=== PATIENT | female | born 1965 | race African-American/Black ===

== ENCOUNTER → 2016-07-26 | Outpatient (CLI) | payer MEDICARE, OTHER ==
[~2016-07-26] MED LIST: AMLO5TAB2 PO; ASPI81CH CHEW; BIOM30MI; CARV12.52 PO; FLUT50SP EACH NARE; INSU1MIS15; LANCETS1 MI1; LANTUS2P SQ; METO10TA PO; OMEP20TA PO; VENTAER INH
[2016-07-26 08:41] LABS: HDL CHOLESTEROL 47.9 MG/DL (40.0-60.0)
== END ==
LOC: CLAB 07:57
PROVIDERS: ATTEND Family Medicine
DX: E11.65 Type 2 diabetes mellitus with hyperglycemia (principal)
CPT/HCPCS: 36415; 80061

== ENCOUNTER 2017-02-13 15:23 | Inpatient (IN) | payer MEDICARE, OTHER ==
[~2017-02-13] VITALS: Ht 162.6 cm; Wt 125.2 kg
[2017-02-13 15:25] VITALS: BP 224/102; PULSE 95; RESP 18; TEMP 98.4; O2SAT 98
[2017-02-13] MEDS ORDERED: methylPREDNISolone SOD SUCC 125 MG/2 ML VIAL IV PUSH ONE (16:00)
[2017-02-13] MEDS ORDERED: SODIUM CHLORIDE 0.9% FLUSH 10 ML FLUSH IVF PRN (16:00)
[2017-02-13] MEDS: RESP: ALBUTEROL 2.5 MG/IPRATROPIUM 0.5 MG NEB (SCH) INH ×2 (16:16→16:17)
[2017-02-13 16:36] LABS: AUTOMATED NEUTROPHIL # 5.6 TH/MM3 (1.8-7.7); BASOPHIL % 0.6 % (0.0-2.0); EOSINOPHIL # 0.3 TH/MM3 (0-0.4); EOSINOPHIL % 3.5 % (0.0-4.0); HEMATOCRIT 28.8 % (35.0-46.0); HEMO FLAGS DIFF FINAL; LYMPH % 12.6 % (9.0-44.0); MEAN CELL VOLUME 91.8 FL (80.0-100.0); MEAN CORPUSCULAR HEMOGLOBIN 29.4 PG (27.0-34.0); MONO % 8.9 % (0.0-8.0); NEUT % 74.4 % (16.0-70.0); PLATELET COUNT 318 TH/MM3 (150-450); RED BLOOD COUNT 3.13 MIL/MM3 (4.00-5.30); RED CELL DISTRIBUTION WIDTH 15.8 % (11.6-17.2); WHITE BLOOD COUNT 7.6 TH/MM3 (4.0-11.0)
[2017-02-13 16:49] LABS: APTT (PATIENT) 26.1 SEC (24.3-30.1); PROTHROMBIN TIME - PATIENT 10.5 SEC (9.8-11.6)
[2017-02-13 17:06] LABS: ALT (GPT) 14 U/L (10-53); ANION GAP 5 MEQ/L (5-15); AST (GOT) 11 U/L (15-37); BLOOD UREA NITROGEN 40 MG/DL (7-18); CHLORIDE 105 MEQ/L (98-107); GLOMERULAR FILTRATION RATE 10 ML/MIN (>89); POTASSIUM 5.2 MEQ/L (3.5-5.1); SODIUM (NA) 140 MEQ/L (136-145)
[2017-02-13 17:10] LABS: ALKALINE PHOSPHATASE 75 U/L (45-117); TOTAL BILIRUBIN ADULT 0.2 MG/DL (0.2-1.0)
[2017-02-13 17:20] VITALS: BP_SYST 100; BP_SYST 110; BP_DIAS 81; BP_DIAS 84; PULSE 71; PULSE 74; RESP 16; RESP 18; O2SAT 97; O2SAT 98; O2SAT 99
--- NOTE | 2017-02-13 17:29 | RADRPT ---
EXAM DATE/TIME: 02/13/2017 17:01 [facility] COMPARISON: CHEST SINGLE AP, February 12, 2016, 23:40. INDICATIONS : Chest pain. Shortness of breath with a cough. MEDICAL HISTORY : Hypertension. Diabetes. Asthma. SURGICAL HISTORY : None. ENCOUNTER: Initial ACUITY: 2 weeks PAIN SCORE: 2/10 LOCATION: Bilateral chest FINDINGS: A single portable frontal view the chest shows moderate cardiomegaly. No discrete infiltrate or effus ion. No pneumothorax. Bony structures are unremarkable. CONCLUSION: Moderate cardiomegaly. Clear lungs. Dale Fisher Jr., MD on February 13, 2017 at 17:21 Board Certified Radiologist. This report was verified electronically.
--- NOTE | 2017-02-13 17:30 | RADRPT ---
EXAM DATE/TIME: 02/13/2017 17:03 [facility] COMPARISON: No previous studies available for comparison. INDICATIONS : Possible foreign body. Patient states she has been having trouble swallowing. Cold symptoms for the p ast two weeks. MEDICAL HISTORY : Hypertension. Diabetes. Asthma. SURGICAL HISTORY : None. ENCOUNTER: Initial ACUITY: 2 weeks PAIN SCORE: 0/10 LOCATION: Bilateral neck. FINDINGS: Two view examination of the soft tissues of the neck demonstrates aryepiglottic fold thickening. The trachea is midline. No radiopaque foreign bodies are seen. Calcified plaque involving the carotid ar teries bilaterally. A degenerative cervical spine. CONCLUSION: 1. Aryepiglottic fold thickening suggesting edema. No radiopaque foreign body. Dale Fisher Jr., MD on February 13, 2017 at 17:27 Board Certified Radiologist. This report was verified electronically.
[2017-02-13] MEDS ORDERED: SODIUM CHLOR 0.9% 1000 ML INJ 1,000 ML IV SCH (18:45)
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
[2017-02-13] MEDS ORDERED: NALOXONE HCL 0.4 MG/ML AMP IV PRN (19:15)
[2017-02-13] MEDS ORDERED: SODIUM CHLORIDE 0.9% FLUSH 10 ML FLUSH IV FLUSH PRN (19:15)
[2017-02-13] MEDS ORDERED: RESP: ALBUTEROL 2.5 MG/IPRATROPIUM 0.5 MG NEB (PRN) NEB (19:30)
[2017-02-13 19:33] VITALS: BP 224/99; PULSE 86; RESP 20; O2SAT 96
[2017-02-13 20:02] VITALS: BP 223/101
[2017-02-13] MEDS: RESP: ALBUTEROL 2.5 MG/IPRATROPIUM 0.5 MG NEB (SCH) NEB (20:28)
[2017-02-13] MEDS: SODIUM CHLORIDE 0.9% FLUSH 10 ML FLUSH IV FLUSH SCH (20:45)
[2017-02-13] MEDS ORDERED: BENZONATATE 100 MG CAP PO PRN (22:15)
--- NOTE | 2017-02-13 22:18 | HHI.HP ---
HPI Service Family Medicine Primary Care Physician No Primary Care Physician Admission Diagnosis shortness of breath Diagnoses: International Travel<30 Days: No Contact w/Intl Traveler<30days: No Known Affected Area: No History of Present Illness Mrs. Menjivar is a 51 yo F with PMH of CAD (NSTEMI 2010; s/p stent placent), T2DM, CKD, anemia who presents for evaluation of shortness of breath. Patient reports that she has felt shortness of breath for approximately 1 week; patient states that she was eating chicken at that time when she felt her tooth break; patient collected part of her tooth in her hand at that time but is concerned she swallowed her tooth. No voice changes or drooling. No significant throat pain. Patient states that since that time she has had increased shortness of breath. Patient reports that she has also had coughing which has been dry; patient thinks that she has had a cold. Patient states that her cough has made her shortness of breath worse, and states that it generally does. Patient does not report associated chest pain with shortness of breath. Patient states that both of her legs have recently been swollen, but she attributes this to stopping a diuretic recently. Patient reports that she currently smokes cigarettes but that she is ceasing to do so. Patient does not report any changes in vision, headache, extremity numbness/tingling. Patient reports that her urination has been unchanged; patient states that she urinates approximately 10-15 minutes and that her urine volume has remained approximately the same. Patient states that her blood glucose levels have been well controlled at home, and that she recently has had fasting values ~90-130. Interval History: Patient reports that symptoms are much improved in response to interventions given in ED [presumably Solumedrol 125mg and Duonebs] Review of Systems Constitutional: DENIES: Fever, Chills Eyes: DENIES: Blurred vision, Eye pain Ears, nose, mouth, throat: DENIES: Throat pain, Running Nose Cardiovascular: DENIES: Chest pain, Dyspnea on Exertion Gastrointestinal: DENIES: Abdominal pain, Nausea Genitourinary: DENIES: Urgency, Dysuria Integumentary: DENIES: Abnormal pigmentation, Rash Hematologic/lymphatic: DENIES: Bruising, Lymphadenopathy Neurologic: DENIES: Abnormal gait, Headache Psychiatric: DENIES: Anxiety, Confusion Past Family Social History Past Medical History Per EMR DM Type II - difficult control CAD NSTEMI with preserved EF 09/2010 Chronic kidney disease HLD ; HTN Metrorrhaghia Anemia Allergic rhinitis Poor medical compliance secondary to multiple socioeconomic issues Past Surgical History Per EMR Cardiac catheterization with stent of RCA (2010) Cholecystectomy, open (1979) Reported Medications Reported Meds & Active Scripts Active Carvedilol 12.5 Mg Tab 12.5 Mg PO BID Insulin Syringe/U-100/31G X 10/18" 1 ml 1 Mis Mis 1 Ea .ROUTE DIRECTED Metoclopramide (Metoclopramide HCl) 10 Mg Tab 10 Mg PO TIDAC Take one tab 30 min before meals for 12 weeks Lantus Inj (Insulin Glargine) 1,000 Unit/10 Ml Vial 27 Units SQ HS Amlodipine (Amlodipine Besylate) 5 Mg Tab 5 Mg PO DAILY Omeprazole 20 Mg Tab 20 Mg PO DAILY Sharpsafety Sharps Contai (Parenteral Therapy Supplies) 1 Mis Mis 1 Ea .ROUTE DIRECTED Lancets 1 Mis Mis 1 Ea .ROUTE DIRECTED Aspirin 81 Mg Chew 81 Mg CHEW ONCE Reported Fluticasone Nasal Mcdonald 50 Mcg/Act Naspr 50 Mcg EACH NARE BID 50 mcg/spray Allergies: Coded Allergies: Sulfa (Sulfonamide Antibiotics) (Verified Allergy, Severe, 02/13/17) naproxen (Verified Allergy, Severe, throat closure , 02/13/17) sulfamethoxazole (Verified Allergy, Severe, 02/13/17) trimethoprim (Verified Allergy, Severe, 02/13/17) egg (Verified Allergy, Intermediate, 02/13/17) Hives morphine (Verified Allergy, Intermediate, Nausea/Vomiting, 02/13/17) penicillin G (Verified Allergy, Intermediate, SWELLING AND ITCHING, ) *MDRO Multi-Drug Resistant Organism (Verified Adverse Reaction, Unknown, ) MRSA PCR screen POSITIVE - 04/15/16 Family History DM, renal disease (sister) Mom: from HTN, brain tumor Dad: Never has seen him No one has been on dialysis that she knows of Social History Lives in [place] in apartment with daughter History of tobacco use - 1 ppd x 36 years Alcohol- Socially 1 adult daughter who is very involved in her life 1 sister with whom she is close Physical Exam Vital Signs Vital Signs Date Time Temp Pulse Resp B/P (MAP) Pulse Ox O2 Delivery O2 Flow Rate FiO2 02/13/17 20:02 223/101 (141) 02/13/17 19:33 86 20 224/99 (140) 96 Room Air 02/13/17 17:20 71 18 110/81 (91) 98 Nasal Cannula 2.00 02/13/17 17:20 74 18 110/84 (93) 99 Nasal Cannula 2.00 02/13/17 17:20 71 16 100/84 (89) 97 Nasal Cannula 2.00 02/13/17 17:20 97 Nasal Cannula 2.00 02/13/17 15:58 16 98 Room Air 02/13/17 15:25 98.4 95 18 224/102 (142) 98 Physical Exam GENERAL: Patient appears comfortable, in no acute distress. SKIN: Warm and dry, no rashes appreciated EYES: No scleral icterus, injection, or drainage. HENT: Head: Normocephalic. Mouth: No lesions appreciated. Pharynx: Posterior oropharynx difficult to visualize due to tongue size. NECK: No appreciated lymphadenopathy or thyromegaly. No obvious neck swelling CARDIOVASCULAR: Regular rate and rhythm without murmurs. Normal peripheral perfusion in lower extremities. RESPIRATORY: Normal respiratory rate.Breath sounds equal bilaterally; inspiratory sounds suggestive of upper congestion; no wheezing appreciated. GASTROINTESTINAL: Abdomen soft, nondistended, nontender. Bowel sounds normal. MUSCULOSKELETAL: Bilateral mild LE swelling; calves symmetrical NEURO/PSYCH: Awake, alert, and oriented. Cranial nerves grossly normal. Grossly normal motor and sensory function. Laboratory Laboratory Tests Test 02/13/17 16:15 White Blood Count 7.6 Red Blood Count 3.13 Hemoglobin 9.2 Hematocrit 28.8 Mean Corpuscular Volume 91.8 Mean Corpuscular Hemoglobin 29.4 Mean Corpuscular Hemoglobin Concent 32.0 Red Cell Distribution Width 15.8 Platelet Count 318 Mean Platelet Volume 8.7 Neutrophils (%) (Auto) 74.4 Lymphocytes (%) (Auto) 12.6 Monocytes (%) (Auto) 8.9 Eosinophils (%) (Auto) 3.5 Basophils (%) (Auto) 0.6 Neutrophils # (Auto) 5.6 Lymphocytes # (Auto) 1.0 Monocytes # (Auto) 0.7 Eosinophils # (Auto) 0.3 Basophils # (Auto) 0.0 CBC Comment DIFF FINAL Differential Comment Prothrombin Time 10.5 Prothromb Time International Ratio 1.0 Activated Partial Thromboplast Time 26.1 D-Dimer Quantitative (PE/DVT) 0.70 Blood Urea Nitrogen 40 Creatinine 5.50 Random Glucose 55 Total Protein 8.6 Albumin 3.5 Calcium Level 8.8 Alkaline Phosphatase 75 Aspartate Amino Transf (AST/SGOT) 11 Alanine Aminotransferase (ALT/SGPT) 14 Total Bilirubin 0.2 Sodium Level 140 Potassium Level 5.2 Chloride Level 105 Carbon Dioxide Level 30.0 Anion Gap 5 Estimat Glomerular Filtration Rate 10 Troponin I LESS THAN 0.02 B-Type Natriuretic Peptide 31 Result Diagram: 02/13/17 1615 02/13/17 1615 Imaging Last Impressions Chest X-Ray 02/13/17 1559 Signed Impressions: Service Date/Time: Monday, February 13, 2017 17:01 - CONCLUSION: Moderate cardiomegaly. Clear lungs. Dale Fisher Jr., MD Soft Tissue Neck X-Ray 02/13/17 0000 Signed Impressions: Service Date/Time: Monday, February 13, 2017 17:03 - CONCLUSION: 1. Aryepiglottic fold thickening suggesting edema. No radiopaque foreign body. Dale Fisher Jr., MD Neck Ultrasound 02/13/17 0000 Signed Impressions: Service Date/Time: Monday, February 13, 2017 22:48 - CONCLUSION: 1. No neck mass or fluid collection identified sonographically in the midline neck. Bubba Mccarty MD Lower Extremity Ultrasound 02/13/17 0000 Signed Impressions: Service Date/Time: Monday, February 13, 2017 22:53 - CONCLUSION: Normal examination. Bubba Mccarty MD Caprini VTE Risk Assessment Caprini VTE Risk Assessment: Mod/High Risk (score >= 2) Caprini Risk Assessment Model Point Value = 1 Point Value = 2 Point Value = 3 Point Value = 5 Age 41-60 Minor surgery BMI > 25 kg/m2 Swollen legs Varicose veins or History of unexplained or recurrent spontaneous Oral contraceptives or hormone replacement Sepsis (< 1 month) Serious lung disease, including pneumonia (< 1 month) Abnormal pulmonary function Acute myocardial infarction Congestive heart failure (< 1 month) History of inflammatory bowel disease Medical patient at bed rest Age 61-74 Arthroscopic surgery Major open surgery (> 45 min) Laparoscopic surgery (> 45 min) Malignancy Confined to bed (> 72 hours) Immobilizing plaster cast Central venous access Age >= 75 History of VTE Family history of VTE Factor V Leiden Prothrombin [id number] Lupus anticoagulant Anticardiolipin antibodies Elevated serum homocysteine Heparin-induced thrombocytopenia Other congenital or acquired thrombophilia Stroke (< 1 month) Elective arthroplasty Hip, pelvis, or leg fracture Acute spinal cord injury (< 1 month) Prophylaxis Regimen Total Risk Factor Score Risk Level Prophylaxis Regimen 0-1 Low Early ambulation 2 Moderate Order ONE of the following: *Sequential Compression Device (SCD) *Heparin 5000 units SQ BID 3-4 Higher Order ONE of the following medications: *Heparin 5000 units SQ TID *Enoxaparin/Lovenox 40 mg SQ daily (WT < 150 kg, CrCl > 30 mL/min) *Enoxaparin/Lovenox 30 mg SQ daily (WT < 150 kg, CrCl > 10-29 mL/min) *Enoxaparin/Lovenox 30 mg SQ BID (WT < 150 kg, CrCl > 30 mL/min) AND/OR *Sequential Compression Device (SCD) 5 or more Highest Order ONE of the following medications: *Heparin 5000 units SQ TID (Preferred with Epidurals) *Enoxaparin/Lovenox 40 mg SQ daily (WT < 150 kg, CrCl > 30 mL/min) *Enoxaparin/Lovenox 30 mg SQ daily (WT < 150 kg, CrCl > 10-29 mL/min) *Enoxaparin/Lovenox 30 mg SQ BID (WT < 150 kg, CrCl > 30 mL/min) AND *Sequential Compression Device (SCD) Assessment and Plan Assessment and Plan Mrs. Menjivar is a 51 yo F with PMH of CAD (NSTEMI 2010; s/p stent placent), T2DM, CKD, anemia who presents for evaluation of shortness of breath. Code Status Full code Problem List: (1) Shortness of breath ICD Codes: R06.02 - Shortness of breath Plan: Impression: Unclear etiology. 1 week history of SOB in association with concern for throat swelling/tooth stuck in neck. Concern for stridor CXR with Cardiomegaly but clear Neck XR with aryepiglottic fold thickening suggesting edema. No radiopaque foreign body -Will continue steroid therapy since improvement reported and XR with possible edema -S/P Solumedrol 125mg -Will give Solumedrol 50mg daily -Neck US ordered to further evaluate -Continue Duonebs as needed -Will continue to monitor O2 saturations -Will consider viral panel, addition of azithromycin, and epinephrine nebules after discussion with day team and re-evaluation (2) HTN (hypertension) ICD Codes: I10 - Essential (primary) hypertension Plan: Impression: Patient presented with hypertensive urgency; BP 224/102 without known end organ damage [assuming this did not worsen renal function]. Troponin wnl; EKG without change -We'll attempt gradually low blood pressure over several days -Hydralazine 10 mg when necessary every 6 hours for MIXER WHIPPED TOPPING 190/110 -Clonidine 0.2mg q 8hrs PRN for SBP >180 -Labetalol 10 mg every 6 hours for BP >170/100 -Continue patient's home carvedilol and amlodipine (3) CKD (chronic kidney disease), stage V ICD Codes: N18.5 - Chronic kidney disease, stage 5 Status: Acute Plan: Impression: PMH of CKD with baseline Cr of ~3.3; currently 5.5. Normal urination per patient -Will consult Nephrology for further evaluation -Will continue IVF at 150ml NS/hr in case of prerenal dysfunction -Will check PTH, Vit D level -Will start Vit D 2k Units daily -Urinalysis ordered -Will monitor BMP (4) D-dimer, elevated ICD Codes: R79.89 - Other specified abnormal findings of blood chemistry Plan: Impression: D-dimer obtained in ED on admission for dyspnea; 0.7 ( elevated). VQ scan ordered but could not be obtained due to staffing issue Wells DVT score of 0; Wells PE score of 0 -Since D dimer elevated and patient reports bilateral chronic leg swelling, will check LE US -LE US negative for DVT -Will not anticoagulate empirically since low suspicion for PE (5) CAD (coronary artery disease) ICD Codes: I25.10 - Atherosclerotic heart disease of [place] coronary artery without angina pectoris Status: Chronic Plan: Impression: PMH of CAD s/p stent placement. Patient last seen by Cardiology in 2016 per EMR -Continue medical management of CAD -Continue ASA 81mg -SIMI deferred for renal dysfunction -Continue Carvedilol 25mg daily -May need to clarify/restart Atorvastatin 40mg daily (was taking per Cardiology records) (6) Diabetes ICD Codes: E11.9 - Type 2 diabetes mellitus without complications Status: Chronic Plan: Impression: Patient reports long history of T2DM. Per EMR, patient takes Lantus 27 U HS for blood glucose control BMP on admission with random glucose of 55mg/dl -Will check accuchecks and provide low dose Novolog SS (7) Light cigarette smoker (1-9 cigarettes per day) ICD Codes: F17.210 - Light cigarette smoker (1-9 cigarettes per day) Status: Chronic Plan: Impression: Patient plans to cease smoking in near future -Will discuss further with patient and plan to assist prior to discharge (8) Anemia ICD Codes: D64.9 - Anemia Status: Chronic Plan: Impression: Hgb 9.2 on admission; patient with baseline Hgb of ~9. Suspect secondary to renal failure -Nephrology consulted -Defer to Nephrology regarding EPO administration -Will check ferritin and transferrin saturation (9) Hyperkalemia ICD Codes: E87.5 - Hyperkalemia Status: Acute Plan: Impression: K of 5.2 on admission in association with acute on chronic renal failure. -Will monitor telemetry -Will give Kayexalate 15gm -Will recheck BMP (10) DVT prophylaxis Status: Acute Plan: -Heparin 5K U q8hrs -Bilateral SCD's (11) Nutrition, metabolism, and development symptoms ICD Codes: R63.8 - Symptoms concerning nutrition, metabolism, and development Status: Acute Plan: Fluids: Will give NS at 150ml/hr until Nephrology evaluation Electrolytes: Cr 5.5; above baseline of ~3.3 K 5.2 on admission Nutrition: heart healthy diet Physician Certification 2 Midnight Certification Type: Admission for Inpatient Services Order for Inpatient Services The services are ordered in accordance with Medicare regulations or non- Medicare payer requirements, as applicable. In the case of services not specified as inpatient-only, they are appropriately provided as inpatient services in accordance with the 2-midnight benchmark. Estimated LOS (days): 2 days is the estimated time the patient will need to remain in the hospital, assuming treatment plan goals are met and no additional complications. Post-Hospital Plan: Home Cachorro Ayon MD, R3 Feb 13, 2017 22:18
[2017-02-13] MEDS ORDERED: LABETALOL HCL 100 MG/20 ML VIAL IV PRN (22:30)
[2017-02-13] MEDS ORDERED: SODIUM POLYSTYRENE SULFONATE SUSP 15 GM/60 ML CUP PO ONE (22:45)
[2017-02-13] MEDS: SODIUM CHLOR 0.9% 1000 ML INJ 1,000 ML IV SCH (22:58)
[2017-02-13 22:59] VITALS: BP 183/75; PULSE 87; RESP 16; O2SAT 99
[2017-02-13 23:00] VITALS: BP 211/88; PULSE 84; RESP 16; O2SAT 99
--- NOTE | 2017-02-13 23:34 | RADRPT ---
EXAM DATE/TIME: 02/13/2017 22:48 [facility] COMPARISON: No previous studies available for comparison. INDICATIONS : Neck edema. MEDICAL HISTORY : Hypertension. Hypercholesterolemia. Chronic obstructive pulmonary disease. Myocardial infarction. Co ronary artery disease. Arthritis. Diabetes. MRSA. SURGICAL HISTORY : Cholecystectomy. Cardiac catheterization. Coronary stent. ENCOUNTER: Initial ACUITY: 2 weeks PAIN SCORE: 3/10 LOCATION: Midline neck. AREA EVALUATED: Midline of neck. FINDINGS: MASSES: None. FLUID COLLECTIONS: None. OTHER: Negative. CONCLUSION: 1. No neck mass or fluid collection identified sonographically in the midline neck. Bubba Mccarty MD on February 13, 2017 at 23:31 Board Certified Radiologist. This report was verified electronically.
--- NOTE | 2017-02-13 23:43 | RADRPT ---
EXAM DATE/TIME: 02/13/2017 22:53 [facility] COMPARISON: No previous studies available for comparison. INDICATIONS : Shortness of breath. MEDICAL HISTORY : Hypercholesterolemia. Hypertension. Chronic obstructive pulmonary disease. Myocardial infarction. Co ronary artery disease. Asthma. Gallbladder disease. Arthritis. Diabetes. SURGICAL HISTORY : Cholecystectomy. Cardiac catheterization. Coronary stent. ENCOUNTER: Initial ACUITY: 1 day PAIN SCORE: 6/10 LOCATION: Bilateral legs. TECHNIQUE: Venous ultrasound of the left and right leg was performed from the inguinal ligament to the proximal calf. Real-time, color Doppler and spectral tracing, compression and augmentation techniques were us ed. FINDINGS: RIGHT LEG: There is normal compressibility of the deep venous system from the inguinal region to the proximal ca lf. No echogenic clot is seen in the lumen of the common femoral, femoral, popliteal, and posterior tibial veins. There is a normal response of the venous system to proximal and distal augmentation an d respiration. LEFT LEG: There is normal compressibility of the deep venous system from the inguinal region to the proximal ca lf. No echogenic clot is seen in the lumen of the common femoral, femoral, popliteal, and posterior tibial veins. There is a normal response of the venous system to proximal and distal augmentation an d respiration. CONCLUSION: Normal examination. Bubba Mccarty MD on February 13, 2017 at 23:41 Board Certified Radiologist. This report was verified electronically.
[2017-02-14] VITALS (9 sets, daily range): BP systolic 161–190; BP diastolic 69–98; PULSE 60–114; RESP 16–20; TEMP 98.1–98.8; O2SAT 90–99
[2017-02-14] MEDS: hydrALAZINE HCL 10 MG TAB PO PRN ×2 (00:24→05:51)
[2017-02-14] MEDS ORDERED: ASPIRIN 81 MG CHEW TAB CHEW SCH (01:30)
[2017-02-14] MEDS: cloNIDine HCL 0.2 MG TAB PO PRN ×2 (02:15→13:52)
[2017-02-14] MEDS: CARVEDILOL 12.5 MG TAB PO SCH ×3 (02:15→20:48)
[2017-02-14] MEDS: RESP: ALBUTEROL 2.5 MG/IPRATROPIUM 0.5 MG NEB (SCH) NEB ×3 (02:31→23:48)
[2017-02-14] MEDS ORDERED: DEXTROSE 50% IN WATER 50 ML VIAL(D50) IV PRN (04:00)
[2017-02-14] MEDS ORDERED: GLUCAGON 1 MG/ML VIAL OTHER PRN (04:00)
[2017-02-14] MEDS: SODIUM CHLOR 0.9% 1000 ML INJ 1,000 ML IV SCH (05:50)
[2017-02-14] MEDS: HEPARIN SODIUM - SQ 10,000 UNITS/ML VIAL SQ SCH ×3 (05:51→20:48)
[2017-02-14] MEDS: INSULIN ASPART SUPPLEMENTAL SCALE SQ SCH ×4 (05:56→20:51)
[2017-02-14] MEDS ORDERED: methylPREDNISolone SOD SUCC 125 MG/2 ML VIAL IM SCH (09:00)
[2017-02-14] MEDS ORDERED: amLODIPine BESYLATE 5 MG TAB PO SCH (09:00)
--- NOTE | 2017-02-14 10:11 | RADRPT ---
EXAM DATE/TIME: 02/14/2017 09:03 [facility] COMPARISON: No previous studies available for comparison. INDICATIONS : Short of breath for 1 week. DOSE: 8.6 mCi Tc99m MAA IV 1 mCi Tc99m DTPA aerosol MEDICAL HISTORY : Myocardial infarction. Diabetes mellitus type 2. Renal failure, chronic. SURGICAL HISTORY : Cholecystectomy. Coronary artery stent. ENCOUNTER: Initial ACUITY: 1 week PAIN SCALE: 4/10 LOCATION: Bilateral chest TECHNIQUE: Following five minutes of tidal breathing of DTPA aerosol, planar images of the lungs were performed in eight projections. The patient was then injected with MAA, and eight-view perfusion scan was perf ormed. FINDINGS: The ventilatory portion of the examination demonstrates some central clumping of tracer but is otherw ise unremarkable. The perfusion lung scan demonstrates a homogenous pattern of uptake in both lungs. No segmental or s ubsegmental defects are seen. CONCLUSION: 1. No perfusion defect identified. Examination is negative for PE. Kenneth Lugo MD on February 14, 2017 at 10:09 Board Certified Radiologist. This report was verified electronically.
[2017-02-14] MEDS: methylPREDNISolone SOD SUCC 125 MG/2 ML VIAL IV PUSH SCH ×2 (10:43→20:52)
[2017-02-14] MEDS: SODIUM CHLORIDE 0.9% FLUSH 10 ML FLUSH IV FLUSH SCH ×2 (10:44→20:52)
[2017-02-14] MEDS: CHOLECALCIFEROL (VIT D3) 1000 UNIT TAB PO SCH (10:44)
[2017-02-14] MEDS: METOCLOPRAMIDE HCL 10 MG TAB PO SCH ×3 (10:44→18:50)
[2017-02-14] MEDS: PANTOPRAZOLE SOD 20 MG DELAYED RELEASE TAB PO SCH (11:29)
[2017-02-14] MEDS: FLUTICASONE PROPIONATE 50 MCG/ACT 16 GM NASAL SPRAY EACH NARE SCH ×2 (11:30→20:53)
--- NOTE | 2017-02-14 11:52 | HHI.FPPN ---
Subjective Remarks No acute issues overnight. Blood pressures have been elevated in the 180-200s/ P 70-80s. She remains short of breath and continues to have a productive cough, however she is not tachypneic. She feels better with the nasal cannula, however is able to saturate 96-98% on room air. She denies any chest pain, fever, chills, nausea, or vomiting. She notes that her lower extremity edema has improved since admission. She states that she cannot sleep lying flat and usually sleeps in a recliner. He requests something to help with her cough. (Zahida Clarke MD, R3) Objective Vitals Vital Signs Date Time Temp Pulse Resp B/P (MAP) Pulse Ox O2 Delivery O2 Flow Rate FiO2 02/14/17 08:12 98.1 68 16 183/77 (112) 96 02/14/17 02:52 81 16 161/69 (99) 97 Room Air 02/14/17 02:12 84 20 188/87 (120) 99 Nasal Cannula 2.00 02/14/17 00:27 72 20 190/78 (115) 99 Nasal Cannula 2.00 02/13/17 23:00 84 16 211/88 (129) 99 Nasal Cannula 2.00 02/13/17 22:59 87 16 183/75 (111) 99 Nasal Cannula 2.00 02/13/17 20:33 Nasal Cannula 2.00 02/13/17 20:02 223/101 (141) 02/13/17 19:33 86 20 224/99 (140) 96 Room Air 02/13/17 17:20 71 18 110/81 (91) 98 Nasal Cannula 2.00 02/13/17 17:20 74 18 110/84 (93) 99 Nasal Cannula 2.00 02/13/17 17:20 71 16 100/84 (89) 97 Nasal Cannula 2.00 02/13/17 17:20 97 Nasal Cannula 2.00 02/13/17 15:58 16 98 Room Air 02/13/17 15:25 98.4 95 18 224/102 (142) 98 (Zahida Clarke MD, R3) Result Diagram: 02/13/17 1615 02/13/17 1615 Imaging Last Impressions Lung Scan-VQ Nuclear Medicine 02/14/17 0000 Signed Impressions: Service Date/Time: Tuesday, February 14, 2017 09:03 - CONCLUSION: 1. No perfusion defect identified. Examination is negative for PE. Kenneth Lugo MD Chest X-Ray 02/13/17 1559 Signed Impressions: Service Date/Time: Monday, February 13, 2017 17:01 - CONCLUSION: Moderate cardiomegaly. Clear lungs. Dale Fisher Jr., MD Soft Tissue Neck X-Ray 02/13/17 0000 Signed Impressions: Service Date/Time: Monday, February 13, 2017 17:03 - CONCLUSION: 1. Aryepiglottic fold thickening suggesting edema. No radiopaque foreign body. Dale Fisher Jr., MD Neck Ultrasound 02/13/17 0000 Signed Impressions: Service Date/Time: Monday, February 13, 2017 22:48 - CONCLUSION: 1. No neck mass or fluid collection identified sonographically in the midline neck. Bubba Mccarty MD Lower Extremity Ultrasound 02/13/17 0000 Signed Impressions: Service Date/Time: Monday, February 13, 2017 22:53 - CONCLUSION: Normal examination. Bubba Mccarty MD Objective Remarks GENERAL: Well-nourished, well-developed morbidly obese female, sitting up in bed coughing occasionally. SKIN: Warm and dry. HEAD: Normocephalic. EYES: No scleral icterus. No injection or drainage. NECK: Supple, trachea midline. No JVD or lymphadenopathy. CARDIOVASCULAR: Regular rate and rhythm without murmurs, gallops, or rubs. RESPIRATORY: Breath sounds equal bilaterally. Poor inspiratory airflow with inspiratory wheezes. Better expiratory airflow. No accessory muscle use. GASTROINTESTINAL: Abdomen soft, non-tender, nondistended. MUSCULOSKELETAL: No cyanosis, or edema. BACK: Nontender without obvious deformity. No CVA tenderness. (Zahida Clarke MD, R3) A/P Assessment and Plan Mrs. Menjivar is a 51 yo F with PMH of CAD (NSTEMI 2011; s/p stent placent), T2DM, CKD, anemia who presented with shortness of breath and was admitted for further evaluation/treatment of respiratory distress and renal failure. Discharge Planning Anticipate discharge in the next 2-3 days. phu Duran (Zahida Clarke MD, R3) Attending Attestation Patient seen and examined. Case reviewed and discussed with the resident team. Agree with plan of care as discussed with me and documented in the resident note. Saw her in the H pod where she was admitted. She states she is much better than on admission. She reports a long history of COPD exacerbations. She is more committed to quitting smoking. We discussed her renal failure. She wishes to go on dialysis as an outpt only 2 days per week as she watches and cares for her 3 year old grandson 5 days a week and does not want to change her schedule. She is not happy about her renal failure and still wishes she could "take medicine and get better". However, she is willing to undergo dialysis as an outpt. (Katherine Duran MD) Problem List: (1) Shortness of breath ICD Codes: R06.02 - Shortness of breath Status: Acute Plan: CXR with Cardiomegaly but clear lungs Neck XR with aryepiglottic fold thickening suggesting edema. No radiopaque foreign body Neck ultrasound shows no neck mass or fluid collection Bilateral lower extremity ultrasounds shows no DVT Improvement in symptoms with Solumedrol 125mg IV Poor airflow and wheezing on exam Plan: - Continue Solumedrol 60mg IV Q12H -Continue Duonebs q4h and q2 PRN sob/wheezing -Will continue to monitor O2 saturations - Obtain PFT's, influenza antigens, sputum culture, legionella and pneumococcal urinary antigens, and respiratory panel (2) HTN (hypertension) ICD Codes: I10 - Essential (primary) hypertension Plan: Patient presented with hypertensive urgency; BP 224/102. May be contributing to worsening renal failure as baseline appears to be around 3-4. Troponin wnl; EKG without change -Hydralazine 10 mg when necessary every 6 hours for SUPERINTENDENT GAS DISTRIBUTION 190/110 -Clonidine 0.2mg q 8hrs PRN for SBP >180 -Labetalol 10 mg every 6 hours for BP >170/100 -Continue patient's home carvedilol and amlodipine (3) CKD (chronic kidney disease), stage V ICD Codes: N18.5 - Chronic kidney disease, stage 5 Status: Chronic Plan: PMH of CKD with baseline Cr of 3-4. Urine output decreasing. Creatinine now elevated at 5.5. -Will consult Nephrology for further evaluation - DC IV fluids for fluid retention - check PTH, Vit D level - Vit D 2000 Units daily - obtain UA (4) D-dimer, elevated ICD Codes: R79.89 - Other specified abnormal findings of blood chemistry Status: Acute Plan: D-dimer obtained in ED on admission for dyspnea; 0.7 (elevated). Bilateral LE US negative for DVT. VQ scan negative for PE. (5) CAD (coronary artery disease) ICD Codes: I25.10 - Atherosclerotic heart disease of [place] coronary artery without angina pectoris Status: Chronic Plan: PMH of CAD s/p stent placement. Patient last seen by Cardiology in 2016 per EMR -Continue medical management of CAD -Continue ASA 81mg -SIMI deferred for renal dysfunction -Continue Carvedilol 25mg daily -Atorvastatin 40mg daily (6) Diabetes ICD Codes: E11.9 - Type 2 diabetes mellitus without complications Status: Chronic Plan: Hold home Lantus 27 units HS BMP on admission with random glucose of 55mg/dl Last accucheck 336 -accuchecks -low dose Novolog SSI - Add Levemir 5 units BID (7) Anemia ICD Codes: D64.9 - Anemia Status: Chronic Plan: Impression: Hgb 9.2 on admission; patient with baseline Hgb of ~9. Suspect secondary to renal failure. -Nephrology consulted (8) Hyperkalemia ICD Codes: E87.5 - Hyperkalemia Status: Acute Plan: Impression: K of 5.2 on admission in association with acute on chronic renal failure. -Will monitor telemetry -Kayexalate 15gm -recheck BMP (9) DVT prophylaxis Status: Acute Plan: -Heparin 5000 units q8hrs -Bilateral SCD's (10) Nutrition, metabolism, and development symptoms ICD Codes: R63.8 - Symptoms concerning nutrition, metabolism, and development Status: Acute Plan: Fluids: Hold fluids for fluid overload Electrolytes: continue to monitor and replete as needed Nutrition: heart healthy, renal diet (Zahida Clarke MD, R3) Problem Qualifiers (1) HTN (hypertension): Qualified Codes: I10 - Essential (primary) hypertension (2) CAD (coronary artery disease): Qualified Codes: I25.10 - Atherosclerotic heart disease of [place] coronary artery without angina pectoris (3) Diabetes: Qualified Codes: E11.9 - Type 2 diabetes mellitus without complications; Z79.4 - director long term care (current) use of insulin (4) Anemia: Qualified Codes: N18.4 - Chronic kidney disease, stage 4 (severe); D63.1 - Anemia in chronic kidney disease Zahida Clarke MD, R3 Feb 14, 2017 11:52 Katherine Duran MD Feb 14, 2017 16:13
[2017-02-14] MEDS: INSULIN DETEMIR 100 UNITS/ML VIAL SQ SCH ×2 (13:05→20:49)
--- NOTE | 2017-02-14 13:14 | PD.CONS ---
HPI Service Nephrology Consult Requested By Dr. Ayon Reason for Consult End-stage renal disease Primary Care Physician No Primary Care Physician History of Present Illness Patient is a 51-year-old female with obesity, diabetes, hypertension, stage V chronic kidney disease approaching ESRD, she was referred to Dr. Ritchie for AV fistula placement last year and was a no-show, despite our efforts to educate her she remained noncompliant and developed progressive shortness of breath and admitted to the hospital, she describes her symptoms as flulike illness with tiredness and chest congestion and easy fatigue, she is now admitted and creatinine is 5.5 with a GFR of 10 Review of Systems Constitutional: COMPLAINS OF: Fatigue Respiratory: COMPLAINS OF: Shortness of breath Cardiovascular: COMPLAINS OF: Lower Extremity Edema Psychiatric: COMPLAINS OF: Anxiety Past Family Social History Allergies: Coded Allergies: Sulfa (Sulfonamide Antibiotics) (Verified Allergy, Severe, 02/13/17) naproxen (Verified Allergy, Severe, throat closure , 02/13/17) sulfamethoxazole (Verified Allergy, Severe, 02/13/17) trimethoprim (Verified Allergy, Severe, 02/13/17) egg (Verified Allergy, Intermediate, 02/13/17) Hives morphine (Verified Allergy, Intermediate, Nausea/Vomiting, 02/13/17) penicillin G (Verified Allergy, Intermediate, SWELLING AND ITCHING, ) *MDRO Multi-Drug Resistant Organism (Verified Adverse Reaction, Unknown, ) MRSA PCR screen POSITIVE - 04/15/16 Past Medical History DM Type II -poor compliance CAD NSTEMI with preserved EF 09/2010 Chronic kidney disease HLD HTN Metrorrhagia Anemia Allergic rhinitis Poor medical compliance secondary to multiple socioeconomic issues Past Surgical History Heart catheterization with previous stent Cholecystectomy Reported Medications Reported Meds & Active Scripts Active Carvedilol 12.5 Mg Tab 12.5 Mg PO BID Insulin Syringe/U-100/31G X 10/18" 1 ml 1 Mis Mis 1 Ea .ROUTE DIRECTED Metoclopramide (Metoclopramide HCl) 10 Mg Tab 10 Mg PO TIDAC Take one tab 30 min before meals for 12 weeks Lantus Inj (Insulin Glargine) 1,000 Unit/10 Ml Vial 27 Units SQ HS Amlodipine (Amlodipine Besylate) 5 Mg Tab 5 Mg PO DAILY Omeprazole 20 Mg Tab 20 Mg PO DAILY Sharpsafety Sharps Contai (Parenteral Therapy Supplies) 1 Mis Mis 1 Ea .ROUTE DIRECTED Lancets 1 Mis Mis 1 Ea .ROUTE DIRECTED Aspirin 81 Mg Chew 81 Mg CHEW ONCE Reported Fluticasone Nasal [place] 50 Mcg/Act Naspr 50 Mcg EACH NARE BID 50 mcg/spray Active Ordered Medications Current Medications Medications (Trade) Dose Ordered Sig/[place] Route Start Time Stop Time Status Last Admin (NS Flush) 2 ml UNSCH PRN IV FLUSH 02/13/17 19:15 02/14/17 05:50 (NS Flush) 2 ml BID IV FLUSH 02/13/17 21:00 02/14/17 10:44 (Narcan Inj) 0.4 mg UNSCH PRN IV 02/13/17 19:15 (Duoneb Neb) 1 ampule Q2HR NEB PRN NEB 02/13/17 19:30 (Tessalon) 100 mg TID PRN PO 02/13/17 22:15 02/13/17 22:59 (Vitamin D3) 2,000 units DAILY PO 02/14/17 09:00 02/14/17 10:44 (Apresoline) 10 mg Q6HR PRN PO 02/13/17 23:00 02/14/17 05:51 (Catapres) 0.2 mg Q8HR PRN PO 02/14/17 01:30 02/14/17 02:15 (Norvasc) 5 mg DAILY PO 02/14/17 09:00 02/14/17 08:42 (Coreg) 12.5 mg BID PO 02/14/17 01:30 02/14/17 08:42 (Flonase Eric Spr) 1 spray BID EACH NARE 02/14/17 09:00 02/14/17 11:30 (Reglan) 5 mg TIDAC PO 02/14/17 08:00 02/14/17 10:44 (Protonix) 20 mg DAILY PO 02/14/17 09:00 02/14/17 11:29 (Heparin Inj) 5,000 units Q8HR SQ 02/14/17 06:00 02/14/17 05:51 (D50w (Vial) Inj) 50 ml UNSCH PRN IV 02/14/17 04:00 (Glucagon Inj) 1 mg UNSCH PRN OTHER 02/14/17 04:00 (NovoLOG SUPPLEMENTAL SCALE) 1 ACHS SLIDING SCALE SQ 02/14/17 07:00 02/14/17 05:56 (Duoneb Neb) 1 ampule Q4HR NEB NEB 02/14/17 12:00 (SoluMEDROL INJ) 60 mg Q12H IV PUSH 02/14/17 09:00 02/14/17 10:43 (Robitussin Dm 200-20 Mg/10 ml Liq) 10 ml Q4H PRN PO 02/14/17 09:00 (Lipitor) 40 mg HS PO 02/14/17 21:00 (Levemir Inj) 5 units Q12HR SQ 02/14/17 12:00 Family History Sister has kidney disease Social History Denies smoking or alcohol use Physical Exam Vital Signs Vital Signs Date Time Temp Pulse Resp B/P (MAP) Pulse Ox O2 Delivery O2 Flow Rate FiO2 02/14/17 08:12 98.1 68 16 183/77 (112) 96 02/14/17 02:52 81 16 161/69 (99) 97 Room Air 02/14/17 02:12 84 20 188/87 (120) 99 Nasal Cannula 2.00 02/14/17 00:27 72 20 190/78 (115) 99 Nasal Cannula 2.00 02/13/17 23:00 84 16 211/88 (129) 99 Nasal Cannula 2.00 02/13/17 22:59 87 16 183/75 (111) 99 Nasal Cannula 2.00 02/13/17 20:33 Nasal Cannula 2.00 02/13/17 20:02 223/101 (141) 02/13/17 19:33 86 20 224/99 (140) 96 Room Air 02/13/17 17:20 71 18 110/81 (91) 98 Nasal Cannula 2.00 02/13/17 17:20 74 18 110/84 (93) 99 Nasal Cannula 2.00 02/13/17 17:20 71 16 100/84 (89) 97 Nasal Cannula 2.00 02/13/17 17:20 97 Nasal Cannula 2.00 02/13/17 15:58 16 98 Room Air 02/13/17 15:25 98.4 95 18 224/102 (142) 98 Physical Exam GENERAL: Well-nourished, well-developed patient. SKIN: Warm and dry. HEAD: Normocephalic. EYES: No scleral icterus. No injection or drainage. NECK: Supple, trachea midline. No JVD or lymphadenopathy. CARDIOVASCULAR: Regular rate and rhythm without murmurs, gallops, or rubs. RESPIRATORY: Breath sounds diminished at bases GASTROINTESTINAL: Abdomen soft, non-tender, nondistended. EXTREMITIES: No cyanosis, 1+ edema. NEUROLOGICAL: Awake, alert, and oriented x 3. Non-focal. Laboratory Laboratory Tests Test 02/13/17 16:15 White Blood Count 7.6 Red Blood Count 3.13 Hemoglobin 9.2 Hematocrit 28.8 Mean Corpuscular Volume 91.8 Mean Corpuscular Hemoglobin 29.4 Mean Corpuscular Hemoglobin Concent 32.0 Red Cell Distribution Width 15.8 Platelet Count 318 Mean Platelet Volume 8.7 Neutrophils (%) (Auto) 74.4 Lymphocytes (%) (Auto) 12.6 Monocytes (%) (Auto) 8.9 Eosinophils (%) (Auto) 3.5 Basophils (%) (Auto) 0.6 Neutrophils # (Auto) 5.6 Lymphocytes # (Auto) 1.0 Monocytes # (Auto) 0.7 Eosinophils # (Auto) 0.3 Basophils # (Auto) 0.0 CBC Comment DIFF FINAL Differential Comment Prothrombin Time 10.5 Prothromb Time International Ratio 1.0 Activated Partial Thromboplast Time 26.1 D-Dimer Quantitative (PE/DVT) 0.70 Blood Urea Nitrogen 40 Creatinine 5.50 Random Glucose 55 Total Protein 8.6 Albumin 3.5 Calcium Level 8.8 Alkaline Phosphatase 75 Aspartate Amino Transf (AST/SGOT) 11 Alanine Aminotransferase (ALT/SGPT) 14 Total Bilirubin 0.2 Sodium Level 140 Potassium Level 5.2 Chloride Level 105 Carbon Dioxide Level 30.0 Anion Gap 5 Estimat Glomerular Filtration Rate 10 Troponin I LESS THAN 0.02 B-Type Natriuretic Peptide 31 Date/Time Source Procedure Growth Status 02/14/17 11:37 Urine Clean Catch Legionella Antigen - Final PRESUMPTIVE NEGATIVE FOR LEGIONELLA P... Complete 02/14/17 11:37 Urine Clean Catch Streptococcus pneumoniae Antigen (M - Final PRESUMPTIVE NEGATIVE FOR STREPTOCOCCU... Complete Result Diagram: 02/13/17 1615 02/13/17 1615 Imaging Last Impressions Lung Scan-VQ Nuclear Medicine 02/14/17 0000 Signed Impressions: Service Date/Time: Tuesday, February 14, 2017 09:03 - CONCLUSION: 1. No perfusion defect identified. Examination is negative for PE. Kenneth Lugo MD Chest X-Ray 02/13/17 1559 Signed Impressions: Service Date/Time: Monday, February 13, 2017 17:01 - CONCLUSION: Moderate cardiomegaly. Clear lungs. Dale Fisher Jr., MD Soft Tissue Neck X-Ray 02/13/17 0000 Signed Impressions: Service Date/Time: Monday, February 13, 2017 17:03 - CONCLUSION: 1. Aryepiglottic fold thickening suggesting edema. No radiopaque foreign body. Dale Fisher Jr., MD Neck Ultrasound 02/13/17 0000 Signed Impressions: Service Date/Time: Monday, February 13, 2017 22:48 - CONCLUSION: 1. No neck mass or fluid collection identified sonographically in the midline neck. Bubba Mccarty MD Lower Extremity Ultrasound 02/13/17 0000 Signed Impressions: Service Date/Time: Monday, February 13, 2017 22:53 - CONCLUSION: Normal examination. Bubba Mccarty MD Assessment and Plan Problem List: (1) ESRD (end stage renal disease) ICD Codes: N18.6 - End stage renal disease Status: Chronic Plan: Patient has been told on several occasions that she needs to prepare for dialysis, she was referred to Dr. Ritchie in preparation for AV fistula but then decided against it and was no-show She has been noncompliant with office visits, instructions and follow-up She is again told that she needs dialysis but refused to accept this, continued to ask for medications which can fix her kidney failure I have again emphasized that she needs hemodialysis or other modality of dialysis to have a healthier lifestyle, she is having signs of uremia which can progress and cause further sickness And if it remains untreated can lead to more complications including . She continued to argue and did not accept my argument and do not wish to do hemodialysis. At this point the I will recommend that she should consider hospice or comfort measures as her condition is getting worse. Her treatment options are limited and dialysis is indicated. (2) Chronic uremia ICD Codes: N18.9 - Chronic kidney disease, unspecified Plan: Patient continued to refuse dialysis (3) Diabetes ICD Codes: E11.9 - Type 2 diabetes mellitus without complications Status: Chronic Plan: Not well-controlled continue to monitor (4) HTN (hypertension) ICD Codes: I10 - Essential (primary) hypertension Plan: Labile hypertension increase Amlodipine to 5 mg bid, Hydralazine 25 mg tid (5) Hyperkalemia ICD Codes: E87.5 - Hyperkalemia Status: Acute Plan: Renal failure limit potassium in diet use Kayexalate Problem Qualifiers (1) Diabetes: Qualified Codes: E11.9 - Type 2 diabetes mellitus without complications; 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
--- NOTE | 2017-02-14 13:47 | EKG ---
Date Performed: 02/13/2017 Time Performed: 16:13:06 PTAGE: 51 years EKG: Sinus rhythm NORMAL ECG Compared to prior tracing no significant change PREVIOUS TRACING : 04/15/2016 00.01 DOCTOR: Dari Day Interpretating Date/Time 02/14/2017 13:45:42
[2017-02-14] MEDS: hydrALAZINE HCL 25 MG TAB PO SCH ×2 (13:52→20:48)
[2017-02-14] MEDS: guaiFENesin/DEXTROMETHORPHAN 200 MG/20 MG/10 ML CUP PO PRN (13:56)
[2017-02-14 15:54] LABS: HEMATOCRIT 30.6 % (35.0-46.0); MEAN CELL VOLUME 92.6 FL (80.0-100.0); MEAN CORPUSCULAR HEMOGLOBIN 27.9 PG (27.0-34.0); MEAN CORPUSCULAR HGB CONC 30.2 % (32.0-36.0); PLATELET COUNT 311 TH/MM3 (150-450); RED CELL DISTRIBUTION WIDTH 15.6 % (11.6-17.2); REVIEW FLAG FINAL; WHITE BLOOD COUNT 13.5 TH/MM3 (4.0-11.0)
[2017-02-14 16:27] LABS: TRANSFERRIN 215 MG/DL (213-418); TRANSFERRIN IRON PROFILE 215 MG/DL (200-360)
[2017-02-14 16:30] LABS: ALKALINE PHOSPHATASE 75 U/L (45-117); ALT (GPT) 16 U/L (10-53); ANION GAP 7 MEQ/L (5-15); AST (GOT) 19 U/L (15-37); BICARBONATE 26.8 MEQ/L (21.0-32.0); BLOOD UREA NITROGEN 48 MG/DL (7-18); CHLORIDE 102 MEQ/L (98-107); FERRITIN 27 NG/ML (8-252); GLOMERULAR FILTRATION RATE 10 ML/MIN (>89); SODIUM (NA) 136 MEQ/L (136-145); TOTAL BILIRUBIN ADULT 0.3 MG/DL (0.2-1.0)
[2017-02-14 16:33] LABS: POTASSIUM 6.2 MEQ/L (3.5-5.1)
[2017-02-14] MEDS: amLODIPine BESYLATE 5 MG TAB PO SCH (20:47)
[2017-02-14] MEDS: ATORVASTATIN 40 MG TAB PO SCH (20:48)
[2017-02-15] VITALS (12 sets, daily range): BP systolic 144–196; BP diastolic 74–92; PULSE 55–84; RESP 16–20; TEMP 97.8–98.3; O2SAT 94–97
[2017-02-15] MEDS: RESP: ALBUTEROL 2.5 MG/IPRATROPIUM 0.5 MG NEB (SCH) NEB ×6 (03:43→23:29)
[2017-02-15 03:47] LABS: BLOOD, URINE MOD (NEG); GLUCOSE,URINE 1000 mg/dL (NEG); KETONE, URINE NEG (NEG); NITRITE,URINE NEG (NEG); SQUAMOUS EPITHELIAL CELL URINE 1 /hpf (0-5); URINE COLOR LIGHT-YELLOW (YELLW/STRAW)
[2017-02-15 03:55] LABS: COMMENT (UR) CULT NOT INDICATED; CULTURE IF INDICATED CULT NOT INDICATED
[2017-02-15] MEDS: cloNIDine HCL 0.2 MG TAB PO PRN ×2 (04:30→17:15)
[2017-02-15] MEDS: hydrALAZINE HCL 25 MG TAB PO SCH ×3 (05:26→21:06)
[2017-02-15] MEDS: HEPARIN SODIUM - SQ 10,000 UNITS/ML VIAL SQ SCH ×3 (05:27→21:06)
[2017-02-15] MEDS ORDERED: SODIUM POLYSTYRENE SULFONATE SUSP 15 GM/60 ML CUP PO ONE (08:30)
[2017-02-15] MEDS: methylPREDNISolone SOD SUCC 125 MG/2 ML VIAL IV PUSH SCH (08:33)
[2017-02-15] MEDS: amLODIPine BESYLATE 5 MG TAB PO SCH ×2 (08:33→21:06)
[2017-02-15] MEDS: PANTOPRAZOLE SOD 20 MG DELAYED RELEASE TAB PO SCH (08:33)
[2017-02-15] MEDS: CARVEDILOL 12.5 MG TAB PO SCH ×2 (08:33→21:07)
[2017-02-15] MEDS: METOCLOPRAMIDE HCL 10 MG TAB PO SCH ×3 (08:34→17:14)
[2017-02-15] MEDS: SODIUM CHLORIDE 0.9% FLUSH 10 ML FLUSH IV FLUSH SCH ×2 (08:35→21:07)
[2017-02-15] MEDS: FLUTICASONE PROPIONATE 50 MCG/ACT 16 GM NASAL SPRAY EACH NARE SCH ×2 (08:35→21:00)
[2017-02-15] MEDS: INSULIN DETEMIR 100 UNITS/ML VIAL SQ SCH (08:38)
[2017-02-15] MEDS: INSULIN ASPART SUPPLEMENTAL SCALE SQ SCH ×4 (08:38→21:00)
[2017-02-15] MEDS: CHOLECALCIFEROL (VIT D3) 1000 UNIT TAB PO SCH (08:38)
[2017-02-15] MEDS: guaiFENesin/DEXTROMETHORPHAN 200 MG/20 MG/10 ML CUP PO PRN (09:02)
--- NOTE | 2017-02-15 10:38 | HHI.FPPN ---
Subjective Remarks No acute issues overnight. Vitals are stable, patient remains afebrile. Blood pressure has been labile, ranging 140-190/70-80s. She is breathing comfortably on room air this morning and saturating 94-97 percent on room air. She felt that at one point this morning her heart was racing, but denies any palpitations , chest pain, shortness of breath, fever, chills, nausea, vomiting. Her shortness of breath has improved however she does not feel back to baseline. She is agreeable to dialysis and wants to go home today. (Zahida Clarke MD, R3) Objective Vitals Vital Signs Date Time Temp Pulse Resp B/P (MAP) Pulse Ox O2 Delivery O2 Flow Rate FiO2 02/15/17 07:34 97 21 02/15/17 07:25 97.8 62 16 144/78 (100) 94 02/15/17 05:31 60 20 177/88 (117) 02/15/17 04:27 98.2 60 20 193/86 (121) 94 02/15/17 01:37 98.2 55 18 184/74 (110) 96 02/14/17 22:22 98.1 65 18 187/84 (118) 96 02/14/17 19:33 98 Nasal Cannula 2.00 02/14/17 17:22 98.1 60 20 169/74 (105) 99 02/14/17 13:04 98.8 79 16 182/98 (126) 90 I/O 02/14/17 02/14/17 02/14/17 02/15/17 02/15/17 02/15/17 07:00 15:00 23:00 07:00 15:00 23:00 Intake Total 300 ml 600 ml Output Total 400 ml 200 ml Balance -100 ml 400 ml Intake Oral 600 ml IV Total 300 ml 0 ml Output Urine Total 400 ml 200 ml Emesis 0 ml # Voids 1 1 # Bowel Movements 0 0 (Zahida Clarke MD, R3) Result Diagram: 02/14/17 1533 02/14/17 1533 Imaging Last Impressions Lung Scan-VQ Nuclear Medicine 02/14/17 0000 Signed Impressions: Service Date/Time: Tuesday, February 14, 2017 09:03 - CONCLUSION: 1. No perfusion defect identified. Examination is negative for PE. Kenneth Lugo MD Chest X-Ray 02/13/17 1559 Signed Impressions: Service Date/Time: Monday, February 13, 2017 17:01 - CONCLUSION: Moderate cardiomegaly. Clear lungs. Dale Fisher Jr., MD Soft Tissue Neck X-Ray 02/13/17 0000 Signed Impressions: Service Date/Time: Monday, February 13, 2017 17:03 - CONCLUSION: 1. Aryepiglottic fold thickening suggesting edema. No radiopaque foreign body. Dale Fisher Jr., MD Neck Ultrasound 02/13/17 0000 Signed Impressions: Service Date/Time: Monday, February 13, 2017 22:48 - CONCLUSION: 1. No neck mass or fluid collection identified sonographically in the midline neck. Bubba Mccarty MD Lower Extremity Ultrasound 02/13/17 0000 Signed Impressions: Service Date/Time: Monday, February 13, 2017 22:53 - CONCLUSION: Normal examination. Bubba Mccarty MD Objective Remarks GENERAL: Well-nourished, well-developed morbidly obese female, sitting up in bed breathing comfortably on room air. In no acute distress. SKIN: Warm and dry. HEAD: Normocephalic. EYES: No scleral icterus. No injection or drainage. NECK: Supple, trachea midline. No JVD or lymphadenopathy. CARDIOVASCULAR: Regular rate and rhythm without murmurs, gallops, or rubs. RESPIRATORY: Breath sounds equal bilaterally. Poor inspiratory airflow with inspiratory wheezes. Better expiratory airflow. No accessory muscle use. GASTROINTESTINAL: Abdomen soft, non-tender, nondistended. MUSCULOSKELETAL: No cyanosis, or edema. BACK: Nontender without obvious deformity. No CVA tenderness. (Zahida Clarke MD, R3) A/P Assessment and Plan Mrs. Menjivar is a 51 yo F with PMH of CAD (NSTEMI 2011; s/p stent placent), T2DM, CKD, anemia who presented with shortness of breath and was admitted for further evaluation/treatment of respiratory distress and renal failure. Discharge Planning Anticipate discharge in the next 2-3 days. phu Duran (Zahida Clarke MD, R3) Attending Attestation Patient seen and examined. Case reviewed and discussed with the resident team. Agree with plan of care as discussed with me and documented in the resident note. she was very reluctant to have dialysis but now understands that her life depends on it at this point (Katherine Duran MD) Problem List: (1) Acute on chronic renal failure ICD Codes: N17.9 - Vgdeb-[id number] renal failure; N18.9 - Chronic kidney disease, unspecified Status: Acute Plan: PMH of stage 5 CKD with baseline Cr of 3-4. Urine output decreasing. Creatinine now elevated at 5.5. - Consult Nephrology- appreciate recommendations, needs hemodialysis. Patient has been poorly compliant and has refused dialysis in the past, however now agreeable to hemodialysis - Vit D 2000 Units daily (2) Shortness of breath ICD Codes: R06.02 - Shortness of breath Status: Acute Plan: IMPROVING, likely secondary to fluid overload from renal failure and COPD exacerbation CXR with Cardiomegaly but clear lungs Neck XR with aryepiglottic fold thickening suggesting edema. No radiopaque foreign body Neck ultrasound shows no neck mass or fluid collection Bilateral lower extremity ultrasounds shows no DVT Improvement in symptoms with Solumedrol 125mg IV Poor airflow and wheezing on exam Negative for legionella and strep pneumo urinary antigens Plan: - DC Solumedrol 60mg IV Q12H, transition to Prednisone 40mg PO daily -Continue Duonebs q4h and q2 PRN sob/wheezing -Will continue to monitor O2 saturations - Obtain PFT's, influenza antigens, sputum culture, and respiratory panel (3) HTN (hypertension) ICD Codes: I10 - Essential (primary) hypertension Plan: Patient presented with hypertensive urgency; BP 224/102. May be contributing to worsening renal failure as baseline appears to be around 3-4. BP now ranging 140-190s/70-80's Troponin wnl; EKG without change - Increase Amlodipine to 5mg PO BID and Hydralazine 25mg PO TID per nephrology - Continue home dose of Carvedilol 12.5mg PO BID -Hydralazine 10 mg when necessary every 6 hours for DRIVER TRAINER 190/110 -Clonidine 0.2mg q 8hrs PRN for SBP >180 -Labetalol 10 mg every 6 hours for BP >170/100 (4) CAD (coronary artery disease) ICD Codes: I25.10 - Atherosclerotic heart disease of [place] coronary artery without angina pectoris Status: Chronic Plan: PMH of CAD s/p stent placement. Patient last seen by Cardiology in 2016 per EMR -Continue medical management of CAD -Continue ASA 81mg -SIMI deferred for renal dysfunction -Continue Carvedilol 12.5mg PO BID -Atorvastatin 40mg daily (5) Diabetes ICD Codes: E11.9 - Type 2 diabetes mellitus without complications Status: Chronic Plan: Hold home Lantus 27 units HS BMP on admission with random glucose of 55mg/dl Blood glucose ranging 204-336 -accuchecks -low dose Novolog SSI - Increase Levemir to 10 units BID (6) Anemia ICD Codes: D64.9 - Anemia Status: Chronic Plan: Impression: Hgb 9.2 on admission; patient with baseline Hgb of ~9. Suspect secondary to renal failure. -Nephrology consulted (7) Hyperkalemia ICD Codes: E87.5 - Hyperkalemia Status: Acute Plan: hyerkalemia of 6.2 in setting of acute on chronic renal failure. Patient asymptomatic. - EKG -Tele -Kayexalate 15g PO once (8) DVT prophylaxis Status: Acute Plan: -Heparin 5000 units q8hrs -Bilateral SCD's (9) Nutrition, metabolism, and development symptoms ICD Codes: R63.8 - Symptoms concerning nutrition, metabolism, and development Status: Acute Plan: Fluids: Hold fluids for fluid overload Electrolytes: continue to monitor and replete as needed Nutrition: heart healthy, renal diet (Zahida Clarke MD, R3) Problem Qualifiers (1) Acute on chronic renal failure: Qualified Codes: N17.9 - Acute kidney failure, unspecified; N18.5 - Chronic kidney disease, stage 5 (2) HTN (hypertension): Qualified Codes: I10 - Essential (primary) hypertension (3) CAD (coronary artery disease): Qualified Codes: I25.10 - Atherosclerotic heart disease of [place] coronary artery without angina pectoris (4) Diabetes: Qualified Codes: E11.9 - Type 2 diabetes mellitus without complications; Z79.4 - snf (current) use of insulin (5) Anemia: Qualified Codes: N18.4 - Chronic kidney disease, stage 4 (severe); D63.1 - Anemia in chronic kidney disease Zahida Clarke MD, R3 Feb 15, 2017 10:38 Katherine Duran MD Feb 17, 2017 17:49
--- NOTE | 2017-02-15 10:40 | RSPPFT ---
DATE OF PROCEDURE: 02/14/17 COMMENTS: Spirometry with FVC of 3.1 at 26% of predicted, FEV1 of 0.4 at 18%, FEV1/FVC ratio is decreased. Flow is decreased at FEF 25, FEF 50, FEF 75 and FEF 25-75. There is a good response after bronchodilator treatment. Flow volume loop indicates an obstructive pattern. IMPRESSION: 1. Very severe obstructive lung disease. 2. Good response after bronchodilator treatment.
[2017-02-15] MEDS ORDERED: SODIUM CHLOR 0.9% 1000 ML INJ 1,000 ML IV PRN (14:42)
[2017-02-15] MEDS ORDERED: SODIUM CHLOR 0.9% 1000 ML INJ 1,000 ML OTHER PRN ×2 (14:42)
[2017-02-15] MEDS ORDERED: MANNITOL 12.5 GM/50 ML VIAL IV PRN (14:45)
[2017-02-15] MEDS ORDERED: NITROGLYCERIN 0.4 MG SL 25 TABS/BTL SL PRN (14:45)
[2017-02-15] MEDS ORDERED: diphenhydrAMINE HCL 25 MG CAP PO PRN (14:45)
[2017-02-15] MEDS ORDERED: ONDANSETRON HCL 4 MG/2 ML VIAL IV PUSH PRN (14:45)
[2017-02-15] MEDS ORDERED: HEPARIN SODIUM - IV 10,000 UNITS/10 ML VIAL IV FLUSH PRN (14:45)
[2017-02-15] MEDS ORDERED: ALBUMIN HUMAN 25% 25 GM/100 ML BAGP IV PRN (14:45)
[2017-02-15] MEDS ORDERED: GELATIN 12 MM/7 MM FOAM TOP PRN (14:45)
[2017-02-15] MEDS ORDERED: SODIUM CHLORIDE 0.9% FLUSH 10 ML FLUSH IV FLUSH PRN (14:45)
--- NOTE | 2017-02-15 14:52 | HHI.NPPN ---
Subjective History of Present Illness 51 Year old female with CKD approached ESRD, Diabetes, Hypertension Review of Systems General Constitutional: Fatigue Respiratory Lungs: SOB Cardiovascular Cardiac: Edema Objective Data Data Vital Signs Date Time Temp Pulse Resp B/P (MAP) Pulse Ox O2 Delivery O2 Flow Rate FiO2 02/15/17 14:02 98.0 84 16 196/88 (124) 95 02/15/17 07:34 97 21 02/15/17 07:25 97.8 62 16 144/78 (100) 94 02/15/17 05:31 60 20 177/88 (117) 02/15/17 04:27 98.2 60 20 193/86 (121) 94 02/15/17 01:37 98.2 55 18 184/74 (110) 96 02/14/17 22:22 98.1 65 18 187/84 (118) 96 02/14/17 19:33 98 Nasal Cannula 2.00 02/14/17 17:22 98.1 60 20 169/74 (105) 99 -: 02/14/17 1533 02/14/17 1533 Physical Exam General Appearance: Well Developed, Obese Neck Neck Exam: Neck Supple Pulmonary Resp Exam: Decreased Bases Cardiology CV Exam: Regular, Normal Sinus Rhythm Gastrointestinal/Abdomen GI Exam: Soft, Non-Tender, Bowel Sounds Present Extremeties Extremities Exam: Moderate Edema Neurologic Neuro Exam: Alert Assessment/Plan Problem List: (1) ESRD (end stage renal disease) ICD Codes: N18.6 - End stage renal disease Status: Chronic Plan: Patient is now agreeable to do dialysis I will have to ask for temporary catheter vascath for dialysis, her Potassium is high as well give Kayexalate repeat K is pending She has been noncompliant with office visits, instructions and follow-up I have explained again the procedure the central line placement and dialysis she has changed her mind and agreed to proceed (2) Chronic uremia ICD Codes: N18.9 - Chronic kidney disease, unspecified Plan: Patient continued to refuse dialysis (3) Diabetes ICD Codes: E11.9 - Type 2 diabetes mellitus without complications Status: Chronic Plan: Not well-controlled continue to monitor (4) HTN (hypertension) ICD Codes: I10 - Essential (primary) hypertension Plan: Labile hypertension increase Amlodipine to 5 mg bid, Hydralazine titrate to 50 mg tid (5) Hyperkalemia ICD Codes: E87.5 - Hyperkalemia Status: Acute Plan: Renal failure limit potassium in diet use Kayexalate (6) Secondary hyperparathyroidism ICD Codes: N25.81 - Secondary hyperparathyroidism of renal origin Plan: start Z[employer] Problem Qualifiers (1) Diabetes: Qualified Codes: E11.9 - Type 2 diabetes mellitus without complications; Z79.4 - continuous churn buttermaker (current) use of insulin (2) HTN (hypertension): Qualified Codes: I10 - Essential (primary) hypertension Shantelle Maldonado MD Feb 15, 2017 14:52
[2017-02-15 15:20] LABS: HEMATOCRIT 30.8 % (35.0-46.0); MEAN CELL VOLUME 95.3 FL (80.0-100.0); MEAN CORPUSCULAR HGB CONC 30.4 % (32.0-36.0); PLATELET COUNT 281 TH/MM3 (150-450); RED BLOOD COUNT 3.23 MIL/MM3 (4.00-5.30); REVIEW FLAG FINAL; WHITE BLOOD COUNT 14.5 TH/MM3 (4.0-11.0)
[2017-02-15 15:34] LABS: POTASSIUM 5.3 MEQ/L (3.5-5.1)
[2017-02-15] MEDS ORDERED: PARICALCITOL 1 MCG CAP PO ONE (16:00)
[2017-02-15] MEDS ORDERED: INSULIN DETEMIR 100 UNITS/ML VIAL SQ ONE (17:45)
--- NOTE | 2017-02-15 18:37 | PD.RAD ---
Post Procedure Progress Note Pre Procedure Diagnosis: (1) Acute kidney injury (2) ESRD (end stage renal disease) Post Procedure Diagnosis: (1) Renal insufficiency (2) Acute kidney injury (3) ESRD (end stage renal disease) Procedure Date: Feb 15, 2017 Supervising Radiologist: Kenneth Lugo Estimated blood loss: 2cc Anesthesia: Local Plan of Activity Patient to Unit: Nursing Unit Patient Condition: Fair Additional Comments: Vascath placed via the right IJ Catheter in good position OK for use Full dictated report to follow See PACS Report for procedural detail/treatment Kenneth Lugo MD Feb 15, 2017 18:37
[2017-02-15] MEDS ORDERED: HEPARIN SODIUM - IV 2,000 UNITS/2 ML VIAL IV FLUSH PRN (18:45)
[2017-02-15] MEDS ORDERED: SODIUM CHLORIDE 0.9% FLUSH 10 ML FLUSH IVF PRN (18:45)
[2017-02-15] MEDS ORDERED: INSULIN DETEMIR 100 UNITS/ML VIAL SQ SCH (21:00)
[2017-02-15] MEDS: ATORVASTATIN 40 MG TAB PO SCH (21:07)
--- NOTE | 2017-02-15 21:10 | EKG ---
Date Performed: 02/15/2017 Time Performed: 08:07:36 PTAGE: 51 years EKG: SINUS BRADYCARDIA ARM LEADS REVERSED BORDERLINE ECG PREVIOUS TRACING : 02/13/2017 16.13 Compared to the previous tracing rate slower DOCTOR: Saman Morton Interpretating Date/Time 02/15/2017 21:08:22
[2017-02-16] VITALS (7 sets, daily range): BP systolic 171–210; BP diastolic 75–93; PULSE 55–79; RESP 17–22; TEMP 98.1–98.6; O2SAT 96–100
[2017-02-16] MEDS: hydrALAZINE HCL 10 MG TAB PO PRN (01:53)
[2017-02-16] MEDS: RESP: ALBUTEROL 2.5 MG/IPRATROPIUM 0.5 MG NEB (SCH) NEB ×5 (03:59→22:08)
[2017-02-16] MEDS: cloNIDine HCL 0.1 MG TAB PO PRN ×2 (04:53→22:17)
[2017-02-16] MEDS: hydrALAZINE HCL 25 MG TAB PO SCH ×3 (05:04→22:05)
[2017-02-16] MEDS: HEPARIN SODIUM - SQ 10,000 UNITS/ML VIAL SQ SCH ×3 (05:04→22:05)
--- NOTE | 2017-02-16 07:37 | HHI.FPPN ---
Subjective Remarks No acute issues overnight. Vitals are stable, patient remains afebrile. Blood pressures remain elevated in the 170-200's0 70-90's. Patient's shortness of breath has significantly improved however she continues to have a cough. She is not producing sputum but states that it feels like she needs to cough something up. She denies any chest pain, fever, chills, nausea or vomiting. She is going to have dialysis today. (Zahida Clarke MD, R3) Objective Vitals Vital Signs Date Time Temp Pulse Resp B/P (MAP) Pulse Ox O2 Delivery O2 Flow Rate FiO2 02/16/17 04:41 98.2 66 19 180/79 (112) 99 02/16/17 01:44 98.2 78 20 209/93 (131) 97 02/15/17 22:31 59 02/15/17 20:35 98.3 73 18 188/81 (116) 95 02/15/17 19:39 95 21 02/15/17 16:30 98.2 72 18 178/92 (120) 97 02/15/17 14:02 98.0 84 16 196/88 (124) 95 02/15/17 12:00 55 02/15/17 09:30 78 02/15/17 07:34 97 21 I/O 02/15/17 02/15/17 02/15/17 02/16/17 02/16/17 02/16/17 07:00 15:00 23:00 07:00 15:00 23:00 Intake Total 600 ml Output Total 200 ml 750 ml Balance 400 ml -750 ml Intake Oral 600 ml IV Total 0 ml Output Urine Total 200 ml 750 ml Emesis 0 ml # Voids 1 3 2 # Bowel Movements 0 (Zahida Clarke MD, R3) Result Diagram: 02/15/17 1445 02/15/17 1445 Imaging Last Impressions Lung Scan-VQ Nuclear Medicine 02/14/17 0000 Signed Impressions: Service Date/Time: Tuesday, February 14, 2017 09:03 - CONCLUSION: 1. No perfusion defect identified. Examination is negative for PE. Kenneth Lugo MD Chest X-Ray 02/13/17 6489 Signed Impressions: Service Date/Time: Monday, February 13, 2017 17:01 - CONCLUSION: Moderate cardiomegaly. Clear lungs. Dale Fihser Jr., MD Soft Tissue Neck X-Ray 02/13/17 Signed Impressions: Service Date/Time: Monday, February 13, 2017 17:03 - CONCLUSION: 1. Aryepiglottic fold thickening suggesting edema. No radiopaque foreign body. Dale Fisher Jr., MD Neck Ultrasound 02/13/17 Signed Impressions: Service Date/Time: Monday, February 13, 2017 22:48 - CONCLUSION: 1. No neck mass or fluid collection identified sonographically in the midline neck. Bubba Mccarty MD Lower Extremity Ultrasound 02/13/17 Signed Impressions: Service Date/Time: Monday, February 13, 2017 22:53 - CONCLUSION: Normal examination. Bubba Mccarty MD Objective Remarks GENERAL: Well-nourished, well-developed morbidly obese female, sitting up in chair breathing comfortably on room air. In no acute distress. SKIN: Warm and dry. HEAD: Normocephalic. EYES: No scleral icterus. No injection or drainage. NECK: Supple, trachea midline. No JVD or lymphadenopathy. CARDIOVASCULAR: Regular rate and rhythm without murmurs, gallops, or rubs. RESPIRATORY: Breath sounds equal bilaterally. Better inspiratory airflow than compared with yesterday's exam with occasional inspiratory and expiratory wheezes. Better expiratory airflow. No accessory muscle use. GASTROINTESTINAL: Abdomen soft, non-tender, nondistended. MUSCULOSKELETAL: Bilateral lower extremity 1+ pitting edema. BACK: Nontender without obvious deformity. No CVA tenderness. (Zhaida Clarke MD, R3) A/P Assessment and Plan Mrs. Menjivar is a 51 yo F with PMH of CAD (NSTEMI 2010; s/p stent placent), T2DM, CKD, anemia who presented with shortness of breath and was admitted for COPD exacerbation and renal failure. Discharge Planning Anticipate discharge in the next 1-2 days. phu Duran (Zahida Clarke MD, R3) Attending Attestation Patient seen and examined. Case reviewed and discussed with the resident team. Agree with plan of care as discussed with me and documented in the resident note. her BPs should improve with dialysis (Katherine Duran MD) Problem List: (1) Acute on chronic renal failure ICD Codes: N17.9 - Gjzma-uh-dvoddlt renal failure; N18.9 - Chronic kidney disease, unspecified Status: Acute Plan: PMH of stage 5 CKD with baseline Cr of 3-4. Urine output decreasing. Creatinine now elevated at 5.7. - Consult Nephrology- appreciate recommendations, to start hemodialysis today. Patient has been poorly compliant and has refused dialysis in the past, however now agreeable to hemodialysis - Vit D 2000 Units daily (2) COPD exacerbation ICD Codes: J44.1 - Chronic obstructive pulmonary disease with (acute) exacerbation Status: Resolved Plan: IMPROVING shortness of breath also likely secondary to fluid overload from renal failure CXR with Cardiomegaly but clear lungs Neck XR with aryepiglottic fold thickening suggesting edema. No radiopaque foreign body. Neck ultrasound shows no neck mass or fluid collection Bilateral lower extremity ultrasounds shows no DVT Improvement in symptoms with Solumedrol 125mg IV Improved airflow and less wheezing on exam Negative for legionella and strep pneumo urinary antigens Plan: - Continue Prednisone 40mg PO daily -Continue Duonebs q4h and q2 PRN sob/wheezing -Will continue to monitor O2 saturations - PFT's, influenza antigens, sputum culture, and respiratory panel pending (3) Hypertensive urgency ICD Codes: I16.0 - Hypertensive urgency Status: Resolved Plan: BP now ranging 170-200's/70-90's Troponin wnl; EKG without change - Amlodipine to 5mg PO BID and Hydralazine 25mg PO TID - Continue home dose of Carvedilol 12.5mg PO BID -Hydralazine 10 mg when necessary every 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 Patient last seen by Cardiology in 2016 per EMR -Continue medical management of CAD -Continue ASA 81mg -SIMI deferred for renal dysfunction -Continue Carvedilol 12.5mg PO BID -Atorvastatin 40mg daily (5) Diabetes ICD Codes: E11.9 - Type 2 diabetes mellitus without complications Status: Chronic Plan: Hold home Lantus 27 units HS BMP on admission with random glucose of 55mg/dl Blood glucose ranging 200-400's -accuchecks -low dose Novolog SSI - Increase Levemir to 20 units BID (6) Hyperkalemia ICD Codes: E87.5 - Hyperkalemia Status: Acute Plan: hyperkalemia in setting of acute on chronic renal failure. Patient asymptomatic. EKG shows sinus bradycardia -Tele -Kayexalate 15g PO PRN (7) DVT prophylaxis Status: Acute Plan: -Heparin 5000 units q8hrs -Bilateral SCD's (8) Nutrition, metabolism, and development symptoms ICD Codes: R63.8 - Symptoms concerning nutrition, metabolism, and development Status: Acute Plan: Fluids: Hold fluids for fluid overload Electrolytes: continue to monitor and replete as needed Nutrition: heart healthy, renal diet (Zahida Clarke MD, R3) Problem Qualifiers (1) Acute on chronic renal failure: Qualified Codes: N17.9 - Acute kidney failure, unspecified; N18.5 - Chronic kidney disease, stage 5 (2) CAD (coronary artery disease): Qualified Codes: I25.10 - Atherosclerotic heart disease of [place] coronary artery without angina pectoris (3) Diabetes: Qualified Codes: E11.9 - Type 2 diabetes mellitus without complications; Z79.4 - penitentiary (current) use of insulin Zahida Clarke MD, R3 Feb 16, 2017 07:37 Katherine Duran MD Feb 17, 2017 17:50
[2017-02-16] MEDS: FLUTICASONE PROPIONATE 50 MCG/ACT 16 GM NASAL SPRAY EACH NARE SCH ×2 (09:00→21:00)
[2017-02-16] MEDS: METOCLOPRAMIDE HCL 10 MG TAB PO SCH ×3 (09:13→18:41)
[2017-02-16] MEDS: INSULIN ASPART SUPPLEMENTAL SCALE SQ SCH ×5 (09:16→22:17)
[2017-02-16] MEDS: INSULIN DETEMIR 100 UNITS/ML VIAL SQ SCH ×2 (09:17→22:16)
[2017-02-16] MEDS: PARICALCITOL 1 MCG CAP PO SCH (09:17)
[2017-02-16] MEDS: PANTOPRAZOLE SOD 20 MG DELAYED RELEASE TAB PO SCH (09:19)
[2017-02-16] MEDS: amLODIPine BESYLATE 5 MG TAB PO SCH ×2 (09:19→22:05)
[2017-02-16] MEDS: SODIUM CHLORIDE 0.9% FLUSH 10 ML FLUSH IV FLUSH SCH ×2 (09:19→22:04)
[2017-02-16] MEDS: CHOLECALCIFEROL (VIT D3) 1000 UNIT TAB PO SCH (09:19)
[2017-02-16] MEDS: CARVEDILOL 12.5 MG TAB PO SCH ×2 (09:19→22:05)
[2017-02-16] MEDS: predniSONE 20 MG TAB PO SCH (09:29)
[2017-02-16] MEDS: GENTAMICIN SULFATE (DIALYSIS USE ONLY) 20 MG/2 ML VIAL OTHER PRN (12:26)
[2017-02-16] MEDS: HEPARIN SODIUM - IV 10,000 UNITS/10 ML VIAL PRN (12:27)
--- NOTE | 2017-02-16 12:33 | RADRPT ---
EXAM DATE/TIME: 02/15/2017 18:11 [facility] COMPARISON: No previous studies available for comparison. INDICATIONS : Patient with a history of renal disease. MEDICAL HISTORY : Type II Diabetes CAD Chronic kidney disease HTN Metrorrhaghia Anemia Allergic rhinitis SURGICAL HISTORY : Cardiac cath with stent placement Cholecystectomy ENCOUNTER: Initial ACUITY: 1 week PAIN SCORE: 0/10 FLUORO TIME: 0.4 minutes IMAGE SERIES: 1 ACCESS: Right internal jugular vein DEVICE(S): 1.) 14 Sami dual lumen 15 cm Schon catheter PROCEDURE : 1. Ultrasound guided venipuncture. 2. Fluoroscopic guidance. 3. Central line placement. The risks, benefits and alternatives to the procedure were explained and verbal and written consent w as obtained. The site was prepped in sterile fashion. Full sterile technique was used, including ca p, mask, sterile gloves and gown and a large sterile sheet. Hand hygiene and 2% chlorhexidine prep w as utilized per protocol for cutaneous antisepsis with appropriate dry time for site. Sterile gel an d sterile probe cover were utilized for ultrasound guidance. The skin and subcutaneous tissues were infiltrated with local anesthetic solution. A suitable site a enrique the vein was selected with ultrasound and fluoroscopic guidance. A small incision was made. Th e vein was accessed under direct ultrasound visualization using the micropuncture technique. The jes ropuncture set was exchanged for a 0.035 wire. The tract was dilated. The catheter was advanced int o position under direct fluoroscopic visualization. The catheter was fixed in place with suture and a sterile dressing was applied. The patient tolerated the procedure well and there were no complications. CONCLUSION: Uncomplicated line placement as above. Kenneth Lugo MD on February 16, 2017 at 11:20 Board Certified Radiologist. This report was verified electronically.
--- NOTE | 2017-02-16 15:46 | PD.VS.CON ---
History of Present Illness Chief Complaint: AVF Evaluation Pt right hand dominant Consult Requested by: Dr. Maldonado History of Present Illness Ms. Menjivar is a pleasant obese 51/AA/F with a PMH of HTN, DM, Stage V chronic kidney disease. Pt developed shortness of breath several days ago and was admitted to the hospital Patient was referred for an AV fistula placement last year and was a no-show due to transportation and noncompliance Past/Family/Social History Past Medical History DM Type II -poor compliance CAD NSTEMI with preserved EF 09/2010 Chronic kidney disease HLD HTN Metrorrhagia Anemia Allergic rhinitis Poor medical compliance secondary to multiple socioeconomic issues Past Surgical History Heart catheterization with previous stent Cholecystectomy Social History Smokes 1 pack of cigarettes daily Denies ETOH Denies Illicit drug usage Lives w/ her daughter/grandsons (17)(3) Disabled Home Medications Active Scripts Carvedilol (Carvedilol) 12.5 Mg Tab, 12.5 MG PO BID, #60 TAB 4 Refills Prov:Isabelle Solano MD R3 12/02/16 Insulin Syringe/U-100/31G X 5/16" 1 ml (Insulin Syringe/U-100/31G X 5/16" 1 ml) 1 Mis Mis, 1 EA .ROUTE DIRECTED for Blood Sugar Management, #1 BOX 6 Refills Prov:Isabelle Solano MD R3 12/02/16 Metoclopramide (Metoclopramide) 10 Mg Tab, 10 MG PO TIDAC, #90 TAB 4 Refills Take one tab 30 min before meals for 12 weeks Prov:Jenny De La Torre MD 09/23/16 Insulin Glargine Inj (Lantus Inj) 1,000 Unit/10 Ml Vial, 27 UNITS SQ HS for Blood Sugar Management, #30 VIAL 4 Refills Prov:Jenny De La Torre MD 09/16/16 Amlodipine (Amlodipine) 5 Mg Tab, 5 MG PO DAILY for Blood Pressure Management, # 90 TAB 4 Refills Prov:Jenny De La Torre MD 09/05/16 Omeprazole (Omeprazole) 20 Mg Tab, 20 MG PO DAILY, #30 TAB 30 Refills Prov:Jenny De La Torre MD 09/05/16 Parenteral Therapy Supplies (Sharpsafety Sharps Contai) 1 Mis Mis, 1 EA .ROUTE DIRECTED, #30 EA 0 Refills Prov:Jenny De La Torre MD 08/03/16 Lancets (Lancets) 1 Mis Mis, 1 EA .ROUTE DIRECTED for Blood Sugar Management , #1 BOX 0 Refills Prov:Jenny De La Torre MD 08/03/16 Aspirin (Aspirin) 81 Mg Chew, 81 MG CHEW ONCE, #1 TAB 0 Refills Prov:Jenny De La Torre MD 04/05/16 Reported Medications Fluticasone Nasal [place] (Fluticasone Nasal [place]) 50 Mcg/Act Naspr, 50 MCG EACH NARE BID for Allergy Management, #1 BOTTLE 0 Refills 50 mcg/spray 04/18/16 Discontinued Scripts Albuterol 18 GM Inh (Ventolin Hfa 18 GM Inh) 90 Mcg/Act Aer, 2 PUFF INH Q4-6H Y for SHORTNESS OF BREATH, #1 INHALER 0 Refills Prov:Jenny De La Torre MD 11/10/16 Coded Allergies: Sulfa (Sulfonamide Antibiotics) (Verified Allergy, Severe, 02/13/17) naproxen (Verified Allergy, Severe, throat closure , 02/13/17) sulfamethoxazole (Verified Allergy, Severe, 02/13/17) trimethoprim (Verified Allergy, Severe, 02/13/17) egg (Verified Allergy, Intermediate, 02/13/17) Hives morphine (Verified Allergy, Intermediate, Nausea/Vomiting, 02/13/17) penicillin G (Verified Allergy, Intermediate, SWELLING AND ITCHING, ) *MDRO Multi-Drug Resistant Organism (Verified Adverse Reaction, Unknown, ) MRSA PCR screen POSITIVE - 04/15/16 Physical Exam Vitals/I&O Date Time Temp Pulse Resp B/P (MAP) Pulse Ox O2 Delivery O2 Flow Rate FiO2 02/16/17 13:08 98.4 72 17 174/75 (108) 100 02/16/17 08:25 98.1 69 18 171/79 (109) 100 02/16/17 08:25 55 02/16/17 08:19 98 21 02/16/17 04:41 98.2 66 19 180/79 (112) 99 02/16/17 01:44 98.2 78 20 209/93 (131) 97 02/15/17 22:31 59 02/15/17 20:35 98.3 73 18 188/81 (116) 95 02/15/17 19:39 95 21 02/15/17 16:30 98.2 72 18 178/92 (120) 97 02/16/17 02/16/17 02/16/17 07:00 15:00 23:00 Output Total 3000 ml Balance -3000 ml Neuro: A&OX3 GCS15 Neck: supple Heart: RRR +S1,S2 Lungs: CTA Slightly diminished/Bilat bases Vascular: Right radial pulse faint but palpable Left radial pulse palpable Laboratory Tests Test 02/16/17 11:30 Date/Time Source Procedure Growth Status 02/14/17 11:37 Urine Clean Catch Legionella Antigen - Final PRESUMPTIVE NEGATIVE FOR LEGIONELLA P... Complete 02/14/17 11:37 Urine Clean Catch Streptococcus pneumoniae Antigen (M - Final PRESUMPTIVE NEGATIVE FOR STREPTOCOCCU... Complete Last 48 hours Impressions Catheter Placement X-Ray 02/15/17 0000 Signed Impressions: Service Date/Time: Wednesday, February 15, 2017 18:11 - CONCLUSION: Uncomplicated line placement as above. Kenneth Lugo MD Assessment and Plan Assessment: (1) Uncontrolled diabetes mellitus Status: Chronic (2) Hypertension Status: Chronic (3) Shortness of breath Status: Acute (4) CAD (coronary artery disease) Status: Chronic (5) Renal insufficiency Status: Chronic (6) ESRD (end stage renal disease) Status: Chronic (7) CKD (chronic kidney disease), stage V Status: Chronic Plan Pt approaching ESRD in need of a permanent access Pt w/ right sided chest PermCath HD started this am Pt right handed Plan Discussed AVF creation process w/ patient Questions answered Patient Agreed with plan Ordered vein mapping Potentially could be scheduled for early next week with Dr. Stephani GILLESPIE [facility] [phone] Problem Qualifiers (1) CAD (coronary artery disease): Qualified Codes: I25.10 - Atherosclerotic heart disease of [place] coronary artery without angina pectoris Nafisa Rubio Feb 16, 2017 15:45
--- NOTE | 2017-02-16 16:04 | HHI.NPPN ---
Subjective History of Present Illness 51 Year old female with CKD approached ESRD, Diabetes, Hypertension Review of Systems General Constitutional: Fatigue Respiratory Lungs: SOB Cardiovascular Cardiac: Edema Objective Data Data 02/16/17 02/17/17 19:00 07:00 Output Total 3000 ml Balance -3000 ml Hemodialysis 3000 ml Vital Signs Date Time Temp Pulse Resp B/P (MAP) Pulse Ox O2 Delivery O2 Flow Rate FiO2 02/16/17 13:08 98.4 72 17 174/75 (108) 100 02/16/17 08:25 98.1 69 18 171/79 (109) 100 02/16/17 08:25 55 02/16/17 08:19 98 21 02/16/17 04:41 98.2 66 19 180/79 (112) 99 02/16/17 01:44 98.2 78 20 209/93 (131) 97 02/15/17 22:31 59 02/15/17 20:35 98.3 73 18 188/81 (116) 95 02/15/17 19:39 95 21 02/15/17 16:30 98.2 72 18 178/92 (120) 97 -: 02/15/17 1445 02/15/17 1445 Physical Exam General Appearance: Well Developed, Obese Neck Neck Exam: Neck Supple Pulmonary Resp Exam: Decreased Bases Cardiology CV Exam: Regular, Normal Sinus Rhythm Gastrointestinal/Abdomen GI Exam: Soft, Non-Tender, Bowel Sounds Present Extremeties Extremities Exam: Moderate Edema Neurologic Neuro Exam: Alert Assessment/Plan Problem List: (1) ESRD (end stage renal disease) ICD Codes: N18.6 - End stage renal disease Status: Chronic Plan: Patient had hemodialysis earlier 3 L was taken off She will need AV fistula placement and vascular consult is placed She need long-term plans placement of hemodialysis in outpatient facility as well (2) Chronic uremia ICD Codes: N18.9 - Chronic kidney disease, unspecified Plan: Patient is now doing dialysis (3) Diabetes ICD Codes: E11.9 - Type 2 diabetes mellitus without complications Status: Chronic Plan: Not well-controlled continue to monitor (4) HTN (hypertension) ICD Codes: I10 - Essential (primary) hypertension Plan: Labile hypertension increase Amlodipine to 5 mg bid, Hydralazine titrate to 50 mg tid (5) Hyperkalemia ICD Codes: E87.5 - Hyperkalemia Status: Acute Plan: Renal failure limit potassium in diet use Kayexalate (6) Secondary hyperparathyroidism ICD Codes: N25.81 - Secondary hyperparathyroidism of renal origin Plan: start Zemplar Problem Qualifiers (1) Diabetes: Qualified Codes: E11.9 - Type 2 diabetes mellitus without complications; Z79.4 - intermediate teacher (current) use of insulin (2) HTN (hypertension): Qualified Codes: I10 - Essential (primary) hypertension Shantelle Maldonado MD Feb 16, 2017 16:04
[2017-02-16] MEDS: ATORVASTATIN 40 MG TAB PO SCH (22:05)
--- NOTE | 2017-02-16 23:07 | RADRPT ---
EXAM DATE/TIME: 02/16/2017 20:35 [facility] COMPARISON: No previous studies available for comparison. INDICATIONS : Pre-OP dialysis graft. MEDICAL HISTORY : Hypercholesterolemia. Hypertension. Chronic obstructive pulmonary disease. SURGICAL HISTORY : Cholecystectomy. Cardiac catheterization. Coronary stent.Myocardial infarction. Coronary artery disea se. Asthma. Gallbladder disease. Arthritis. Diabetes. ENCOUNTER: Initial ACUITY: 1 day PAIN SCORE: 0/10 LOCATION: Bilateral arms. FINDINGS: RIGHT UPPER EXTREMITY: There is spontaneous flow documented in the brachial, basilic, cephalic, axillary, and subclavian vei ns. The vessels are compressible and augmentation response is documented. No filling defects are se en. The flow is phasic with respiration. Direction of flow in the jugular vein is caudal. LEFT UPPER EXTREMITY: There is spontaneous flow documented in the brachial, basilic, cephalic, axillary, and subclavian vei ns. The vessels are compressible and augmentation response is documented. No filling defects are se en. The flow is phasic with respiration. Direction of flow in the jugular vein is caudal. CONCLUSION: Negative exam. No sonographic or Doppler findings of deep venous thrombosis in either upper extr emity. Isael Hernandez MD on February 16, 2017 at 23:03 Board Certified Radiologist. This report was verified electronically.
--- NOTE | 2017-02-16 23:18 | RADRPT ---
EXAM DATE/TIME: 02/16/2017 20:47 [facility] COMPARISON: No previous studies available for comparison. INDICATIONS : Pre-OP dialysis graft. MEDICAL HISTORY : Hypercholesterolemia. Hypertension. Chronic obstructive pulmonary disease. Myocardial infarction. Cor onary artery disease. Asthma. Gallbladder disease. Arthritis. Diabetes. SURGICAL HISTORY : Cholecystectomy. Cardiac catheterization. Coronary stent. ENCOUNTER: Initial ACUITY: 1 day PAIN SCORE: 0/10 LOCATION: Bilateral arms. CEPHALIC: ORIGIN: Right 3 mm Left 3 mm MID-ARM: Right 3 mm Left 3 mm ELBOW: Right 3 mm Left 2 mm FOREARM: Right 4 mm Left 2 mm WRIST: Right 2 mm Left 2 mm BASILIC: ORIGIN: Right 4 mm Left 2 mm MID-ARM: Right 4 mm Left 3 mm ELBOW: Right 3 mm Left Non-visualized ARTERIES: BRACHIAL: Right 4 mm Left 4 mm ULNAR: Right 2 mm Left 2 mm RADIAL: Right 2 mm Left 3 mm VEINS: RADIAL: Right 2 mm Left Non-visualized ULNAR: Right Non-visualized Left 1 mm FINDINGS: The venous system of the upper extremities are patent by color Doppler imaging. Measurements of the arm veins (in mm) are listed above. CONCLUSION: 1. Bilateral venous mapping as above. 2. On the left, there is nonvisualization of the basilic vein at the elbow as well as the radial vein in the forearm. 3. On the right, nonvisualization of the ulnar vein in the forearm. Isael Hernandez MD on February 16, 2017 at 23:15 Board Certified Radiologist. This report was verified electronically.
[2017-02-17] VITALS (8 sets, daily range): BP systolic 148–169; BP diastolic 63–72; PULSE 71–93; RESP 18–22; TEMP 98.2–98.8; O2SAT 95–99
[2017-02-17] MEDS: HEPARIN SODIUM - SQ 10,000 UNITS/ML VIAL SQ SCH ×3 (06:00→21:44)
[2017-02-17] MEDS: hydrALAZINE HCL 25 MG TAB PO SCH ×3 (06:00→21:43)
[2017-02-17] MEDS: RESP: ALBUTEROL 2.5 MG/IPRATROPIUM 0.5 MG NEB (SCH) NEB ×3 (07:45→20:47)
[2017-02-17] MEDS: INSULIN ASPART SUPPLEMENTAL SCALE SQ SCH ×4 (08:49→23:18)
[2017-02-17] MEDS: CHOLECALCIFEROL (VIT D3) 1000 UNIT TAB PO SCH (08:49)
[2017-02-17] MEDS: PANTOPRAZOLE SOD 20 MG DELAYED RELEASE TAB PO SCH (08:49)
[2017-02-17] MEDS: predniSONE 20 MG TAB PO SCH (08:50)
[2017-02-17] MEDS: SODIUM CHLORIDE 0.9% FLUSH 10 ML FLUSH IV FLUSH SCH ×2 (08:50→21:00)
[2017-02-17] MEDS: METOCLOPRAMIDE HCL 10 MG TAB PO SCH ×3 (08:50→17:27)
[2017-02-17] MEDS: CARVEDILOL 12.5 MG TAB PO SCH ×2 (08:50→21:43)
[2017-02-17] MEDS: amLODIPine BESYLATE 5 MG TAB PO SCH ×2 (08:50→21:44)
[2017-02-17] MEDS: PARICALCITOL 1 MCG CAP PO SCH (08:50)
[2017-02-17] MEDS: FLUTICASONE PROPIONATE 50 MCG/ACT 16 GM NASAL SPRAY EACH NARE SCH ×2 (08:50→21:00)
[2017-02-17] MEDS: INSULIN DETEMIR 100 UNITS/ML VIAL SQ SCH ×2 (08:51→23:18)
--- NOTE | 2017-02-17 09:56 | PD.VS.PN ---
Subjective Subjective/Hospital Course Pt without complaint this morning. No SOB and no malaise. Says HD going ok. Objective Vitals/I&O Date Time Temp Pulse Resp B/P (MAP) Pulse Ox O2 Delivery O2 Flow Rate FiO2 02/17/17 08:01 98.3 71 18 148/63 (91) 99 02/17/17 08:00 89 02/17/17 07:45 95 02/17/17 05:38 98.6 74 22 151/67 (95) 98 02/17/17 04:14 93 02/17/17 00:00 98.2 77 20 169/72 (104) 99 02/16/17 22:00 98 21 02/16/17 21:56 98.6 79 22 186/84 (118) 96 02/16/17 13:08 98.4 72 17 174/75 (108) 100 Physical Exam L UE without erythema palpable radial pulse Laboratory Laboratory Tests Test 02/16/17 11:30 Date/Time Source Procedure Growth Status 02/14/17 11:37 Urine Clean Catch Legionella Antigen - Final PRESUMPTIVE NEGATIVE FOR LEGIONELLA P... Complete 02/14/17 11:37 Urine Clean Catch Streptococcus pneumoniae Antigen (M - Final PRESUMPTIVE NEGATIVE FOR STREPTOCOCCU... Complete Imaging Last 48 hours Impressions Upper Extremity Ultrasound 02/16/17 0000 Signed Impressions: Service Date/Time: February 20:35 - CONCLUSION: Negative exam. No sonographic or Doppler findings of deep venous thrombosis in either upper extremity. Isael Hernandez MD Upper Extremity Ultrasound 02/16/17 0000 Signed Impressions: Service Date/Time: February 20:47 - CONCLUSION: 1. Bilateral venous mapping as above. 2. On the left, there is nonvisualization of the basilic vein at the elbow as well as the radial vein in the forearm. 3. On the right, nonvisualization of the ulnar vein in the forearm. Isael Hernandez MD Assessment and Plan Assessment: (1) Uncontrolled diabetes mellitus Status: Chronic (2) Hypertension Status: Chronic (3) Shortness of breath Status: Acute (4) CAD (coronary artery disease) Status: Chronic (5) Renal insufficiency Status: Chronic (6) ESRD (end stage renal disease) Status: Chronic (7) CKD (chronic kidney disease), stage V Status: Chronic Plan Plan for LEFT brachiocephalic AVF based on pre-operative vein mapping Discussed with patient. Will schedule for early next week if in house; otherwise will schedule as outpatient. Please do not use LEFT ARM for BP, IV, blood draws etc. Beni Styles MD FACS RPVI candy polisher [facility] [phone] Problem Qualifiers (1) CAD (coronary artery disease): Qualified Codes: I25.10 - Atherosclerotic heart disease of [place] coronary artery without angina pectoris Beni Styles MD Feb 17, 2017 09:56
--- NOTE | 2017-02-17 11:36 | HHI.FPPN ---
Subjective Remarks No acute issues overnight. Vitals are stable, patient remains afebrile. Her blood pressures have improved since dialysis and are now ranging in the 140-160/ 60-70s. She feels much better overall since dialysis. Her shortness of breath continues to improve and she denies any chest pain, fever, chills, nausea, vomiting, or leg pain. Her lower extremity edema has essentially resolved. She is tolerating by mouth and feels ready to go home. (Zahida Clarke MD, R3) Objective Vitals Vital Signs Date Time Temp Pulse Resp B/P (MAP) Pulse Ox O2 Delivery O2 Flow Rate FiO2 02/17/17 08:01 98.3 71 18 148/63 (91) 99 02/17/17 08:00 89 02/17/17 07:45 95 02/17/17 05:38 98.6 74 22 151/67 (95) 98 02/17/17 04:14 93 02/17/17 00:00 98.2 77 20 169/72 (104) 99 02/16/17 22:00 98 21 02/16/17 21:56 98.6 79 22 186/84 (118) 96 02/16/17 13:08 98.4 72 17 174/75 (108) 100 I/O 02/16/17 02/16/17 02/16/17 02/17/17 02/17/17 02/17/17 07:00 15:00 23:00 07:00 15:00 23:00 Output Total 3000 ml Balance -3000 ml Hemodialysis 3000 ml # Voids 2 2 (Zahida Clarke MD, R3) Result Diagram: 02/15/17 1445 02/15/17 1445 Imaging Last Impressions Upper Extremity Ultrasound 02/16/17 0000 Signed Impressions: Service Date/Time: February 20:35 - CONCLUSION: Negative exam. No sonographic or Doppler findings of deep venous thrombosis in either upper extremity. Isael Hernandez MD Catheter Placement X-Ray 02/15/17 0000 Signed Impressions: Service Date/Time: Wednesday, February 15, 2017 18:11 - CONCLUSION: Uncomplicated line placement as above. Kenneth Lugo MD Lung Scan-V Nuclear Medicine 02/14/17 0000 Signed Impressions: Service Date/Time: Tuesday, February 14, 2017 09:03 - CONCLUSION: 1. No perfusion defect identified. Examination is negative for PE. Kenneth Lugo MD Chest X-Ray 02/13/17 1559 Signed Impressions: Service Date/Time: Monday, February 13, 2017 17:01 - CONCLUSION: Moderate cardiomegaly. Clear lungs. Dale Fisher Jr., MD Soft Tissue Neck X-Ray 02/13/17 0000 Signed Impressions: Service Date/Time: Monday, February 13, 2017 17:03 - CONCLUSION: 1. Aryepiglottic fold thickening suggesting edema. No radiopaque foreign body. Dale Fisher Jr., MD Neck Ultrasound 02/13/17 0000 Signed Impressions: Service Date/Time: Monday, February 13, 2017 22:48 - CONCLUSION: 1. No neck mass or fluid collection identified sonographically in the midline neck. Bubba Mccarty MD Lower Extremity Ultrasound 02/13/17 0000 Signed Impressions: Service Date/Time: Monday, February 13, 2017 22:53 - CONCLUSION: Normal examination. Bubba Mccarty MD Objective Remarks GENERAL: Well-nourished, well-developed morbidly obese female, sitting up in chair breathing comfortably on room air. In no acute distress. SKIN: Warm and dry. HEAD: Normocephalic. EYES: No scleral icterus. No injection or drainage. NECK: Supple, trachea midline. No JVD or lymphadenopathy. CARDIOVASCULAR: Regular rate and rhythm without murmurs, gallops, or rubs. RESPIRATORY: Breath sounds equal bilaterally. Better inspiratory airflow than compared with yesterday's exam, continued wheezing diffusely throughout lung [place]. No accessory muscle use. GASTROINTESTINAL: Abdomen soft, non-tender, nondistended. MUSCULOSKELETAL: Trace bilateral lower extremity edema. BACK: Nontender without obvious deformity. No CVA tenderness. (Zahida Clarke MD, R3) A/P Assessment and Plan Mrs. Menjivar is a 51 yo F with PMH of CAD (NSTEMI 2011; s/p stent placent), T2DM, CKD, anemia who presented with shortness of breath and was admitted for COPD exacerbation and renal failure. Discharge Planning Anticipate discharge home in the next week after placement of AVF by vascular surgery. Patient will need long-term placement for hemodialysis in outpatient facility. dw Dr. Duran (Zahida Clarke MD, R3) Attending Attestation Patient seen and examined. Case reviewed and discussed with the resident team. Agree with plan of care as discussed with me and documented in the resident note. she feels much better now that she has started dialysis and is breathing easier (Katherine Duran MD) Problem List: (1) Acute on chronic renal failure ICD Codes: N17.9 - Jvbtp-da-irdpajw renal failure; N18.9 - Chronic kidney disease, unspecified Status: Acute Plan: PMH of stage 5 CKD with baseline Cr of 3-4. Creatinine now elevated at 5.7. Patient has been poorly compliant and has refused dialysis in the past, however now agreeable to hemodialysis - Consult Nephrology- appreciate recommendations, continue hemodialysis - Vascular surgery to perform LEFT brachiocephalic AVF based on pre-operative vein mapping early next week. - Vit D 2000 Units daily - Zemplar for secondary hyperparathyroidism (2) COPD exacerbation ICD Codes: J44.1 - Chronic obstructive pulmonary disease with (acute) exacerbation Status: Resolved Plan: IMPROVING shortness of breath also likely secondary to fluid overload from renal failure CXR with Cardiomegaly but clear lungs Improved airflow and less wheezing on exam Negative for legionella and strep pneumo urinary antigens Plan: - Continue Prednisone 40mg PO daily -Continue Duonebs q4h and q2 PRN sob/wheezing -Will continue to monitor O2 saturations (3) Hypertensive urgency ICD Codes: I16.0 - Hypertensive urgency Status: Resolved Plan: Resolved with dialysis. 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 Patient last seen by Cardiology in 2016 per EMR -Continue medical management of CAD -Continue ASA 81mg -SIMI deferred for renal dysfunction -Continue Carvedilol 12.5mg PO BID -Atorvastatin 40mg daily (5) Diabetes ICD Codes: E11.9 - Type 2 diabetes mellitus without complications Status: Chronic Plan: Hold home Lantus 27 units HS Blood glucose ranging 160-364 -accuchecks -low dose Novolog SSI - Increase Levemir to 25 units BID (6) Hyperkalemia ICD Codes: E87.5 - Hyperkalemia Status: Acute Plan: hyperkalemia in setting of acute on chronic renal failure. Patient asymptomatic. -Kayexalate 15g PO PRN (7) DVT prophylaxis Status: Acute Plan: -Heparin 5000 units q8hrs -Bilateral SCD's (8) Nutrition, metabolism, and development symptoms ICD Codes: R63.8 - Symptoms concerning nutrition, metabolism, and development Status: Acute Plan: Fluids: Hold fluids for fluid overload Electrolytes: continue to monitor and replete as needed Nutrition: heart healthy, renal diet (Zahida Clarke MD, R3) Problem Qualifiers (1) Acute on chronic renal failure: Qualified Codes: N17.9 - Acute kidney failure, unspecified; N18.5 - Chronic kidney disease, stage 5 (2) CAD (coronary artery disease): Qualified Codes: I25.10 - Atherosclerotic heart disease of [place] coronary artery without angina pectoris (3) Diabetes: Qualified Codes: E11.9 - Type 2 diabetes mellitus without complications; Z79.4 - 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
[2017-02-17 16:50] LABS: MEAN CELL VOLUME 92.8 FL (80.0-100.0); MEAN CORPUSCULAR HEMOGLOBIN 29.1 PG (27.0-34.0); MEAN CORPUSCULAR HGB CONC 31.3 % (32.0-36.0); PLATELET COUNT 268 TH/MM3 (150-450); RED BLOOD COUNT 3.67 MIL/MM3 (4.00-5.30); REVIEW FLAG FINAL; WHITE BLOOD COUNT 10.4 TH/MM3 (4.0-11.0)
[2017-02-17 17:50] LABS: BICARBONATE 28.7 MEQ/L (21.0-32.0); POTASSIUM 4.2 MEQ/L (3.5-5.1)
--- NOTE | 2017-02-17 19:48 | HHI.NPPN ---
Subjective History of Present Illness 51 Year old female with CKD approached ESRD, Diabetes, Hypertension Review of Systems General Constitutional: Fatigue Respiratory Lungs: SOB Cardiovascular Cardiac: Edema Objective Data Data 02/17/17 02/18/17 19:00 07:00 Output Total 3000 ml Balance -3000 ml Hemodialysis 3000 ml Vital Signs Date Time Temp Pulse Resp B/P (MAP) Pulse Ox O2 Delivery O2 Flow Rate FiO2 02/17/17 16:00 98.8 87 18 159/68 (98) 99 02/17/17 12:09 98.4 80 20 163/72 (102) 99 02/17/17 08:01 98.3 71 18 148/63 (91) 99 02/17/17 08:00 89 02/17/17 07:45 95 02/17/17 05:38 98.6 74 22 151/67 (95) 98 02/17/17 04:14 93 02/17/17 00:00 98.2 77 20 169/72 (104) 99 02/16/17 22:00 98 21 02/16/17 21:56 98.6 79 22 186/84 (118) 96 -: 02/17/17 1606 02/17/17 1606 Physical Exam General Appearance: Well Developed, Obese Neck Neck Exam: Neck Supple Pulmonary Resp Exam: Decreased Bases Cardiology CV Exam: Regular, Normal Sinus Rhythm Gastrointestinal/Abdomen GI Exam: Soft, Non-Tender, Bowel Sounds Present Extremeties Extremities Exam: Moderate Edema Neurologic Neuro Exam: Alert Assessment/Plan Problem List: (1) ESRD (end stage renal disease) ICD Codes: N18.6 - End stage renal disease Status: Chronic Plan: Patient had hemodialysis earlier 3 L was taken off She will need AV fistula placement and vascular consult appreciated need PermCath next week as well She need long-term plans placement of hemodialysis in outpatient facility as well [facility] (2) Chronic uremia ICD Codes: N18.9 - Chronic kidney disease, unspecified Plan: Patient is now doing dialysis (3) Diabetes ICD Codes: E11.9 - Type 2 diabetes mellitus without complications Status: Chronic Plan: Not well-controlled continue to monitor (4) HTN (hypertension) ICD Codes: I10 - Essential (primary) hypertension Plan: Labile hypertension increase Amlodipine to 5 mg bid, Hydralazine titrate to 50 mg tid (5) Hyperkalemia ICD Codes: E87.5 - Hyperkalemia Status: Acute Plan: Renal failure limit potassium in diet use Kayexalate (6) Secondary hyperparathyroidism ICD Codes: N25.81 - Secondary hyperparathyroidism of renal origin Plan: start Zemplar Problem Qualifiers (1) Diabetes: Qualified Codes: E11.9 - Type 2 diabetes mellitus without complications; Z79.4 - senior living (current) use of insulin (2) HTN (hypertension): Qualified Codes: I10 - Essential (primary) hypertension Shantelle Maldonado MD Feb 17, 2017 19:48
[2017-02-17] MEDS: ATORVASTATIN 40 MG TAB PO SCH (21:44)
[2017-02-17] MEDS: ACETAMINOPHEN 325 MG TAB PO PRN (23:17)
[2017-02-18] VITALS (7 sets, daily range): BP systolic 139–189; BP diastolic 67–102; PULSE 77–94; RESP 17–20; TEMP 97–98.5; O2SAT 95–100
[2017-02-18] MEDS: HEPARIN SODIUM - SQ 10,000 UNITS/ML VIAL SQ SCH ×3 (05:52→20:30)
[2017-02-18] MEDS: hydrALAZINE HCL 25 MG TAB PO SCH ×3 (05:53→20:30)
[2017-02-18 07:29] LABS: HEMATOCRIT 30.9 % (35.0-46.0); MEAN CELL VOLUME 91.8 FL (80.0-100.0); MEAN CORPUSCULAR HGB CONC 31.6 % (32.0-36.0); PLATELET COUNT 262 TH/MM3 (150-450); RED BLOOD COUNT 3.36 MIL/MM3 (4.00-5.30); RED CELL DISTRIBUTION WIDTH 15.6 % (11.6-17.2); REVIEW FLAG FINAL; WHITE BLOOD COUNT 12.2 TH/MM3 (4.0-11.0)
[2017-02-18 08:17] LABS: BICARBONATE 28.8 MEQ/L (21.0-32.0); POTASSIUM 4.2 MEQ/L (3.5-5.1)
[2017-02-18] MEDS: RESP: ALBUTEROL 2.5 MG/IPRATROPIUM 0.5 MG NEB (SCH) NEB ×2 (08:36→11:34)
[2017-02-18] MEDS: PARICALCITOL 1 MCG CAP PO SCH (09:00)
[2017-02-18] MEDS: FLUTICASONE PROPIONATE 50 MCG/ACT 16 GM NASAL SPRAY EACH NARE SCH ×2 (09:00→20:31)
[2017-02-18] MEDS: SODIUM CHLORIDE 0.9% FLUSH 10 ML FLUSH IV FLUSH SCH ×2 (09:00→20:30)
[2017-02-18] MEDS: INSULIN ASPART SUPPLEMENTAL SCALE SQ SCH ×4 (09:07→21:00)
[2017-02-18] MEDS: INSULIN DETEMIR 100 UNITS/ML VIAL SQ SCH ×2 (09:07→21:00)
[2017-02-18] MEDS: amLODIPine BESYLATE 5 MG TAB PO SCH ×2 (09:08→20:30)
[2017-02-18] MEDS: CHOLECALCIFEROL (VIT D3) 1000 UNIT TAB PO SCH (09:08)
[2017-02-18] MEDS: CARVEDILOL 12.5 MG TAB PO SCH ×2 (09:08→20:30)
[2017-02-18] MEDS: predniSONE 20 MG TAB PO SCH (09:08)
[2017-02-18] MEDS: PANTOPRAZOLE SOD 20 MG DELAYED RELEASE TAB PO SCH (09:09)
[2017-02-18] MEDS: METOCLOPRAMIDE HCL 10 MG TAB PO SCH ×3 (09:09→18:24)
--- NOTE | 2017-02-18 10:05 | HHI.FPPN ---
Subjective Remarks No acute events overnight. Vital signs unremarkable. BP has been [id number]- 160 systolic. This morning patient reports that she feels well and has no complaints. Denies shortness of breath, chest pain, abdominal pain. (Cathleen Tolliver MD, R3) Objective Vitals Vital Signs Date Time Temp Pulse Resp B/P (MAP) Pulse Ox O2 Delivery O2 Flow Rate FiO2 02/18/17 08:39 99 02/18/17 08:00 98.4 82 17 156/102 (120) 100 02/18/17 04:00 97.5 90 20 139/67 (91) 95 02/18/17 02:45 97.0 79 20 142/73 (96) 97 02/17/17 16:00 98.8 87 18 159/68 (98) 99 02/17/17 12:09 98.4 80 20 163/72 (102) 99 I/O 02/17/17 02/17/17 02/17/17 02/18/17 02/18/17 02/18/17 07:00 15:00 23:00 07:00 15:00 23:00 Output Total 3000 ml Balance -3000 ml Hemodialysis 3000 ml # Voids 4 (Cathleen Tolliver MD, R3) Result Diagram: 02/18/17 0703 02/18/17 0703 Objective Remarks GEN: Well-developed, well-nourished patient. No acute distress. CV: Regular rate and rhythm without obvious murmurs LUNGS: Clear to auscultation bilaterally. Normal respiratory effort. No wheezes , rales, rhonchi. GI: Soft, nontender, nondistended. No palpable masses. EXT: No edema. No calf tenderness. NEURO/PSYCH: Awake, alert. Appropriate insight and judgment. Normal speech (Cathleen Tolliver MD, R3) A/P Assessment and Plan Mrs. Menjivar is a 51 yo F with PMH of CAD (NSTEMI 2010; s/p stent placent), T2DM, CKD, anemia who presented with shortness of breath and was admitted for COPD exacerbation and renal failure but now much improved. Discharge Planning Anticipate discharge home in the next few days after placement of AVF by vascular surgery. Patient will need long-term placement for hemodialysis in outpatient facility. Case management already consulted to assist with this. phu Duran [facility] Attending Attestation Patient seen and examined. Case reviewed and discussed with the resident team. Agree with plan of care as discussed with me and documented in the resident note. she is much better with her breathing since starting dialysis. she will need to have a catheter that can be used as an outpt and evidently the vas cath is not used outpt. (Katherine Duran MD) Problem List: (1) Acute on chronic renal failure ICD Codes: N17.9 - Rgqbm-hm-dkzquzh renal failure; N18.9 - Chronic kidney disease, unspecified Status: Acute Plan: PMH of stage 5 CKD with baseline Cr of 3-4. Patient has been poorly compliant and has refused dialysis in the past, however now agreeable to hemodialysis - Consult Nephrology- appreciate recommendations, continue hemodialysis * Needs AV fistula and PermCath * Will require long-term outpatient hemodialysis * Kayexalate for hyperkalemia * Zemplar for secondary hyperparathyroidism - Vascular surgery to perform LEFT brachiocephalic AVF based on pre-operative vein mapping -Vitamin D3 2000 units daily (2) COPD exacerbation ICD Codes: J44.1 - Chronic obstructive pulmonary disease with (acute) exacerbation Status: Resolved Plan: Resolved shortness of breath also likely secondary to fluid overload from renal failure CXR with Cardiomegaly but clear lungs Negative for legionella and strep pneumo urinary antigens Plan: - Continue Prednisone 40mg PO daily x5 days - Continue Duonebs q4h and q2 PRN sob/wheezing - monitor O2 saturations (3) Hypertensive urgency ICD Codes: I16.0 - Hypertensive urgency Status: Resolved Plan: Resolved with dialysis. BP now ranging 140-160's/60-70's Troponin wnl; EKG without change - Amlodipine to 5mg PO BID and Hydralazine 50mg PO TID - Continue home dose of Carvedilol 12.5mg PO BID -consider increasing if BP remains uncontrolled -Hydralazine and clonidine PRN for BP (4) CAD (coronary artery disease) ICD Codes: I25.10 - Atherosclerotic heart disease of [place] coronary artery without angina pectoris Status: Chronic Plan: PMH of CAD s/p stent placement. Patient last seen by Cardiology in 2016 per EMR -Continue medical management of CAD -Continue ASA 81mg -SIMI deferred for renal dysfunction -Continue Carvedilol 12.5mg PO BID -Atorvastatin 40mg daily (5) Diabetes ICD Codes: E11.9 - Type 2 diabetes mellitus without complications Status: Chronic Plan: Hold home Lantus 27 units HS Blood glucose remains elevated and requires a total of 14units of short acting insulin -low dose Novolog SSI - Consider increasing Levemir again tomorrow based on results, continue Levemir to 25 units BID for now (6) Hyperkalemia ICD Codes: E87.5 - Hyperkalemia Status: Resolved Plan: Resolved with dialysis. -Reorder Kayexalate 15g PO PRN if hyperkalemia returns (7) DVT prophylaxis Status: Acute Plan: -Heparin 5000 units q8hrs -Bilateral SCD's (8) Nutrition, metabolism, and development symptoms ICD Codes: R63.8 - Symptoms concerning nutrition, metabolism, and development Status: Acute Plan: Fluids: Hold fluids for fluid overload Electrolytes: continue to monitor and replete as needed Nutrition: heart healthy, renal diet GI PPX: Protonix due to steroid use (Cathleen Tolliver MD, R3) Problem Qualifiers (1) Acute on chronic renal failure: Qualified Codes: N17.9 - Acute kidney failure, unspecified; N18.5 - Chronic kidney disease, stage 5 (2) CAD (coronary artery disease): Qualified Codes: I25.10 - Atherosclerotic heart disease of [place] coronary artery without angina pectoris (3) Diabetes: Qualified Codes: E11.9 - Type 2 diabetes mellitus without complications; Z79.4 - assisted (current) use of insulin Cathleen Tolliver MD, R3 Feb 18, 2017 10:05 Katherine Duran MD Feb 18, 2017 15:08
--- NOTE | 2017-02-18 10:30 | HHI.NPPN ---
Subjective History of Present Illness 51 Year old female with CKD approached ESRD, Diabetes, Hypertension Interval History She was dialyzed yesterday. Notes were reviewed. Review of Systems General Constitutional: Fatigue Respiratory Lungs: SOB Cardiovascular Cardiac: Edema Objective Data Data Vital Signs Date Time Temp Pulse Resp B/P (MAP) Pulse Ox O2 Delivery O2 Flow Rate FiO2 02/18/17 08:39 99 02/18/17 08:00 98.4 82 17 156/102 (120) 100 02/18/17 04:00 97.5 90 20 139/67 (91) 95 02/18/17 02:45 97.0 79 20 142/73 (96) 97 02/17/17 16:00 98.8 87 18 159/68 (98) 99 02/17/17 12:09 98.4 80 20 163/72 (102) 99 -: 02/18/17 0703 02/18/17 0703 Physical Exam General Appearance: Well Developed, Obese Neck Neck Exam: Neck Supple Pulmonary Resp Exam: Decreased Bases Cardiology CV Exam: Regular, Normal Sinus Rhythm Gastrointestinal/Abdomen GI Exam: Soft, Non-Tender, Bowel Sounds Present Extremeties Extremities Exam: Moderate Edema Neurologic Neuro Exam: Alert Assessment/Plan Problem List: (1) ESRD (end stage renal disease) ICD Codes: N18.6 - End stage renal disease Status: Chronic Plan: Had dialysis yesterday with UF of 3 liters. She will need AV fistula placement and vascular consult appreciated PermCath placement is planned next week. She need long-term plans placement of hemodialysis in outpatient facility as well [facility] (2) Chronic uremia ICD Codes: N18.9 - Chronic kidney disease, unspecified Plan: Patient is now doing dialysis (3) Diabetes ICD Codes: E11.9 - Type 2 diabetes mellitus without complications Status: Chronic Plan: Not well-controlled continue to monitor (4) HTN (hypertension) ICD Codes: I10 - Essential (primary) hypertension Plan: Labile hypertension increase Amlodipine to 5 mg bid, Hydralazine titrate to 50 mg tid (5) Hyperkalemia ICD Codes: E87.5 - Hyperkalemia Status: Acute Plan: resolved. (6) Secondary hyperparathyroidism ICD Codes: N25.81 - Secondary hyperparathyroidism of renal origin Plan: On Zemplar. Problem Qualifiers (1) Diabetes: Qualified Codes: E11.9 - Type 2 diabetes mellitus without complications; Z79.4 - [employer] (current) use of insulin (2) HTN (hypertension): Qualified Codes: I10 - Essential (primary) hypertension Donovan Gatica MD Feb 18, 2017 10:30
[2017-02-18] MEDS: ATORVASTATIN 40 MG TAB PO SCH (20:30)
[2017-02-19] VITALS (7 sets, daily range): BP systolic 146–214; BP diastolic 68–82; PULSE 79–91; RESP 16–20; TEMP 98.4–98.7; O2SAT 95–100
[2017-02-19] MEDS: hydrALAZINE HCL 25 MG TAB PO SCH ×3 (06:03→21:49)
[2017-02-19] MEDS: HEPARIN SODIUM - SQ 10,000 UNITS/ML VIAL SQ SCH ×3 (06:03→21:49)
[2017-02-19] MEDS: INSULIN ASPART SUPPLEMENTAL SCALE SQ SCH ×4 (08:00→22:01)
[2017-02-19] MEDS: CHOLECALCIFEROL (VIT D3) 1000 UNIT TAB PO SCH (08:27)
[2017-02-19] MEDS: predniSONE 20 MG TAB PO SCH (08:27)
[2017-02-19] MEDS: amLODIPine BESYLATE 5 MG TAB PO SCH ×2 (08:27→21:48)
[2017-02-19] MEDS: PANTOPRAZOLE SOD 20 MG DELAYED RELEASE TAB PO SCH (08:27)
[2017-02-19] MEDS: METOCLOPRAMIDE HCL 10 MG TAB PO SCH ×3 (08:28→17:38)
[2017-02-19] MEDS: CARVEDILOL 12.5 MG TAB PO SCH ×2 (08:28→21:48)
[2017-02-19] MEDS: PARICALCITOL 1 MCG CAP PO SCH (08:28)
[2017-02-19] MEDS: INSULIN DETEMIR 100 UNITS/ML VIAL SQ SCH ×2 (08:29→22:02)
[2017-02-19] MEDS: FLUTICASONE PROPIONATE 50 MCG/ACT 16 GM NASAL SPRAY EACH NARE SCH ×2 (08:30→21:00)
[2017-02-19] MEDS: SODIUM CHLORIDE 0.9% FLUSH 10 ML FLUSH IV FLUSH SCH ×2 (09:00→21:48)
--- NOTE | 2017-02-19 09:34 | HHI.FPPN ---
Subjective Remarks No acute events overnight. Vital signs unremarkable except for elevated BP. This morning patient reports that she is getting bored and is ready to go. Does not fully understand what the holdup is at this time. Patient otherwise denies any complaints. (Cathleen Tolliver MD, R3) Objective Vitals Vital Signs Date Time Temp Pulse Resp B/P (MAP) Pulse Ox O2 Delivery O2 Flow Rate FiO2 02/19/17 08:00 98.7 86 20 167/77 (107) 95 02/19/17 04:00 98.4 86 20 164/68 (100) 95 02/19/17 00:00 98.6 91 18 173/74 (107) 96 02/18/17 20:00 98.4 94 20 189/83 (118) 97 02/18/17 16:00 98.5 77 20 168/73 (104) 97 02/18/17 12:00 98.5 81 20 186/76 (112) 98 I/O 02/18/17 02/18/17 02/18/17 02/19/17 02/19/17 02/19/17 07:00 15:00 23:00 07:00 15:00 23:00 Intake Total 920 ml 240 ml Balance 920 ml 240 ml Intake Oral 920 ml 240 ml # Voids 4 2 (Cathleen Tolliver MD, R3) Result Diagram: 02/18/1770202/18/17 0703 Objective Remarks GEN: Well-developed, well-nourished patient. No acute distress. CV: Regular rate and rhythm without obvious murmurs LUNGS: Clear to auscultation bilaterally. Normal respiratory effort. No wheezes , rales, rhonchi. GI: nondistended EXT: No edema. No calf tenderness. NEURO/PSYCH: Awake, alert. Appropriate insight and judgment. Normal speech (Cathleen Tolliver MD, R3) A/P Assessment and Plan Mrs. Menjivar is a 51 yo F with PMH of CAD (NSTEMI 2010; s/p stent placent), T2DM, CKD, anemia who presented with shortness of breath and was admitted for COPD exacerbation and renal failure but now much improved. Discharge Planning Anticipate discharge home in the next few days after placement of AVF by vascular surgery. Patient will need long-term placement for hemodialysis in outpatient facility. Case management already consulted to assist with this. wdw Dr. Duran [facility] Attending Attestation Patient seen and examined. Case reviewed and discussed with the resident team. Agree with plan of care as discussed with me and documented in the resident note. explained that she needed to have a different way of having dialysis as an outpt than a vas cath. she could get infected with that or have other issues. she should be scheduled for surgery tomorrow. (Katherine Duran MD) Problem List: (1) Acute on chronic renal failure ICD Codes: N17.9 - Ncnns-gc-ajxmffa renal failure; N18.9 - Chronic kidney disease, unspecified Status: Acute Plan: PMH of stage 5 CKD with baseline Cr of 3-4. Patient has been poorly compliant and has refused dialysis in the past, however now agreeable to hemodialysis - Consult Nephrology- appreciate recommendations, continue hemodialysis * Needs AV fistula and PermCath * Will require long-term outpatient hemodialysis * Kayexalate for hyperkalemia * Zemplar for secondary hyperparathyroidism - Vascular surgery to perform LEFT brachiocephalic AVF based on pre-operative vein mapping -Vitamin D3 2000 units daily (2) COPD exacerbation ICD Codes: J44.1 - Chronic obstructive pulmonary disease with (acute) exacerbation Status: Resolved Plan: Resolved shortness of breath also likely secondary to fluid overload from renal failure CXR with Cardiomegaly but clear lungs Negative for legionella and strep pneumo urinary antigens Plan: - Continue Prednisone 40mg PO daily x5 days - Continue Duonebs q4h and q2 PRN sob/wheezing - monitor O2 saturations (3) Hypertensive urgency ICD Codes: I16.0 - Hypertensive urgency Status: Resolved Plan: Improved with dialysis but still elevated with a high of 189/83 Troponin wnl; EKG without change - Amlodipine to 5mg PO BID and Hydralazine 50mg PO TID - Increased coreg to 25mg BID -Hydralazine and clonidine PRN for BP (4) CAD (coronary artery disease) ICD Codes: I25.10 - Atherosclerotic heart disease of [place] coronary artery without angina pectoris Status: Chronic Plan: PMH of CAD s/p stent placement. Patient last seen by Cardiology in 2016 per EMR -Continue medical management of CAD -Continue ASA 81mg -SIMI deferred for renal dysfunction -Continue Carvedilol -Atorvastatin 40mg daily (5) Diabetes ICD Codes: E11.9 - Type 2 diabetes mellitus without complications Status: Chronic Plan: Hold home Lantus 27 units HS Blood glucose remains elevated, will adjust diet prior to more changes with insulin at this time as patient has also been on steroids -low dose Novolog SSI -Continue Levemir to 25 units BID for now (6) Hyperkalemia ICD Codes: E87.5 - Hyperkalemia Status: Resolved Plan: Resolved with dialysis. -Reorder Kayexalate 15g PO PRN if hyperkalemia returns (7) DVT prophylaxis Status: Acute Plan: -Heparin 5000 units q8hrs -Bilateral SCD's (8) Nutrition, metabolism, and development symptoms ICD Codes: R63.8 - Symptoms concerning nutrition, metabolism, and development Status: Acute Plan: Fluids: Hold fluids for fluid overload Electrolytes: continue to monitor and replete as needed Nutrition: Renal/Diabetic diet GI PPX: Protonix due to steroid use (Cathleen Tolliver MD, R3) Problem Qualifiers (1) Acute on chronic renal failure: Qualified Codes: N17.9 - Acute kidney failure, unspecified; N18.5 - Chronic kidney disease, stage 5 (2) CAD (coronary artery disease): Qualified Codes: I25.10 - Atherosclerotic heart disease of [place] coronary artery without angina pectoris (3) Diabetes: Qualified Codes: E11.9 - Type 2 diabetes mellitus without complications; Z79.4 - [facility] (current) use of insulin Cathleen Tolliver MD, R3 Feb 19, 2017 09:34 Katherine Duran MD Feb 19, 2017 18:19
--- NOTE | 2017-02-19 12:03 | HHI.NPPN ---
Subjective History of Present Illness 51 Year old female with CKD approached ESRD, Diabetes, Hypertension Interval History She is resting, comfortable, had no specific complaints. Review of Systems General Constitutional: Fatigue Respiratory Lungs: SOB Cardiovascular Cardiac: Edema Objective Data Data Vital Signs Date Time Temp Pulse Resp B/P (MAP) Pulse Ox O2 Delivery O2 Flow Rate FiO2 02/19/17 08:00 98.7 86 20 167/77 (107) 95 02/19/17 04:00 98.4 86 20 164/68 (100) 95 02/19/17 00:00 98.6 91 18 173/74 (107) 96 02/18/17 20:00 98.4 94 20 189/83 (118) 97 02/18/17 16:00 98.5 77 20 168/73 (104) 97 -: 02/18/17 0703 02/18/17 0703 Physical Exam General Appearance: Well Developed, Obese Neck Neck Exam: Neck Supple Pulmonary Resp Exam: Decreased Bases Cardiology CV Exam: Regular, Normal Sinus Rhythm Gastrointestinal/Abdomen GI Exam: Soft, Non-Tender, Bowel Sounds Present Extremeties Extremities Exam: Moderate Edema Neurologic Neuro Exam: Alert Assessment/Plan Problem List: (1) ESRD (end stage renal disease) ICD Codes: N18.6 - End stage renal disease Status: Chronic Plan: Dialysis to be continued [facility]. She will need AV fistula placement and vascular consult appreciated PermCath placement is planned next week. She need long-term plans placement of hemodialysis in outpatient facility as well [facility] (2) Diabetes ICD Codes: E11.9 - Type 2 diabetes mellitus without complications Status: Chronic Plan: Not well-controlled continue to monitor (3) HTN (hypertension) ICD Codes: I10 - Essential (primary) hypertension Plan: Labile hypertension increased Amlodipine to 5 mg bid, Hydralazine titrate to 50 mg tid Monitor, may improve with dialysis and fluid removal. (4) Hyperkalemia ICD Codes: E87.5 - Hyperkalemia Status: Resolved Plan: resolved. (5) Secondary hyperparathyroidism ICD Codes: N25.81 - Secondary hyperparathyroidism of renal origin Plan: On Zemplar. Problem Qualifiers (1) Diabetes: Qualified Codes: E11.9 - Type 2 diabetes mellitus without complications; Z79.4 - [facility] (current) use of insulin (2) HTN (hypertension): Qualified Codes: I10 - Essential (primary) hypertension Hoskote,Donovan MD Feb 19, 2017 12:03
[2017-02-19] MEDS: cloNIDine HCL 0.1 MG TAB PO PRN (14:26)
[2017-02-19 17:43] LABS: AUTOMATED NEUTROPHIL # 11.4 TH/MM3 (1.8-7.7); BASOPHIL % 0.1 % (0.0-2.0); HEMATOCRIT 30.5 % (35.0-46.0); HEMO FLAGS DIFF FINAL; LYMPH % 3.5 % (9.0-44.0); LYMPHOCYTE # 0.4 TH/MM3 (1.0-4.8); MEAN CELL VOLUME 93.2 FL (80.0-100.0); MEAN CORPUSCULAR HEMOGLOBIN 28.2 PG (27.0-34.0); MEAN CORPUSCULAR HGB CONC 30.3 % (32.0-36.0); MONO % 2.8 % (0.0-8.0); NEUT % 93.6 % (16.0-70.0); PLATELET COUNT 246 TH/MM3 (150-450); RED BLOOD COUNT 3.27 MIL/MM3 (4.00-5.30); RED CELL DISTRIBUTION WIDTH 15.5 % (11.6-17.2); WHITE BLOOD COUNT 12.2 TH/MM3 (4.0-11.0)
[2017-02-19] MEDS: ATORVASTATIN 40 MG TAB PO SCH (21:48)
[2017-02-20] VITALS (7 sets, daily range): BP systolic 114–184; BP diastolic 58–83; PULSE 58–82; RESP 16–21; TEMP 97.3–98.5; O2SAT 95–100
[2017-02-20] MEDS: hydrALAZINE HCL 25 MG TAB PO SCH ×3 (05:02→22:36)
[2017-02-20] MEDS: HEPARIN SODIUM - SQ 10,000 UNITS/ML VIAL SQ SCH ×3 (05:03→22:37)
[2017-02-20] MEDS: INSULIN ASPART SUPPLEMENTAL SCALE SQ SCH ×4 (08:00→21:00)
[2017-02-20] MEDS: FLUTICASONE PROPIONATE 50 MCG/ACT 16 GM NASAL SPRAY EACH NARE SCH ×2 (09:00→21:00)
[2017-02-20] MEDS: SODIUM CHLORIDE 0.9% FLUSH 10 ML FLUSH IV FLUSH SCH ×2 (09:00→21:00)
[2017-02-20] MEDS: INSULIN DETEMIR 100 UNITS/ML VIAL SQ SCH (09:00)
[2017-02-20] MEDS ORDERED: INSULIN DETEMIR 100 UNITS/ML VIAL SQ ONE (09:30)
[2017-02-20] MEDS: PANTOPRAZOLE SOD 20 MG DELAYED RELEASE TAB PO SCH (09:54)
[2017-02-20] MEDS: predniSONE 20 MG TAB PO SCH (09:54)
[2017-02-20] MEDS: amLODIPine BESYLATE 5 MG TAB PO SCH ×2 (09:54→22:35)
[2017-02-20] MEDS: METOCLOPRAMIDE HCL 10 MG TAB PO SCH ×3 (09:55→17:58)
[2017-02-20] MEDS: CHOLECALCIFEROL (VIT D3) 1000 UNIT TAB PO SCH (09:55)
[2017-02-20] MEDS: PARICALCITOL 1 MCG CAP PO SCH (09:55)
[2017-02-20] MEDS: CARVEDILOL 12.5 MG TAB PO SCH ×2 (09:55→22:36)
[2017-02-20] MEDS ORDERED: VANCOMYCIN INJ 1,000 MG in SODIUM CHLOR 0.9% 250 ML INJ 250 ML IV SCH (10:00)
--- NOTE | 2017-02-20 10:06 | HHI.FPPN ---
Subjective Remarks No acute issues overnight. Vitals are stable, patient remains afebrile. She is feeling well overall. She states that her breathing has improved to baseline. She is currently a smoker but acknowledges that she needs to stop. She denies any chest pain, shortness of breath, fever, chills, nausea, vomiting , abdominal pain, or leg pain. (Zahida Clarke MD, R3) Objective Vitals Vital Signs Date Time Temp Pulse Resp B/P (MAP) Pulse Ox O2 Delivery O2 Flow Rate FiO2 02/20/17 08:00 98.5 77 21 162/76 (104) 98 02/20/17 05:08 98.5 82 18 184/83 (116) 100 02/19/17 23:19 98.5 86 19 146/68 (94) 95 02/19/17 22:03 98.5 84 16 214/82 (126) 96 02/19/17 16:00 98.5 81 20 165/70 (101) 98 02/19/17 12:55 98.4 79 20 194/78 (116) 100 I/O 02/19/17 02/19/17 02/19/17 02/20/17 02/20/17 02/20/17 07:00 15:00 23:00 07:00 15:00 23:00 Intake Total 240 ml 480 ml Balance 240 ml 480 ml Intake Oral 240 ml 480 ml # Voids 2 2 1 # Bowel Movements 1 (Zahida Clarke MD, R3) Result Diagram: 02/19/17 1730 02/19/17 1730 Imaging Last Impressions Upper Extremity Ultrasound 02/16/17 0000 Signed Impressions: Service Date/Time: February 20:35 - CONCLUSION: Negative exam. No sonographic or Doppler findings of deep venous thrombosis in either upper extremity. Isael Hernandez MD Catheter Placement X-Ray 02/15/17 0000 Signed Impressions: Service Date/Time: Wednesday, February 15, 2017 18:11 - CONCLUSION: Uncomplicated line placement as above. Kenneth Lugo MD Lung Scan-V Nuclear Medicine 02/14/17 0000 Signed Impressions: Service Date/Time: Tuesday, February 14, 2017 09:03 - CONCLUSION: 1. No perfusion defect identified. Examination is negative for PE. Kenneth Lugo MD Chest X-Ray 02/13/17 1559 Signed Impressions: Service Date/Time: Monday, February 13, 2017 17:01 - CONCLUSION: Moderate cardiomegaly. Clear lungs. Dale Fisher Jr., MD Soft Tissue Neck X-Ray 02/13/17 0000 Signed Impressions: Service Date/Time: Monday, February 13, 2017 17:03 - CONCLUSION: 1. Aryepiglottic fold thickening suggesting edema. No radiopaque foreign body. Dale Fisher Jr., MD Neck Ultrasound 02/13/17 0000 Signed Impressions: Service Date/Time: Monday, February 13, 2017 22:48 - CONCLUSION: 1. No neck mass or fluid collection identified sonographically in the midline neck. Bubba Mccarty MD Lower Extremity Ultrasound 02/13/17 0000 Signed Impressions: Service Date/Time: Monday, February 13, 2017 22:53 - CONCLUSION: Normal examination. Bubba Mccarty MD Objective Remarks GEN: Well-developed, well-nourished female patient in no acute distress. CV: Regular rate and rhythm without obvious murmurs LUNGS: Tight air movement bilaterally with occasional diffuse wheezes. Normal respiratory effort. GI: soft, non-tender, nondistended EXT: No lower extremity edema. No calf tenderness. NEURO/PSYCH: Awake, alert. Appropriate insight and judgment. Normal speech (Zahida Clarke MD, R3) A/P Assessment and Plan Mrs. Menjivar is a 51 yo F with PMH of CAD (NSTEMI 2011; s/p stent placent), T2DM, CKD, anemia who presented with shortness of breath and was admitted for COPD exacerbation and renal failure. Discharge Planning Anticipate discharge home in the next 1-2 days after placement of AVF by vascular surgery. Patient to receive outpatient dialysis with [facility]. sdw Dr. Sommer (Zahida Clarke MD, R3) Attending Attestation THIS CASE WAS DISCUSSED WITH THE RESIDENT PHYSICIANS PATIENT WAS INTERVIEWED AND EXAMINED. I HAVE REVIEWED THE RECORD AND AGREE WITH THE ABOVE NOTE AND PLAN OF CARE WAS DISCUSSED. I HAVE AUTHORIZED THE ORDERS.Patient understands she has to stop smoking. (Omar Sommer MD) Problem List: (1) Acute on chronic renal failure ICD Codes: N17.9 - Rcwjw-wr-djvhruc renal failure; N18.9 - Chronic kidney disease, unspecified Status: Acute Plan: PMH of stage 5 CKD with baseline Cr of 3-4. Patient has been poorly compliant and has refused dialysis in the past, however now agreeable to hemodialysis - Consult Nephrology- appreciate recommendations, continue hemodialysis * Needs AV fistula and PermCath * Will require long-term outpatient hemodialysis * Kayexalate PRN hyperkalemia * Zemplar for secondary hyperparathyroidism - Vascular surgery to perform LEFT brachiocephalic AVF based on pre-operative vein mapping -Vitamin D3 2000 units daily (2) COPD exacerbation ICD Codes: J44.1 - Chronic obstructive pulmonary disease with (acute) exacerbation Status: Resolved Plan: Resolved CXR with Cardiomegaly but clear lungs Negative for legionella and strep pneumo urinary antigens Plan: - Continue Prednisone 40mg PO daily x5 days (end 02/20) - Add Symbicort 2 puffs BID - Continue Duonebs q4h and q2 PRN sob/wheezing - monitor O2 saturations (3) Hypertensive urgency ICD Codes: I16.0 - Hypertensive urgency Status: Resolved Plan: Improved with dialysis but still elevated Troponin wnl; EKG without change - Amlodipine to 5mg PO BID and Hydralazine 50mg PO TID - Coreg to 25mg BID -Hydralazine and clonidine PRN for BP (4) CAD (coronary artery disease) ICD Codes: I25.10 - Atherosclerotic heart disease of [place] coronary artery without angina pectoris Status: Chronic Plan: PMH of CAD s/p stent placement. Patient last seen by Cardiology in 2016 per EMR -Continue medical management of CAD -Continue ASA 81mg -Add lisinopril 20mg PO daily -Continue Carvedilol -Atorvastatin 40mg daily (5) Diabetes ICD Codes: E11.9 - Type 2 diabetes mellitus without complications Status: Chronic Plan: Hold home Lantus 27 units HS -low dose Novolog SSI -Hold Levemir to 25 units BID while NPO, will give 10 units Levemir this AM while NPO (6) DVT prophylaxis Status: Acute Plan: -Heparin 5000 units q8hrs -Bilateral SCD's (7) Nutrition, metabolism, and development symptoms ICD Codes: R63.8 - Symptoms concerning nutrition, metabolism, and development Status: Acute Plan: Fluids: None Electrolytes: continue to monitor and replete as needed Nutrition: Renal/Diabetic diet GI PPX: Protonix due to steroid use (Zahida Clarke MD, R3) Problem Qualifiers (1) Acute on chronic renal failure: Qualified Codes: N17.9 - Acute kidney failure, unspecified; N18.5 - Chronic kidney disease, stage 5 (2) CAD (coronary artery disease): Qualified Codes: I25.10 - Atherosclerotic heart disease of [place] coronary artery without angina pectoris (3) Diabetes: Qualified Codes: E11.9 - Type 2 diabetes mellitus without complications; Z79.4 - skilled nursing (current) use of insulin Zahida Calrke MD, R3 Feb 20, 2017 10:06 Omar Sommer MD Feb 20, 2017 18:18
--- NOTE | 2017-02-20 10:21 | PD.VS.PN ---
Subjective Subjective/Hospital Course Pt sitting in a chair without complaints this am Denies SOB HD going well per patient Objective Vitals/I&O Date Time Temp Pulse Resp B/P (MAP) Pulse Ox O2 Delivery O2 Flow Rate FiO2 02/20/17 08:00 98.5 77 21 162/76 (104) 98 02/20/17 05:08 98.5 82 18 184/83 (116) 100 02/19/17 23:19 98.5 86 19 146/68 (94) 95 02/19/17 22:03 98.5 84 16 214/82 (126) 96 02/19/17 16:00 98.5 81 20 165/70 (101) 98 02/19/17 12:55 98.4 79 20 194/78 (116) 100 Physical Exam GENERAL: A&OX3,NAD,GCS15 SKIN: Warm and dry Left radial pulse palpable UE warm w/o motor deficits Laboratory Laboratory Tests Test 02/19/17 17:30 White Blood Count 12.2 Red Blood Count 3.27 Hemoglobin 9.2 Hematocrit 30.5 Mean Corpuscular Volume 93.2 Mean Corpuscular Hemoglobin 28.2 Mean Corpuscular Hemoglobin Concent 30.3 Red Cell Distribution Width 15.5 Platelet Count 246 Mean Platelet Volume 8.6 Neutrophils (%) (Auto) 93.6 Lymphocytes (%) (Auto) 3.5 Monocytes (%) (Auto) 2.8 Eosinophils (%) (Auto) 0.0 Basophils (%) (Auto) 0.1 Neutrophils # (Auto) 11.4 Lymphocytes # (Auto) 0.4 Monocytes # (Auto) 0.3 Eosinophils # (Auto) 0.0 Basophils # (Auto) 0.0 CBC Comment DIFF FINAL Differential Comment Blood Urea Nitrogen 67 Creatinine 5.39 Random Glucose 479 Calcium Level 8.8 Sodium Level 131 Potassium Level 5.0 Chloride Level 96 Carbon Dioxide Level 26.0 Anion Gap 9 Estimat Glomerular Filtration Rate 10 Date/Time Source Procedure Growth Status 02/14/17 11:37 Urine Clean Catch Legionella Antigen - Final PRESUMPTIVE NEGATIVE FOR LEGIONELLA P... Complete 02/14/17 11:37 Urine Clean Catch Streptococcus pneumoniae Antigen (M - Final PRESUMPTIVE NEGATIVE FOR STREPTOCOCCU... Complete Assessment and Plan Assessment: (1) Uncontrolled diabetes mellitus Status: Chronic (2) Hypertension Status: Chronic (3) Shortness of breath Status: Acute (4) CAD (coronary artery disease) Status: Chronic (5) Renal insufficiency Status: Chronic (6) ESRD (end stage renal disease) Status: Chronic (7) CKD (chronic kidney disease), stage V Status: Chronic Plan Plan for LEFT brachiocephalic AVF based on pre-operative vein mapping Discussed with patient. Plan Discussed AVF procedure in detail w/ patient Questions answered Consent signed and placed in the chart Pt scheduled for Left upper extremity brachiocephalic AVF w/ Dr. Styles ( Monday) Please do not use LEFT ARM for BP, IV, blood draws etc. Nafisa GILLESPIE [facility]/[employer] [phone] Problem Qualifiers (1) CAD (coronary artery disease): Qualified Codes: I25.10 - Atherosclerotic heart disease of [place] coronary artery without angina pectoris Nafisa Rubio Feb 20, 2017 10:21
[2017-02-20] MEDS: LISINOPRIL 20 MG TAB PO SCH (11:12)
[2017-02-20] MEDS: BUDESONIDE-FORMOTEROL 80/4.5 MCG INHALER INH SCH ×2 (11:13→21:00)
[2017-02-20] MEDS ORDERED: MIDAZOLAM HCL 5 MG/5 ML VIAL ONE (11:47)
--- NOTE | 2017-02-20 12:52 | PD.RAD ---
Post Procedure Progress Note Pre Procedure Diagnosis: (1) Renal insufficiency Post Procedure Diagnosis: (1) Renal insufficiency Procedure Date: Feb 20, 2017 Supervising Radiologist: Kenneth Lugo Estimated blood loss: 2CC Anesthesia: Local, Conscious Sedation Plan of Activity Patient to Unit: ROPU Patient Condition: Good Additional Comments: Perm Cath placed via the right IJ catheter in good position OK for use See PACS Report for procedural detail/treatment Kenneth Lugo MD Feb 20, 2017 12:52
[2017-02-20] MEDS ORDERED: HEPARIN SODIUM - IV 2,000 UNITS/2 ML VIAL IV FLUSH PRN (13:00)
[2017-02-20] MEDS ORDERED: SODIUM CHLORIDE 0.9% FLUSH 10 ML FLUSH IVF PRN (13:00)
--- NOTE | 2017-02-20 14:22 | HHI.NPPN ---
Subjective History of Present Illness 51 Year old female with CKD approached ESRD, Diabetes, Hypertension Review of Systems General Constitutional: Fatigue Respiratory Lungs: SOB Cardiovascular Cardiac: Edema Objective Data Data Vital Signs Date Time Temp Pulse Resp B/P (MAP) Pulse Ox O2 Delivery O2 Flow Rate FiO2 02/20/17 13:20 58 18 125/74 (91) 99 02/20/17 13:05 97.9 65 16 114/74 (87) 99 02/20/17 12:00 98.5 70 21 162/71 (101) 99 02/20/17 08:00 98.5 77 21 162/76 (104) 98 02/20/17 05:08 98.5 82 18 184/83 (116) 100 02/19/17 23:19 98.5 86 19 146/68 (94) 95 02/19/17 22:03 98.5 84 16 214/82 (126) 96 02/19/17 16:00 98.5 81 20 165/70 (101) 98 -: 02/19/17 1730 02/19/17 1730 Physical Exam General Appearance: Well Developed, Obese Neck Neck Exam: Neck Supple Pulmonary Resp Exam: Decreased Bases Cardiology CV Exam: Regular, Normal Sinus Rhythm Gastrointestinal/Abdomen GI Exam: Soft, Non-Tender, Bowel Sounds Present Extremeties Extremities Exam: Moderate Edema Neurologic Neuro Exam: Alert Assessment/Plan Problem List: (1) ESRD (end stage renal disease) ICD Codes: N18.6 - End stage renal disease Status: Chronic Plan: Dialysis to be continued MW. She will need AV fistula placement and vascular consult appreciated PermCath placement done today seen at dialysis need AVF placement She need long-term plans placement of hemodialysis in outpatient facility as well [facility] (2) Diabetes ICD Codes: E11.9 - Type 2 diabetes mellitus without complications Status: Chronic Plan: Not well-controlled continue to monitor (3) HTN (hypertension) ICD Codes: I10 - Essential (primary) hypertension Plan: improved on Lisinopril 20 mg Amlodipine to 5 mg bid, Hydralazine titrate to 50 mg tid clonidine prn (4) Hyperkalemia ICD Codes: E87.5 - Hyperkalemia Status: Resolved Plan: resolved. (5) Secondary hyperparathyroidism ICD Codes: N25.81 - Secondary hyperparathyroidism of renal origin Plan: On Zemplar. 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
--- NOTE | 2017-02-20 14:43 | RADRPT ---
EXAM DATE/TIME: 02/20/2017 11:56 [place] COMPARISON: TEMP DIALYSIS CATHETER [facility] W/US, RIGHT, February 15, 2017, 18:11. INDICATIONS : Patient presents with renal disease in need of dialysis catheter exchange for treatment. MEDICAL HISTORY : DM Type II CAD Chronic kidney disease HLD HTN Metrorrhaghia Anemia Allergic rhinitis Poor medical compliance secondary to multiple socioeconomic issues SURGICAL HISTORY : Cardiac catheterization with stent of RCA (2010) Cholecystectomy, open (1979) ENCOUNTER: Subsequent ACUITY: 1 week PAIN SCORE: 0/10 LOCATION: N/A FLUORO TIME: 0.9 minutes IMAGE SERIES: 0 SEDATION TIME: 60 minutes SEDATION: 1.) 3.5 mg midazolam (Versed) IV 2.) 200 mcg fentanyl (Sublimaze) IV Prophylactic antibiotics were administered with appropriate pre-procedure timing. Vancomycin within 2 hours of procedure, Ancef (or alternative) within 1 hour of procedure. DEVICE: 1. 15 Sami dual lumen 23 cm Aragon II Plus catheter PROCEDURE : 1. Dialysis catheter placement. 2. Conscious sedation with continuous EKG and oximetry monitoring. The risks, benefits and alternatives to the procedure were explained and verbal and written consent w as obtained. The site was prepped in sterile fashion. Full sterile technique was used, including ca p, mask, sterile gloves and gown and a large sterile sheet. Hand hygiene and 2% chlorhexidine and/or betadine/alcohol prep was utilized per protocol for cutaneous antisepsis. The skin and subcutaneous tissues were infiltrated with local anesthetic solution. The existing catheter was accessed with a 0.035 wire. The Glidewire was advanced through the catheter down into the IVC. A subcutaneous tunnel was created in a retrograde fashion the catheter was pulled through the tunnel. The catheter was flushed and assembled and locked with heparin. The existing Va s-Cath was removed over the 0.035 wire. A hemostatic sheath was advanced over the wire and into the S VC. The permacath was advanced through the sheath and positioned without difficulty. The patient tole rated the procedure well. The catheter flushed and aspirated well. Conscious sedation was performed with the prescribed dosages and duration as above in the presence of an independent trained radiology nurse to assist in the monitoring of the patient. EKG and oximetry remained stable throughout the procedure. The patient tolerated the procedure well and there were n o complications. The patient was sent to post anesthesia recovery in stable condition. CONCLUSION: Uncomplicated Dialysis catheter placement as above. Kenneth Lugo MD on February 20, 2017 at 14:40 Board Certified Radiologist. This report was verified electronically.
[2017-02-20] MEDS: GENTAMICIN SULFATE (DIALYSIS USE ONLY) 20 MG/2 ML VIAL OTHER PRN (17:01)
[2017-02-20] MEDS: HEPARIN SODIUM - IV 10,000 UNITS/10 ML VIAL PRN (17:01)
[2017-02-20] MEDS: EPOETIN ALFA 10,000 UNITS/ML VIAL IV PRN (17:01)
[2017-02-20] MEDS: ATORVASTATIN 40 MG TAB PO SCH (22:36)
[2017-02-21] VITALS: BP 132/64; PULSE 68; RESP 18; TEMP 97.2; O2SAT 94
[2017-02-21 04:00] VITALS: BP 136/62; PULSE 70; RESP 18; TEMP 97.4; O2SAT 93
[2017-02-21] MEDS: hydrALAZINE HCL 25 MG TAB PO SCH ×3 (06:06→21:46)
[2017-02-21] MEDS: HEPARIN SODIUM - SQ 10,000 UNITS/ML VIAL SQ SCH ×3 (06:06→21:46)
[2017-02-21 08:00] VITALS: BP 164/70; PULSE 65; RESP 16; TEMP 98.4; O2SAT 98
[2017-02-21] MEDS: FLUTICASONE PROPIONATE 50 MCG/ACT 16 GM NASAL SPRAY EACH NARE SCH ×2 (09:00→21:00)
[2017-02-21] MEDS: INSULIN DETEMIR 100 UNITS/ML VIAL SQ SCH ×2 (09:00→21:49)
[2017-02-21] MEDS: BUDESONIDE-FORMOTEROL 80/4.5 MCG INHALER INH SCH ×2 (09:00→21:00)
[2017-02-21] MEDS: PARICALCITOL 1 MCG CAP PO SCH (10:09)
[2017-02-21] MEDS: METOCLOPRAMIDE HCL 10 MG TAB PO SCH ×3 (10:09→17:54)
[2017-02-21] MEDS: LISINOPRIL 20 MG TAB PO SCH (10:10)
[2017-02-21] MEDS: PANTOPRAZOLE SOD 20 MG DELAYED RELEASE TAB PO SCH (10:10)
[2017-02-21] MEDS: CARVEDILOL 12.5 MG TAB PO SCH ×2 (10:10→21:45)
[2017-02-21] MEDS: CHOLECALCIFEROL (VIT D3) 1000 UNIT TAB PO SCH (10:10)
[2017-02-21] MEDS: INSULIN ASPART SUPPLEMENTAL SCALE SQ SCH ×4 (10:12→21:49)
[2017-02-21] MEDS: SODIUM CHLORIDE 0.9% FLUSH 10 ML FLUSH IV FLUSH SCH ×2 (10:12→21:00)
[2017-02-21] MEDS: amLODIPine BESYLATE 5 MG TAB PO SCH ×2 (10:25→21:45)
--- NOTE | 2017-02-21 10:56 | PD.VS.PN ---
Subjective Subjective/Hospital Course Pt sitting in a chair without complaints this am Denies fever or chills Objective Vitals/I&O Date Time Temp Pulse Resp B/P (MAP) Pulse Ox O2 Delivery O2 Flow Rate FiO2 02/21/17 08:00 98.4 65 16 164/70 (101) 98 02/21/17 04:00 97.4 70 18 136/62 (86) 93 02/21/17 00:00 97.2 68 18 132/64 (86) 94 02/20/17 20:00 97.3 71 18 135/61 (85) 95 02/20/17 18:00 98.1 68 17 117/58 (77) 97 02/20/17 13:20 58 18 125/74 (91) 99 02/20/17 13:05 97.9 65 16 114/74 (87) 99 02/20/17 12:00 98.5 70 21 162/71 (101) 99 Physical Exam GENERAL: A&OX3,GCS15 NAD SKIN: Warm and dry B UE warm w/o motor deficits Palpable L radial noted Laboratory Laboratory Tests Test 02/21/17 10:30 Date/Time Source Procedure Growth Status 02/14/17 11:37 Urine Clean Catch Legionella Antigen - Final PRESUMPTIVE NEGATIVE FOR LEGIONELLA P... Complete 02/14/17 11:37 Urine Clean Catch Streptococcus pneumoniae Antigen (M - Final PRESUMPTIVE NEGATIVE FOR STREPTOCOCCU... Complete Imaging Last 48 hours Impressions Catheter Placement X-Ray 02/20/17 0000 Signed Impressions: Service Date/Time: Monday, February 20, 2017 11:56 - CONCLUSION: Uncomplicated Dialysis catheter placement as above. Kenneth Lugo MD Assessment and Plan Assessment: (1) Uncontrolled diabetes mellitus Status: Chronic (2) Hypertension Status: Chronic (3) Shortness of breath Status: Acute (4) CAD (coronary artery disease) Status: Chronic (5) Renal insufficiency Status: Chronic (6) ESRD (end stage renal disease) Status: Chronic (7) CKD (chronic kidney disease), stage V Status: Chronic Plan Plan for LEFT brachiocephalic AVF based on pre-operative vein mapping Discussed with patient. Plan Pt scheduled for Left upper extremity brachiocephalic AVF w/ Dr. Styles tomorrow Please do not use LEFT ARM for BP, IV, blood draws etc. NPO after midnight Nafisa GILLESPIE [facility]/[place] [phone] Problem Qualifiers (1) CAD (coronary artery disease): Qualified Codes: I25.10 - Atherosclerotic heart disease of [place] coronary artery without angina pectoris Nafisa Rubio Feb 21, 2017 10:56
--- NOTE | 2017-02-21 11:08 | HHI.FPPN ---
Subjective Remarks No acute issues overnight. Vitals are stable, patient remains afebrile. Blood pressures have improved to the 130s/60s. She denies any chest pain, shortness of breath, fever, chills, cough, nausea, vomiting, diarrhea. She is tolerating by mouth. She is anxious to get home. (Zahida Clarke MD, R3) Objective Vitals Vital Signs Date Time Temp Pulse Resp B/P (MAP) Pulse Ox O2 Delivery O2 Flow Rate FiO2 02/21/17 08:00 98.4 65 16 164/70 (101) 98 02/21/17 04:00 97.4 70 18 136/62 (86) 93 02/21/17 00:00 97.2 68 18 132/64 (86) 94 02/20/17 20:00 97.3 71 18 135/61 (85) 95 02/20/17 18:00 98.1 68 17 117/58 (77) 97 02/20/17 13:20 58 18 125/74 (91) 99 02/20/17 13:05 97.9 65 16 114/74 (87) 99 02/20/17 12:00 98.5 70 21 162/71 (101) 99 I/O 02/20/17 02/20/17 02/20/17 02/21/17 02/21/17 02/21/17 07:00 15:00 23:00 07:00 15:00 23:00 # Voids 1 5 # Bowel Movements 2 (Zahida Clarke MD, R3) Result Diagram: 02/19/17 1730 02/19/17 1730 Imaging Last Impressions Catheter Placement X-Ray 02/20/17 0000 Signed Impressions: Service Date/Time: Monday, February 20, 2017 11:56 - CONCLUSION: Uncomplicated Dialysis catheter placement as above. Kenneth Lugo MD Upper Extremity Ultrasound 02/16/17 0000 Signed Impressions: Service Date/Time: February 20:35 - CONCLUSION: Negative exam. No sonographic or Doppler findings of deep venous thrombosis in either upper extremity. Isael Hernandez MD Lung Scan-V Nuclear Medicine 02/14/17 0000 Signed Impressions: Service Date/Time: Tuesday, February 14, 2017 09:03 - CONCLUSION: 1. No perfusion defect identified. Examination is negative for PE. Kenneth Lugo MD Chest X-Ray 02/13/17 1559 Signed Impressions: Service Date/Time: Monday, February 13, 2017 17:01 - CONCLUSION: Moderate cardiomegaly. Clear lungs. Dale Fisher Jr., MD Soft Tissue Neck X-Ray 02/13/17 0000 Signed Impressions: Service Date/Time: Monday, February 13, 2017 17:03 - CONCLUSION: 1. Aryepiglottic fold thickening suggesting edema. No radiopaque foreign body. Dale Fisher Jr., MD Neck Ultrasound 02/13/17 0000 Signed Impressions: Service Date/Time: Monday, February 13, 2017 22:48 - CONCLUSION: 1. No neck mass or fluid collection identified sonographically in the midline neck. Bubba Mccarty MD Lower Extremity Ultrasound 02/13/17 0000 Signed Impressions: Service Date/Time: Monday, February 13, 2017 22:53 - CONCLUSION: Normal examination. Bubba Mccarty MD Objective Remarks GEN: Well-developed, well-nourished female patient sitting comfortably in chair, in no acute distress. CV: Regular rate and rhythm without obvious murmurs LUNGS: Tight air movement bilaterally without wheezes. Normal respiratory effort. GI: soft, non-tender, nondistended EXT: No lower extremity edema. No calf tenderness. NEURO/PSYCH: Awake, alert. Appropriate insight and judgment. Normal speech (Zahida Clarke MD, R3) A/P Assessment and Plan Mrs. Menjivar is a 51 yo F with PMH of CAD (NSTEMI 2011; s/p stent placent), T2DM, CKD, anemia who presented with shortness of breath and was admitted for COPD exacerbation and renal failure. COPD exacerbation has now resolved and patient has started dialysis. Discharge Planning Anticipate discharge home in the next 1-2 days after placement of AVF by vascular surgery. Patient to receive outpatient dialysis with [facility]. sdw Dr. Sommer (Zahida Clarke MD, R3) Attending Attestation Patient seen and examined with Dr Clarke. Case reviewed and discussed with the resident team. Agree with plan of care as discussed with me and documented in the resident note. again stressed importance of not smoking. (Omar Sommer MD) Problem List: (1) Acute on chronic renal failure ICD Codes: N17.9 - [id number] renal failure; N18.9 - Chronic kidney disease, unspecified Status: Acute Plan: PMH of stage 5 CKD with baseline Cr of 3-4. Patient has been poorly compliant and has refused dialysis in the past, however now agreeable to hemodialysis - Consult Nephrology- appreciate recommendations, continue hemodialysis * PermCath placed by IR on 02/20 * AVF placement by Vascular surgery scheduled for 02/22- to perform LEFT brachiocephalic AVF based on pre-operative vein mapping * Will require long-term outpatient hemodialysis * Kayexalate PRN hyperkalemia * Zemplar for secondary hyperparathyroidism -Vitamin D3 2000 units daily (2) COPD exacerbation ICD Codes: J44.1 - Chronic obstructive pulmonary disease with (acute) exacerbation Status: Resolved Plan: Resolved CXR with Cardiomegaly but clear lungs Negative for legionella and strep pneumo urinary antigens Plan: - DC Prednisone 40mg PO daily - Symbicort 2 puffs BID - Continue Duonebs q4h and q2 PRN sob/wheezing - monitor O2 saturations (3) CAD (coronary artery disease) ICD Codes: I25.10 - Atherosclerotic heart disease of [place] coronary artery without angina pectoris Status: Chronic Plan: PMH of CAD s/p stent placement. Patient last seen by Cardiology in 2016 per EMR -Continue medical management of CAD -Continue ASA 81mg -lisinopril 20mg PO daily -Continue Carvedilol -Atorvastatin 40mg daily (4) HTN (hypertension) ICD Codes: I10 - Essential (primary) hypertension Plan: Stable. - Amlodipine 5mg PO BID, Hydralazine 50mg PO TID, and lisinopril 20mg PO daily - Coreg to 25mg BID -Hydralazine and clonidine PRN for BP (5) Diabetes ICD Codes: E11.9 - Type 2 diabetes mellitus without complications Status: Chronic Plan: Hold home Lantus 27 units HS -medium dose Novolog SSI - Levemir 25 units BID (6) DVT prophylaxis Status: Acute Plan: -Heparin 5000 units q8hrs -Bilateral SCD's (7) Nutrition, metabolism, and development symptoms ICD Codes: R63.8 - Symptoms concerning nutrition, metabolism, and development Status: Acute Plan: Fluids: None Electrolytes: continue to monitor and replete as needed Nutrition: Renal/Diabetic diet (Zahida Clarke MD, R3) Problem Qualifiers (1) Acute on chronic renal failure: Qualified Codes: N17.9 - Acute kidney failure, unspecified; N18.5 - Chronic kidney disease, stage 5 (2) CAD (coronary artery disease): Qualified Codes: I25.10 - Atherosclerotic heart disease of [place] coronary artery without angina pectoris (3) HTN (hypertension): Qualified Codes: I10 - Essential (primary) hypertension (4) Diabetes: Zahida Clarke MD, R3 Feb 21, 2017 11:08 Omar Sommer MD Feb 21, 2017 20:01
[2017-02-21 11:12] LABS: HEMATOCRIT 29.3 % (35.0-46.0); MEAN CORPUSCULAR HEMOGLOBIN 28.4 PG (27.0-34.0); MEAN CORPUSCULAR HGB CONC 30.8 % (32.0-36.0); PLATELET COUNT 234 TH/MM3 (150-450); RED BLOOD COUNT 3.18 MIL/MM3 (4.00-5.30); RED CELL DISTRIBUTION WIDTH 14.9 % (11.6-17.2); REVIEW FLAG FINAL; WHITE BLOOD COUNT 13.2 TH/MM3 (4.0-11.0)
[2017-02-21 11:27] LABS: BICARBONATE 29.5 MEQ/L (21.0-32.0)
[2017-02-21 12:00] VITALS: BP 120/57; PULSE 68; RESP 18; TEMP 98.4; O2SAT 96
[2017-02-21] MEDS: ACETAMINOPHEN 325 MG TAB PO PRN (12:05)
--- NOTE | 2017-02-21 12:57 | HHI.NPPN ---
Subjective History of Present Illness 51 Year old female with CKD approached ESRD, Diabetes, Hypertension Review of Systems General Constitutional: Fatigue Respiratory Lungs: SOB Cardiovascular Cardiac: Edema Objective Data Data Vital Signs Date Time Temp Pulse Resp B/P (MAP) Pulse Ox O2 Delivery O2 Flow Rate FiO2 02/21/17 08:00 98.4 65 16 164/70 (101) 98 02/21/17 04:00 97.4 70 18 136/62 (86) 93 02/21/17 00:00 97.2 68 18 132/64 (86) 94 02/20/17 20:00 97.3 71 18 135/61 (85) 95 02/20/17 18:00 98.1 68 17 117/58 (77) 97 02/20/17 13:20 58 18 125/74 (91) 99 02/20/17 13:05 97.9 65 16 114/74 (87) 99 -: 02/21/17 1030 02/21/17 1030 Physical Exam General Appearance: Well Developed, Obese Neck Neck Exam: Neck Supple Pulmonary Resp Exam: Decreased Bases Cardiology CV Exam: Regular, Normal Sinus Rhythm Gastrointestinal/Abdomen GI Exam: Soft, Non-Tender, Bowel Sounds Present Extremeties Extremities Exam: Moderate Edema Neurologic Neuro Exam: Alert Assessment/Plan Problem List: (1) ESRD (end stage renal disease) ICD Codes: N18.6 - End stage renal disease Status: Chronic Plan: Dialysis to be continued [facility]. She will need AV fistula placement and vascular consult appreciated schedule for am PermCath placement done She need long-term plans placement of hemodialysis in outpatient facility as well [facility] (2) Diabetes ICD Codes: E11.9 - Type 2 diabetes mellitus without complications Status: Chronic Plan: Not well-controlled continue to monitor (3) HTN (hypertension) ICD Codes: I10 - Essential (primary) hypertension Plan: improved on Lisinopril 20 mg Amlodipine to 5 mg bid, Hydralazine titrate to 50 mg tid clonidine prn (4) Hyperkalemia ICD Codes: E87.5 - Hyperkalemia Status: Resolved Plan: resolved. (5) Secondary hyperparathyroidism ICD Codes: N25.81 - Secondary hyperparathyroidism of renal origin Plan: On Zemplar. Problem Qualifiers (1) Diabetes: (2) HTN (hypertension): Qualified Codes: I10 - Essential (primary) hypertension Shantelle Maldonado MD Feb 21, 2017 12:57
[2017-02-21 16:00] VITALS: BP 107/53; PULSE 69; RESP 16; TEMP 98.7; O2SAT 97
[2017-02-21 20:30] VITALS: BP 133/60; PULSE 73; RESP 17; TEMP 98.3; O2SAT 95
[2017-02-21] MEDS: ATORVASTATIN 40 MG TAB PO SCH (21:46)
[2017-02-22] VITALS: BP 128/56; PULSE 73; RESP 20; TEMP 99; O2SAT 97
[2017-02-22 00:08] VITALS: BP 113/52; PULSE 75; RESP 17; TEMP 98.6; O2SAT 100
[2017-02-22] MEDS: hydrALAZINE HCL 25 MG TAB PO SCH (06:21)
[2017-02-22] MEDS: INSULIN ASPART SUPPLEMENTAL SCALE SQ SCH ×4 (08:00→21:00)
[2017-02-22 08:13] VITALS: BP 106/54; PULSE 73; RESP 20; TEMP 98.2; O2SAT 97
[2017-02-22] MEDS: PARICALCITOL 1 MCG CAP PO SCH ×2 (08:37→14:36)
[2017-02-22] MEDS: CHOLECALCIFEROL (VIT D3) 1000 UNIT TAB PO SCH (08:37)
[2017-02-22] MEDS: INSULIN DETEMIR 100 UNITS/ML VIAL SQ SCH ×2 (08:38→22:16)
[2017-02-22 09:39] LABS: HEMATOCRIT 29.4 % (35.0-46.0); MEAN CELL VOLUME 92.3 FL (80.0-100.0); MEAN CORPUSCULAR HGB CONC 31.4 % (32.0-36.0); PLATELET COUNT 228 TH/MM3 (150-450); RED BLOOD COUNT 3.18 MIL/MM3 (4.00-5.30); RED CELL DISTRIBUTION WIDTH 15.7 % (11.6-17.2); REVIEW FLAG FINAL; WHITE BLOOD COUNT 11.6 TH/MM3 (4.0-11.0)
--- NOTE | 2017-02-22 09:50 | HHI.NPPN ---
Subjective History of Present Illness 51 Year old female with CKD approached ESRD, Diabetes, Hypertension Review of Systems General Constitutional: Fatigue Respiratory Lungs: SOB Cardiovascular Cardiac: Edema Objective Data Data Vital Signs Date Time Temp Pulse Resp B/P (MAP) Pulse Ox O2 Delivery O2 Flow Rate FiO2 02/22/17 08:13 98.2 73 20 106/54 (71) 97 02/22/17 00:08 98.6 75 17 113/52 (72) 100 02/22/17 00:00 99.0 73 20 128/56 (80) 97 02/21/17 20:30 98.3 73 17 133/60 (84) 95 02/21/17 16:00 98.7 69 16 107/53 (71) 97 02/21/17 12:00 98.4 68 18 120/57 (78) 96 02/21/17 12:00 98.4 68 18 120/57 (78) 96 -: 02/22/17 0835 02/21/17 1030 Physical Exam General Appearance: Well Developed, Obese Neck Neck Exam: Neck Supple Pulmonary Resp Exam: Decreased Bases Cardiology CV Exam: Regular, Normal Sinus Rhythm Gastrointestinal/Abdomen GI Exam: Soft, Non-Tender, Bowel Sounds Present Extremeties Extremities Exam: Moderate Edema Neurologic Neuro Exam: Alert Assessment/Plan Problem List: (1) ESRD (end stage renal disease) ICD Codes: N18.6 - End stage renal disease Status: Chronic Plan: Dialysis to be continued MWF. She will need AV fistula placement and vascular consult appreciated schedule for am PermCath placement done She need long-term plans placement of hemodialysis in outpatient facility as well [facility] HD proceedings noted tolerating it well (2) Diabetes ICD Codes: E11.9 - Type 2 diabetes mellitus without complications Status: Chronic Plan: Not well-controlled continue to monitor (3) HTN (hypertension) ICD Codes: I10 - Essential (primary) hypertension Plan: improved on Lisinopril 20 mg Amlodipine to 5 mg bid, Hydralazine titrate to 50 mg tid clonidine prn BP on lower end I will decrease Amlodipine to 5 mg daily and Hydralazine 50 mg bid (4) Hyperkalemia ICD Codes: E87.5 - Hyperkalemia Status: Resolved Plan: resolved. (5) Secondary hyperparathyroidism ICD Codes: N25.81 - Secondary hyperparathyroidism of renal origin Plan: On Zemplar. Problem Qualifiers (1) Diabetes: (2) HTN (hypertension): Qualified Codes: I10 - Essential (primary) hypertension Shantelle Maldonado MD Feb 22, 2017 09:50
[2017-02-22 10:05] LABS: BICARBONATE 25.6 MEQ/L (21.0-32.0); POTASSIUM 4.1 MEQ/L (3.5-5.1)
--- NOTE | 2017-02-22 10:28 | PD.VS.PN ---
Subjective Subjective/Hospital Course Pt sitting in a chair without complaints this am Denies fever or chills HD today Objective Vitals/I&O Date Time Temp Pulse Resp B/P (MAP) Pulse Ox O2 Delivery O2 Flow Rate FiO2 02/22/17 08:13 98.2 73 20 106/54 (71) 97 02/22/17 00:08 98.6 75 17 113/52 (72) 100 02/22/17 00:00 99.0 73 20 128/56 (80) 97 02/21/17 20:30 98.3 73 17 133/60 (84) 95 02/21/17 16:00 98.7 69 16 107/53 (71) 97 02/21/17 12:00 98.4 68 18 120/57 (78) 96 02/21/17 12:00 98.4 68 18 120/57 (78) 96 02/22/17 02/22/17 02/22/17 06:59 14:59 22:59 Intake Total 240 ml Balance 240 ml Physical Exam GENERAL: A&OX3,GCS15 NAD SKIN: Warm and dry B UE warm w/o motor deficits Palpable L radial pulse Laboratory Laboratory Tests Test 02/21/17 10:30 02/22/17 08:35 White Blood Count 13.2 11.6 Red Blood Count 3.18 3.18 Hemoglobin 9.0 9.2 Hematocrit 29.3 29.4 Mean Corpuscular Volume 92.0 92.3 Mean Corpuscular Hemoglobin 28.4 29.0 Mean Corpuscular Hemoglobin Concent 30.8 31.4 Red Cell Distribution Width 14.9 15.7 Platelet Count 234 228 Mean Platelet Volume 9.7 10.1 Blood Urea Nitrogen 63 85 Creatinine 4.70 6.20 Random Glucose 352 241 Calcium Level 8.5 8.4 Sodium Level 133 135 Potassium Level 4.0 4.1 Chloride Level 97 99 Carbon Dioxide Level 29.5 25.6 Anion Gap 7 10 Estimat Glomerular Filtration Rate 12 9 Date/Time Source Procedure Growth Status 02/14/17 11:37 Urine Clean Catch Legionella Antigen - Final PRESUMPTIVE NEGATIVE FOR LEGIONELLA P... Complete 02/14/17 11:37 Urine Clean Catch Streptococcus pneumoniae Antigen (M - Final PRESUMPTIVE NEGATIVE FOR STREPTOCOCCU... Complete Assessment and Plan Assessment: (1) Uncontrolled diabetes mellitus Status: Chronic (2) Hypertension Status: Chronic (3) Shortness of breath Status: Acute (4) CAD (coronary artery disease) Status: Chronic (5) Renal insufficiency Status: Chronic (6) ESRD (end stage renal disease) Status: Chronic (7) CKD (chronic kidney disease), stage V Status: Chronic Plan Plan for LEFT brachiocephalic AVF based on pre-operative vein mapping Discussed with patient. Plan Pt scheduled for Left upper extremity brachiocephalic AVF w/ Dr. Styles tomorrow AM (02/23/17) Please do not use LEFT ARM for BP, IV, blood draws etc. NPO after midnight Nafisa GILLESPIE [facility]/[employer] [phone] Problem Qualifiers (1) CAD (coronary artery disease): Qualified Codes: I25.10 - Atherosclerotic heart disease of [place] coronary artery without angina pectoris Nafisa Rubio Feb 22, 2017 10:28
--- NOTE | 2017-02-22 10:50 | HHI.FPPN ---
Subjective Remarks No acute issues overnight. Vitals are stable, patient remains afebrile. She is going to dialysis today. She was scheduled for AV fistula procedure today, however it has been postponed until tomorrow. She denies any chest pain, shortness of breath, fever, chills, nausea or vomiting. She is tolerating by mouth. (Zahida Clarke MD, R3) Objective Vitals Vital Signs Date Time Temp Pulse Resp B/P (MAP) Pulse Ox O2 Delivery O2 Flow Rate FiO2 02/22/17 08:13 98.2 73 20 106/54 (71) 97 02/22/17 00:08 98.6 75 17 113/52 (72) 100 02/22/17 00:00 99.0 73 20 128/56 (80) 97 02/21/17 20:30 98.3 73 17 133/60 (84) 95 02/21/17 16:00 98.7 69 16 107/53 (71) 97 02/21/17 12:00 98.4 68 18 120/57 (78) 96 02/21/17 12:00 98.4 68 18 120/57 (78) 96 I/O 02/21/17 02/21/17 02/21/17 02/22/17 02/22/17 02/22/17 07:00 15:00 23:00 07:00 15:00 23:00 Intake Total 480 ml 725 ml 240 ml Balance 480 ml 725 ml 240 ml Intake Oral 480 ml 725 ml 240 ml # Voids 6 5 # Bowel Movements 3 4 (Zahida Clarke MD, R3) Result Diagram: 02/22/17 0835 02/22/17 0835 Imaging Last Impressions Catheter Placement X-Ray 02/20/17 0000 Signed Impressions: Service Date/Time: Monday, February 20, 2017 11:56 - CONCLUSION: Uncomplicated Dialysis catheter placement as above. Kenneth Lugo MD Upper Extremity Ultrasound 02/16/17 0000 Signed Impressions: Service Date/Time: February 20:35 - CONCLUSION: Negative exam. No sonographic or Doppler findings of deep venous thrombosis in either upper extremity. Isael Hernandez MD Lung Scan-V Nuclear Medicine 02/14/17 0000 Signed Impressions: Service Date/Time: Tuesday, February 14, 2017 09:03 - CONCLUSION: 1. No perfusion defect identified. Examination is negative for PE. Kenneth Lugo MD Chest X-Ray 02/13/17 1559 Signed Impressions: Service Date/Time: Monday, February 13, 2017 17:01 - CONCLUSION: Moderate cardiomegaly. Clear lungs. Dale Fisher Jr., MD Soft Tissue Neck X-Ray 02/13/17 0000 Signed Impressions: Service Date/Time: Monday, February 13, 2017 17:03 - CONCLUSION: 1. Aryepiglottic fold thickening suggesting edema. No radiopaque foreign body. Dale Fisher Jr., MD Neck Ultrasound 02/13/17 0000 Signed Impressions: Service Date/Time: Monday, February 13, 2017 22:48 - CONCLUSION: 1. No neck mass or fluid collection identified sonographically in the midline neck. Bubba Mccarty MD Lower Extremity Ultrasound 02/13/17 0000 Signed Impressions: Service Date/Time: Monday, February 13, 2017 22:53 - CONCLUSION: Normal examination. Bubba Mccarty MD Objective Remarks GEN: Well-developed, well-nourished female patient sitting comfortably in chair, in no acute distress. CV: Regular rate and rhythm without murmurs LUNGS: Tight air movement bilaterally with scattered wheezes. Normal respiratory effort. GI: soft, non-tender, nondistended EXT: Trace lower extremity edema. No calf tenderness. NEURO/PSYCH: Awake, alert. Appropriate insight and judgment. Normal speech (Zahida Clarke MD, R3) A/P Assessment and Plan Mrs. Menjivar is a 51 yo F with PMH of CAD (NSTEMI 2010; s/p stent placent), T2DM, CKD, anemia who presented with shortness of breath and was admitted for COPD exacerbation and renal failure. COPD exacerbation has now resolved and patient has started dialysis. Discharge Planning Anticipate discharge home in the next 1-2 days after placement of AVF by vascular surgery. Patient to receive outpatient dialysis with [facility] in [facility]. sdw Dr. Sommer (Zahida Clarke MD, R3) Attending Attestation Patient seen and examined with Dr. Clarke. Case reviewed and discussed with the resident team. Agree with plan of care as discussed with me and documented in the resident note (Omar Sommer MD) Problem List: (1) Acute on chronic renal failure ICD Codes: N17.9 - Smgki-zx-hxomomr renal failure; N18.9 - Chronic kidney disease, unspecified Status: Acute Plan: PMH of stage 5 CKD with baseline Cr of 3-4. Patient has been poorly compliant and has refused dialysis in the past, however now agreeable to hemodialysis - Consult Nephrology- appreciate recommendations, continue hemodialysis * PermCath placed by IR on 02/20 * AVF placement by Vascular surgery scheduled for 02/23- to perform LEFT brachiocephalic AVF based on pre-operative vein mapping * Will require long-term outpatient hemodialysis * Kayexalate PRN hyperkalemia * Zemplar for secondary hyperparathyroidism -Vitamin D3 2000 units daily (2) CAD (coronary artery disease) ICD Codes: I25.10 - Atherosclerotic heart disease of [place] coronary artery without angina pectoris Status: Chronic Plan: PMH of CAD s/p stent placement. Patient last seen by Cardiology in 2016 per EMR -Continue medical management of CAD -Continue ASA 81mg -lisinopril 20mg PO daily -Continue Carvedilol -Atorvastatin 40mg daily (3) COPD (chronic obstructive pulmonary disease) ICD Codes: J44.9 - Chronic obstructive pulmonary disease, unspecified Plan: - Symbicort 2 puffs BID - Continue Duonebs q4h and q2 PRN sob/wheezing - monitor O2 saturations (4) HTN (hypertension) ICD Codes: I10 - Essential (primary) hypertension Plan: Stable. - Amlodipine 5mg PO BID, Hydralazine 50mg PO TID, and lisinopril 20mg PO daily - Coreg to 25mg BID -Hydralazine and clonidine PRN for BP (5) Diabetes ICD Codes: E11.9 - Type 2 diabetes mellitus without complications Status: Chronic Plan: Hold home Lantus 27 units HS -medium dose Novolog SSI - Increase Levemir to 30 units BID (6) DVT prophylaxis Status: Acute Plan: -Heparin 5000 units q8hrs -Bilateral SCD's (7) Nutrition, metabolism, and development symptoms ICD Codes: R63.8 - Symptoms concerning nutrition, metabolism, and development Status: Acute Plan: Fluids: None Electrolytes: continue to monitor and replete as needed Nutrition: Renal/Diabetic diet (Zahida Clarke MD, R3) Problem Qualifiers (1) Acute on chronic renal failure: Qualified Codes: N17.9 - Acute kidney failure, unspecified; N18.5 - Chronic kidney disease, stage 5 (2) CAD (coronary artery disease): Qualified Codes: I25.10 - Atherosclerotic heart disease of [place] coronary artery without angina pectoris (3) COPD (chronic obstructive pulmonary disease): Qualified Codes: J43.9 - Emphysema, unspecified (4) HTN (hypertension): Qualified Codes: I10 - Essential (primary) hypertension (5) Diabetes: Zahida Clarke MD, R3 Feb 22, 2017 10:50 Omar Sommer MD Feb 22, 2017 16:39
[2017-02-22] MEDS: METOCLOPRAMIDE HCL 10 MG TAB PO SCH ×3 (12:00→18:02)
[2017-02-22] MEDS: EPOETIN ALFA 10,000 UNITS/ML VIAL IV PRN (12:50)
[2017-02-22] MEDS: HEPARIN SODIUM - IV 10,000 UNITS/10 ML VIAL PRN (12:50)
[2017-02-22] MEDS: GENTAMICIN SULFATE (DIALYSIS USE ONLY) 20 MG/2 ML VIAL OTHER PRN (12:50)
[2017-02-22] MEDS: LISINOPRIL 20 MG TAB PO SCH (14:37)
[2017-02-22] MEDS: CARVEDILOL 12.5 MG TAB PO SCH ×2 (14:37→21:00)
[2017-02-22 20:00] VITALS: BP 102/47; PULSE 66; RESP 18; TEMP 98.3; O2SAT 100
[2017-02-22] MEDS: BUDESONIDE-FORMOTEROL 80/4.5 MCG INHALER INH SCH (21:00)
[2017-02-22] MEDS: FLUTICASONE PROPIONATE 50 MCG/ACT 16 GM NASAL SPRAY EACH NARE SCH (21:00)
[2017-02-22] MEDS: hydrALAZINE HCL 50 MG TAB PO SCH (21:00)
[2017-02-22] MEDS: ATORVASTATIN 40 MG TAB PO SCH (22:16)
[2017-02-22] MEDS: SODIUM CHLORIDE 0.9% FLUSH 10 ML FLUSH IV FLUSH SCH (22:17)
[2017-02-23 01:12] VITALS: BP 122/51; PULSE 84; RESP 18; TEMP 98.2; O2SAT 94
[2017-02-23 04:36] VITALS: BP 125/55; PULSE 81; RESP 18; TEMP 99.8; O2SAT 94
[2017-02-23] MEDS ORDERED: HEPARIN-NS/PF INJ 500 ML ONE (07:04)
[2017-02-23] MEDS ORDERED: PROTAMINE SULFATE 50 MG/5 ML VIAL ONE (07:04)
[2017-02-23] MEDS ORDERED: HEPARIN SODIUM - IV 10,000 UNITS/10 ML VIAL ONE (07:04)
[2017-02-23] MEDS ORDERED: THROMBIN (TOPICAL) 20,000 UNIT SPRAY KIT ONE (07:04)
[2017-02-23] MEDS ORDERED: BUPIVACAINE HCL PF 0.5% 30 ML VIAL ONE (07:04)
[2017-02-23] MEDS ORDERED: VANCOMYCIN HCL 1000 MG VIAL ONE (07:59)
[2017-02-23] MEDS ORDERED: amLODIPine BESYLATE 5 MG TAB PO SCH (09:00)
[2017-02-23] MEDS: SODIUM CHLORIDE 0.9% FLUSH 10 ML FLUSH IV FLUSH SCH (09:00)
[2017-02-23] MEDS: INSULIN DETEMIR 100 UNITS/ML VIAL SQ SCH (09:00)
--- NOTE | 2017-02-23 09:29 | HHI.PR ---
Immediate Post Op Note Procedure Date: Feb 23, 2017 Pre Op Diagnosis: ESRD, need for HD access Post Op Diagnosis: ESRD, need for HD access Surgeon: Beni Styles Power Driven Brush Maker(s): Gene Woodson Procedure: L BC AVF Findings: small vein (2mm) and decent brachial artery (3mm) Complications: none; + Doppler signal at wrist Specimen(s) removed: none Estimated blood loss: 20mL Anesthesia: General Drains: None Fluids: 1100mL Patient to: PACU Patient Condition: Good Date/Time of Procedure: SEE SURGICAL CARE RECORD Beni Styles MD Feb 23, 2017 09:29
[2017-02-23] MEDS ORDERED: HYDROmorphone HCL 2 MG TAB PO PRN (09:30)
[2017-02-23] MEDS ORDERED: DO NOT ADM ANY ANTICOAGULANT DRUGS PRN ×2 (09:53)
[2017-02-23] MEDS ORDERED: RESP: ALBUTEROL 2.5 MG/3 ML NEB (SCH) ONE (09:54)
[2017-02-23] MEDS: INSULIN ASPART SUPPLEMENTAL SCALE SQ SCH ×2 (10:32→12:00)
[2017-02-23] MEDS: CARVEDILOL 12.5 MG TAB PO SCH (11:05)
[2017-02-23] MEDS: PARICALCITOL 1 MCG CAP PO SCH (11:05)
[2017-02-23] MEDS: LISINOPRIL 20 MG TAB PO SCH (11:05)
[2017-02-23] MEDS: hydrALAZINE HCL 50 MG TAB PO SCH (11:05)
[2017-02-23] MEDS: METOCLOPRAMIDE HCL 10 MG TAB PO SCH ×2 (11:06→11:56)
[2017-02-23] MEDS: CHOLECALCIFEROL (VIT D3) 1000 UNIT TAB PO SCH (11:06)
--- NOTE | 2017-02-23 11:48 | HHI.FPPN ---
Subjective Remarks No acute issues overnight. Vitals are stable, patient remains afebrile. She is POD #0 s/p left AV fistula for long-term HD. Her only complaint is a sore throat. She denies any chest pain, shortness of breath, fever, chills, nausea or vomiting. She would like to go home today. Objective Vitals Vital Signs Date Time Temp Pulse Resp B/P (MAP) Pulse Ox O2 Delivery O2 Flow Rate FiO2 02/23/17 10:45 98.4 78 19 107/52 (70) 97 Nasal Cannula 3 02/23/17 10:30 78 14 115/58 (77) 97 Nasal Cannula 3 02/23/17 10:15 78 16 115/58 (77) 97 02/23/17 10:00 82 22 122/57 (78) 93 02/23/17 09:53 98.4 86 20 149/70 (96) 95 Simple Mask 6 02/23/17 04:36 99.8 81 18 125/55 (78) 94 02/23/17 01:12 98.2 84 18 122/51 (74) 94 02/22/17 20:00 98.3 66 18 102/47 (65) 100 I/O 02/22/17 02/22/17 02/22/17 02/23/17 02/23/17 02/23/17 07:00 15:00 23:00 07:00 15:00 23:00 Intake Total 240 ml 1100 ml Output Total 3000 ml 20 ml Balance 240 ml -3000 ml 1080 ml Intake Oral 240 ml Other 1100 ml Hemodialysis 3000 ml Estimated Blood Loss 20 ml # Voids 5 3 3 # Bowel Movements 4 3 3 Result Diagram: 02/22/17 0835 02/22/17 0835 Imaging Last Impressions Catheter Placement X-Ray 02/20/17 0000 Signed Impressions: Service Date/Time: Monday, February 20, 2017 11:56 - CONCLUSION: Uncomplicated Dialysis catheter placement as above. Kenneth Lugo MD Upper Extremity Ultrasound 02/16/17 0000 Signed Impressions: Service Date/Time: February 20:35 - CONCLUSION: Negative exam. No sonographic or Doppler findings of deep venous thrombosis in either upper extremity. Isael Hernandez MD Lung Scan- Nuclear Medicine 02/14/17 0000 Signed Impressions: Service Date/Time: Tuesday, February 14, 2017 09:03 - CONCLUSION: 1. No perfusion defect identified. Examination is negative for PE. Kenneth Lugo MD Chest X-Ray 02/13/17 1559 Signed Impressions: Service Date/Time: Monday, February 13, 2017 17:01 - CONCLUSION: Moderate cardiomegaly. Clear lungs. Dale Fisher Jr., MD Soft Tissue Neck X-Ray 02/13/17 0000 Signed Impressions: Service Date/Time: Monday, February 13, 2017 17:03 - CONCLUSION: 1. Aryepiglottic fold thickening suggesting edema. No radiopaque foreign body. Dale Fisher Jr., MD Neck Ultrasound 02/13/17 0000 Signed Impressions: Service Date/Time: Monday, February 13, 2017 22:48 - CONCLUSION: 1. No neck mass or fluid collection identified sonographically in the midline neck. Bubba Mccarty MD Lower Extremity Ultrasound 02/13/17 0000 Signed Impressions: Service Date/Time: Monday, February 13, 2017 22:53 - CONCLUSION: Normal examination. Bubba Mccarty MD Objective Remarks GEN: Well-developed, well-nourished female patient sitting comfortably in chair, in no acute distress. ENT: Throat without erythema or edema CV: Regular rate and rhythm without murmurs. Left upper extermity AV fistula site clean and dry without bleeding or drainage. LUNGS: Tight air movement bilaterally without wheezes. Normal respiratory effort. GI: soft, non-tender, nondistended EXT: Trace lower extremity edema. No calf tenderness. NEURO/PSYCH: Awake, alert. Appropriate insight and judgment. Normal speech A/P Assessment and Plan Mrs. Menjivar is a 51 yo F with PMH of CAD (NSTEMI 2010; s/p stent placent), T2DM, CKD, anemia who presented with shortness of breath and was admitted for COPD exacerbation and renal failure. COPD exacerbation has now resolved and patient has started dialysis. Discharge Planning Anticipate discharge home today. Patient to receive outpatient dialysis [facility]. sdw Dr. Sommer Problem List: (1) Acute on chronic renal failure ICD Codes: N17.9 - Repsr-gb-ngzshey renal failure; N18.9 - Chronic kidney disease, unspecified Status: Acute Plan: PMH of stage 5 CKD with baseline Cr of 3-4. Patient has been poorly compliant and has refused dialysis in the past, however now agreeable to hemodialysis - Consult Nephrology- appreciate recommendations, continue hemodialysis * PermCath placed by IR on 02/20 * AVF placement by Vascular surgery today- LEFT brachiocephalic AVF based on pre -operative vein mapping * Will require long-term outpatient hemodialysis * Kayexalate PRN hyperkalemia * Zemplar for secondary hyperparathyroidism -Vitamin D3 2000 units daily (2) CAD (coronary artery disease) ICD Codes: I25.10 - Atherosclerotic heart disease of [place] coronary artery without angina pectoris Status: Chronic Plan: PMH of CAD s/p stent placement. Patient last seen by Cardiology in 2016 per EMR -Continue medical management of CAD -Continue ASA 81mg -lisinopril 20mg PO daily -Continue Carvedilol -Atorvastatin 40mg daily (3) COPD (chronic obstructive pulmonary disease) ICD Codes: J44.9 - Chronic obstructive pulmonary disease, unspecified Plan: - Symbicort 2 puffs BID - Continue Duonebs q4h and q2 PRN sob/wheezing - monitor O2 saturations (4) HTN (hypertension) ICD Codes: I10 - Essential (primary) hypertension Plan: Stable. - Amlodipine 5mg PO BID, Hydralazine 50mg PO TID, and lisinopril 20mg PO daily - Coreg to 25mg BID -Hydralazine and clonidine PRN for BP (5) Diabetes ICD Codes: E11.9 - Type 2 diabetes mellitus without complications Status: Chronic Plan: Hold home Lantus 27 units HS -medium dose Novolog SSI - Levemir 30 units BID (6) DVT prophylaxis Status: Acute Plan: -Heparin 5000 units q8hrs -Bilateral SCD's (7) Nutrition, metabolism, and development symptoms ICD Codes: R63.8 - Symptoms concerning nutrition, metabolism, and development Status: Acute Plan: Fluids: None Electrolytes: continue to monitor and replete as needed Nutrition: Renal/Diabetic diet Problem Qualifiers (1) Acute on chronic renal failure: Qualified Codes: N17.9 - Acute kidney failure, unspecified; N18.5 - Chronic kidney disease, stage 5 (2) CAD (coronary artery disease): Qualified Codes: I25.10 - Atherosclerotic heart disease of [place] coronary artery without angina pectoris (3) COPD (chronic obstructive pulmonary disease): Qualified Codes: J43.9 - Emphysema, unspecified (4) HTN (hypertension): Qualified Codes: I10 - Essential (primary) hypertension (5) Diabetes: Zahida Clarke MD, R3 Feb 23, 2017 11:48
--- NOTE | 2017-02-23 11:49 | HHI.DCPOC ---
Discharge Care Plan Diagnosis: (1) Acute on chronic renal failure (2) COPD exacerbation Goals to Promote Your Health * To prevent worsening of your condition and complications * To maintain your health at the optimal level Directions to Meet Your Goals Take your medications as prescribed Follow your dietary instruction Follow activity as directed Keep your appointments as scheduled Take your immunizations and boosters as scheduled If your symptoms worsen call your PCP, if no PCP go to Urgent Care Center or Emergency Room Smoking is Dangerous to Your Health. Avoid second hand smoke Call the 24-hour hour crisis hotline for domestic abuse at Zahida Clarke MD, R3 Feb 23, 2017 11:49
[2017-02-23] MEDS ORDERED: PARI1 PO (11:56)
[2017-02-23] MEDS ORDERED: LISI-515 PO (11:56)
[2017-02-23] MEDS ORDERED: CARV12.5 PO (11:56)
[2017-02-23] MEDS ORDERED: VITA1000 PO (11:56)
[2017-02-23] MEDS ORDERED: ATOR40TA16 PO (11:56)
[2017-02-23] MEDS ORDERED: LEVEMIR SQ (11:56)
[2017-02-23] MEDS ORDERED: SYMB80AE INH (11:56)
[2017-02-23] MEDS ORDERED: HYDR-3800 PO (11:56)
[2017-02-23] MEDS ORDERED: GLYCOPYRROLATE 0.2 MG/ML VIAL IV ONE (12:00)
[2017-02-23] MEDS ORDERED: SODIUM CHLORID 0.9% 500 ML INJ 1,000 ML IV ONE (12:00)
[2017-02-23] MEDS ORDERED: ROCURONIUM INJ 50 MG/5 ML SYRINGE IV PUSH ONE (12:00)
[2017-02-23] MEDS ORDERED: PROPOFOL 200 MG/20 ML AMP IV ONE (12:00)
[2017-02-23] MEDS ORDERED: PHENYLEPH/NS 1000 MCG/10 ML SYR IV ONE (12:00)
[2017-02-23] MEDS ORDERED: ESMOLOL HCL 100 MG/10 ML VIAL IV ONE (12:00)
[2017-02-23] MEDS ORDERED: NEOSTIGMINE 3 MG/3 ML SYR IV ONE (12:00)
[2017-02-23] MEDS ORDERED: LIDOCAINE HCL 1% PF 5 ML AMPULE OTHER ONE (12:00)
[2017-02-23] MEDS ORDERED: SODIUM CHLOR 0.9% 250 ML INJ 250 ML IV ONE (12:00)
[2017-02-23 12:06] VITALS: O2SAT 97
[2017-02-23 12:14] VITALS: BP 121/53; PULSE 79; RESP 20; TEMP 97.9; O2SAT 95
[2017-02-23] MEDS ORDERED: MENTHOL LOZENGE BUCCAL PRN (12:30)
[2017-02-23] MEDS ORDERED: PHENOL 1.4% SOLN 180 ML BTL MT PRN (12:30)
--- NOTE | 2017-02-23 12:33 | MP ---
cc: MED STYLES MD DATE OF SURGERY 02/23/2017 PREOPERATIVE DIAGNOSIS Infrarenal disease needs dialysis access POSTOPERATIVE DIAGNOSIS Infrarenal disease needs dialysis access PROCEDURE Left brachiocephalic fistula ATTENDING SURGEON Med Styles MD AIRCONDITIONING ENGINEER Gene Woodson ANESTHESIA General INDICATIONS Ms. Menjivar is a young lady who has new onset dialysis dependence. She is a candidate for a left brachiocephalic fistula. Intraoperatively it was found that her cephalic vein was marginally sided about 2 mm and nevertheless due to her young age and limited autogenous options, the decision was made to proceed. DESCRIPTION OF THE PROCEDURE Informed consent was obtained from the patient. She was taken to the operating room and placed supine on the operating table. An appropriate time-out was taken to ensure the patient's identify, the operative site and planned procedure. The administration of a gram of vancomycin was initiated prior to skin incision and will be discontinued after a single preoperative dose of vancomycin was chosen because of the patient's end-stage renal disease. Everyone in the room agreed with the time-out and we proceeded. Her left arm was prepped and draped and a transverse incision was made along the antecubitum, carried out through the subcutaneous tissue with electrocautery. The cephalic vein was identified. It was noted to be quite small, but it was dissected free for several centimeters. It was marked for orientation. The brachial artery was identified on the medial aspect of the incision. The patient was systemically heparinized. Distal control of the cephalic vein was obtained with a right angle and the vein was transected. The distal end was oversewn with a 3-0 silk suture. Proximal and distal control of the brachial artery was obtained with profunda clamps and a longitudinal arteriotomy was made with an 11 blade and extended with Prem scissors. The vein was spatulated and sewn end-to-side with running 6-0 Prolene suture. At the completion, it was flushed and noted to be hemostatic. There was a pulse in the fistula and as such the incision and extended laterally and the cephalic vein was mobilized. This produced a nice arc in the cephalic vein with a reasonable thrill. There is a Doppler signal in the wrist. The heparin was reversed with protamine. The wound was infiltrated with Marcaine and closed with 2-0 Polysorb, 3-0 Polysorb and 4-0 Monocryl. The sponge and needle counts were correct at the end of the case. I was present and scrubbed and performed the entire procedure. MD ADALBERTO Hawley/DJKishor /9:33 AM /12:24 PM
--- NOTE | 2017-02-23 13:51 | HHI.NPPN ---
Subjective History of Present Illness 51 Year old female with CKD approached ESRD, Diabetes, Hypertension Additional Remarks s/p Left arm AVF stable Review of Systems General Constitutional: Fatigue Respiratory Lungs: SOB Cardiovascular Cardiac: Edema Objective Data Data 02/23/17 02/24/17 19:00 07:00 Intake Total 1100 ml Output Total 20 ml Balance 1080 ml Other 1100 ml Estimated Blood Loss 20 ml Vital Signs Date Time Temp Pulse Resp B/P (MAP) Pulse Ox O2 Delivery O2 Flow Rate FiO2 02/23/17 12:14 97.9 79 20 121/53 (75) 95 02/23/17 12:06 97 Nasal Cannula 3.00 02/23/17 10:45 98.4 78 19 107/52 (70) 97 Nasal Cannula 3 02/23/17 10:30 78 14 115/58 (77) 97 Nasal Cannula 3 02/23/17 10:15 78 16 115/58 (77) 97 02/23/17 10:00 82 22 122/57 (78) 93 02/23/17 09:53 98.4 86 20 149/70 (96) 95 Simple Mask 6 02/23/17 04:36 99.8 81 18 125/55 (78) 94 02/23/17 01:12 98.2 84 18 122/51 (74) 94 02/22/17 20:00 98.3 66 18 102/47 (65) 100 -: 02/22/17 0835 02/22/17 0835 Physical Exam General Appearance: Well Developed, Obese Neck Neck Exam: Neck Supple Pulmonary Resp Exam: Clear Bilaterally, Breath Sounds Equal Cardiology CV Exam: Regular, Normal Sinus Rhythm Gastrointestinal/Abdomen GI Exam: Soft, Non-Tender, Bowel Sounds Present Extremeties Extremities Exam: Trace Edema Extremeties Remarks Left arm AVF Thrill positive Neurologic Neuro Exam: Alert Assessment/Plan Problem List: (1) ESRD (end stage renal disease) ICD Codes: N18.6 - End stage renal disease Status: Chronic Plan: Dialysis to be continued MWF. PermCath placement done She need long-term plans placement of hemodialysis in outpatient facility as well [facility] she has AVF left arm appreciate Dr. Styles efforts await la planning to finalize her placement as out patient (2) Diabetes ICD Codes: E11.9 - Type 2 diabetes mellitus without complications Status: Chronic Plan: Not well-controlled continue to monitor (3) HTN (hypertension) ICD Codes: I10 - Essential (primary) hypertension Plan: improved on Lisinopril 20 mg Amlodipine to 5 mg bid, Hydralazine titrate to 50 mg tid clonidine prn BP on lower end I will decrease Amlodipine to 5 mg daily and Hydralazine 50 mg bid (4) Hyperkalemia ICD Codes: E87.5 - Hyperkalemia Status: Resolved Plan: resolved. (5) Secondary hyperparathyroidism ICD Codes: N25.81 - Secondary hyperparathyroidism of renal origin Plan: On Zemplar. Problem Qualifiers (1) Diabetes: (2) HTN (hypertension): Qualified Codes: I10 - Essential (primary) hypertension Shantelle Maldonado MD Feb 23, 2017 13:51
[2017-02-23 15:40] VITALS: BP 177/68; PULSE 88; RESP 20; TEMP 98.5; O2SAT 95
[2017-02-23 18:07] VITALS: O2SAT 95
--- NOTE | 2017-02-25 09:50 | HHI.DS ---
Discharge Summary Admission Date Feb 14, 2017 at 11:21 Discharge Date: Feb 23, 2017 Admitting Diagnosis shortness of breath (1) Acute on chronic renal failure Diagnosis: Principal Plan: PMH of stage 5 CKD with baseline Cr of 3-4. Patient has been poorly compliant and has refused dialysis in the past, however now agreeable to hemodialysis - Consult Nephrology- appreciate recommendations, continue hemodialysis * PermCath placed by IR on 02/20 * AVF placement by Vascular surgery today- LEFT brachiocephalic AVF based on pre -operative vein mapping * Will require long-term outpatient hemodialysis * Kayexalate PRN hyperkalemia * Zemplar for secondary hyperparathyroidism -Vitamin D3 2000 units daily ICD Codes: N17.9 - [id number] renal failure; N18.9 - Chronic kidney disease, unspecified Status: Acute (2) CAD (coronary artery disease) Plan: PMH of CAD s/p stent placement. Patient last seen by Cardiology in 2015 per EMR -Continue medical management of CAD -Continue ASA 81mg -lisinopril 20mg PO daily -Continue Carvedilol -Atorvastatin 40mg daily ICD Codes: I25.10 - Atherosclerotic heart disease of [place] coronary artery without angina pectoris Status: Chronic (3) COPD (chronic obstructive pulmonary disease) Plan: - Symbicort 2 puffs BID - Continue Duonebs q4h and q2 PRN sob/wheezing - monitor O2 saturations ICD Codes: J44.9 - Chronic obstructive pulmonary disease, unspecified (4) HTN (hypertension) Plan: Stable. - Amlodipine 5mg PO BID, Hydralazine 50mg PO TID, and lisinopril 20mg PO daily - Coreg to 25mg BID -Hydralazine and clonidine PRN for BP ICD Codes: I10 - Essential (primary) hypertension (5) Diabetes Plan: Hold home Lantus 27 units HS -medium dose Novolog SSI - Levemir 30 units BID ICD Codes: E11.9 - Type 2 diabetes mellitus without complications Status: Chronic (6) DVT prophylaxis Plan: -Heparin 5000 units q8hrs -Bilateral SCD's Status: Acute (7) Nutrition, metabolism, and development symptoms Plan: Fluids: None Electrolytes: continue to monitor and replete as needed Nutrition: Renal/Diabetic diet ICD Codes: R63.8 - Symptoms concerning nutrition, metabolism, and development Status: Acute Consultants Nephrology, Vascular surgery Procedures 02/23 Left brachiocephalic Fistula by Dr. Styles 02/20 PermCath placement by IR Brief History On admisison: Mrs. Menjivar is a 51 yo F with PMH of CAD (NSTEMI 2010; s/p stent placent), T2DM, CKD, anemia who presents for evaluation of shortness of breath. Patient reports that she has felt shortness of breath for approximately 1 week; patient states that she was eating chicken at that time when she felt her tooth break; patient collected part of her tooth in her hand at that time but is concerned she swallowed her tooth. No voice changes or drooling. No significant throat pain. Patient states that since that time she has had increased shortness of breath. Patient reports that she has also had coughing which has been dry; patient thinks that she has had a cold. Patient states that her cough has made her shortness of breath worse, and states that it generally does. Patient does not report associated chest pain with shortness of breath. Patient states that both of her legs have recently been swollen, but she attributes this to stopping a diuretic recently. Patient reports that she currently smokes cigarettes but that she is ceasing to do so. Patient does not report any changes in vision, headache, extremity numbness/tingling. Patient reports that her urination has been unchanged; patient states that she urinates approximately 10-15 minutes and that her urine volume has remained approximately the same. Patient states that her blood glucose levels have been well controlled at home, and that she recently has had fasting values ~90-130. Interval History: Patient reports that symptoms are much improved in response to interventions given in ED [presumably Solumedrol 125mg and Duonebs] CBC/BMP: 02/22/17 0835 02/22/17 0835 Imaging Last Impressions Catheter Placement X-Ray 02/20/17 0000 Signed Impressions: Service Date/Time: Monday, February 20, 2017 11:56 - CONCLUSION: Uncomplicated Dialysis catheter placement as above. Kenneth Lugo MD Upper Extremity Ultrasound 02/16/17 0000 Signed Impressions: Service Date/Time: February 20:35 - CONCLUSION: Negative exam. No sonographic or Doppler findings of deep venous thrombosis in either upper extremity. Isael Hernandez MD Lung Scan- Nuclear Medicine 02/14/17 0000 Signed Impressions: Service Date/Time: Tuesday, February 14, 2017 09:03 - CONCLUSION: 1. No perfusion defect identified. Examination is negative for PE. Kenneth Lugo MD Chest X-Ray 02/13/17 1559 Signed Impressions: Service Date/Time: Monday, February 13, 2017 17:01 - CONCLUSION: Moderate cardiomegaly. Clear lungs. Dale Fisher Jr., MD Soft Tissue Neck X-Ray 02/13/17 0000 Signed Impressions: Service Date/Time: Monday, February 13, 2017 17:03 - CONCLUSION: 1. Aryepiglottic fold thickening suggesting edema. No radiopaque foreign body. Dale Fisher Jr., MD Neck Ultrasound 02/13/17 0000 Signed Impressions: Service Date/Time: Monday, February 13, 2017 22:48 - CONCLUSION: 1. No neck mass or fluid collection identified sonographically in the midline neck. Bubba Mccarty MD Lower Extremity Ultrasound 02/13/17 0000 Signed Impressions: Service Date/Time: Monday, February 13, 2017 22:53 - CONCLUSION: Normal examination. Bubba Mccarty MD PE at Discharge GEN: Well-developed, well-nourished female patient sitting comfortably in chair, in no acute distress. ENT: Throat without erythema or edema CV: Regular rate and rhythm without murmurs. Left upper extermity AV fistula site clean and dry without bleeding or drainage. LUNGS: Tight air movement bilaterally without wheezes. Normal respiratory effort. GI: soft, non-tender, nondistended EXT: Trace lower extremity edema. No calf tenderness. NEURO/PSYCH: Awake, alert. Appropriate insight and judgment. Normal speech Hospital Course Patient is a 51 yo F with PMH of CAD (NSTEMI 2010; s/p stent placent), T2DM, CKD , anemia who presented with shortness of breath and was admitted for COPD exacerbation and renal failure. COPD exacerbation was treated with IV solumedrol which was transitioned to PO Prednisone x 5 days with significant respiratory improvement. Patient was started on Symbicort and given extensive tobacco cessation counseling. In terms of renal failure, patient agreed to hemodialysis after initially declining. She has a history of declining dialysis and poor compliance, however during this hospitalization, she showed initiative and motivation to improve her health. Nephrology, Dr. Maldonado, was consulted and started hemodialysis as well as Zemplar for secondary hyperparathyroidism and Vitamin D3 2000 units daily. Her shortness of breath significantly improved after her first hemodialysis. She underwent PermCath placement by IR on 02/20 and then left brachiocephalic fistula by vascular surgery, Dr. Styles on 02/23. Case management assisted with arranging outpatient dialysis with [facility] in [facility]. Patient will follow-up with Dr. Maldonado as an outpatient. She is discharged home on the medications below. Pt Condition on Discharge: Stable Discharge Disposition: Discharge Home Discharge Instructions DIET: Follow Instructions for: Renal Failure Diet Activities you can perform: Regular-No Restrictions Follow up Referrals: Nephrology - 1 Week with Shantelle Maldonado MD PCP Follow-up - 1 Week with Eric Westbrook MD, R2 New Medications: Atorvastatin (Atorvastatin) 40 Mg Tab 40 MG PO HS, #30 TAB Budesonide-Formoterol Inh (Symbicort Inh) 80-4.5 Mcg/Act Aero 2 PUFF INH Q12HR, #1 INHALER Carvedilol (Coreg) 12.5 Mg Tab 25 MG PO BID, #60 TAB Cholecalciferol (D 1000) 1,000 Unit Tab 2000 UNITS PO DAILY, #30 TAB Hydralazine HCl (Hydralazine HCl) 50 Mg Tablet 50 MG PO BID, #60 TAB Insulin Detemir Inj (Levemir Inj) 1,000 unit/ 10 ML Vial 30 UNITS SQ Q12HR, #2 VIAL Do not mix with any other Insulin. Lisinopril (Lisinopril) 20 Mg Tab 20 MG PO DAILY, #30 TAB Paricalcitol (Zemplar) 1 Mcg Cap 1 MCG PO DAILY, #30 CAP Continued Medications: Amlodipine (Amlodipine) 5 Mg Tab 5 MG PO DAILY for Blood Pressure Management, #90 TAB 4 Refills Aspirin (Aspirin) 81 Mg Chew 81 MG CHEW ONCE, #1 TAB 0 Refills Fluticasone Nasal [place] (Fluticasone Nasal [place]) 50 Mcg/Act Naspr 50 MCG EACH NARE BID for Allergy Management, #1 BOTTLE 0 Refills 50 mcg/spray Metoclopramide (Metoclopramide) 10 Mg Tab 10 MG PO TIDAC, #90 TAB 4 Refills Take one tab 30 min before meals for 12 weeks Discontinued Medications: Carvedilol (Carvedilol) 12.5 Mg Tab 12.5 MG PO BID, #60 TAB 4 Refills Insulin Glargine Inj (Lantus Inj) 1,000 Unit/10 Ml Vial 27 UNITS SQ HS for Blood Sugar Management, #30 VIAL 4 Refills Omeprazole (Omeprazole) 20 Mg Tab 20 MG PO DAILY, #30 TAB 30 Refills Zahida Clarke MD, R3 Feb 25, 2017 09:50
[2017-02-28] MEDS ORDERED: BENZ100 PO (10:20)
[2017-03-09] MEDS ORDERED: CARV12.5 PO (09:18)
[2017-03-14] MEDS ORDERED: HYDR-3800 PO (09:38)
[2017-03-14] MEDS ORDERED: PARI1 PO (09:38)
[2017-03-14] MEDS ORDERED: LISI-515 PO (09:38)
[2017-03-14] MEDS ORDERED: CARV12.5 PO (09:38)
[2017-03-14] MEDS ORDERED: ATOR40TA16 PO (09:38)
[2017-03-14] MEDS ORDERED: LEVEMIR SQ (09:38)
[2017-03-14] MEDS ORDERED: LOSA25TA PO ×2 (09:41→14:58)
[2017-03-23] MEDS ORDERED: SYMB80AE INH (08:33)
== END 2017-02-23 18:12 | disposition home or self-care (01) | DRG 674 ==
LOC: NEPC 15:23 → NEDA 19:11 → NEDH 23:21 → NEPHCDU 02-14 04:55 → OBSVTOIN 02-14 11:21 → N05B 02-17 14:33
PROVIDERS: ADMIT Family Medicine; ATTEND Family Medicine
PROC: 05HM33Z Insertion of Infusion Device into Right Internal Jugular Vein, Percutaneous Approach (ICD-10-PCS; 2017-02-15)
PROC: 5A1D60Z (ICD-10-PCS; 2017-02-16)
PROC: 02HV33Z Insertion of Infusion Device into Superior Vena Cava, Percutaneous Approach (ICD-10-PCS; 2017-02-20)
PROC: 05PYX3Z Removal of Infusion Device from Upper Vein, External Approach (ICD-10-PCS; 2017-02-20)
PROC: 05BF0ZZ Excision of Left Cephalic Vein, Open Approach (ICD-10-PCS; 2017-02-23)
PROC: 031809D Bypass Left Brachial Artery to Upper Arm Vein with Autologous Venous Tissue, Open Approach (ICD-10-PCS; principal; 2017-02-23 07:54)
DX: N17.9 Acute kidney failure, unspecified (principal); J44.1 Chronic obstructive pulmonary disease with (acute) exacerbation; Z68.42 Body mass index [BMI] 45.0-49.9, adult; E11.65 Type 2 diabetes mellitus with hyperglycemia; E11.22 Type 2 diabetes mellitus with diabetic chronic kidney disease; I12.0 Hypertensive chronic kidney disease with stage 5 chronic kidney disease or end stage renal disease; D63.1 Anemia in chronic kidney disease; E78.5 Hyperlipidemia, unspecified; E87.5 Hyperkalemia; I25.10 Atherosclerotic heart disease of native coronary artery without angina pectoris; N18.6 End stage renal disease; F17.210 Nicotine dependence, cigarettes, uncomplicated; E87.70 Fluid overload, unspecified; I16.0 Hypertensive urgency; E66.01 Morbid (severe) obesity due to excess calories; N25.81 Secondary hyperparathyroidism of renal origin; I25.2 Old myocardial infarction; Z91.19 Patient's noncompliance with other medical treatment and regimen; Z79.4 Long term (current) use of insulin; Z95.5 Presence of coronary angioplasty implant and graft; Z88.5 Allergy status to narcotic agent; Z88.0 Allergy status to penicillin; Z88.2 Allergy status to sulfonamides; Z88.8 Allergy status to other drugs, medicaments and biological substances
CPT/HCPCS: 36556; 36558; 70360; 71010; 76536; 76937; 77001; 78582; 80048; 80053; 80074; 81001; 82306; 82728; 82948; 83540; 83550; 83880; 83970; 84100; 84466; 84484; 85025; 85027; 85379; 85610; 85730; 87449; 90935; 93005; 93970; 93998; 94060; 94640; 94664; 96361; 96374; 96375; 99152; 99153; A9540; A9567; C1750; C1752; C1769; G0378; G8987-GP; G8988-GP; J1580; J1644; J1815; J2250; J2370; J2710; J2720; J2930; J3010; J3370; J7030; J7040; J7050; J7512; J7613; Q4081

== ENCOUNTER 2017-05-08 12:23 | Day surgery (SDC) | payer MEDICARE, OTHER ==
[~2017-05-08] VITALS: Ht 162.6 cm; Wt 123.0 kg
[~2017-05-08 12:23] MED LIST changes: +ASPI-516 CHEW; -ASPI81CH CHEW; +ATOR40TA16 PO; -BIOM30MI; -CARV12.52 PO; +CARV25TA PO; +HYDR-3800 PO; -INSU1MIS15; -LANCETS1 MI1; -LANTUS2P SQ; +LEVEMIR SQ; -METO10TA PO; -OMEP20TA PO; +PARI1 PO; +SYMB80AE INH; -VENTAER INH; +VITA1000 PO
[2017-05-08] MEDS ORDERED: NITROGLYCERIN INJ 5 ML ONE (12:56)
[2017-05-08] MEDS ORDERED: HEPARIN-NS/PF INJ 500 ML ONE (12:58)
[2017-05-08] MEDS ORDERED: HEPARIN SODIUM - IV 10,000 UNITS/10 ML VIAL ONE (12:58)
[2017-05-08] MEDS ORDERED: PROTAMINE SULFATE 50 MG/5 ML VIAL ONE (12:58)
[2017-05-08] MEDS ORDERED: VANCOMYCIN HCL 1000 MG VIAL ONE (12:59)
[2017-05-08] MEDS ORDERED: CHLORHEXIDINE GLUCONATE 2 % 1 PACK (2 CLOTHS) TOPICAL PRN (13:15)
[2017-05-08] MEDS ORDERED: INSULIN HUMAN REGULAR 1,000 UNITS/10 ML VIAL SQ PRN (13:15)
[2017-05-08] MEDS ORDERED: METOPROLOL TARTRATE 25 MG TAB PO PRN (13:15)
[2017-05-08] MEDS ORDERED: LACTATED RINGER'S 1000 ML IV PRN (13:15)
[2017-05-08] MEDS ORDERED: POVIDONE IODINE 5% (ANTISEPSIS KIT) 4 APPLICATIONS EACH NARE PRN (13:15)
[2017-05-08] MEDS ORDERED: SODIUM CHLORID 0.9% 500 ML IV PRN (13:15)
--- NOTE | 2017-05-08 14:35 | HHI.HP ---
History of Present Illness Chief Complaint: nonmaturing L UE AVF History of Present Illness 52 yo female with ESRD, currently on HD TTS via R chest catheter. Had L BC AVF placed 02/[address] Emery. Failed to mature. No hand troubles. Wound long since healed. Past/Family/Social History Past Medical History ESRD HTN CAD Past Surgical History L BC AVF wesly [facility] with stents in 2011 Social History nonsmoker Family History [place] Home Medications Active Scripts Carvedilol (Carvedilol) 25 Mg Tab, 25 MG PO BID, #60 TAB 6 Refills Prov:Eric Westbrook MD, R2 04/12/17 Budesonide-Formoterol Inh (Symbicort Inh) 80-4.5 Mcg/Act Aero, 2 PUFF INH Q12HR , #1 INHALER 3 Refills Prov:Zahida Clarke MD, R3 03/23/17 Paricalcitol (Zemplar) 1 Mcg Cap, 1 MCG PO DAILY, #30 CAP 6 Refills Prov:Eric Westbrook MD, R2 03/14/17 Hydralazine HCl (Hydralazine HCl) 50 Mg Tablet, 50 MG PO BID, #60 TAB 6 Refills Prov:Eric Westbrook MD, R2 03/14/17 Atorvastatin (Atorvastatin) 40 Mg Tab, 40 MG PO HS, #30 TAB 6 Refills Prov:Eric Westbrook MD, R2 03/14/17 Cholecalciferol (D 1000) 1,000 Unit Tab, 2000 UNITS PO DAILY, #30 TAB Prov:Zahida Clarke MD, R3 02/23/17 Amlodipine (Amlodipine) 5 Mg Tab, 5 MG PO DAILY for Blood Pressure Management, # 90 TAB 4 Refills Prov:Jenny De La Torre MD 09/05/16 Aspirin (Aspirin) 81 Mg Chew, 81 MG CHEW ONCE, #1 TAB 0 Refills Prov:Jenny De La Torre MD 04/05/16 Reported Medications Insulin Detemir Inj (Levemir Inj) 1,000 unit/ 10 ML Vial, 30 UNITS SQ DAILY for Blood Sugar Management, VIAL 0 Refills Do not mix with any other Insulin. 05/05/17 Fluticasone Nasal [place] (Fluticasone Nasal [place]) 50 Mcg/Act Naspr, 50 MCG EACH NARE BID for Allergy Management, #1 BOTTLE 0 Refills 50 mcg/spray 04/18/16 Discontinued Scripts Insulin Detemir Inj (Levemir Inj) 1,000 unit/ 10 ML Vial, 30 UNITS SQ Q12HR, #2 VIAL 6 Refills Do not mix with any other Insulin. Prov:Eric Westbrook MD, R2 03/14/17 Insulin Syringe/U-100/31G X 5/16" 1 ml (Insulin Syringe/U-100/31G X 5/16" 1 ml) 1 Mis Mis, 1 EA .ROUTE DIRECTED for Blood Sugar Management, #1 BOX 6 Refills Prov:Isabelle Solano MD R3 12/02/16 Metoclopramide (Metoclopramide) 10 Mg Tab, 10 MG PO TIDAC, #90 TAB 4 Refills Take one tab 30 min before meals for 12 weeks Prov:Jenny De La Torre MD 09/23/16 Parenteral Therapy Supplies (Sharpsafety Sharps Contai) 1 Mis Mis, 1 EA .ROUTE DIRECTED, #30 EA 0 Refills Prov:Jenny De La Torre MD 08/03/16 Lancets (Lancets) 1 Mis Mis, 1 EA .ROUTE DIRECTED for Blood Sugar Management , #1 BOX 0 Refills Prov:Jenny De La Torre MD 08/03/16 Coded Allergies: Sulfa (Sulfonamide Antibiotics) (Verified Allergy, Severe, 05/08/17) naproxen (Verified Allergy, Severe, throat closure , 05/08/17) sulfamethoxazole (Verified Allergy, Severe, 05/08/17) trimethoprim (Verified Allergy, Severe, 05/08/17) egg (Verified Allergy, Intermediate, 05/08/17) Hives morphine (Verified Allergy, Intermediate, Nausea/Vomiting, 05/08/17) penicillin G (Verified Allergy, Intermediate, SWELLING AND ITCHING, ) *MDRO Multi-Drug Resistant Organism (Verified Adverse Reaction, Unknown, 04/12/17) MRSA PCR screen POSITIVE - 04/15/16 Review of Systems Constitutional: DENIES: Fever Respiratory: DENIES: Apneas, Cough, Snoring, Wheezing, Hemoptysis, Sputum production, Shortness of breath Cardiovascular: DENIES: Chest pain, Palpitations, Syncope, Dyspnea on Exertion , PND, Lower Extremity Edema, Orthopnea, Claudication Physical Exam Neuro: alert, oriented, no distress HEENT: NC/AT; mild exophthalmus Neck: no JVD Heart: reg rate, no M Lungs: clear B Abdomen: obese, NT Vascular: L UE incision healed; no thrill palpable Extremities: L UE hand ok Carlos VTE Risk Assessment Caprini VTE Risk Assessment: No/Low Risk (score <= 1) Caprini Risk Assessment Model Point Value = 1 Point Value = 2 Point Value = 3 Point Value = 5 Age 41-60 Minor surgery BMI > 25 kg/m2 Swollen legs Varicose veins or History of unexplained or recurrent spontaneous Oral contraceptives or hormone replacement Sepsis (< 1 month) Serious lung disease, including pneumonia (< 1 month) Abnormal pulmonary function Acute myocardial infarction Congestive heart failure (< 1 month) History of inflammatory bowel disease Medical patient at bed rest Age 61-74 Arthroscopic surgery Major open surgery (> 45 min) Laparoscopic surgery (> 45 min) Malignancy Confined to bed (> 72 hours) Immobilizing plaster cast Central venous access Age >= 75 History of VTE Family history of VTE Factor V Leiden Prothrombin [id number] Lupus anticoagulant Anticardiolipin antibodies Elevated serum homocysteine Heparin-induced thrombocytopenia Other congenital or acquired thrombophilia Stroke (< 1 month) Elective arthroplasty Hip, pelvis, or leg fracture Acute spinal cord injury (< 1 month) Prophylaxis Regimen Total Risk Factor Score Risk Level Prophylaxis Regimen 0-1 Low Early ambulation 2 Moderate Order ONE of the following: *Sequential Compression Device (SCD) *Heparin 5000 units SQ BID 3-4 Higher Order ONE of the following medications: *Heparin 5000 units SQ TID *Enoxaparin/Lovenox 40 mg SQ daily (WT < 150 kg, CrCl > 30 mL/min) *Enoxaparin/Lovenox 30 mg SQ daily (WT < 150 kg, CrCl > 10-29 mL/min) *Enoxaparin/Lovenox 30 mg SQ BID (WT < 150 kg, CrCl > 30 mL/min) AND/OR *Sequential Compression Device (SCD) 5 or more Highest Order ONE of the following medications: *Heparin 5000 units SQ TID (Preferred with Epidurals) *Enoxaparin/Lovenox 40 mg SQ daily (WT < 150 kg, CrCl > 30 mL/min) *Enoxaparin/Lovenox 30 mg SQ daily (WT < 150 kg, CrCl > 10-29 mL/min) *Enoxaparin/Lovenox 30 mg SQ BID (WT < 150 kg, CrCl > 30 mL/min) AND *Sequential Compression Device (SCD) Assessment and Plan Plan L UE fistulogram and potential intervention d/c post-op Discharge Planning later today daughter [phone] Beni Styles MD May 08, 2017 14:35
[2017-05-08 15:08] LABS: BICARBONATE 30.6 MEQ/L (21.0-32.0)
[2017-05-08 15:09] LABS: POTASSIUM 5.6 MEQ/L (3.5-5.1)
[2017-05-08] MEDS ORDERED: IOHEXOL 300 INJ 50 ML IV ONE (15:56)
--- NOTE | 2017-05-08 16:38 | HHI.PR ---
Immediate Post Op Note Procedure Date: May 08, 2017 Pre Op Diagnosis: failing L UE AVF Post Op Diagnosis: same Surgeon: Beni Styles Brush Painter(s): none Procedure: 1. Thoracic aortogram w/ L UE angiogram 2. L UE fistulogram with SOAP WORKER of vein (5mm) 3. R SPECTACLE TRUER Angioseal Findings: sclerotic AVF, SOAP WORKER to 5mm Complications: none Specimen(s) removed: none Estimated blood loss: 20mL Anesthesia: General Drains: None Fluids: 300mL IVF Patient to: PACU Patient Condition: Good Date/Time of Procedure: SEE SURGICAL CARE RECORD Beni Styles MD May 08, 2017 16:38
[2017-05-08] MEDS ORDERED: DO NOT ADM ANY ANTICOAGULANT DRUGS PRN (16:52)
[2017-05-08 18:50] VITALS: BP 161/62; PULSE 90; RESP 18; TEMP 97.2; O2SAT 95
--- NOTE | 2017-05-09 09:33 | MP ---
cc: CCList DATE OF SURGERY: 05/08/2017 PREOPERATIVE DIAGNOSIS Failing left upper extremity arteriovenous fistula. POSTOPERATIVE DIAGNOSIS Failing left upper extremity arteriovenous fistula. PROCEDURE 1. Thoracic aortogram. 2. Left upper extremity fistulogram with angioplasty of vein. 3. Right common femoral Angio-Seal. ATTENDING SURGEON Beni Styles. ANESTHESIA General. INDICATION Ms. Menjivar is a morbidly obese 52-year-old lady with end-stage renal disease on dialysis. She had a left brachiocephalic fistula placed several months ago by someone else and she has non-maturation of the fistula. She is taken to the operating room for angiographic evaluation and treatment. DESCRIPTION OF PROCEDURE Informed consent was obtained from the patient. She was taken to the operating room and placed supine on the operating table. An appropriate timeout was taken to ensure the patient's identity, operative site and planned procedure. The administration of antibiotics was not necessary as this is a clean procedure without planned implantation of any foreign object. Everyone in the room agreed with the timeout and we proceeded. Her bilateral groins were prepped and draped and the right groin was accessed with a 21-gauge micropuncture needle. This was exchanged using Seldinger technique for a micropuncture sheath through which a 0.035 Glidewire was introduced. The micropuncture sheath was exchanged for a 5 [place] sheath and then the Glidewire was advanced up to the ascending aorta. A pigtail catheter was placed over this and a thoracic aortogram was obtained. The Glidewire was reintroduced and the pigtail catheter was exchanged for a vertebral catheter and the vertebral catheter and Glidewire were used to navigate into the left subclavian axillary and brachial arteries. Left upper extremity angiogram and fistulogram was obtained. The patient was systemically heparinized with 5000 of IV heparin. The Glidewire was advanced to the mid brachial artery. The vertebral catheter and 5 Mongolian sheath were removed and a 6 [place] 90 cm sheath was introduced. A vertebral catheter was then used to navigate the Glidewire into the fistula and this was exchanged for a Quick-Cross catheter was used to navigate the Glidewire passed through the stenoses into the distal aspect of the fistula. The entire proximal aspect of the fistula was angioplastied with a 5 x 80 balloon. Post angioplasty there was some extravasation that was treated with repeated dilations. Completion angiogram showed improvement in the stenosis. The wire, catheter and sheath were removed and the groin was closed with an Angio-Seal. There were no complications. I was present and scrubbed for the entire procedure. INTERPRETATION OF IMAGES The patient has a bovine trunk of her aortic arch. She has a patent left subclavian axillary and brachial artery. There is a high takeoff of the radial artery and it is one of these high radial takeoff branches that is the origin of the fistula. The proximal aspect of the fistula is sclerotic. The entire fistula is quite diminutive. After angioplasty there is some extravasation that was treated with repeat angioplasty and the completion angiogram showed excellent result. MD ADALBERTO Hawley/EVA /4:42 PM /9:14 AM
== END 2017-05-08 19:00 | disposition home or self-care (01) ==
LOC: HSDC 12:23
PROVIDERS: ATTEND Surgery
DX: T82.590A Other mechanical complication of surgically created arteriovenous fistula, initial encounter (principal); I12.0 Hypertensive chronic kidney disease with stage 5 chronic kidney disease or end stage renal disease; I25.10 Atherosclerotic heart disease of native coronary artery without angina pectoris; N18.6 End stage renal disease; Z79.4 Long term (current) use of insulin
CPT/HCPCS: 01844; 36902; 80048; 82948; C1725; C1769; J1644; J2720; J7040; Q9967; J3370

== ENCOUNTER 2017-06-28 05:09 | Observation (INO) | payer MEDICARE, OTHER ==
[~2017-06-28] VITALS: Ht 162.6 cm; Wt 120.0 kg
--- NOTE | 2017-06-28 06:09 | RADRPT ---
EXAM DATE/TIME: 06/28/2017 05:48 [facility] COMPARISON: CHEST SINGLE AP, February 13, 2017, 17:01. INDICATIONS : Evaluate for pneumonia, pneumothorax or communicable disease. Post of left arm venous graft. MEDICAL HISTORY : Hypercholesterolemia. Hypertension. Chronic obstructive pulmonary disease.Myocardial infarction. [place] nary artery disease. Asthma. Gallbladder disease. Arthritis. Diabetes SURGICAL HISTORY : Cholecystectomy. Cardiac catheterization. Coronary stent ENCOUNTER: Initial ACUITY: 1 day PAIN SCORE: 0/10 LOCATION: Bilateral chest FINDINGS: A single view of the chest demonstrates the lungs to be symmetrically aerated without evidence of mas s, infiltrate or effusion. The cardiomediastinal contours are unremarkable. Osseous structures are intact. Large bore right central line tip projects at the cavoatrial junction. CONCLUSION: No infiltrates seen. Dale Snyder MD on June 28, 2017 at 6:08 Board Certified Radiologist. This report was verified electronically.
[2017-06-28] MEDS ORDERED: CHLORHEXIDINE GLUCONATE 2 % 1 PACK (2 CLOTHS) TOPICAL PRN (06:15)
[2017-06-28] MEDS ORDERED: LACTATED RINGER'S 1000 ML IV PRN (06:15)
[2017-06-28] MEDS ORDERED: POVIDONE IODINE 5% (ANTISEPSIS KIT) 4 APPLICATIONS EACH NARE PRN (06:15)
[2017-06-28] MEDS ORDERED: METOPROLOL TARTRATE 25 MG TAB PO PRN (06:15)
[2017-06-28] MEDS ORDERED: SODIUM CHLORID 0.9% 500 ML IV PRN (06:15)
[2017-06-28] MEDS ORDERED: BUPIVACAINE HCL PF 0.5% 10 ML VIAL ONE (06:37)
[2017-06-28] MEDS ORDERED: PROTAMINE SULFATE 50 MG/5 ML VIAL ONE (06:37)
[2017-06-28] MEDS ORDERED: HEPARIN SODIUM - IV 10,000 UNITS/10 ML VIAL ONE ×2 (06:37→06:39)
[2017-06-28] MEDS ORDERED: VANCOMYCIN HCL 1000 MG VIAL ONE ×2 (06:38→08:03)
[2017-06-28] MEDS ORDERED: THROMBIN (TOPICAL) 20,000 UNIT SPRAY KIT ONE (06:38)
[2017-06-28] MEDS ORDERED: INSULIN HUMAN REGULAR 1,000 UNITS/10 ML VIAL ONE (06:48)
[2017-06-28 07:00] LABS: AUTOMATED NEUTROPHIL # 3.9 TH/MM3 (1.8-7.7); BASOPHIL % 0.8 % (0.0-2.0); EOSINOPHIL # 0.1 TH/MM3 (0-0.4); EOSINOPHIL % 1.7 % (0.0-4.0); HEMATOCRIT 35.9 % (35.0-46.0); HEMOGLOBIN 11.8 GM/DL (11.6-15.3); LYMPHOCYTE # 0.9 TH/MM3 (1.0-4.8); MEAN CORPUSCULAR HEMOGLOBIN 31.1 PG (27.0-34.0); MEAN CORPUSCULAR HGB CONC 32.7 % (32.0-36.0); MEAN PLATELET VOLUME 9.2 FL (7.0-11.0); MONO % 9.9 % (0.0-8.0); MONOCYTE # 0.5 TH/MM3 (0-0.9); NEUT % 71.6 % (16.0-70.0); PLATELET COUNT 294 TH/MM3 (150-450); RED BLOOD COUNT 3.78 MIL/MM3 (4.00-5.30); RED CELL DISTRIBUTION WIDTH 15.2 % (11.6-17.2); WHITE BLOOD COUNT 5.5 TH/MM3 (4.0-11.0)
[2017-06-28] MEDS ORDERED: INSULIN HUMAN REGULAR 1,000 UNITS/10 ML VIAL SQ PRN (07:00)
[2017-06-28 07:10] LABS: PROTHROMBIN TIME - PATIENT 10.1 SEC (9.8-11.6)
[2017-06-28 07:18] LABS: BACTERIA, URINE MANY /hpf; BILIRUBIN, URINE NEG (NEG); BLOOD, URINE SMALL (NEG); GLUCOSE,URINE 300 mg/dL (NEG); KETONE, URINE NEG (NEG); MUCUS URINE FEW /lpf (OCC); NITRITE,URINE NEG (NEG); SQUAMOUS EPITHELIAL CELL URINE 52 /hpf (0-5); URINE COLOR YELLOW (YELLW/STRAW); URINE LEUKOCYTE ESTERASE TRACE (NEG)
[2017-06-28 07:25] LABS: BICARBONATE 28.6 MEQ/L (21.0-32.0); CALCIUM 9.1 MG/DL (8.5-10.1); CREATININE 4.67 MG/DL (0.50-1.00)
--- NOTE | 2017-06-28 07:30 | HHI.HP ---
History of Present Illness Chief Complaint: ESRD, need for HD access History of Present Illness 52 yo female with ESRD, s/p L BC that was attempted to be remediated but unsuccessful. Sclerotic on last duplex and angio. Presents for L UE AVG (brach -ax) Past/Family/Social History Past Medical History ESRD HTN CAD Past Surgical History LHC with stents L BC AVF with revision wesly Social History nonsmoker Family History NC Home Medications Active Scripts Carvedilol (Carvedilol) 25 Mg Tab, 25 MG PO BID, #60 TAB 6 Refills Prov:Eric Westbrook MD 04/12/17 Budesonide-Formoterol Inh (Symbicort Inh) 80-4.5 Mcg/Act Aero, 2 PUFF INH Q12HR , #1 INHALER 3 Refills Prov:Zahida Clarke MD, R3 03/23/17 Paricalcitol (Zemplar) 1 Mcg Cap, 1 MCG PO DAILY, #30 CAP 6 Refills Prov:Eric Westbrook MD 03/14/17 Hydralazine HCl (Hydralazine HCl) 50 Mg Tablet, 50 MG PO BID, #60 TAB 6 Refills Prov:Eric Westbrook MD 03/14/17 Atorvastatin (Atorvastatin) 40 Mg Tab, 40 MG PO HS, #30 TAB 6 Refills Prov:Eric Westbrook MD 03/14/17 Cholecalciferol (D 1000) 1,000 Unit Tab, 2000 UNITS PO DAILY, #30 TAB Prov:Zahida Clarke MD, R3 02/23/17 Amlodipine (Amlodipine) 5 Mg Tab, 5 MG PO DAILY for Blood Pressure Management, # 90 TAB 4 Refills Prov:Jenny De La Torre MD 09/05/16 Aspirin (Aspirin) 81 Mg Chew, 81 MG CHEW ONCE, #1 TAB 0 Refills Prov:Jenny De La Torre MD 04/05/16 Reported Medications Insulin Detemir Inj (Levemir Inj) 1,000 unit/ 10 ML Vial, 30 UNITS SQ DAILY for Blood Sugar Management, VIAL 0 Refills Do not mix with any other Insulin. 05/05/17 Fluticasone Nasal [place] (Fluticasone Nasal [place]) 50 Mcg/Act Naspr, 50 MCG EACH NARE BID for Allergy Management, #1 BOTTLE 0 Refills 50 mcg/spray 04/18/16 Coded Allergies: Sulfa (Sulfonamide Antibiotics) (Verified Allergy, Severe, 06/28/17) naproxen (Verified Allergy, Severe, throat closure , 06/28/17) sulfamethoxazole (Verified Allergy, Severe, 06/28/17) trimethoprim (Verified Allergy, Severe, 06/28/17) egg (Verified Allergy, Intermediate, 06/28/17) Hives morphine (Verified Allergy, Intermediate, Nausea/Vomiting, 06/28/17) penicillin G (Verified Allergy, Intermediate, SWELLING AND ITCHING, ) *MDRO Multi-Drug Resistant Organism (Verified Adverse Reaction, Unknown, ) MRSA PCR screen POSITIVE - 04/15/16 Review of Systems Constitutional: DENIES: Fever, Chills Cardiovascular: DENIES: Chest pain Gastrointestinal: COMPLAINS OF: Difficulty Swallowing Physical Exam Vitals/I&O Date Time Temp Pulse Resp B/P (MAP) Pulse Ox O2 Delivery O2 Flow Rate FiO2 06/28/17 06:51 100.1 97 18 184/71 (108) 99 Neuro: alert, oriented, no distress HEENT: NC/AT; anicteric sclera Neck: no JVD Heart: reg rate, no M Lungs: clear B Abdomen: NT Vascular: L UE with palpable pulse at AC and weak thrill from prior AVF Extremities: good UE strength Laboratory Tests Test 06/28/17 06:10 06/28/17 06:35 Urine Color YELLOW Urine Turbidity CLOUDY Urine pH 6.0 Urine Specific [place] 1.013 Urine Protein 300 Urine Glucose (UA) 300 Urine Ketones NEG Urine Occult Blood SMALL Urine Nitrite NEG Urine Bilirubin NEG Urine Urobilinogen LESS THAN 2.0 Urine Leukocyte Esterase TRACE Urine RBC 3 Urine WBC 18 Urine Squamous Epithelial Cells 52 Urine Bacteria MANY Urine Mucus FEW Microscopic Urinalysis Comment CULTURE INDICATED White Blood Count 5.5 Red Blood Count 3.78 Hemoglobin 11.8 Hematocrit 35.9 Mean Corpuscular Volume 95.0 Mean Corpuscular Hemoglobin 31.1 Mean Corpuscular Hemoglobin Concent 32.7 Red Cell Distribution Width 15.2 Platelet Count 294 Mean Platelet Volume 9.2 Neutrophils (%) (Auto) 71.6 Lymphocytes (%) (Auto) 16.0 Monocytes (%) (Auto) 9.9 Eosinophils (%) (Auto) 1.7 Basophils (%) (Auto) 0.8 Neutrophils # (Auto) 3.9 Lymphocytes # (Auto) 0.9 Monocytes # (Auto) 0.5 Eosinophils # (Auto) 0.1 Basophils # (Auto) 0.0 CBC Comment DIFF FINAL Differential Comment Prothrombin Time 10.1 Prothromb Time International Ratio 1.0 Activated Partial Thromboplast Time 26.0 Blood Urea Nitrogen 18 Creatinine 4.67 Random Glucose 267 Calcium Level 9.1 Sodium Level 138 Potassium Level 4.9 Chloride Level 102 Carbon Dioxide Level 28.6 Anion Gap 7 Estimat Glomerular Filtration Rate 12 Date/Time Source Procedure Growth Status 06/28/17 06:10 Urine Clean Catch Urine Culture Pending Received Last 48 hours Impressions Chest X-Ray 06/28/17 0000 Signed Impressions: Service Date/Time: Wednesday, June 28, 2017 05:48 - CONCLUSION: No infiltrates seen. MD Carlos Francisco VTE Risk Assessment Carlos VTE Risk Assessment: No/Low Risk (score <= 1) Caprini Risk Assessment Model Point Value = 1 Point Value = 2 Point Value = 3 Point Value = 5 Age 41-60 Minor surgery BMI > 25 kg/m2 Swollen legs Varicose veins or History of unexplained or recurrent spontaneous Oral contraceptives or hormone replacement Sepsis (< 1 month) Serious lung disease, including pneumonia (< 1 month) Abnormal pulmonary function Acute myocardial infarction Congestive heart failure (< 1 month) History of inflammatory bowel disease Medical patient at bed rest Age 61-74 Arthroscopic surgery Major open surgery (> 45 min) Laparoscopic surgery (> 45 min) Malignancy Confined to bed (> 72 hours) Immobilizing plaster cast Central venous access Age >= 75 History of VTE Family history of VTE Factor V Leiden Prothrombin [id number] Lupus anticoagulant Anticardiolipin antibodies Elevated serum homocysteine Heparin-induced thrombocytopenia Other congenital or acquired thrombophilia Stroke (< 1 month) Elective arthroplasty Hip, pelvis, or leg fracture Acute spinal cord injury (< 1 month) Prophylaxis Regimen Total Risk Factor Score Risk Level Prophylaxis Regimen 0-1 Low Early ambulation 2 Moderate Order ONE of the following: *Sequential Compression Device (SCD) *Heparin 5000 units SQ BID 3-4 Higher Order ONE of the following medications: *Heparin 5000 units SQ TID *Enoxaparin/Lovenox 40 mg SQ daily (WT < 150 kg, CrCl > 30 mL/min) *Enoxaparin/Lovenox 30 mg SQ daily (WT < 150 kg, CrCl > 10-29 mL/min) *Enoxaparin/Lovenox 30 mg SQ BID (WT < 150 kg, CrCl > 30 mL/min) AND/OR *Sequential Compression Device (SCD) 5 or more Highest Order ONE of the following medications: *Heparin 5000 units SQ TID (Preferred with Epidurals) *Enoxaparin/Lovenox 40 mg SQ daily (WT < 150 kg, CrCl > 30 mL/min) *Enoxaparin/Lovenox 30 mg SQ daily (WT < 150 kg, CrCl > 10-29 mL/min) *Enoxaparin/Lovenox 30 mg SQ BID (WT < 150 kg, CrCl > 30 mL/min) AND *Sequential Compression Device (SCD) Assessment and Plan Plan ESRD needs HD access L UE AVG planned for today discussed with patient. Operative site marked. To OR. Daughter [phone] Beni Styles MD Jun 28, 2017 07:30
[2017-06-28] MEDS ORDERED: ACETAMINOPHEN 1000 MG/100 ML 100 ML IV ONE (07:39)
[2017-06-28] MEDS ORDERED: RESP: ALBUTEROL 2.5 MG/3 ML NEB (PRN) ONE (08:13)
--- NOTE | 2017-06-28 09:13 | HHI.PR ---
cc: Beni Styles MD Immediate Post Op Note Procedure Date: Jun 28, 2017 Pre Op Diagnosis: ESRD, need for HD access Post Op Diagnosis: ESRD, need for HD access Surgeon: Beni Styles Home Companion(s): Kendal Mcnamara Procedure: L brach-ax with PTFE Findings: very small brachial artery Additional Information: + thrill good Doppler signal in wrist Complications: none Specimen(s) removed: none Estimated blood loss: 50mL Anesthesia: General Drains: None Fluids: 600mL IVF Patient to: PACU Patient Condition: Good Implant/Devices: SEE IMPLANT LOG (if applicable) Date/Time of Procedure: SEE SURGICAL CARE RECORD Beni Styles MD Jun 28, 2017 09:13
[2017-06-28] MEDS ORDERED: GLUCAGON 1 MG/ML VIAL OTHER PRN (09:30)
[2017-06-28] MEDS ORDERED: DEXTROSE 50% IN WATER 50 ML VIAL(D50) IV PUSH PRN (09:30)
[2017-06-28] MEDS ORDERED: DO NOT ADM ANY ANTICOAGULANT DRUGS PRN (10:11)
[2017-06-28] MEDS ORDERED: *RESP: ALBUTEROL 2.5 MG/3 ML NEB (PRN) PERIprocedural Use ONLY NEB ONE (10:25)
[2017-06-28] MEDS ORDERED: ASPIRIN 81 MG CHEW TAB CHEW SCH (10:45)
[2017-06-28] MEDS ORDERED: HYDROmorphone HCL PF 2 MG/ML VIAL ONE ×2 (10:53→13:34)
[2017-06-28] MEDS ORDERED: GLYCOPYRROLATE 1 MG/5 ML SYRINGE IV PUSH ONE (12:00)
[2017-06-28] MEDS ORDERED: SODIUM CHLOR 0.9% 250 ML INJ 250 ML IV ONE (12:00)
[2017-06-28] MEDS ORDERED: ROCURONIUM INJ 50 MG/5 ML SYRINGE IV PUSH ONE (12:00)
[2017-06-28] MEDS ORDERED: LIDOCAINE HCL 1% PF 5 ML SYRINGE OTHER ONE (12:00)
[2017-06-28] MEDS ORDERED: NEOSTIGMINE 5 MG/5 ML SYRINGE IV PUSH ONE (12:00)
[2017-06-28] MEDS: INSULIN ASPART SUPPLEMENTAL SCALE SQ SCH ×3 (12:00→20:34)
[2017-06-28] MEDS ORDERED: PROPOFOL 200 MG/20 ML AMP IV ONE (12:00)
[2017-06-28] MEDS ORDERED: ONDANSETRON HCL 4 MG/2 ML VIAL IV ONE (12:00)
[2017-06-28] MEDS ORDERED: ePHEDrine/NS 25 MG/5 ML SYRINGE IV ONE (12:00)
[2017-06-28] MEDS ORDERED: SODIUM CHLOR 0.9% 1000 ML INJ 1,000 ML OTHER PRN ×2 (13:50)
[2017-06-28] MEDS ORDERED: SODIUM CHLOR 0.9% 1000 ML INJ 1,000 ML IV PRN (13:50)
--- NOTE | 2017-06-28 13:52 | PD.CONS ---
HPI Service Nephrology Consult Requested By Dr. Styles Reason for Consult ESRD Primary Care Physician No Primary Care Physician History of Present Illness Patient is a 52-year-old female with diabetes, hypertension, ESRD who had been admitted for AV graft placement in the left arm this was done and she is doing well she was on hemodialysis on Monday, and Saturdays she denies any chest pains or shortness of breath. Review of Systems Constitutional: COMPLAINS OF: Fatigue Musculoskeletal: COMPLAINS OF: Joint pain, Muscle aches Past Family Social History Allergies: Coded Allergies: Sulfa (Sulfonamide Antibiotics) (Verified Allergy, Severe, 06/28/17) naproxen (Verified Allergy, Severe, throat closure , 06/28/17) sulfamethoxazole (Verified Allergy, Severe, 06/28/17) trimethoprim (Verified Allergy, Severe, 06/28/17) egg (Verified Allergy, Intermediate, 06/28/17) Hives morphine (Verified Allergy, Intermediate, Nausea/Vomiting, 06/28/17) penicillin G (Verified Allergy, Intermediate, SWELLING AND ITCHING, ) *MDRO Multi-Drug Resistant Organism (Verified Adverse Reaction, Unknown, ) MRSA PCR screen POSITIVE - 04/15/16 Past Medical History End-stage renal disease HTN Diabetes Obesity Migraine headache Coronary artery disease Hyperparathyroidism Anemia Past Surgical History Failed AV fistula Cholecystectomy Cardiac stent Reported Medications Reported Meds & Active Scripts Active Carvedilol 25 Mg Tab 25 Mg PO BID Symbicort Inh (Budesonide/Formoterol Fumarate) 80-4.5 Mcg/Act Aero 2 Puff INH Q12HR Zemplar (Paricalcitol) 1 Mcg Cap 1 Mcg PO DAILY Hydralazine HCl 50 Mg Tablet 50 Mg PO BID Atorvastatin (Atorvastatin Calcium) 40 Mg Tab 40 Mg PO HS D 1000 (Cholecalciferol) 1,000 Unit Tab 2,000 Units PO DAILY Amlodipine (Amlodipine Besylate) 5 Mg Tab 5 Mg PO DAILY Aspirin 81 Mg Chew 81 Mg CHEW ONCE Reported Levemir Inj (Insulin Detemir) 1,000 unit/ 10 ML Vial 30 Units SQ DAILY Do not mix with any other Insulin. Fluticasone Nasal [place] 50 Mcg/Act Naspr 50 Mcg EACH NARE BID 50 mcg/spray Active Ordered Medications Current Medications Medications (Trade) Dose Ordered Sig/Darion Route Start Time Stop Time Status Last Admin Lactated Ringer's 1,000 ml @ 30 mls/hr Q24H PRN IV 06/28/17 06:15 07/01/17 06:14 Sodium Chloride 500 ml @ 30 mls/hr [id number] PRN IV 06/28/17 06:15 07/01/17 06:14 06/28/17 06:35 (Lopressor) 25 mg SEALER SANDER PRN PO 06/28/17 06:15 07/01/17 06:14 06/28/17 06:45 (Betadine 5% Antisepsis Kit) 1 applic SEALER SANDER PRN EACH NARE 06/28/17 06:15 07/01/17 06:14 06/28/17 06:55 (Chlorhexidine 2% Cloth) 3 pack SEALER SANDER PRN TOPICAL 06/28/17 06:15 07/01/17 06:14 06/28/17 06:15 (NovoLIN R INJ) See Protocol Table ... SEALER SANDER PRN SQ 06/28/17 07:00 07/01/17 06:59 (Aspirin Chew) 81 mg DAILY PO 06/29/17 09:00 (Roxicodone) 5 mg Q4H PRN PO 06/28/17 09:15 (Dilaudid) 2 mg Q4H PRN PO 06/28/17 09:15 (Heparin Inj) 5,000 units Q8H SQ 06/29/17 09:00 (Norvasc) 5 mg DAILY PO 06/29/17 09:00 (Aspirin Chew) 81 mg ONCE CHEW 06/28/17 10:45 06/28/17 23:59 (Lipitor) 40 mg HS PO 06/28/17 21:00 (Symbicort 80-4.5 Mcg Inh) 2 puff Q12HR INH 06/28/17 21:00 (Coreg) 25 mg BID PO 06/28/17 21:00 (Apresoline) 50 mg BID PO 06/28/17 21:00 (Zemplar) 1 mcg DAILY PO 06/29/17 09:00 (D50w (Vial) Inj) 50 ml UNSCH PRN IV PUSH 06/28/17 09:30 (Glucagon Inj) 1 mg UNSCH PRN OTHER 06/28/17 09:30 (NovoLOG SUPPLEMENTAL SCALE) 1 ACHS SLIDING SCALE SQ 06/28/17 12:00 Miscellaneous Information ALL NURSING DEPARTME... UNSCH PRN .XX 06/28/17 10:11 06/29/17 10:10 Sodium Chloride 1,000 ml @ 0 mls/hr Q0M PRN OTHER 06/28/17 13:50 (Heparin Inj) 8,000 units UNSCH PRN IV FLUSH 06/28/17 14:00 Sodium Chloride 1,000 ml @ 200 mls/hr Q5H PRN IV 06/28/17 13:50 Sodium Chloride 1,000 ml @ 0 mls/hr Q0M PRN OTHER 06/28/17 13:50 (Mannitol Inj) 12.5 gm UNSCH PRN IV 06/28/17 14:00 Albumin Human 100 ml @ 60 mls/hr UNSCH PRN IV 06/28/17 14:00 (NS Flush) 5 ml UNSCH PRN IV FLUSH 06/28/17 14:00 (Heparin Inj) UNSCH PRN .XX 06/28/17 14:00 (Gentamicin (Dialysis) Inj) 20 mg UNSCH PRN OTHER 06/28/17 14:00 (Zofran Inj) 4 mg UNSCH PRN IV PUSH 06/28/17 14:00 (Tylenol) 650 mg UNSCH PRN PO 06/28/17 14:00 (Benadryl) 25 mg UNSCH PRN PO 06/28/17 14:00 (Nitrostat Sl) 0.4 mg UNSCH PRN SL 06/28/17 14:00 (Catapres) 0.1 mg UNSCH PRN PO 06/28/17 14:00 (Epogen Inj) 4,000 units UNSCH PRN IV PUSH 06/28/17 14:00 (Gelfoam 12 Mm/7 Mm Top) 1 foam UNSCH PRN TOP 06/28/17 14:00 Family History Noncontributory Social History Denies smoking or alcohol Physical Exam Vital Signs Vital Signs Date Time Temp Pulse Resp B/P (MAP) Pulse Ox O2 Delivery O2 Flow Rate FiO2 06/28/17 11:30 77 18 99/51 (67) 93 Nasal Cannula 3 06/28/17 11:00 82 18 105/52 (69) 93 Nasal Cannula 3 06/28/17 10:45 84 16 110/53 (72) 95 Nasal Cannula 3 06/28/17 10:30 84 16 112/57 (75) 95 Simple Mask 6 06/28/17 10:15 100 17 152/55 (87) 95 Simple Mask 6 06/28/17 10:09 97.7 107 14 164/72 (102) 94 Simple Mask 6 06/28/17 06:51 100.1 97 18 184/71 (108) 99 Physical Exam GENERAL: Well-nourished, well-developed patient. SKIN: Warm and dry. HEAD: Normocephalic. EYES: No scleral icterus. No injection or drainage. NECK: Supple, trachea midline. No JVD or lymphadenopathy. CARDIOVASCULAR: Regular rate and rhythm without murmurs, gallops, or rubs. RESPIRATORY: Breath sounds equal bilaterally. No accessory muscle use. GASTROINTESTINAL: Abdomen soft, non-tender, nondistended. EXTREMITIES: No cyanosis, or edema. AV graft left NEUROLOGICAL: Awake, alert, and oriented x 3. Non-focal. Laboratory Laboratory Tests Test 06/28/17 06:10 06/28/17 06:35 Urine Color YELLOW Urine Turbidity CLOUDY Urine pH 6.0 Urine Specific [place] 1.013 Urine Protein 300 Urine Glucose (UA) 300 Urine Ketones NEG Urine Occult Blood SMALL Urine Nitrite NEG Urine Bilirubin NEG Urine Urobilinogen LESS THAN 2.0 Urine Leukocyte Esterase TRACE Urine RBC 3 Urine WBC 18 Urine Squamous Epithelial Cells 52 Urine Bacteria MANY Urine Mucus FEW Microscopic Urinalysis Comment CULTURE INDICATED White Blood Count 5.5 Red Blood Count 3.78 Hemoglobin 11.8 Hematocrit 35.9 Mean Corpuscular Volume 95.0 Mean Corpuscular Hemoglobin 31.1 Mean Corpuscular Hemoglobin Concent 32.7 Red Cell Distribution Width 15.2 Platelet Count 294 Mean Platelet Volume 9.2 Neutrophils (%) (Auto) 71.6 Lymphocytes (%) (Auto) 16.0 Monocytes (%) (Auto) 9.9 Eosinophils (%) (Auto) 1.7 Basophils (%) (Auto) 0.8 Neutrophils # (Auto) 3.9 Lymphocytes # (Auto) 0.9 Monocytes # (Auto) 0.5 Eosinophils # (Auto) 0.1 Basophils # (Auto) 0.0 CBC Comment DIFF FINAL Differential Comment Prothrombin Time 10.1 Prothromb Time International Ratio 1.0 Activated Partial Thromboplast Time 26.0 Blood Urea Nitrogen 18 Creatinine 4.67 Random Glucose 267 Calcium Level 9.1 Sodium Level 138 Potassium Level 4.9 Chloride Level 102 Carbon Dioxide Level 28.6 Anion Gap 7 Estimat Glomerular Filtration Rate 12 Date/Time Source Procedure Growth Status 06/28/17 06:10 Urine Clean Catch Urine Culture Pending Received Result Diagram: 06/28/17 0635 06/28/17 0635 Assessment and Plan Problem List: (1) ESRD (end stage renal disease) ICD Codes: N18.6 - End stage renal disease Status: Chronic Plan: Patient has AV graft Doing well Hemodialysis will continue Monday, and Monday (2) Diabetes mellitus ICD Codes: E11.9 - Type 2 diabetes mellitus without complications Status: Chronic Plan: Follow blood glucose (3) Hypertension ICD Codes: I10 - Essential (primary) hypertension Status: Chronic Plan: Monitor blood pressure Problem Qualifiers (1) Hypertension: Qualified Codes: I10 - Essential (primary) hypertension Shantelle Maldonado MD Jun 28, 2017 13:52
[2017-06-28] MEDS ORDERED: HEPARIN SODIUM - IV 10,000 UNITS/10 ML VIAL PRN (14:00)
[2017-06-28] MEDS ORDERED: HEPARIN SODIUM - IV 10,000 UNITS/10 ML VIAL IV FLUSH PRN (14:00)
[2017-06-28] MEDS ORDERED: ONDANSETRON HCL 4 MG/2 ML VIAL IV PUSH PRN (14:00)
[2017-06-28] MEDS ORDERED: SODIUM CHLORIDE 0.9% FLUSH 10 ML FLUSH IV FLUSH PRN (14:00)
[2017-06-28] MEDS ORDERED: EPOETIN ALFA 4,000 UNITS/ML VIAL IV PUSH PRN (14:00)
[2017-06-28] MEDS ORDERED: cloNIDine HCL 0.1 MG TAB PO PRN (14:00)
[2017-06-28] MEDS ORDERED: MANNITOL 12.5 GM/50 ML VIAL IV PRN (14:00)
[2017-06-28] MEDS ORDERED: ALBUMIN 25% INJ 100 ML IV PRN (14:00)
[2017-06-28] MEDS ORDERED: NITROGLYCERIN 0.4 MG SL 25 TABS/BTL SL PRN (14:00)
[2017-06-28] MEDS ORDERED: diphenhydrAMINE HCL 25 MG CAP PO PRN (14:00)
[2017-06-28] MEDS ORDERED: GELATIN 12 MM/7 MM FOAM TOP PRN (14:00)
[2017-06-28] MEDS ORDERED: ACETAMINOPHEN 325 MG TAB PO PRN (14:00)
[2017-06-28] MEDS ORDERED: GENTAMICIN SULFATE 20 MG/2 ML VIAL OTHER PRN (14:00)
[2017-06-28] MEDS ORDERED: RESP: ALBUTEROL 2.5 MG/3 ML NEB (PRN) INH (14:30)
[2017-06-28 14:37] VITALS: BP_SYST 60; PULSE 73; RESP 17; TEMP 97; O2SAT 93
[2017-06-28] MEDS: HYDROmorphone HCL 2 MG TAB PO PRN ×2 (15:14→20:17)
[2017-06-28 16:00] VITALS: PULSE 87
[2017-06-28 16:24] VITALS: O2SAT 93
[2017-06-28] MEDS ORDERED: BENZOCAINE-MENTHOL (SUGAR FREE) 15 MG-3.6 MG LOZENGE BUCCAL PRN (17:00)
[2017-06-28 20:00] VITALS: BP 155/78; PULSE 82; PULSE 87; RESP 18; TEMP 98; O2SAT 98
[2017-06-28] MEDS: hydrALAZINE HCL 50 MG TAB PO SCH (20:37)
[2017-06-28] MEDS: CARVEDILOL 12.5 MG TAB PO SCH (20:37)
[2017-06-28] MEDS ORDERED: ATORVASTATIN 40 MG TAB PO SCH (21:00)
[2017-06-28] MEDS: BUDESONIDE-FORMOTEROL 80/4.5 MCG INHALER INH SCH (22:16)
[2017-06-29] VITALS: PULSE 96
[2017-06-29] MEDS: HYDROmorphone HCL 2 MG TAB PO PRN ×3 (00:19→12:48)
[2017-06-29 00:36] VITALS: BP 149/70; PULSE 100; RESP 20; TEMP 98.8; O2SAT 93
[2017-06-29 05:34] VITALS: BP 127/58; PULSE 98; RESP 20; TEMP 99.2; O2SAT 95
[2017-06-29 05:59] LABS: AUTOMATED NEUTROPHIL # 5.7 TH/MM3 (1.8-7.7); BASOPHIL % 0.6 % (0.0-2.0); EOSINOPHIL # 0.1 TH/MM3 (0-0.4); EOSINOPHIL % 0.9 % (0.0-4.0); HEMOGLOBIN 11.9 GM/DL (11.6-15.3); LYMPH % 10.2 % (9.0-44.0); LYMPHOCYTE # 0.7 TH/MM3 (1.0-4.8); MEAN CELL VOLUME 96.2 FL (80.0-100.0); MEAN CORPUSCULAR HGB CONC 32.2 % (32.0-36.0); MEAN PLATELET VOLUME 9.1 FL (7.0-11.0); MONO % 8.6 % (0.0-8.0); MONOCYTE # 0.6 TH/MM3 (0-0.9); NEUT % 79.7 % (16.0-70.0); PLATELET COUNT 306 TH/MM3 (150-450); RED BLOOD COUNT 3.84 MIL/MM3 (4.00-5.30); RED CELL DISTRIBUTION WIDTH 15.4 % (11.6-17.2); WHITE BLOOD COUNT 7.1 TH/MM3 (4.0-11.0)
[2017-06-29 06:24] LABS: BICARBONATE 28.2 MEQ/L (21.0-32.0); CALCIUM 9.5 MG/DL (8.5-10.1); CREATININE 5.45 MG/DL (0.50-1.00)
--- NOTE | 2017-06-29 06:53 | MP ---
cc: MED STYLES MD DATE OF SURGERY 06/28/2017 PREOPERATIVE DIAGNOSIS End-stage renal disease needs dialysis access. POSTOPERATIVE DIAGNOSES End-stage renal disease needs dialysis access. PROCEDURE Left brachial artery to axillary vein arteriovenous graft with 6 mm PTFE. ATTENDING SURGEON Med Styles MD [employer] DRIVER SURGEON Kendal Munoz ANESTHESIA General INDICATIONS Ms. Menjivar is a 52-year-old female with end-stage renal disease who has a failed left brachiocephalic fistula. She was taken to the operating room for new access. She has no autogenous access options. DESCRIPTION OF PROCEDURE Informed consent was obtained from the patient. She was taken to the operating room and placed supine on the operating room table and an appropriate time-out was taken to ensure the patient's identity, operative site and planned procedure. The administration of one gram of vancomycin was initiated prior to the skin incision and will be discontinued after a single preoperative dose. Everyone in the room agreed with the time-out and we proceeded. Vancomycin was chosen because of the patient's end-stage renal disease. Her left arm was prepped and draped. An incision made in the antecubitum, carried down through the subcutaneous tissue with electrocautery. The brachial artery was identified and dissected free for several centimeters and encircled with a Vesseloop. A separate incision made in the patient's axilla, carried down through the subcutaneous tissue with electrocautery. The axillary vein was identified and dissected free and circled with a Vesseloop. A tunnel was then created between these two and a 6-mm PTFE was tunneled through this taking caution not to twist it. The patient was systemically heparinized and proximal and distal control of the brachial artery was obtained with profunda clamps and a longitudinal arteriotomy was made with an 11 blade and extended with Prem scissors. The graft was spatulated and sewn end-to-side to the brachial artery with running 5-0 Filion-Jorge suture which was flushed and noted to be hemostatic. A clamp was placed on the graft, the clamps released from the brachial artery. The axillary vein was controlled proximally and distally with profunda clamps and a longitudinal venotomy was made with an 11 blade and extended with [place] scissors. The graft was spatulated and sewn end-to-side to the vein with running 5-0 Filion-Jorge suture. At the completion, it was flushed and noted to be hemostatic. The clamps were all released. There was a nice thrill in the proximal aspect of fistula and in the outflow vein and a nice Doppler signal in the wrist. The heparin, which had been administered prior to brachial artery occlusion, was reversed with protamine and the wounds were infiltrated Marcaine and closed with 2-0 Polysorb, 3-0 Polysorb and 4-0 Monocryl. The sponge and needle counts were correct at the end of the case. I was present, scrubbed, and performed the entire procedure. MD ADALBERTO Hawley/TRINH /5:46 PM /6:42 AM
[2017-06-29 08:00] VITALS: BP 119/61; PULSE 88; PULSE 93; RESP 17; TEMP 97.7; O2SAT 94
[2017-06-29] MEDS: INSULIN ASPART SUPPLEMENTAL SCALE SQ SCH ×2 (08:33→12:46)
[2017-06-29] MEDS: BUDESONIDE-FORMOTEROL 80/4.5 MCG INHALER INH SCH (08:34)
[2017-06-29] MEDS: hydrALAZINE HCL 50 MG TAB PO SCH (08:37)
[2017-06-29] MEDS: CARVEDILOL 12.5 MG TAB PO SCH (08:38)
--- NOTE | 2017-06-29 08:59 | PD.VS.PN ---
Subjective POD #: 1 Procedure(s): L brach-ax with PTFE Subjective/Hospital Course Pt s/p L brach-ax with PTFE POD 1 Pain controlled Pt c/o mild incisional pain Pt w/o other complaints Pt denied hand pain Objective Vitals/I&O Date Time Temp Pulse Resp B/P (MAP) Pulse Ox O2 Delivery O2 Flow Rate FiO2 06/29/17 05:34 99.2 98 20 127/58 (81) 95 06/29/17 00:36 98.8 100 20 149/70 (96) 93 06/29/17 00:00 96 06/28/17 21:05 21 06/28/17 20:00 87 06/28/17 20:00 98.0 82 18 155/78 (103) 98 06/28/17 16:24 93 21 06/28/17 16:00 87 06/28/17 14:37 97.0 73 17 60/ 93 06/28/17 14:03 97.8 78 15 125/60 (81) 96 Room Air 06/28/17 13:30 80 15 128/59 (82) 96 Room Air 06/28/17 13:00 78 16 121/56 (77) 94 Room Air 06/28/17 12:30 76 16 124/59 (80) 94 Room Air 06/28/17 12:00 76 17 109/55 (73) 94 Room Air 06/28/17 11:30 77 18 99/51 (67) 93 Nasal Cannula 3 06/28/17 11:00 82 18 105/52 (69) 93 Nasal Cannula 3 06/28/17 10:45 84 16 110/53 (72) 95 Nasal Cannula 3 06/28/17 10:30 84 16 112/57 (75) 95 Simple Mask 6 06/28/17 10:15 100 17 152/55 (87) 95 Simple Mask 6 06/28/17 10:09 97.7 107 14 164/72 (102) 94 Simple Mask 6 06/29/17 06/29/17 06/29/17 07:00 15:00 23:00 Intake Total 780 ml Balance 780 ml Exam: GENERAL: A&OX3,NAD,GCS15 SKIN: UE Warm and dry with motor intact L UE incision I/C/D HEAD: Normocephalic. EYES: No scleral icterus. No injection or drainage. NECK: Supple, trachea midline. No JVD or lymphadenopathy. CARDIOVASCULAR: Regular rate and rhythm without murmurs, gallops, or rubs. RESPIRATORY: Breath sounds equal bilaterally. No accessory muscle use. Palpable R/L radial pulses present Audible thrill present near L UE AVF Laboratory Laboratory Tests Test 06/28/17 22:25 06/29/17 04:27 Nasal Screen MRSA (PCR) NEGATIVE Staphylococcus aureus (PCR)(LAB) POSITIVE White Blood Count 7.1 Red Blood Count 3.84 Hemoglobin 11.9 Hematocrit 37.0 Mean Corpuscular Volume 96.2 Mean Corpuscular Hemoglobin 31.0 Mean Corpuscular Hemoglobin Concent 32.2 Red Cell Distribution Width 15.4 Platelet Count 306 Mean Platelet Volume 9.1 Neutrophils (%) (Auto) 79.7 Lymphocytes (%) (Auto) 10.2 Monocytes (%) (Auto) 8.6 Eosinophils (%) (Auto) 0.9 Basophils (%) (Auto) 0.6 Neutrophils # (Auto) 5.7 Lymphocytes # (Auto) 0.7 Monocytes # (Auto) 0.6 Eosinophils # (Auto) 0.1 Basophils # (Auto) 0.0 CBC Comment DIFF FINAL Differential Comment Blood Urea Nitrogen 24 Creatinine 5.45 Random Glucose 220 Calcium Level 9.5 Sodium Level 137 Potassium Level 3.8 Chloride Level 100 Carbon Dioxide Level 28.2 Anion Gap 9 Estimat Glomerular Filtration Rate 10 Date/Time Source Procedure Growth Status 06/28/17 06:10 Urine Clean Catch Urine Culture Pending Received Assessment and Plan Assessment: (1) AVF (arteriovenous fistula) (2) ESRD (end stage renal disease) on dialysis Plan Ms. Menjivar is a 52/F w/ ESRD needs (HD access) Pt s/p L brach-ax with PTFE POD 1 Doing well Pt w/o complaints of hand pain UE warm w/ motor intact Plan Pt clear for D/C today after HD Arranged out pt F/U in 2W Discussed and reviewed post operative care/management w/ pt Nafisa Rubio NP [facility] [phone] Discharge Planning Today after HD Nafisa Rubio Jun 29, 2017 08:59
[2017-06-29] MEDS ORDERED: PARICALCITOL 1 MCG CAP PO SCH (09:00)
[2017-06-29] MEDS ORDERED: ASPIRIN 81 MG CHEW TAB PO SCH (09:00)
[2017-06-29] MEDS ORDERED: amLODIPine BESYLATE 5 MG TAB PO SCH (09:00)
[2017-06-29] MEDS ORDERED: HEPARIN SODIUM - SQ 10,000 UNITS/ML VIAL SQ SCH (09:00)
[2017-06-29] MEDS ORDERED: OXYC1CAP PO (09:01)
--- NOTE | 2017-06-29 09:10 | PD.VS.DC ---
Discharge Summary Admission Date: Jun 28, 2017 at 09:16 Discharge Date: Jun 29, 2017 Admission Diagnosis: (1) ESRD (end stage renal disease) on dialysis Discharge Diagnosis: (1) AVF (arteriovenous fistula) ICD Codes: I77.0 - Arteriovenous fistula, acquired (2) ESRD (end stage renal disease) on dialysis ICD Codes: N18.6 - End stage renal disease; Z99.2 - Dependence on renal dialysis Brief History from admission 52 yo female with ESRD, s/p L BC that was attempted to be remediated but unsuccessful. Sclerotic on last duplex and angio. Presents for L UE AVG (brach-ax) Procedure(s): L brach-ax with PTFE Significant Findings GENERAL: A&OX3,NAD,GCS15 SKIN: UE Warm and dry with motor intact L UE incision I/C/D HEAD: Normocephalic. EYES: No scleral icterus. No injection or drainage. NECK: Supple, trachea midline. No JVD or lymphadenopathy. CARDIOVASCULAR: Regular rate and rhythm without murmurs, gallops, or rubs. RESPIRATORY: Breath sounds equal bilaterally. No accessory muscle use. Palpable R/L radial pulses present Audible thrill present near L UE AVF Laboratory Tests Test 06/28/17 06:10 06/28/17 06:35 06/28/17 22:25 06/29/17 04:27 Urine Turbidity CLOUDY (CLEAR) Urine Protein 300 mg/dL (NEG-TRACE) Urine Glucose (UA) 300 mg/dL (NEG) Urine Occult Blood SMALL (NEG) Urine Leukocyte Esterase TRACE (NEG) Urine WBC 18 /hpf (0-5) Urine Bacteria MANY /hpf (NONE) Urine Mucus FEW /lpf (OCC) Red Blood Count 3.78 MIL/MM3 (4.00-5.30) 3.84 MIL/MM3 (4.00-5.30) Neutrophils (%) (Auto) 71.6 % (16.0-70.0) 79.7 % (16.0-70.0) Monocytes (%) (Auto) 9.9 % (0.0-8.0) 8.6 % (0.0-8.0) Lymphocytes # (Auto) 0.9 TH/MM3 (1.0-4.8) 0.7 TH/MM3 (1.0-4.8) Creatinine 4.67 MG/DL (0.50-1.00) 5.45 MG/DL (0.50-1.00) Random Glucose 267 MG/DL (74-106) 220 MG/DL (74-106) Estimat Glomerular Filtration Rate 12 ML/MIN (>89) 10 ML/MIN (>89) Blood Urea Nitrogen 24 MG/DL (7-18) Hospital Course: 52 yo female with ESRD, s/p L BC that was attempted to be remediated but unsuccessful. Sclerotic on last duplex and angio. Presents for L UE AVG (brach-ax) POD #: 1 Procedure(s): L brach-ax with PTFE Subjective/Hospital Course Pt s/p L brach-ax with PTFE POD 1 Pt doing well Pain controlled Pt c/o mild incisional pain Pt w/o other complaints Pt denied hand pain Pt clear for D/C post HD Arranged out pt f/u in 2W Allergies Coded Allergies Type Severity Reaction Last Updated Verified Sulfa (Sulfonamide Antibiotics) Allergy Severe 06/28/17 Yes naproxen Allergy Severe throat closure 06/28/17 Yes sulfamethoxazole Allergy Severe 06/28/17 Yes trimethoprim Allergy Severe 06/28/17 Yes egg Allergy Intermediate 06/28/17 Yes morphine Allergy Intermediate Nausea/Vomiting 06/28/17 Yes penicillin G Allergy Intermediate SWELLING AND ITCHING 06/28/17 Yes *MDRO Multi-Drug Resistant Organism Adverse Reaction Unknown 06/28/17 Yes Recent Impressions Chest X-Ray 06/28/17 0000 Signed Impressions: Service Date/Time: Wednesday, June 28, 2017 05:48 - CONCLUSION: No infiltrates seen. Dale Snyder MD 06/27/17 06/27/17 06/28/17 06/28/17 06/29/17 06/29/17 06:00 18:00 06:00 18:00 06:00 18:00 Intake Total 960 ml 780 ml Output Total 50 ml Balance 910 ml 780 ml Intake Oral 360 ml 780 ml IV Total 0 ml Other 600 ml Output Urine Total 0 ml Estimated Blood Loss 50 ml # Voids 0 4 # Bowel Movements 0 Laboratory Tests Test 06/28/17 06:10 06/28/17 06:35 06/28/17 22:25 06/29/17 04:27 Urine Color YELLOW Urine Turbidity CLOUDY Urine pH 6.0 Urine Specific [place] 1.013 Urine Protein 300 mg/dL Urine Glucose (UA) 300 mg/dL Urine Ketones NEG mg/dL Urine Occult Blood SMALL Urine Nitrite NEG Urine Bilirubin NEG Urine Urobilinogen LESS THAN 2.0 MG/DL Urine Leukocyte Esterase TRACE Urine RBC 3 /hpf Urine WBC 18 /hpf Urine Squamous Epithelial Cells 52 /hpf Urine Bacteria MANY /hpf Urine Mucus FEW /lpf Microscopic Urinalysis Comment CULTURE INDICATED White Blood Count 5.5 TH/MM3 7.1 TH/MM3 Red Blood Count 3.78 MIL/MM3 3.84 MIL/MM3 Hemoglobin 11.8 GM/DL 11.9 GM/DL Hematocrit 35.9 % 37.0 % Mean Corpuscular Volume 95.0 FL 96.2 FL Mean Corpuscular Hemoglobin 31.1 PG 31.0 PG Mean Corpuscular Hemoglobin Concent 32.7 % 32.2 % Red Cell Distribution Width 15.2 % 15.4 % Platelet Count 294 TH/MM3 306 TH/MM3 Mean Platelet Volume 9.2 FL 9.1 FL Neutrophils (%) (Auto) 71.6 % 79.7 % Lymphocytes (%) (Auto) 16.0 % 10.2 % Monocytes (%) (Auto) 9.9 % 8.6 % Eosinophils (%) (Auto) 1.7 % 0.9 % Basophils (%) (Auto) 0.8 % 0.6 % Neutrophils # (Auto) 3.9 TH/MM3 5.7 TH/MM3 Lymphocytes # (Auto) 0.9 TH/MM3 0.7 TH/MM3 Monocytes # (Auto) 0.5 TH/MM3 0.6 TH/MM3 Eosinophils # (Auto) 0.1 TH/MM3 0.1 TH/MM3 Basophils # (Auto) 0.0 TH/MM3 0.0 TH/MM3 CBC Comment DIFF FINAL DIFF FINAL Differential Comment Prothrombin Time 10.1 SEC Prothromb Time International Ratio 1.0 RATIO Activated Partial Thromboplast Time 26.0 SEC Blood Urea Nitrogen 18 MG/DL 24 MG/DL Creatinine 4.67 MG/DL 5.45 MG/DL Random Glucose 267 MG/DL 220 MG/DL Calcium Level 9.1 MG/DL 9.5 MG/DL Sodium Level 138 MEQ/L 137 MEQ/L Potassium Level 4.9 MEQ/L 3.8 MEQ/L Chloride Level 102 MEQ/L 100 MEQ/L Carbon Dioxide Level 28.6 MEQ/L 28.2 MEQ/L Anion Gap 7 MEQ/L 9 MEQ/L Estimat Glomerular Filtration Rate 12 ML/MIN 10 ML/MIN Nasal Screen MRSA (PCR) NEGATIVE Staphylococcus aureus (PCR)(LAB) POSITIVE Orders Procedure Category Date Status Time Complete Blood Count LAB 06/28/17 Complete With Diff 05:31 Coag Profile LAB 06/28/17 Complete 05:31 Type And Screen BBK 06/28/17 Complete 05:31 Urinalysis - C+S If LAB 06/28/17 Complete Indicated 05:31 Basic Metabolic Panel LAB 06/28/17 Complete (Bmp) 05:31 Electrocardiogram CAV 06/28/17 Complete Chest, Single Ap RADDIAG 06/28/17 Resulted Lactated Ringer's MED 06/28/17 In Process 1000 Ml Inj (Lr 1000 M 06:15 Sodium Chlorid 0.9% MED 06/28/17 In Process 500 Ml Inj (Ns 500 M 06:15 Metoprolol Tartrate MED 06/28/17 In Process (Lopressor) 06:15 Povidone Iod 5% MED 06/28/17 In Process Antisepsis Kit 06:15 Chlorhexidine 2% MED 06/28/17 In Process Cloth (Chlorhexidine 06:15 Protamine Sulfate Inj MED 06/28/17 Complete (Protamine Sulfate 06:37 Heparin Inj (Heparin MED 06/28/17 Complete Inj) 06:37 Bupivacaine Pf 0.5% MED 06/28/17 Complete Inj (Marcaine Pf 0.5 06:37 Thrombin Top [place] MED 06/28/17 Complete (Thrombin Top [place]) 06:38 Vancomycin Inj MED 06/28/17 Complete (Vancomycin Inj) 06:38 Heparin Inj (Heparin MED 06/28/17 Complete Inj) 06:39 Insulin Human Regular MED 06/28/17 Complete Inj (Novolin R Inj 06:48 Insulin Human Regular MED 06/28/17 In Process Inj (Novolin R Inj 07:00 Urine Culture AYUSH 06/28/17 In Process 06:10 Acetaminophen 1000 MED 06/28/17 Complete Mg/100 Ml (Ofirmev 10 07:39 Vancomycin Inj MED 06/28/17 Complete (Vancomycin Inj) 08:03 Albuterol Neb MED 06/28/17 Complete (Albuterol Neb) 08:13 Place In Observation ADMITTING 06/28/17 Transmitted Code Status CODE 06/28/17 Transmitted 09:13 Vital Signs (Adult) SAMIRA 06/28/17 In Process 09:13 Lasting Machine Operator Hand Method / SAMIRA 06/28/17 In Process Telemetry 09:13 Activity Oob Ad Zamzam SAMIRA 06/28/17 In Process 09:13 Notify Parameters SAMIRA 06/28/17 In Process 09:13 Precautions SAMIRA 06/28/17 In Process 09:13 Diet Heart Healthy DIET 06/28/17 Transmitted Breakfast Basic Metabolic Panel LAB 06/29/17 Complete (Bmp) 06:00 Consult Nephrology CONS 06/28/17 Transmitted Aspirin Chew (Aspirin MED 06/29/17 In Process Chew) 09:00 Oxycodone (Roxicodone) MED 06/28/17 In Process 09:15 Hydromorphone MED 06/28/17 In Process (Dilaudid) 09:15 Scd Bilateral/Knee SAMIRA 06/28/17 In Process High 09:13 Amlodipine (Norvasc) MED 06/29/17 In Process 09:00 Aspirin Chew (Aspirin MED 06/28/17 Complete Chew) 10:45 Atorvastatin (Lipitor) MED 06/28/17 In Process 21:00 Budeson-Formot 80-4.5 MED 06/28/17 In Process Mcg Inh (Symbicort 21:00 Carvedilol (Coreg) MED 06/28/17 In Process 21:00 Hydralazine MED 06/28/17 In Process (Apresoline) 21:00 Paricalcitol (Zemplar) MED 06/29/17 In Process 09:00 Blood Glucose Goal SAMIRA 06/28/17 In Process (Criteria) 09:16 Hypoglycemia 70 Mg/Dl SAMIRA 06/28/17 In Process Or < 09:16 Notify [place] Monte SAMIRA 06/28/17 In Process 09:16 Dextrose 50% In Riddhi MED 06/28/17 In Process (Vial) Inj (D50w (Vi 09:30 Glucagon Inj MED 06/28/17 In Process (Glucagon Inj) 09:30 Insulin Aspart MED 06/28/17 In Process Supplemtl Scale 12:00 (Hub Use Only)Inp Phy CONS 06/28/17 Transmitted Cons/Ref Fentanyl Inj MED 06/28/17 Complete (Fentanyl Inj) 10:19 *Albuterol Neb MED 06/28/17 Complete (*Albuterol Neb 10:25 Heparin Inj (Heparin MED 06/29/17 In Process Inj) 09:00 Hydromorphone Pf Inj MED 06/28/17 Complete (Dilaudid Pf Inj) 10:53 Misc Nursing MED 06/28/17 In Process Information 10:11 Hydromorphone Pf Inj MED 06/28/17 Complete (Dilaudid Pf Inj) 13:34 Blood Flow Rate SAMIRA 06/28/17 In Process 13:50 Dialysate Flow Rate SAMIRA 06/28/17 In Process 13:50 Dialyzer SAMIRA 06/28/17 In Process 13:50 Concentrate SAMIRA 06/28/17 In Process 13:50 Acid Concentrate SAMIRA 06/28/17 In Process 13:50 Length Of Dialysis SAMIRA 06/28/17 In Process 13:50 Frequency Of Dialysis SAMIRA 06/28/17 In Process 13:50 Dialysis Obtain SAMIRA 06/28/17 In Process 13:50 Needle Size SAMIRA 06/28/17 In Process 13:50 Dialysis Schedule SAMIRA 06/28/17 In Process 13:50 Resp Oxygen Eric C RSP 06/28/17 Complete Titrat 1-4 L Dialysis Weight SAMIRA 06/28/17 In Process 13:50 ^ Obtain As Needed SAMIRA 06/28/17 In Process 13:50 Sodium Chlor 0.9% MED 06/28/17 In Process 1000 Ml Inj (Ns 1000 M 13:50 Heparin Inj (Heparin MED 06/28/17 In Process Inj) 14:00 Sodium Chlor 0.9% MED 06/28/17 In Process 1000 Ml Inj (Ns 1000 M 13:50 Sodium Chlor 0.9% MED 06/28/17 In Process 1000 Ml Inj (Ns 1000 M 13:50 Mannitol Inj MED 06/28/17 In Process (Mannitol Inj) 14:00 Albumin 25% Inj MED 06/28/17 In Process (Albumin 25% Inj) 14:00 Sodium Chloride 0.9% MED 06/28/17 In Process Flush (Ns Flush) 14:00 Heparin Inj (Heparin MED 06/28/17 In Process Inj) 14:00 Gentamicin (Dialysis) MED 06/28/17 In Process Inj (Gentamicin (D 14:00 Ondansetron Inj MED 06/28/17 In Process (Zofran Inj) 14:00 Acetaminophen MED 06/28/17 In Process (Tylenol) 14:00 Diphenhydramine MED 06/28/17 In Process (Benadryl) 14:00 Nitroglycerin Sl MED 06/28/17 In Process (Nitrostat Sl) 14:00 Clonidine (Catapres) MED 06/28/17 In Process 14:00 Gelatin 12 Mm/7 Mm MED 06/28/17 In Process Top (Gelfoam 12 Mm/7 14:00 Complete Blood Count LAB 06/29/17 Complete With Diff 06:00 Epoetin [place] Inj MED 06/28/17 In Process (Epogen Inj) 14:00 Anticoagulant Alert SAMIRA 06/28/17 In Process ^ Sling SAMIRA 06/28/17 In Process Resp Oxygen Eric C RSP 06/28/17 Logged Titrat 1-4 L Albuterol Neb MED 06/28/17 In Process (Albuterol Neb) 14:30 Sds Pre Op Care [facility] 06/28/17 Complete Class Iv [facility] 30 [facility] 06/[facility]17 Complete MIN General/Pacu [facility] 06/28/17 Complete Post Anesthesia Oxygen [facility] 06/28/17 Complete Bedside Glucose [facility] 06/28/17 Complete Pacu Med Holding [facility] 06/28/17 Complete Hourly Benzocain-Menthol MED 06/28/17 In Process (Sugar Free) (Cepacol 17:00 Nasal Mrsa/Sa Pcr LAB 06/28/17 Complete 21:40 Sling Cradle Arm ORTHO 06/29/17 Complete Attending Discharge DISCHARGE 06/29/17 Transmitted Order Vital Signs Date Time Temp Pulse Resp B/P (MAP) Pulse Ox O2 Delivery O2 Flow Rate FiO2 06/29/17 05:34 99.2 98 20 127/58 (81) 95 06/29/17 00:36 98.8 100 20 149/70 (96) 93 06/29/17 00:00 96 06/28/17 21:05 21 06/28/17 20:00 87 06/28/17 20:00 98.0 82 18 155/78 (103) 98 06/28/17 16:24 93 21 06/28/17 16:00 87 06/28/17 14:37 97.0 73 17 60/ 93 06/28/17 14:03 97.8 78 15 125/60 (81) 96 Room Air 06/28/17 13:30 80 15 128/59 (82) 96 Room Air 06/28/17 13:00 78 16 121/56 (77) 94 Room Air 06/28/17 12:30 76 16 124/59 (80) 94 Room Air 06/28/17 12:00 76 17 109/55 (73) 94 Room Air 06/28/17 11:30 77 18 99/51 (67) 93 Nasal Cannula 3 06/28/17 11:00 82 18 105/52 (69) 93 Nasal Cannula 3 06/28/17 10:45 84 16 110/53 (72) 95 Nasal Cannula 3 06/28/17 10:30 84 16 112/57 (75) 95 Simple Mask 6 06/28/17 10:15 100 17 152/55 (87) 95 Simple Mask 6 06/28/17 10:09 97.7 107 14 164/72 (102) 94 Simple Mask 6 06/28/17 06:51 100.1 97 18 184/71 (108) 99 Discharge Condition: Good Discharge Disposition: Discharge Home Discharge Instructions: May resume a dialysis diet No heavy lifting over a gallon of milk for 10 days (LEFT upper extremity) May shower NO tub baths until incision is fully healed Do not apply any creams or ointments to your incision as it may loosen the surgical glue Call the office to report any hand pain, increased redness, drainage, fever or chills You were prescribed a narcotic pain medication- No driving while taking medication as it may cause dizziness Your prescribed narcotic pain medication may cause constipation- take with an over the counter stool softener Any questions or concerns: Call [facility] at [facility] [phone] Nafisa Rubio Jun 29, 2017 09:10
--- NOTE | 2017-06-29 10:07 | HHI.NPPN ---
Subjective History of Present Illness 52 year old ESRD with AVG placement Objective Data Data Vital Signs Date Time Temp Pulse Resp B/P (MAP) Pulse Ox O2 Delivery O2 Flow Rate FiO2 06/29/17 08:00 97.7 88 17 119/61 (80) 94 06/29/17 05:34 99.2 98 20 127/58 (81) 95 06/29/17 00:36 98.8 100 20 149/70 (96) 93 06/29/17 00:00 96 06/28/17 21:05 21 06/28/17 20:00 87 06/28/17 20:00 98.0 82 18 155/78 (103) 98 06/28/17 16:24 93 21 06/28/17 16:00 87 06/28/17 14:37 97.0 73 17 60/ 93 06/28/17 14:03 97.8 78 15 125/60 (81) 96 Room Air 06/28/17 13:30 80 15 128/59 (82) 96 Room Air 06/28/17 13:00 78 16 121/56 (77) 94 Room Air 06/28/17 12:30 76 16 124/59 (80) 94 Room Air 06/28/17 12:00 76 17 109/55 (73) 94 Room Air 06/28/17 11:30 77 18 99/51 (67) 93 Nasal Cannula 3 06/28/17 11:00 82 18 105/52 (69) 93 Nasal Cannula 3 06/28/17 10:45 84 16 110/53 (72) 95 Nasal Cannula 3 06/28/17 10:30 84 16 112/57 (75) 95 Simple Mask 6 06/28/17 10:15 100 17 152/55 (87) 95 Simple Mask 6 06/28/17 10:09 97.7 107 14 164/72 (102) 94 Simple Mask 6 -: 06/29/17 0427 06/29/17 0427 Physical Exam General Appearance: Well Developed, Well Nourished Throat Throat Exam: Oral Mucosa [place] & Moist Neck Neck Exam: Neck Supple Pulmonary Resp Exam: Clear Bilaterally, Breath Sounds Equal Cardiology CV Exam: Regular, Normal Sinus Rhythm Extremeties Extremities Exam: No Edema Neurologic Neuro Exam: Alert Assessment/Plan Problem List: (1) ESRD (end stage renal disease) ICD Codes: N18.6 - End stage renal disease Status: Chronic Plan: Patient has AV graft seen doing dialysis UF 2 L Hemodialysis will continue Monday, and Monday (2) Diabetes mellitus ICD Codes: E11.9 - Type 2 diabetes mellitus without complications Status: Chronic Plan: Follow blood glucose (3) Hypertension ICD Codes: I10 - Essential (primary) hypertension Status: Chronic Plan: Monitor blood pressure Problem Qualifiers (1) Hypertension: Qualified Codes: I10 - Essential (primary) hypertension Shantelle Maldonado MD Jun 29, 2017 10:07
--- NOTE | 2017-06-30 00:12 | EKG ---
Date Performed: 06/28/2017 Time Performed: 07:11:54 PTAGE: 52 years EKG: Sinus rhythm NONSPECIFIC T-WAVE ABNORMALITY BORDERLINE ECG PREVIOUS TRACING : 02/15/2017 08.07 Compared to prior tracing, unable to compare due to yelena pro reversal DOCTOR: Chuy Brimingham Interpretating Date/Time 06/30/2017 00:11:25
== END 2017-06-29 15:08 | disposition home or self-care (01) ==
LOC: HSDC 05:09 → HSDI 09:16 → N07B 14:05
PROVIDERS: ADMIT Surgery; ATTEND Surgery
DX: I12.0 Hypertensive chronic kidney disease with stage 5 chronic kidney disease or end stage renal disease (principal); N18.6 End stage renal disease; E11.22 Type 2 diabetes mellitus with diabetic chronic kidney disease; I25.10 Atherosclerotic heart disease of native coronary artery without angina pectoris; D63.1 Anemia in chronic kidney disease; G43.909 Migraine, unspecified, not intractable, without status migrainosus; E21.3 Hyperparathyroidism, unspecified; E66.9 Obesity, unspecified; Z95.5 Presence of coronary angioplasty implant and graft
CPT/HCPCS: 01844; 36830; 71045; 80048; 81001; 82948; 85025; 85610; 85730; 86850; 86900; 86901; 87086; 87640; 87641; 93005; 94664; 96372; 96374; 96375; G0257; G0378; J0131; J1170; J1580; J1644; J1815; J2405; J2710; J2720; J3010; J3370; J7040; J7050; J7613; Q4081; 90935

== ENCOUNTER 2017-07-31 07:56 | Day surgery (SDC) | payer MEDICARE, OTHER ==
[~2017-07-31] VITALS: Ht 162.6 cm; Wt 118.8 kg
[~2017-07-31 07:56] MED LIST changes: +OXYC1CAP PO
[2017-07-31] MEDS ORDERED: IOHEXOL 350 MG/ML 50 ML BTL (for Cath Lab) OTHER ONE (07:57)
[2017-07-31 08:34] VITALS: BP 177/89; PULSE 96; RESP 18; TEMP 98.7; O2SAT 95
[2017-07-31] MEDS ORDERED: NIFE30TA61 PO (08:48)
[2017-07-31] MEDS ORDERED: LISI-515 PO (08:48)
[2017-07-31] MEDS ORDERED: CALC0.25 PO (08:49)
[2017-07-31 08:58] LABS: AUTOMATED NEUTROPHIL # 4.3 TH/MM3 (1.8-7.7); BASOPHIL % 0.8 % (0.0-2.0); EOSINOPHIL # 0.1 TH/MM3 (0-0.4); EOSINOPHIL % 2.4 % (0.0-4.0); HEMATOCRIT 37.4 % (35.0-46.0); HEMOGLOBIN 12.1 GM/DL (11.6-15.3); LYMPH % 15.1 % (9.0-44.0); LYMPHOCYTE # 0.9 TH/MM3 (1.0-4.8); MEAN CELL VOLUME 96.7 FL (80.0-100.0); MEAN CORPUSCULAR HEMOGLOBIN 31.4 PG (27.0-34.0); MEAN CORPUSCULAR HGB CONC 32.5 % (32.0-36.0); MEAN PLATELET VOLUME 8.7 FL (7.0-11.0); MONOCYTE # 0.5 TH/MM3 (0-0.9); NEUT % 72.7 % (16.0-70.0); PLATELET COUNT 227 TH/MM3 (150-450); RED BLOOD COUNT 3.86 MIL/MM3 (4.00-5.30); RED CELL DISTRIBUTION WIDTH 16.2 % (11.6-17.2); WHITE BLOOD COUNT 5.9 TH/MM3 (4.0-11.0)
[2017-07-31] MEDS ORDERED: SODIUM CHLORIDE 0.9% FLUSH 10 ML FLUSH IV FLUSH PRN (09:00)
[2017-07-31 09:25] LABS: BICARBONATE 28.9 MEQ/L (21.0-32.0); CALCIUM 9.6 MG/DL (8.5-10.1); CREATININE 4.99 MG/DL (0.50-1.00)
--- NOTE | 2017-07-31 09:38 | PD.VS.PN ---
Pre-operative Note Pre-operative diagnosis: failing L UE AVF Planned procedure: L UE fistulogram and SLATE MIXER/stent Interval History: Pt has been feeling well and ready for surgery Labs: Laboratory Results Test 07/31/17 08:40 Anion Gap 6 MEQ/L (5-15) Blood Urea Nitrogen 25 MG/DL (7-18) Creatinine 4.99 MG/DL (0.50-1.00) Random Glucose 111 MG/DL (74-106) Calcium Level 9.6 MG/DL (8.5-10.1) Sodium Level 138 MEQ/L (136-145) Potassium Level 4.5 MEQ/L (3.5-5.1) Chloride Level 103 MEQ/L (98-107) Carbon Dioxide Level 28.9 MEQ/L (21.0-32.0) Hematocrit 37.4 % (35.0-46.0) Hemoglobin 12.1 GM/DL (11.6-15.3) Mean Corpuscular Hemoglobin 31.4 PG (27.0-34.0) Mean Corpuscular Hemoglobin Concent 32.5 % (32.0-36.0) Mean Corpuscular Volume 96.7 FL (80.0-100.0) Mean Platelet Volume 8.7 FL (7.0-11.0) Platelet Count 227 TH/MM3 (150-450) Prothromb Time International Ratio 1.0 RATIO Red Blood Count 3.86 MIL/MM3 (4.00-5.30) Red Cell Distribution Width 16.2 % (11.6-17.2) White Blood Count 5.9 TH/MM3 (4.0-11.0) Blood: none needed Orders: NPO Post-operative destination: DOCU Operative site marked: Yes Consent: Informed consent has been obtained from Audrey Menjivar. I have explained the procedure in detail and discussed the risks, benefits, and potential complications. All questions have been answered. Patient contact information: [place] [phone] Beni Styles MD Jul 31, 2017 09:38
[2017-07-31] MEDS ORDERED: MIDAZOLAM HCL 2 MG/2 ML VIAL ONE ×2 (09:50→10:14)
[2017-07-31] MEDS ORDERED: HEPARIN-NS/PF FLUSH BAG 1,000 ML IV FLUSH ONE (09:52)
[2017-07-31] MEDS ORDERED: HEPARIN SODIUM - IV 10,000 UNITS/10 ML VIAL ONE (10:06)
--- NOTE | 2017-07-31 10:34 | HHI.PR ---
cc: Beni Styles MD Immediate Post Op Note Procedure Date: Jul 31, 2017 Pre Op Diagnosis: failing L UE AVG Post Op Diagnosis: occluded L UE AVG Surgeon: Beni Styles Graduate Assistant Athletic Trainer(s): none Procedure: 1. L UE fistulogram 2. INSTRUCTOR LOOPING/stent of outflow venous anastomosis ([id number] [place]) Findings: patent AVF after intervention Complications: none Specimen(s) removed: none Estimated blood loss: 10mL Anesthesia: MAC Drains: None Patient to: Other (DOCU) Patient Condition: Good Implant/Devices: SEE IMPLANT LOG (if applicable) Date/Time of Procedure: SEE SURGICAL CARE RECORD Beni Styles MD Jul 31, 2017 10:34
--- NOTE | 2017-07-31 10:45 | CATHPROC ---
[employer] HIS Report Study Information Study Number Admission Scheduled Start Study Start [id number] Jul 31 2017 7:56AM 07/31/2017 Jul 31 2017 9:11AM [place] Service Cath Endovascular Study Admit Source Facility Department Other [facility] - Waterworks Chief Engineer Physician and Clinical Staff Initial MD Styles, Beni Carpet Cleaner Katherine Jackson,MARCOS Other Dawna Ghotra BSN Recorder Nik Hutchinson,RT(R) Scrub Jimi Salazar,RT(R) Procedures Performed Procedure Location (Site) Vessel Name Periph stent Fistula Arterial Graft ORE CHARGER Fistula Arterial Graft Wire insertion Fistula Arterial Graft Equipment Time Tiller Worker Description Size Mfg Part Number Used/Scraped CATHETER, FR4 BERENSTEIN [id number] 09:12 ANG[employer]NAM[employer] FR 4 Used 65CM *[id number] INTRODUCER SET, 09:13 [employer] FR 5 [id number] *[id number] Used MICROPUNCTURE, STIFFENED BALLOON, ADMIRAL EXTREME 6 [id number] 10:14 [employer] 130CM Used X 120 130CM *[id number] 49-145 10:11 [employer] WIRE, BENTSON .035 150CM 150CM Used *[id number] 10:15 [employer] WIRE, BENTSON .035 260CM 260CM Used *[id number] 10:21 [employer] WIRE, CONTROL V-18 300CM [id number] *[id number] Used [id number] 09:13 [employer] INDUSTRIES PACK, CCL CUSTOM * Used *[id number] 09:55 [employer]COMED OMNIPAQUE, 300 MG, 50ML 50ML [id number] Used [id number] 09:13 [employer] BLANKET,WARM AIR CCL * Used *[id number] 10:09 [employer] SHEATH, FR4 TERUMO (10CM) FR 4 Used *[id number] 09:13 [employer] SHEATH, FR4 TERUMO (10CM) FR 4 Used *[id number] 10:10 [employer] SHEATH, FR7 TERUMO (10CM) FR 7 Used *[id number] WIRE, ANGLED GLIDE .035 [id number] 09:13 TERUMO MEDICAL/RADHA 260CM Used 260CM *[id number] 10:32 STENT, 7 X 5CM VIABAHN 120CM 7 X 5 [id number] Used [facility] Equipment Model, Serial, Lot Number and Expiration Data Description Model Number Serial Number Lot Number Expiration Date STENT, 7 X 5CM VIABAHN 120CM [id number] 03-09-2019 WIRE, BENTSON .035 150CM [id number] 01-03-2020 WIRE, BENTSON .035 260CM [id number] 04-04-2019 WIRE, CONTROL V-18 300CM [id number] 08-22-2018 History: Current Medications Medication Dosage/Unit Route Frequency Last Date/Time Taken ASA Statins (any) CARVEDILOL Insulin LISINOPRIL History: Allergies Allergy Reaction *MDRO Multi-Drug Resistant Organism Sulfa (Sulfonamide Antibiotics) morphine Nausea/Vomiting naproxen throat closure sulfamethoxazole trimethoprim penicillin G SWELLING AND ITCHING egg History: Risk Factors Family History of Hypertension Dyslipidemia Previous VT Previous Heart Failure Premature CAD Yes Yes No No No Prior Valve Prior PCI Prior CABG Surgery No No No Cerebrovascular Peripheral Artery Chronic Lung On Dialysis Diabetes Diabetes Therapy Disease Disease Disease Yes No No No Yes Insulin History: Stress Tests Stress or Imaging Studies Performed No History: Other Disease Selection Items HTN Renal Failure-Dialysis History: Other Current Smoker No Labs Hgb (g/dl) Hct (%) RBC (MIL/MM3) WBC (l/cumm) Platelets (thousands) 11.60-17.00 35.00-51.00 4.00-5.90 4.00-11.00 150.00-450.00 12.1 37.4 3.8 5.9 227 Glucose (mg/dl) BUN (mg/dl) Creatinine (mg/dl) BUN:Creatinine (1:x) 74.00-106.00 7.00-18.00 0.50-1.30 10.00-20.00 111 25 4.9 5.1 Na (meq/l) K (meq/l) Cl (meq/l) CO2 (mmol/L) Ca (mg/dl) 136.00-145.00 3.50-5.10 98.00-107.00 21.00-32.00 8.50-10.10 138 4.5 103 28.9 9.6 PT (sec) INR (PTT:PT) 9.80-11.60 0.90-1.10 10 1 CPK-MB (ng/ML) 0.50-3.60 Not Drawn Medication Medication Total Dose (Bolus/Oral) Medication Total Dosage/Unit 1% XYLOCAINE 10 mL FENTANYL 100 mcg HEPARIN 3000 units VERSED 4 mg Medications (Bolus/Oral) Medication Time Given Dosage/Unit Administered By Reason 1% XYLOCAINE 07/31/2017 9:56:21 AM 10 mL Beni Styles 10 mL 1% XYLOCAINE given in lab by Beni Styles in Left Arm via Subcutaneous. VERSED 07/31/2017 9:57:17 AM 2 mg Hesher, Katherine 1 mg VERSED given in lab by Katherine Jackson RN in Right Antecubital via Peripheral IV. Ordered by Beni Schulz. FENTANYL 07/31/2017 9:58:16 AM 50 mcg Isadoraher, Katherine 50 mcg FENTANYL given in lab by Katherine Jackson RN in Left Antecubital via Peripheral IV. Ordered by Beni Styles. FENTANYL 07/31/2017 10:03:58 AM 50 mcg Hesher, Katherine 50 mcg FENTANYL given in lab by Katherine Jackson RN in Left Antecubital via Peripheral IV. Ordered by Beni Styles. HEPARIN 07/31/2017 10:07:26 AM 3000 units Hesher, Katherine 3000 units HEPARIN given in lab by Katherine Jackson RN in Right Antecubital via Peripheral IV. VERSED 07/31/2017 10:16:08 AM 1 mg Hesher, Katherine 1 mg VERSED given in lab by Katherine Jackson RN in Right Antecubital via Peripheral IV. Ordered by Beni Schulz. VERSED 07/31/2017 10:22:16 AM 1 mg Hesher, Katherine 1 mg VERSED given in lab by Katherine Jackson RN in Right Antecubital via Peripheral IV. Ordered by Beni Schulz. Medication (Drip) Medication Time Given Dosage/Unit Concentration/Unit Diluent (ml) Solution IV Solutions 07/31/2017 9:41:28 AM 0 mL (IV) 500 NaCl .9 IV Solutions given in lab by Katherine Jackson RN in Right Antecubital via Peripheral IV. Pump/Drip Genaro w = 20 ml/hr using NaCl .9. Initial Case Assessment Cardiovascular NIBP Chest Pain 202/109 0 Edema Present Skin color Skin None Normal Warm Dry Neurological State Oriented to time-place- Alert Moves all extremities person Respiration - General SpO2 (%) O2 (lpm) 100 0 Final Case Assessment Cardiovascular HR Rhythm NIBP Chest Pain 94 sr 184/96 0 Edema Present Skin color Skin None Normal Warm Dry Neurological State Oriented to time-place- Alert Moves all extremities person Respiration - General Respiration Rate SpO2 (%) O2 (lpm) (B/min) 18 100 2 Chronological Log Time Study Chronological Log 9:40:27 Patient arrived via Bed. 9:40:33 Patient Name, D.O.B, / Armband Verified By R.N. 9:40:39 Consent signed by the physician and the patient and verified by the Waterworks Chief Engineer staff. 9:40:48 Presedation assessment performed by Waterworks Chief Engineer RN. 9:40:54 Patient has been NPO for More than 6Hrs. 9:40:59 Skin Breakdown- none per patient. 9:41:11 Miya Prominences Protected 9:41:20 A # 20 IV was noted in the Antecubital (right). Grade = 0 IV Solutions given in lab by Katherine Jackson RN in Right Antecubital via Peripheral IV. Pump/Dr ip Flow = 20 ml/hr using 9:41:28 NaCl .9. 9:41:50 History and physical on the chart or being dictated. 9:41:50 Patient Warmer Placed on the Table. 9:42:29 MD arrived. 9:44:41 Left arm and shoulder prepped with 2% chlorhexidine, and draped after with a 3 min. waiting time. Vitals capture started with the following parameters, Patient=Adult, Interval=5 min, Initial Pr wgaowp=836 mmHg, 9:49:48 Deflation Rate=5 mmHg, Cuff placed on Right Ankle 9:51:07 HR=71 bpm, PPAI=558/90 mmhg, SpO2=98.0 %, Resp=10 B/min, Pain=0, Carlos=10, Cunha=2 Time Out. Correct patient, correct procedure, correct physician, power injector not loaded with contrast with surgical 9:55:54 team present. Time Out Concurred by MD and individual staff in procedure. 9:56:10 Case Start 9:56:21 10 mL 1% XYLOCAINE given in lab by Beni Styles in Left Arm via Subcutaneous. 9:56:25 PMUO=361/109 mmhg, SpO2=97.0 %, Pain=0, Carlos=10, Cunha=2 Assessment: Initial Case, CALV=329/109 mmhg, Chest Pain=0, Edema=None, Color=Normal, Skin = War m, Dry 9:56:57 Neurological: State=Alert, Ox3, KELLEY Respiration: OvS3=763 %, O2=0 lpm 9:57:17 1 mg VERSED given in lab by Katherine Jackson RN in Right Antecubital via Peripheral IV. Order ed by Beni Styles. 9:58:16 50 mcg FENTANYL given in lab by Katherine Jackson RN in Left Antecubital via Peripheral IV. Or dered by Beni Styles. 10:00:34 CTXB=533/94 mmhg, SpO2=95.0 %, Pain=0, Carlos=10, Cunha=2 10:02:18 Access site was Other Artery. Dialysis Fistula Left. 10:03:38 Reference ECG taken 10:03:58 50 mcg FENTANYL given in lab by Katherine Jackson RN in Left Antecubital via Peripheral IV. O rdered by Beni Styles. A INTRODUCER SET, MICROPUNCTURE, STIFFENED FR 5 was advanced into the Fistula using the Percuta neous 10:04:09 technique. 10:05:33 HR=92 bpm, HEKQ=516/95 mmhg, SpO2=95.0 %, Resp=15 B/min, Pain=0, Carlos=10, Cunha=2 10:06:45 fistulagram with omni 300 10:07:15 A WIRE, ANGLED GLIDE .035 260CM 260CM was inserted via Fistula. 10:07:26 3000 units HEPARIN given in lab by Katherine Jackson RN in Right Antecubital via Peripheral I V. 10:08:21 A SHEATH, FR4 TERUMO (10CM) FR 4 was advanced into the Fistula using the Percutaneous techn ique. 10:10:34 HR=93 bpm, DMGQ=293/92 mmhg, SpO2=99.0 %, Resp=17 B/min, Pain=0, Carlos=9, Cunha=2 10:10:59 Wire removed 10:11:31 A WIRE, BENTSON .035 150CM 150CM was inserted via Fistula. A SHEATH, FR7 TERUMO (10CM) FR 7 was exchanged in the Fistula. This was necessary in order to a ccomodate a 10:11:55 larger catheter. A BALLOON, ADMIRAL EXTREME 6 X 120 130CM 130CM was inserted over WIRE, BENTSON .035 150CM 150CM via 10:14:50 the Fistula. 10:15:38 HR=94 bpm, QTEN=898/89 mmhg, GhJ9=730.0 %, Resp=18 B/min, Pain=0, Carlos=9, Cunha=2 10:16:08 1 mg VERSED given in lab by Katherine Jackson, MARCOS in Right Antecubital via Peripheral IV. Orde red by Beni Styles. 10:17:17 In the Fistula a BALLOON, ADMIRAL EXTREME 6 X 120 130CM 130CM was inflated to 14 atms for 1 20 seconds. 10:18:51 The previous wire was exchanged for a WIRE, BENTSON .035 260CM 260CM. A CATHETER, FR4 BERENSTEIN 65CM FR 4 was advanced over a wire. OMNIPAQUE, 300 MG, 50ML 50ML was used for 10:20:37 injections. 10:20:39 HR=97 bpm, UYTZ=388/90 mmhg, DyL4=348.0 %, Resp=19 B/min, Pain=0, Carlos=9, Cunha=2 10:21:28 The previous wire was exchanged for a WIRE, CONTROL V-18 300CM. 10:22:16 1 mg VERSED given in lab by Katherine Jackson, MARCOS in Right Antecubital via Peripheral IV. Orde red by Beni Styles. 10:25:08 A implantable was advanced through a CATHETER, FR4 BERENSTEIN 65CM FR 4 over a WIRE, CONTRO L V-18 300CM. 10:25:32 HR=97 bpm, CEWN=285/88 mmhg, AbG2=082.0 %, Resp=14 B/min, Pain=0, Carlos=9, Cunha=2 10:25:50 A STENT, 7 X 5CM VIABAHN 120CM 7 X 5 was deployed, self expanding, in the Fistula. 10:26:48 Delivery device removed A BALLOON, ADMIRAL EXTREME 6 X 120 130CM 130CM was inserted over WIRE, CONTROL V-18 300CM via t he 10:27:42 Fistula. 10:28:38 In the Fistula a BALLOON, ADMIRAL EXTREME 6 X 120 130CM 130CM was inflated to 20 atms for 1 5 seconds. 10:29:25 Balloon Removed. 10:30:35 HR=94 bpm, DHAF=250/99 mmhg, NhJ2=521.0 %, Resp=19 B/min, Pain=0, Carlos=9, Cunha=2 10:32:20 Sheath removed; pressure applied to access site. 10:32:38 Case End 10:33:19 Peripheral Vascular Intervention Performed. 10:35:38 HR=93 bpm, XAZL=789/96 mmhg, WrY8=167.0 %, Resp=18 B/min, Pain=0, Carlos=10, Cunha=2 10:36:05 Sterile dressing applied to site 10:36:07 No case complications noted. 10:36:08 Cine recording checked. 10:36:14 Implantable Device card placed in patient's chart. Assessment: Final Case, HR=94 BPM, Rhythm=sr, ZPKS=092/96 mmhg, Chest Pain=0, Edema=None, [place] r=Normal, Skin = Warm, Dry 10:36:36 Neurological: State=Alert, Ox3, KELLEY Respiration: Resp=18 B/min, XhF4=665 %, O2=2 lpm 10:39:05 Holding Area notified of successful intervention. 10:39:06 Bedside Report will be given. 10:40:39 HR=92 bpm, FEWH=219/92 mmhg, PlV8=143.0 %, Resp=18 B/min, Pain=0, Carlos=10, Cunha=2 10:49:11 Patient moved to [facility] End Study - Contrast Media Used In Study Contrast Total Opened (mL) Total Used (mL) Total Wasted (mL) Omnipaque 40 40 0 End Study - Maximum Contrast Load Max Contrast Load (mL) 121.2 End Study - Radiation Exposure Fluoro Time (minutes) 5.8 End Study - Patient Disposition Complications Transferred To Interventional Outcome No Waterworks Chief Engineer Holding successful
--- NOTE | 2017-08-01 16:36 | MP ---
cc: Beni Styles MD DATE OF OPERATION: 07/31/2017 PREOPERATIVE DIAGNOSIS: Failing left upper extremity arteriovenous graft. PREOPERATIVE DIAGNOSIS: Failing left upper extremity arteriovenous graft. PROCEDURE PERFORMED: 1. Left upper extremity fistulograms. 2. Angioplasty and stent to the outflow vein with a 7 x 50 Viabahn. ATTENDING SURGEON: Beni Styles MD ANESTHESIA: Local, with sedation. INDICATIONS FOR PROCEDURE: Ms. Menjivar is a 53-year-old lady who has end stage renal disease, currently dialyzed with a catheter. She underwent a left Brach-ax arteriovenous graft on June 28. It was noted to be stenotic at the outflow by routine ultrasound. She was taken to the operating room for endovascular mediation. Intraoperatively, it was found that the graft was stenotic and the outflow was successfully ballooned in the angioplasty. DESCRIPTION OF PROCEDURE: Informed consent was obtained from the patient. She was taken to the operating room and placed supine on the operating room table and appropriate time out was taken to ensure the patient's identity, operative site and planned procedure. The administration of antibiotics not necessary. Everyone in the room agreed with time out. We proceeded. Left arm was prepped and draped and locally anesthetized with 1% lidocaine. A 21 gauge Micro Punch needle was used to access the left upper extremity arteriovenous graft. This was exchanged using Seldinger technique for a micropuncture sheath through which a 0.035 Glidewire was introduced. The micropuncture sheath was exchanged for a 4-Cymro sheath. A fistulogram was obtained. The patient was then heparinized with 3000 units of intravenous heparin. The Glidewire was advanced into the central veins and exchanged for a Forde wire and the 4-Cymro sheath was exchanged for a 7-Cymro sheath. The alpha vein was then angioplast with a 6 millimeter balloon. The completion angiogram showed residual stenosis of the alpha anastomosis and this was treated a 7 x 50 Viabahn self-expanding covered stent. It was post dilated to 6 millimeters. The completion angiogram showed excellent results without any recoil or extravasation. The wire catheter and sheath removed and the angioplasty and pressure held with hemostasis. There were no complications. I was present and scrubbed and performed the entire procedure. MD ADALBERTO Hawley/NANCY , 05:48 PM , 02:09 AM
== END 2017-07-31 12:18 | disposition home or self-care (01) ==
LOC: HCAT 07:56 → HDIC 07:57 → HCAT 12:18
PROVIDERS: ATTEND Surgery
DX: T82.590A Other mechanical complication of surgically created arteriovenous fistula, initial encounter (principal); I12.0 Hypertensive chronic kidney disease with stage 5 chronic kidney disease or end stage renal disease; E10.22 Type 1 diabetes mellitus with diabetic chronic kidney disease; N18.6 End stage renal disease; J45.909 Unspecified asthma, uncomplicated; Z99.2 Dependence on renal dialysis
CPT/HCPCS: 36901; 37248; 80048; 85025; 85610; 99152; 99153; C1725; C1769; C1874; C1893; J1644; J2250; J3010; Q9967

== ENCOUNTER 2017-08-23 17:13 | Emergency (ER) | payer MEDICARE, OTHER ==
[~2017-08-23 17:13] MED LIST changes: +CALC0.25 PO; +LISI-515 PO; +NIFE30TA61 PO; -VITA1000 PO
[2017-08-23 17:28] VITALS: BP 161/73; PULSE 78; RESP 18; TEMP 99.2; O2SAT 99
[2017-08-23 18:57] LABS: AUTOMATED NEUTROPHIL # 4.6 TH/MM3 (1.8-7.7); BASOPHIL % 0.8 % (0.0-2.0); EOSINOPHIL # 0.1 TH/MM3 (0-0.4); EOSINOPHIL % 1.6 % (0.0-4.0); HEMATOCRIT 37.4 % (35.0-46.0); HEMOGLOBIN 12.2 GM/DL (11.6-15.3); LYMPH % 15.1 % (9.0-44.0); LYMPHOCYTE # 0.9 TH/MM3 (1.0-4.8); MEAN CELL VOLUME 96.2 FL (80.0-100.0); MEAN CORPUSCULAR HEMOGLOBIN 31.3 PG (27.0-34.0); MEAN CORPUSCULAR HGB CONC 32.5 % (32.0-36.0); MEAN PLATELET VOLUME 8.7 FL (7.0-11.0); MONO % 8.2 % (0.0-8.0); MONOCYTE # 0.5 TH/MM3 (0-0.9); NEUT % 74.3 % (16.0-70.0); PLATELET COUNT 268 TH/MM3 (150-450); RED BLOOD COUNT 3.89 MIL/MM3 (4.00-5.30); RED CELL DISTRIBUTION WIDTH 15.4 % (11.6-17.2); WHITE BLOOD COUNT 6.2 TH/MM3 (4.0-11.0)
[2017-08-23 19:20] LABS: ALBUMIN 3.5 GM/DL (3.4-5.0); AST (GOT) 9 U/L (15-37); BICARBONATE 25.5 MEQ/L (21.0-32.0); BLOOD UREA NITROGEN 36 MG/DL (7-18); CALCIUM 9.5 MG/DL (8.5-10.1); CHLORIDE 103 MEQ/L (98-107); CREATININE 6.05 MG/DL (0.50-1.00); GLUCOSE,RANDOM 163 MG/DL (74-106); SODIUM (NA) 139 MEQ/L (136-145)
[2017-08-23 19:21] LABS: ALT (GPT) 12 U/L (10-53)
[2017-08-23 19:23] LABS: ALKALINE PHOSPHATASE 72 U/L (45-117); TOTAL BILIRUBIN ADULT 0.3 MG/DL (0.2-1.0); TOTAL PROTEIN 8.4 GM/DL (6.4-8.2)
--- NOTE | 2017-08-23 21:31 | PD ---
HPI Chief Complaint: Abdominal Pain Time Seen by Provider: 17:28 Travel History International Travel<30 days: No Contact w/Intl Traveler<30days: No Traveled to known affect area: No History of Present Illness HPI Pt is a 52-year-old female presented to the emergency department for evaluation of nausea, vomiting, abdominal pain. Patient states she was sent by her primary doctor. She reports the pain is epigastric, it started on Monday. Symptoms started suddenly, there are no alleviating factors. Patient reports decreased appetite. She states pain is sharp in nature. Describes it as an 8 out of 10. She denies any fever, chills, chest pain or shortness of breath. PFSH Past Medical History Hx Anticoagulant Therapy: Yes (PLAVIX, ASA) Arthritis: Yes Asthma: Yes Autoimmune Disease: No Blood Disorders: No Anxiety: No Depression: No Heart Rhythm Problems: No Cancer: No Cardiac Catheterization: Yes (2013) Cardiovascular Problems: Yes ([place]) High Cholesterol: Yes Chemotherapy: No Chest Pain: No Congestive Heart Failure: No COPD: Yes Cerebrovascular Accident: No Coronary Artery Disease: Yes Diabetes: Yes (TYPE II) Dialysis: No Diminished Hearing: No Endocrine: Yes Gastrointestinal Disorders: No GERD: No Glaucoma: No Genitourinary: No Headaches: Yes (MIGRAINE HEADACHES) Hepatitis: No Hiatal Hernia: No Hypertension: Yes Immune Disorder: No Kidney Stones: No Musculoskeletal: No Neurologic: No Psychiatric: No Reproductive: No Respiratory: Yes (ASTHMA) Integumentary: No Immunizations Current: Yes Migraines: Yes Myocardial Infarction: Yes Radiation Therapy: No Renal Failure: No Seizures: No Sickle Cell Disease: No Sleep Apnea: No Thyroid Disease: No Ulcer: No PNEUMOCCOCAL Vaccine (Year): 2 : 1 Para: 1 Miscarriage: 0 : 0 Past Surgical History Abdominal Surgery: Yes (wsely) AICD: No Arteriovenous Shunt: No Cardiac Surgery: Yes ( 2 STENTS PLACED.) Cholecystectomy: Yes Coronary Stent: Yes (2 stents 2013) Ear Surgery: No Endocrine Surgery: No Eye Surgery: No Genitourinary Surgery: No Gynecologic Surgery: No Insulin Pump: No Joint Replacement: No Oral Surgery: No Pacemaker: No Thoracic Surgery: No Other Surgery: Yes (GALLBLADDER TAKEN OUT IN THE 80'S) Family History Family Hypercholesterolemia: Yes (MATERNAL) Social History Alcohol Use: No Tobacco Use: Yes Substance Use: No Allergies-Medications (Allergen,Severity, Reaction): Coded Allergies: Sulfa (Sulfonamide Antibiotics) (Verified Allergy, Severe, 06/28/17) naproxen (Verified Allergy, Severe, throat closure , 06/28/17) sulfamethoxazole (Verified Allergy, Severe, 06/28/17) trimethoprim (Verified Allergy, Severe, 06/28/17) egg (Verified Allergy, Intermediate, 06/28/17) Hives morphine (Verified Allergy, Intermediate, Nausea/Vomiting, 06/28/17) penicillin G (Verified Allergy, Intermediate, SWELLING AND ITCHING, ) *MDRO Multi-Drug Resistant Organism (Verified Adverse Reaction, Unknown, ) MRSA PCR screen POSITIVE - 04/15/16 Reported Meds & Prescriptions Reported Meds & Active Scripts Active Oxycodone (Oxycodone HCl) 5 Mg Cap 5 Mg PO Q4H PRN Carvedilol 25 Mg Tab 25 Mg PO BID Symbicort Inh (Budesonide/Formoterol Fumarate) 80-4.5 Mcg/Act Aero 2 Puff INH Q12HR Zemplar (Paricalcitol) 1 Mcg Cap 1 Mcg PO DAILY Hydralazine HCl 50 Mg Tablet 50 Mg PO BID Atorvastatin (Atorvastatin Calcium) 40 Mg Tab 40 Mg PO HS Amlodipine (Amlodipine Besylate) 5 Mg Tab 5 Mg PO DAILY Aspirin 81 Mg Chew 81 Mg CHEW ONCE Reported Calcitriol 0.25 Mcg Cap 0.25 Mcg PO DAILY Lisinopril 20 Mg Tab 20 Mg PO DAILY Nifedipine ER 24 HR (Nifedipine) 30 Mg Tab 30 Mg PO DAILY Levemir Inj (Insulin Detemir) 1,000 unit/ 10 ML Vial 30 Units SQ DAILY Do not mix with any other Insulin. Fluticasone Nasal [place] 50 Mcg/Act Naspr 50 Mcg EACH NARE BID 50 mcg/spray Review of Systems Except as stated in HPI: all other systems reviewed are Neg Gastrointestinal: Positive: Nausea, Abdominal Pain Physical Exam Narrative GENERAL: Well-developed, well-nourished, alert female. Presenting in no acute distress. SKIN: Warm and dry. HEAD: Normocephalic. EYES: No scleral icterus. No injection or drainage. NECK: Supple, trachea midline. No JVD or lymphadenopathy. CARDIOVASCULAR: Regular rate RESPIRATORY: No accessory muscle use. Data Data Last Documented VS Vital Signs Date Time Temp Pulse Resp B/P (MAP) Pulse Ox O2 Delivery O2 Flow Rate FiO2 08/23/17 17:28 99.2 78 18 161/73 (102) 99 Orders Orders Complete Blood Count With Diff (08/23/17 17:31) Comprehensive Metabolic Panel (08/23/17 17:31) Lipase (08/23/17 17:31) Labs Laboratory Tests Test 08/23/17 18:28 White Blood Count 6.2 TH/MM3 Red Blood Count 3.89 MIL/MM3 Hemoglobin 12.2 GM/DL Hematocrit 37.4 % Mean Corpuscular Volume 96.2 FL Mean Corpuscular Hemoglobin 31.3 PG Mean Corpuscular Hemoglobin Concent 32.5 % Red Cell Distribution Width 15.4 % Platelet Count 268 TH/MM3 Mean Platelet Volume 8.7 FL Neutrophils (%) (Auto) 74.3 % Lymphocytes (%) (Auto) 15.1 % Monocytes (%) (Auto) 8.2 % Eosinophils (%) (Auto) 1.6 % Basophils (%) (Auto) 0.8 % Neutrophils # (Auto) 4.6 TH/MM3 Lymphocytes # (Auto) 0.9 TH/MM3 Monocytes # (Auto) 0.5 TH/MM3 Eosinophils # (Auto) 0.1 TH/MM3 Basophils # (Auto) 0.0 TH/MM3 CBC Comment DIFF FINAL Differential Comment Blood Urea Nitrogen 36 MG/DL Creatinine 6.05 MG/DL Random Glucose 163 MG/DL Total Protein 8.4 GM/DL Albumin 3.5 GM/DL Calcium Level 9.5 MG/DL Alkaline Phosphatase 72 U/L Aspartate Amino Transf (AST/SGOT) 9 U/L Alanine Aminotransferase (ALT/SGPT) 12 U/L Total Bilirubin 0.3 MG/DL Sodium Level 139 MEQ/L Potassium Level 4.6 MEQ/L Chloride Level 103 MEQ/L Carbon Dioxide Level 25.5 MEQ/L Anion Gap 11 MEQ/L Lipase 4492 U/L MDM Medical Decision Making Medical Screen Exam Complete: Yes Emergency Medical Condition: Yes Interpretation(s) Vital Signs Date Time Temp Pulse Resp B/P (MAP) Pulse Ox O2 Delivery O2 Flow Rate FiO2 08/23/17 17:28 99.2 78 18 161/73 (102) 99 Differential Diagnosis Pancreatitis versus cholecystitis versus metabolic abnormality versus other Narrative Course Patient is a 52-year-old female presenting to emerge from evaluation of abdominal pain. Patient was protocoled in triage. Vital signs are stable, labs pending. Patient was called be placed in a bed, she was no longer found in the emergency department. Patient left AGAINST MEDICAL ADVICE. After patient left AMA, labs reviewed. Lipase is elevated at greater than 4000. BUN and creatinine are also elevated. Charge nurse will be notified to call patient back to emergency department for likely pancreatitis. Diagnosis Primary Impression: Left against medical advice Valeria Dillon Aug 23, 2017 21:31
== END 2017-08-24 01:21 | disposition left against medical advice (07) ==
LOC: NED 17:13
DX: Z53.21 Procedure and treatment not carried out due to patient leaving prior to being seen by health care provider (principal); I10 Essential (primary) hypertension; I25.10 Atherosclerotic heart disease of native coronary artery without angina pectoris; I25.2 Old myocardial infarction; J44.9 Chronic obstructive pulmonary disease, unspecified; E78.00 Pure hypercholesterolemia, unspecified; E11.9 Type 2 diabetes mellitus without complications; Z72.0 Tobacco use; Z88.2 Allergy status to sulfonamides; Z88.0 Allergy status to penicillin; Z88.5 Allergy status to narcotic agent; Z79.4 Long term (current) use of insulin; Z79.899 Other long term (current) drug therapy
CPT/HCPCS: 80053; 83690; 85025; 99283

== ENCOUNTER 2017-08-23 22:09 | Inpatient (IN) | payer MEDICARE, OTHER ==
[~2017-08-23] VITALS: Ht 162.6 cm; Wt 119.0 kg
[2017-08-24 00:47] VITALS: BP 230/100; PULSE 86; RESP 18; TEMP 98.8; O2SAT 98
[2017-08-24 01:23] VITALS: BP 189/79
[2017-08-24 01:40] LABS: AUTOMATED NEUTROPHIL # 4.9 TH/MM3 (1.8-7.7); BASOPHIL % 0.7 % (0.0-2.0); EOSINOPHIL # 0.1 TH/MM3 (0-0.4); EOSINOPHIL % 1.7 % (0.0-4.0); HEMATOCRIT 38.8 % (35.0-46.0); HEMOGLOBIN 12.6 GM/DL (11.6-15.3); LYMPH % 14.8 % (9.0-44.0); MEAN CELL VOLUME 95.9 FL (80.0-100.0); MEAN CORPUSCULAR HEMOGLOBIN 31.3 PG (27.0-34.0); MEAN CORPUSCULAR HGB CONC 32.6 % (32.0-36.0); MEAN PLATELET VOLUME 8.8 FL (7.0-11.0); MONO % 8.5 % (0.0-8.0); MONOCYTE # 0.6 TH/MM3 (0-0.9); NEUT % 74.3 % (16.0-70.0); PLATELET COUNT 277 TH/MM3 (150-450); RED BLOOD COUNT 4.04 MIL/MM3 (4.00-5.30); RED CELL DISTRIBUTION WIDTH 15.7 % (11.6-17.2); WHITE BLOOD COUNT 6.6 TH/MM3 (4.0-11.0)
[2017-08-24] MEDS ORDERED: MORPHINE SULFATE 4 MG/ML INJ IV PUSH ONE (01:45)
--- NOTE | 2017-08-24 01:56 | PD ---
HPI Chief Complaint: Abdominal Pain Time Seen by Provider: 01:13 Travel History International Travel<30 days: No Contact w/Intl Traveler<30days: No Traveled to known affect area: No History of Present Illness HPI Patient is a 52-year-old female end-stage renal disease hypertension who comes in because she was having abdominal pain earlier today blood was drawn in the ER waiting room and she was triaged and protocol labs were sent. Apparently she left because it was so crowded and she was waiting she says and her lipase came back at 4000 her PCP called her and told her she must come back because she has pancreatitis. She denies nausea vomiting diarrhea she has no gallbladder was taken out in 1980 patient in the ER does not appear septic she is not febrile. On return labs a recent CAT scan is done and she has mild abdomen pain in the lower abdomen PFSH Past Medical History Hx Anticoagulant Therapy: Yes (PLAVIX, ASA) Arthritis: Yes Asthma: Yes Autoimmune Disease: No Blood Disorders: No Anxiety: No Depression: No Heart Rhythm Problems: No Cancer: No Cardiac Catheterization: Yes (2013) Cardiovascular Problems: Yes ([place], HTN, STENTS) High Cholesterol: Yes Chemotherapy: No Chest Pain: No Congestive Heart Failure: No COPD: Yes Cerebrovascular Accident: No Coronary Artery Disease: Yes Diabetes: Yes (TYPE II) Patient Takes Glucophage: Yes Dialysis: No Diminished Hearing: No Endocrine: Yes Gastrointestinal Disorders: No GERD: No Glaucoma: No Genitourinary: No Headaches: Yes (MIGRAINE HEADACHES) Hepatitis: No Hiatal Hernia: No Heparin Induced Thrombocytopen: No Hypertension: Yes Immune Disorder: No Implanted Vascular Access Dvce: No Kidney Stones: No Medical other: No Musculoskeletal: No Neurologic: No Psychiatric: No Reproductive: No Respiratory: Yes (ASTHMA) Integumentary: No Immunizations Current: Yes Migraines: Yes Myocardial Infarction: Yes Radiation Therapy: No Renal Failure: No Seizures: No Sickle Cell Disease: No Sleep Apnea: No Thyroid Disease: No Ulcer: No Tetanus Vaccination: < 5 Years Influenza Vaccination: No PNEUMOCCOCAL Vaccine (Year): 2 ?: Unknown : 1 Para: 1 Miscarriage: 0 : 0 Past Surgical History Abdominal Surgery: Yes (wesly) AICD: No Arteriovenous Shunt: No Cardiac Surgery: Yes ( 2 STENTS PLACED.) Cholecystectomy: Yes Coronary Stent: Yes (2 stents 2013) Ear Surgery: No Endocrine Surgery: No Eye Surgery: No Genitourinary Surgery: No Gynecologic Surgery: No Insulin Pump: No Joint Replacement: No Neurologic Surgery: No Oral Surgery: No Pacemaker: No Thoracic Surgery: No Other Surgery: Yes (GALLBLADDER TAKEN OUT IN THE 80'S) Family History Family Hypercholesterolemia: Yes (MATERNAL) Social History Alcohol Use: No Tobacco Use: No Substance Use: No Allergies-Medications (Allergen,Severity, Reaction): Coded Allergies: Sulfa (Sulfonamide Antibiotics) (Verified Allergy, Severe, 08/24/17) naproxen (Verified Allergy, Severe, throat closure , 08/24/17) sulfamethoxazole (Verified Allergy, Severe, 08/24/17) trimethoprim (Verified Allergy, Severe, 08/24/17) egg (Verified Allergy, Intermediate, 08/24/17) Hives penicillin G (Verified Allergy, Intermediate, SWELLING AND ITCHING, ) Reported Meds & Prescriptions Reported Meds & Active Scripts Active Carvedilol 25 Mg Tab 25 Mg PO BID Symbicort Inh (Budesonide/Formoterol Fumarate) 80-4.5 Mcg/Act Aero 2 Puff INH Q12HR Zemplar (Paricalcitol) 1 Mcg Cap 1 Mcg PO DAILY Hydralazine HCl 50 Mg Tablet 50 Mg PO BID Atorvastatin (Atorvastatin Calcium) 40 Mg Tab 40 Mg PO HS Amlodipine (Amlodipine Besylate) 5 Mg Tab 5 Mg PO DAILY Aspirin 81 Mg Chew 81 Mg CHEW ONCE Reported Calcitriol 0.25 Mcg Cap 0.25 Mcg PO DAILY Levemir Inj (Insulin Detemir) 1,000 unit/ 10 ML Vial 30 Units SQ DAILY Do not mix with any other Insulin. Fluticasone Nasal [place] 50 Mcg/Act Naspr 50 Mcg EACH NARE BID 50 mcg/spray Review of Systems Except as stated in HPI: all other systems reviewed are Neg Physical Exam Narrative GENERAL: pt sitting up at edge of bed rubbing her abdonem lower bilateral SKIN: Warm and dry. HEAD: Atraumatic. Normocephalic. EYES: Pupils equal and round. No scleral icterus. No injection or drainage. ENT: No nasal bleeding or discharge. Mucous membranes pink and moist. NECK: Trachea midline. No JVD. CARDIOVASCULAR: Regular rate and rhythm. RESPIRATORY: No accessory muscle use. Clear to auscultation. Breath sounds equal bilaterally. GASTROINTESTINAL: Abdomen soft, non-tender, nondistended. Hepatic and splenic margins not palpable. MUSCULOSKELETAL: Extremities without clubbing, cyanosis, or edema. No obvious deformities. NEUROLOGICAL: Awake and alert. No obvious cranial nerve deficits. Motor grossly within normal limits. Five out of 5 muscle strength in the arms and legs. Normal speech. PSYCHIATRIC: Appropriate mood and affect; insight and judgment normal. Data Data Last Documented VS Orders Orders Complete Blood Count With Diff (08/24/17 01:15) Comprehensive Metabolic Panel (08/24/17 01:15) Lipase (08/24/17 01:15) Ct Abd/Pel W/O Iv Contrast (08/24/17 ) Morphine Inj (Morphine Inj) (08/24/17 01:45) Urinalysis - C+S If Indicated (08/24/17 04:18) Consult Nephrology (08/24/17 ) (Hub Use Only)Inp Phy Cons/Ref (08/24/17 ) Admit Order (Ed Use Only) (08/24/17 05:43) Labs Laboratory Tests Test 08/24/17 01:20 08/24/17 04:20 White Blood Count 6.6 TH/MM3 Red Blood Count 4.04 MIL/MM3 Hemoglobin 12.6 GM/DL Hematocrit 38.8 % Mean Corpuscular Volume 95.9 FL Mean Corpuscular Hemoglobin 31.3 PG Mean Corpuscular Hemoglobin Concent 32.6 % Red Cell Distribution Width 15.7 % Platelet Count 277 TH/MM3 Mean Platelet Volume 8.8 FL Neutrophils (%) (Auto) 74.3 % Lymphocytes (%) (Auto) 14.8 % Monocytes (%) (Auto) 8.5 % Eosinophils (%) (Auto) 1.7 % Basophils (%) (Auto) 0.7 % Neutrophils # (Auto) 4.9 TH/MM3 Lymphocytes # (Auto) 1.0 TH/MM3 Monocytes # (Auto) 0.6 TH/MM3 Eosinophils # (Auto) 0.1 TH/MM3 Basophils # (Auto) 0.0 TH/MM3 CBC Comment DIFF FINAL Differential Comment Blood Urea Nitrogen 36 MG/DL Creatinine 5.97 MG/DL Random Glucose 184 MG/DL Total Protein 9.1 GM/DL Albumin 3.7 GM/DL Calcium Level 9.5 MG/DL Alkaline Phosphatase 74 U/L Aspartate Amino Transf (AST/SGOT) 26 U/L Alanine Aminotransferase (ALT/SGPT) 15 U/L Total Bilirubin 0.4 MG/DL Sodium Level 138 MEQ/L Potassium Level 5.0 MEQ/L Chloride Level 102 MEQ/L Carbon Dioxide Level 27.5 MEQ/L Anion Gap 9 MEQ/L Estimat Glomerular Filtration Rate 9 ML/MIN Lactate Dehydrogenase 419 U/L Triglycerides Level 132 MG/DL Cholesterol Level 115 MG/DL LDL Cholesterol 44 MG/DL HDL Cholesterol 45.1 MG/DL Cholesterol/HDL Ratio 2.54 RATIO Lipase 5078 U/L Urine Color LIGHT-YELLOW Urine Turbidity CLEAR Urine pH 6.5 Urine Specific [place] 1.012 Urine Protein 100 mg/dL Urine Glucose (UA) 150 mg/dL Urine Ketones NEG mg/dL Urine Occult Blood TRACE Urine Nitrite NEG Urine Bilirubin NEG Urine Urobilinogen LESS THAN 2.0 MG/DL Urine Leukocyte Esterase NEG Urine RBC 1 /hpf Urine WBC 1 /hpf Urine Squamous Epithelial Cells 3 /hpf Urine Bacteria FEW /hpf Urine Mucus FEW /lpf Microscopic Urinalysis Comment CULT NOT INDICATED MDM Medical Decision Making Medical Screen Exam Complete: Yes Emergency Medical Condition: Yes Differential Diagnosis acute renal failure cuasing electrolytes imbalance vs pancreatitis vs gasslstone in pancreatic or CBD triglyceride induced pancreatic issue vs tumor of pancreas other. Narrative Course CT does not show reason for elevated Lipase and pt has no signs of htird spacing inflammation from pancreatitis nor pseudo cyst , CT neg , admit for GI consult and further eval Diagnosis Primary Impression: Elevated lipase Additional Impression: Abdominal pain Scripts Oxycodone (Oxycodone) 5 Mg Tab 5 MG PO Q4H Y for PAIN, #20 TAB 0 Refills Prov: Zahida Clarke MD, R3 08/26/17 Pantoprazole (Protonix) 40 Mg Tab 40 MG PO DAILY for Ulcer Prevention, #30 TAB 0 Refills Prov: Zahida Clarke MD, R3 08/26/17 Ondansetron (Zofran) 4 Mg Tab 4 MG PO Q8HR Y for NAUSEA OR VOMITING, #30 TAB 0 Refills Prov: Zahida Clarke MD, R3 08/26/17 Mannie Judd MD Aug 24, 2017 01:56
[2017-08-24 02:10] LABS: ALBUMIN 3.7 GM/DL (3.4-5.0); ALKALINE PHOSPHATASE 74 U/L (45-117); ALT (GPT) 15 U/L (10-53); AST (GOT) 26 U/L (15-37); BICARBONATE 27.5 MEQ/L (21.0-32.0); BLOOD UREA NITROGEN 36 MG/DL (7-18); CALCIUM 9.5 MG/DL (8.5-10.1); CHLORIDE 102 MEQ/L (98-107); CREATININE 5.97 MG/DL (0.50-1.00); GLOMERULAR FILTRATION RATE 9 ML/MIN (>89); GLUCOSE,RANDOM 184 MG/DL (74-106); SODIUM (NA) 138 MEQ/L (136-145); TOTAL BILIRUBIN ADULT 0.4 MG/DL (0.2-1.0); TOTAL PROTEIN 9.1 GM/DL (6.4-8.2)
--- NOTE | 2017-08-24 02:20 | RADRPT ---
EXAM DATE/TIME: 08/24/2017 01:41 [facility] COMPARISON: CT ABDOMEN & PELVIS W/O CONTRAST, April 15, 2016, 0:42. INDICATIONS : Epigastric pain, nausea and vomiting. Elevated lipase. ORAL CONTRAST: No oral contrast ingested. RADIATION DOSE: 32.11 CTDIvol (mGy) MEDICAL HISTORY : Hypertension. Renal failure. Diabetes. COPD. CAD. Dialysis. SURGICAL HISTORY : Cholecystectomy. Cardiac stent. ENCOUNTER: Initial ACUITY: 2 days PAIN SCALE: 8/10 LOCATION: Epigastric. TECHNIQUE: Volumetric scanning of the abdomen and pelvis was performed. Using automated exposure control and ad justment of the mA and/or kV according to patient size, radiation dose was kept as low as reasonably achievable to obtain optimal diagnostic quality images. DICOM format image data is available electro nically for review and comparison. FINDINGS: LOWER LUNGS: The visualized lower lungs are clear. LIVER: Homogeneous density without lesion noncontrast technique. There is no dilation of the biliary tree. Cholecystectomy. SPLEEN: Normal size without lesion. PANCREAS: Within normal limits. KIDNEYS: Normal in size and shape. There is no mass, stone, or hydronephrosis. ADRENAL GLANDS: Within normal limits. VASCULAR: There is no aortic aneurysm. BOWEL/MESENTERY: The stomach, small bowel, and colon demonstrate no acute abnormality. There is no free intraperitone al air or fluid. ABDOMINAL WALL: Within normal limits. RETROPERITONEUM: There is no lymphadenopathy. BLADDER: No wall thickening or mass. REPRODUCTIVE: Stable appearance to the enlarged fibroid uterus. INGUINAL: There is no lymphadenopathy or hernia. MUSCULOSKELETAL: Within normal limits for patient age. CONCLUSION: No acute findings. The pancreas is normal radiographically. Dale Snyder MD on August 24, 2017 at 2:06 Board Certified Radiologist. This report was verified electronically.
[2017-08-24 04:35] LABS: BACTERIA, URINE FEW /hpf; BILIRUBIN, URINE NEG (NEG); BLOOD, URINE TRACE (NEG); GLUCOSE,URINE 150 mg/dL (NEG); KETONE, URINE NEG (NEG); MUCUS URINE FEW /lpf (OCC); NITRITE,URINE NEG (NEG); PH, URINE 6.5 (5.0-8.5); SQUAMOUS EPITHELIAL CELL URINE 3 /hpf (0-5); URINE COLOR LIGHT-YELLOW (YELLW/STRAW); URINE LEUKOCYTE ESTERASE NEG (NEG)
--- NOTE | 2017-08-24 05:54 | HHI.HP ---
HPI Service [facility] Medicine Primary Care Physician Physician [facility] Admission Diagnosis Diagnoses: International Travel<30 Days: No Contact w/Intl Traveler<30days: No Known Affected Area: No History of Present Illness Patient is a 52-year-old female with past medical history of diabetes on hemodialysis, chronic kidney disease, hypertension, CAD, cardiac cath with stent placement x3 and cholecystectomy who presented to the ED from [facility] for further evaluation due to complaints of epigastric abdominal pain, vomiting and decreased appetite since Monday. Patient stated that epigastric abdominal pain is sharp, nonradiating and rates pain 10/10 on pain scale. Patient took Tylenol on home with minimal relief. Denies any similar pain in the past. She also reports vomiting more than 5 times a day, NBNB. Patient stated that she was only able to tolerate water and Gatorade and this is what her emesis consist of, she had not been able to keep any solid food down. Endorses nausea. Denies back pain, chest pain, shortness of breath, fever, chills, recent illnesses. Currently patient reports no improvement in her epigastric pain. In the ED patient was found to have elevated lipase 5078 and received morphine [address] abdomen and pelvis showed no acute findings, normal pancreas. (Adalid Sol MD, R1) Review of Systems Constitutional: COMPLAINS OF: Change in appetite, DENIES: Fever, Chills, Dizziness Eyes: DENIES: Eye pain, Vision loss Ears, nose, mouth, throat: COMPLAINS OF: Running Nose (since monday), DENIES: Throat pain Respiratory: DENIES: Cough, Wheezing, Shortness of breath Cardiovascular: DENIES: Chest pain, Palpitations, Lower Extremity Edema Gastrointestinal: COMPLAINS OF: Abdominal pain, Nausea, Vomiting, DENIES: Bloody stools, Diarrhea Genitourinary: DENIES: Urinary incontinence, Dysuria Musculoskeletal: DENIES: Joint pain, Muscle aches, Back pain Integumentary: DENIES: Rash Hematologic/lymphatic: DENIES: Bruising Neurologic: DENIES: Headache, Paresthesias Psychiatric: DENIES: Confusion (Adalid Sol MD, R1) Past Family Social History Past Medical History DM Type II - difficult control CAD Chronic kidney disease on HD since 2015. HD schedule: , and Monday, analog device designer Dr. Maldonado. HLD NSTEMI with preserved EF 09/2010 s/p 3 stents HTN Anemia Allergic rhinitis?; Poor medical compliance secondary to multiple socioeconomic issues Past Surgical History Cardiac catheterization with stent of RCA (2010); Cholecystectomy, open (1979) due to infection (Adalid Sol MD, R1) Allergies: Coded Allergies: Sulfa (Sulfonamide Antibiotics) (Verified Allergy, Severe, 08/24/17) naproxen (Verified Allergy, Severe, throat closure , 08/24/17) sulfamethoxazole (Verified Allergy, Severe, 08/24/17) trimethoprim (Verified Allergy, Severe, 08/24/17) egg (Verified Allergy, Intermediate, 08/24/17) Hives penicillin G (Verified Allergy, Intermediate, SWELLING AND ITCHING, ) *MDRO Multi-Drug Resistant Organism (Verified Adverse Reaction, Unknown, ) MRSA PCR screen POSITIVE - 04/15/16 Family History DM, renal disease (sister) Mom: from HTN, brain tumor Dad: Never has seen him No one has been on dialysis that she knows of Social History Lives in [place] in apartment with daughter History of tobacco use - 1 ppd x 36 years, Denies alcohol or illicit drug use (Adalid Sol MD, R1) Physical Exam Vital Signs Vital Signs Date Time Temp Pulse Resp B/P (MAP) Pulse Ox O2 Delivery O2 Flow Rate FiO2 08/24/17 01:23 189/79 (115) 08/24/17 00:47 98.8 86 18 230/100 (143) 98 Physical Exam GENERAL: This is a well-nourished, well-developed patient, in no apparent distress. SKIN: No rashes, ecchymoses or lesions. Cool and dry. HEAD: Atraumatic. Normocephalic. EYES: Pupils equal round and reactive. Extraocular motions intact. mild scleral icterus. No injection or drainage. ENT: Nose without bleeding, purulent drainage or septal hematoma. Throat without erythema, tonsillar hypertrophy or exudate. Uvula midline. Airway patent. NECK: Trachea midline. No JVD or lymphadenopathy. Supple, nontender, no meningeal signs. CARDIOVASCULAR: Normal S1 and S2. Regular rate and rhythm without murmurs, gallops, or rubs. RESPIRATORY: Mild exp wheezes noted Right upper lobe and left lower lobes. No rales, or rhonchi. GASTROINTESTINAL: Obese abdomen soft, mild tenderness to palpation on epigastric region. No hepato-splenomegaly, or palpable masses. No guarding. No CVA tenderness MUSCULOSKELETAL: Extremities without clubbing, cyanosis, or edema. No joint tenderness, effusion, or edema noted. No calf tenderness. +2 DP pulses BL. NEUROLOGICAL: Awake and alert. Cranial nerves II through XII intact. Motor and sensory grossly within normal limits. Five out of 5 muscle strength in all muscle groups. Normal speech. Laboratory Laboratory Tests Test 08/24/17 01:20 08/24/17 04:20 White Blood Count 6.6 Red Blood Count 4.04 Hemoglobin 12.6 Hematocrit 38.8 Mean Corpuscular Volume 95.9 Mean Corpuscular Hemoglobin 31.3 Mean Corpuscular Hemoglobin Concent 32.6 Red Cell Distribution Width 15.7 Platelet Count 277 Mean Platelet Volume 8.8 Neutrophils (%) (Auto) 74.3 Lymphocytes (%) (Auto) 14.8 Monocytes (%) (Auto) 8.5 Eosinophils (%) (Auto) 1.7 Basophils (%) (Auto) 0.7 Neutrophils # (Auto) 4.9 Lymphocytes # (Auto) 1.0 Monocytes # (Auto) 0.6 Eosinophils # (Auto) 0.1 Basophils # (Auto) 0.0 CBC Comment DIFF FINAL Differential Comment Blood Urea Nitrogen 36 Creatinine 5.97 Random Glucose 184 Total Protein 9.1 Albumin 3.7 Calcium Level 9.5 Alkaline Phosphatase 74 Aspartate Amino Transf (AST/SGOT) 26 Alanine Aminotransferase (ALT/SGPT) 15 Total Bilirubin 0.4 Sodium Level 138 Potassium Level 5.0 Chloride Level 102 Carbon Dioxide Level 27.5 Anion Gap 9 Estimat Glomerular Filtration Rate 9 Lipase 5078 Urine Color LIGHT-YELLOW Urine Turbidity CLEAR Urine pH 6.5 Urine Specific [place] 1.012 Urine Protein 100 Urine Glucose (UA) 150 Urine Ketones NEG Urine Occult Blood TRACE Urine Nitrite NEG Urine Bilirubin NEG Urine Urobilinogen LESS THAN 2.0 Urine Leukocyte Esterase NEG Urine RBC 1 Urine WBC 1 Urine Squamous Epithelial Cells 3 Urine Bacteria FEW Urine Mucus FEW Microscopic Urinalysis Comment CULT NOT INDICATED (Adalid Sol MD, R1) Result Diagram: 08/24/17 0120 08/24/17 0120 Imaging Last Impressions Abdomen/Pelvis CT 08/24/17 0000 Signed Impressions: Service Date/Time: August 01:41 - CONCLUSION: No acute findings. The pancreas is normal radiographically. Dale Snyder MD (Adalid Sol MD, R1) Caprini VTE Risk Assessment Caprini VTE Risk Assessment: Mod/High Risk (score >= 2) Caprini Risk Assessment Model Point Value = 1 Point Value = 2 Point Value = 3 Point Value = 5 Age 41-60 Minor surgery BMI > 25 kg/m2 Swollen legs Varicose veins or History of unexplained or recurrent spontaneous Oral contraceptives or hormone replacement Sepsis (< 1 month) Serious lung disease, including pneumonia (< 1 month) Abnormal pulmonary function Acute myocardial infarction Congestive heart failure (< 1 month) History of inflammatory bowel disease Medical patient at bed rest Age 61-74 Arthroscopic surgery Major open surgery (> 45 min) Laparoscopic surgery (> 45 min) Malignancy Confined to bed (> 72 hours) Immobilizing plaster cast Central venous access Age >= 75 History of VTE Family history of VTE Factor V Leiden Prothrombin [id number] Lupus anticoagulant Anticardiolipin antibodies Elevated serum homocysteine Heparin-induced thrombocytopenia Other congenital or acquired thrombophilia Stroke (< 1 month) Elective arthroplasty Hip, pelvis, or leg fracture Acute spinal cord injury (< 1 month) Prophylaxis Regimen Total Risk Factor Score Risk Level Prophylaxis Regimen 0-1 Low Early ambulation 2 Moderate Order ONE of the following: *Sequential Compression Device (SCD) *Heparin 5000 units SQ BID 3-4 Higher Order ONE of the following medications: *Heparin 5000 units SQ TID *Enoxaparin/Lovenox 40 mg SQ daily (WT < 150 kg, CrCl > 30 mL/min) *Enoxaparin/Lovenox 30 mg SQ daily (WT < 150 kg, CrCl > 10-29 mL/min) *Enoxaparin/Lovenox 30 mg SQ BID (WT < 150 kg, CrCl > 30 mL/min) AND/OR *Sequential Compression Device (SCD) 5 or more Highest Order ONE of the following medications: *Heparin 5000 units SQ TID (Preferred with Epidurals) *Enoxaparin/Lovenox 40 mg SQ daily (WT < 150 kg, CrCl > 30 mL/min) *Enoxaparin/Lovenox 30 mg SQ daily (WT < 150 kg, CrCl > 10-29 mL/min) *Enoxaparin/Lovenox 30 mg SQ BID (WT < 150 kg, CrCl > 30 mL/min) AND *Sequential Compression Device (SCD) (Adalid Sol MD, R1) Assessment and Plan Assessment and Plan Patient is a 52-year-old female with past medical history of diabetes on hemodialysis, chronic kidney disease, hypertension, CAD, cardiac cath with stent placement x3 and cholecystectomy who presented to the ED from [facility] for further evaluation due 4 day h/o of epigastric abdominal pain, vomiting and decreased appetite. Patient found to have elevated lipase >5000. Admitted for treatment of pancreatitis. Code Status Full code Discussed Condition With SDW Dr. Farr (Adalid Sol MD, R1) Attending Attestation THIS CASE WAS DISCUSSED WITH THE RESIDENT PHYSICIANS. I HAVE REVIEWED THE RECORD AND AGREE WITH THE ABOVE NOTE AND PLAN OF CARE WAS DISCUSSED. I HAVE AUTHORIZED THE ORDER FOR ADMISSION TO AN IN-PATIENT STATUS. 52 year old woman with multiple medical problems including poorly controlled DM with CKD on hemodialysis three times a week being admitted for acute pancreatitis. See above for the full history documentation. Since admission overnight she states her pain has improved somewhat. Denies CP, SOB, fever/ Chills, GI complaints outside of the abdominal pain. On exam in general she is morbidly obese, she is awake, alert, she is comfortable and is not ill appearing. HEENT - PEERL, OP clear, no cervical LAD CARDS - distant heart sounds but rrr, no murmurs PULM - clear bilaterally, no wheezing, no rales, good air movement ABD -- soft, good bowel sounds, tender in the epigastric area EXT -- no edema, MAEW, strength 5/5 NUERO - oriented, normal speech, no weakness, ambulating in the room without assistance SKIN - no rashes, no lesions - no CVA Tenderness Acute pancreatitis -- imaging is reassuring. Will continue with IVF, pain control and gut rest. Monitor lipase -- consider further workup based on clinical picture. No clear etiology at this time. CKD/ESRD -- will need dialysis three times per week per nephrology DM -- check A1c (Lin Werner MD) Problem List: (1) Pancreatitis ICD Codes: K85.90 - Acute pancreatitis without necrosis or infection, unspecified Status: Acute Plan: Patient with 4 day history of sharp nonradiating epigastric abdominal pain, vomiting, nausea and po intake On admission patient lipase was found to be elevated at 5078, CBC within normal limits, afebrile. CT abdomen and pelvis showed no acute findings, normal pancreas. IV fluids at 125 mL per hour Pain control: Dilaudid 0.5 mg pain 1-5 Dilaudid 1 mg pain 6-10 Follow-up [facility], repeat lipase, lipid profile (2) Diabetes mellitus ICD Codes: E11.9 - Type 2 diabetes mellitus without complications Status: Chronic Plan: Blood sugar on admission 184 Low dose insulin sliding scale Hypoglycemia protocol Accu-Cheks Q4h (3) HTN (hypertension) ICD Codes: I10 - Essential (primary) hypertension Status: Chronic Plan: On admission patient had elevated blood pressures of 200/100 Resume home meds: Amlodipine 5 mg by mouth daily, carvedilol 25 by mouth twice a day, hydralazine 50 mg by mouth twice a day Clonidine PRN per hypertension protocol (4) CKD (chronic kidney disease), stage V ICD Codes: N18.5 - Chronic kidney disease, stage 5 Status: Chronic Plan: Patient with past medical history of chronic kidney disease on HD. Patient follows with her analog device designer Dr. Maldonado. HD schedule: , and Monday Continue vitamin D supplementation On admission BUN/Cr 36/5.97, will continue to monitor Nephrology consulted, appreciate recommendations Hemodialysis planned to resume today Avoid nephrotoxic agents (5) Hyperlipidemia ICD Codes: E78.5 - Hyperlipidemia, unspecified Status: Chronic Plan: Continue with home meds Follow up lipid profile (6) CAD (coronary artery disease) ICD Codes: I25.10 - Atherosclerotic heart disease of [place] coronary artery without angina pectoris Status: Chronic Plan: Continue with aspirin daily (7) Nutrition, metabolism, and development symptoms ICD Codes: R63.8 - Symptoms concerning nutrition, metabolism, and development Status: Acute Plan: Fluids: 125 mL per hour, caution with IV fluids since patient has end- stage renal disease on HD Electrolytes: Continue to monitor and replete as needed, Diet: Liquid diet, advance as tolerated DVT prophylaxis: Heparin SQ Q8h (Adalid Sol MD, R1) Physician Certification 2 Midnight Certification Type: Admission for Inpatient Services Order for Inpatient Services The services are ordered in accordance with Medicare regulations or non- Medicare payer requirements, as applicable. In the case of services not specified as inpatient-only, they are appropriately provided as inpatient services in accordance with the 2-midnight benchmark. Estimated LOS (days): 3 days is the estimated time the patient will need to remain in the hospital, assuming treatment plan goals are met and no additional complications. Post-Hospital Plan: Home (Adalid Sol MD, R1) 2 Midnight Certification Type: Admission for Inpatient Services Post-Hospital Plan: Home (Lin Werner MD) Adalid Sol MD, R1 Aug 24, 2017 05:54 Lin Werner MD Aug 24, 2017 10:54
[2017-08-24] MEDS ORDERED: NALOXONE HCL 0.4 MG/ML AMP IV PUSH PRN (06:00)
[2017-08-24] MEDS ORDERED: cloNIDine HCL 0.1 MG TAB PO PRN ×2 (06:00→09:15)
[2017-08-24] MEDS ORDERED: SENNOSIDES 8.6 MG TAB PO PRN (06:00)
[2017-08-24] MEDS ORDERED: DEXTROSE 50% IN WATER 50 ML VIAL(D50) IV PUSH PRN (06:00)
[2017-08-24] MEDS ORDERED: LACTULOSE SYRUP 20 GM/30 ML CUP PO PRN (06:00)
[2017-08-24] MEDS ORDERED: MAGNESIUM HYDROXIDE SUSP 30 ML CUP PO PRN (06:00)
[2017-08-24] MEDS ORDERED: GLUCAGON 1 MG/ML VIAL OTHER PRN (06:00)
[2017-08-24] MEDS ORDERED: SODIUM CHLORIDE 0.9% FLUSH 10 ML FLUSH IV FLUSH PRN ×2 (06:00→09:15)
[2017-08-24] MEDS ORDERED: BISACODYL 10 MG SUPP RECTAL PRN (06:00)
[2017-08-24] MEDS ORDERED: RESP: ALBUTEROL 2.5 MG/3 ML NEB (PRN) NEB (06:00)
[2017-08-24] MEDS ORDERED: ASPIRIN 81 MG CHEW TAB CHEW ONE (06:00)
[2017-08-24] MEDS: LACTATED RINGER'S 1000 ML INJ 1,000 ML IV SCH ×2 (06:34→14:54)
[2017-08-24] MEDS: HEPARIN SODIUM - SQ 10,000 UNITS/ML VIAL SQ SCH ×3 (06:38→23:06)
[2017-08-24 07:00] VITALS: BP 190/76
[2017-08-24] MEDS ORDERED: HYDROmorphone HCL PF 2 MG/ML VIAL IV PUSH PRN (07:00)
[2017-08-24 07:07] LABS: CHOLESTEROL/ HDL RATIO 2.54 RATIO; HDL CHOLESTEROL 45.1 MG/DL (40.0-60.0)
[2017-08-24] MEDS: INSULIN ASPART SUPPLEMENTAL SCALE SQ SCH ×4 (08:00→23:00)
[2017-08-24] MEDS ORDERED: CALCITRIOL 0.25 MCG CAP PO SCH (09:00)
[2017-08-24] MEDS ORDERED: SODIUM CHLOR 0.9% 1000 ML INJ 1,000 ML OTHER PRN (09:06)
[2017-08-24] MEDS ORDERED: SODIUM CHLOR 0.9% 1000 ML INJ 1,000 ML IV PRN (09:06)
[2017-08-24] MEDS ORDERED: diphenhydrAMINE HCL 25 MG CAP PO PRN (09:15)
[2017-08-24] MEDS ORDERED: GELATIN 12 MM/7 MM FOAM TOP PRN (09:15)
[2017-08-24] MEDS ORDERED: NITROGLYCERIN 0.4 MG SL 25 TABS/BTL SL PRN (09:15)
[2017-08-24] MEDS ORDERED: ALBUMIN 25% INJ 100 ML IV PRN (09:15)
[2017-08-24] MEDS ORDERED: MANNITOL 12.5 GM/50 ML VIAL IV PRN (09:15)
[2017-08-24] MEDS ORDERED: ONDANSETRON HCL 4 MG/2 ML VIAL IV PUSH PRN (09:15)
[2017-08-24] MEDS ORDERED: HEPARIN SODIUM - IV 10,000 UNITS/10 ML VIAL IV FLUSH PRN (09:15)
--- NOTE | 2017-08-24 10:42 | PD.CONS ---
HPI Consult Requested By Dr. Judd Reason for Consult End-stage renal disease on hemodialysis Primary Care Physician Physician Replaced By [facility] History of Present Illness Patient is a 52-year-old old female with history of end-stage renal disease, diabetes, hypertension who developed epigastric pain on Monday subsequently had nausea, vomiting and did not eat well, she continued to have symptoms and missed her dialysis on Monday, she was sent to the emergency and is admitted with acute pancreatitis, patient goes on hemodialysis on Monday, and Monday and follows up [facility] clinic. She states the pain is better she did not have any diarrhea or loose stools. Review of Systems Constitutional: COMPLAINS OF: Fatigue Gastrointestinal: COMPLAINS OF: Abdominal pain, Nausea, Vomiting Genitourinary: DENIES: Abnormal vaginal bleeding, Dysmenorrhea, Dyspareunia, Sexual dysfunction, Urinary frequency, Urinary incontinence, Urgency, Hematuria , Dysuria, Nocturia, Vaginal discharge Musculoskeletal: COMPLAINS OF: Back pain Integumentary: DENIES: Abnormal pigmentation, Pruritus, Rash, Nail changes, Breast masses, Breast skin changes, Nipple discharge Hematologic/lymphatic: DENIES: Bruising, Lymphadenopathy Immunologic/allergic: DENIES: Eczema, Urticaria Neurologic: DENIES: Abnormal gait, Headache, Localized weakness, Paresthesias, Seizures, Speech Problems, Tremor, Poor Balance Psychiatric: COMPLAINS OF: Anxiety Past Family Social History Allergies: Coded Allergies: Sulfa (Sulfonamide Antibiotics) (Verified Allergy, Severe, 08/24/17) naproxen (Verified Allergy, Severe, throat closure , 08/24/17) sulfamethoxazole (Verified Allergy, Severe, 08/24/17) trimethoprim (Verified Allergy, Severe, 08/24/17) egg (Verified Allergy, Intermediate, 08/24/17) Hives penicillin G (Verified Allergy, Intermediate, SWELLING AND ITCHING, ) *MDRO Multi-Drug Resistant Organism (Verified Adverse Reaction, Unknown, ) MRSA PCR screen POSITIVE - 04/15/16 Past Medical History End-stage renal disease Obesity Diabetes Hypertension Anemia Secondary hyperparathyroidism Coronary artery disease and stent placement Past Surgical History AV fistula/ then AVG left arm Permacath Cholecystectomy Eye surgery Stent placement Reported Medications Reported Meds & Active Scripts Active Oxycodone (Oxycodone HCl) 5 Mg Cap 5 Mg PO Q4H PRN Carvedilol 25 Mg Tab 25 Mg PO BID Symbicort Inh (Budesonide/Formoterol Fumarate) 80-4.5 Mcg/Act Aero 2 Puff INH Q12HR Zemplar (Paricalcitol) 1 Mcg Cap 1 Mcg PO DAILY Hydralazine HCl 50 Mg Tablet 50 Mg PO BID Atorvastatin (Atorvastatin Calcium) 40 Mg Tab 40 Mg PO HS Amlodipine (Amlodipine Besylate) 5 Mg Tab 5 Mg PO DAILY Aspirin 81 Mg Chew 81 Mg CHEW ONCE Reported Calcitriol 0.25 Mcg Cap 0.25 Mcg PO DAILY Lisinopril 20 Mg Tab 20 Mg PO DAILY Nifedipine ER 24 HR (Nifedipine) 30 Mg Tab 30 Mg PO DAILY Levemir Inj (Insulin Detemir) 1,000 unit/ 10 ML Vial 30 Units SQ DAILY Do not mix with any other Insulin. Fluticasone Nasal [place] 50 Mcg/Act Naspr 50 Mcg EACH NARE BID 50 mcg/spray Active Ordered Medications Current Medications Medications (Trade) Dose Ordered Sig/Darion Route Start Time Stop Time Status Last Admin Lactated Ringer's 1,000 ml @ 125 mls/hr Q8H IV 08/24/17 05:51 08/24/17 06:34 (NS Flush) 2 ml UNSCH PRN IV FLUSH 08/24/17 06:00 (NS Flush) 2 ml BID IV FLUSH 08/24/17 09:00 (Zofran Inj) 4 mg Q6H PRN IV PUSH 08/24/17 06:00 (Heparin Inj) 5,000 units Q8H SQ 08/24/17 06:00 08/24/17 06:38 (Dilaudid Pf Inj) 0.5 mg Q3H PRN IV PUSH 08/24/17 07:00 (Dilaudid Pf Inj) 1 mg Q3H PRN IV PUSH 08/24/17 07:15 (Narcan Inj) 0.4 mg UNSCH PRN IV PUSH 08/24/17 06:00 (D50w (Vial) Inj) 50 ml UNSCH PRN IV PUSH 08/24/17 06:00 (Glucagon Inj) 1 mg UNSCH PRN OTHER 08/24/17 06:00 (NovoLOG SUPPLEMENTAL SCALE) 1 ACHS SLIDING SCALE SQ 08/24/17 08:00 (Catapres) 0.1 mg Q6H PRN PO 08/24/17 06:00 (Albuterol Neb) 2.5 mg Q4HR NEB PRN NEB 08/24/17 06:00 (Ana-Colace) 1 tab BID PO 08/24/17 09:00 (Milk Of Magnesia Liq) 30 ml Q12H PRN PO 08/24/17 06:00 (Senokot) 17.2 mg Q12H PRN PO 08/24/17 06:00 (Dulcolax Supp) 10 mg DAILY PRN RECTAL 08/24/17 06:00 (Lactulose Liq) 30 ml DAILY PRN PO 08/24/17 06:00 (Vistaril) 50 mg HS PRN PO 08/24/17 06:00 (Norvasc) 5 mg DAILY PO 08/24/17 09:00 (Lipitor) 40 mg HS PO 08/24/17 21:00 (Symbicort 80-4.5 Mcg Inh) 2 puff Q12HR INH 08/24/17 09:00 (Coreg) 25 mg BID PO 08/24/17 09:00 (Flonase Eric Spr) 1 spray BID EACH NARE 08/24/17 09:00 (Apresoline) 50 mg BID PO 08/24/17 09:00 (Zemplar) 1 mcg DAILY PO 08/24/17 09:00 (Protonix Inj) 40 mg Q24H IV PUSH 08/24/17 09:00 Sodium Chloride 1,000 ml @ 0 mls/hr Q0M PRN OTHER 08/24/17 09:06 (Heparin Inj) 8,000 units UNSCH PRN IV FLUSH 08/24/17 09:15 Sodium Chloride 1,000 ml @ 200 mls/hr Q5H PRN IV 08/24/17 09:06 Sodium Chloride 1,000 ml @ 0 mls/hr Q0M PRN OTHER 08/24/17 09:06 (Mannitol Inj) 12.5 gm UNSCH PRN IV 08/24/17 09:15 Albumin Human 100 ml @ 60 mls/hr UNSCH PRN IV 08/24/17 09:15 (NS Flush) 5 ml UNSCH PRN IV FLUSH 08/24/17 09:15 (Heparin Inj) UNSCH PRN .XX 08/24/17 09:15 (Gentamicin Inj) 20 mg UNSCH PRN OTHER 08/24/17 09:15 (Zofran Inj) 4 mg UNSCH PRN IV PUSH 08/24/17 09:15 (Tylenol) 650 mg UNSCH PRN PO 08/24/17 09:15 (Benadryl) 25 mg UNSCH PRN PO 08/24/17 09:15 (Nitrostat Sl) 0.4 mg UNSCH PRN SL 08/24/17 09:15 (Catapres) 0.1 mg UNSCH PRN PO 08/24/17 09:15 (Gelfoam 12 Mm/7 Mm Top) 1 foam UNSCH PRN TOP 08/24/17 09:15 Family History Noncontributory Social History Denies smoking used to drink in the past but not currently Physical Exam Vital Signs Vital Signs Date Time Temp Pulse Resp B/P (MAP) Pulse Ox O2 Delivery O2 Flow Rate FiO2 08/24/17 01:23 189/79 (115) 08/24/17 00:47 98.8 86 18 230/100 (143) 98 Physical Exam GENERAL: Well-nourished, well-developed patient. SKIN: Warm and dry. HEAD: Normocephalic. EYES: No scleral icterus. No injection or drainage. NECK: Supple, trachea midline. No JVD or lymphadenopathy. CARDIOVASCULAR: Regular rate and rhythm without murmurs, gallops, or rubs. RESPIRATORY: Breath sounds equal bilaterally. No accessory muscle use. GASTROINTESTINAL: Abdomen soft, non-tender, nondistended. EXTREMITIES: No cyanosis, or edema. AV fistula left arm and permacath on the right NEUROLOGICAL: Awake, alert, and oriented x 3. Non-focal. Laboratory Laboratory Tests Test 08/24/17 01:20 08/24/17 04:20 White Blood Count 6.6 Red Blood Count 4.04 Hemoglobin 12.6 Hematocrit 38.8 Mean Corpuscular Volume 95.9 Mean Corpuscular Hemoglobin 31.3 Mean Corpuscular Hemoglobin Concent 32.6 Red Cell Distribution Width 15.7 Platelet Count 277 Mean Platelet Volume 8.8 Neutrophils (%) (Auto) 74.3 Lymphocytes (%) (Auto) 14.8 Monocytes (%) (Auto) 8.5 Eosinophils (%) (Auto) 1.7 Basophils (%) (Auto) 0.7 Neutrophils # (Auto) 4.9 Lymphocytes # (Auto) 1.0 Monocytes # (Auto) 0.6 Eosinophils # (Auto) 0.1 Basophils # (Auto) 0.0 CBC Comment DIFF FINAL Differential Comment Blood Urea Nitrogen 36 Creatinine 5.97 Random Glucose 184 Total Protein 9.1 Albumin 3.7 Calcium Level 9.5 Alkaline Phosphatase 74 Aspartate Amino Transf (AST/SGOT) 26 Alanine Aminotransferase (ALT/SGPT) 15 Total Bilirubin 0.4 Sodium Level 138 Potassium Level 5.0 Chloride Level 102 Carbon Dioxide Level 27.5 Anion Gap 9 Estimat Glomerular Filtration Rate 9 Lactate Dehydrogenase 419 Triglycerides Level 132 Cholesterol Level 115 LDL Cholesterol 44 HDL Cholesterol 45.1 Cholesterol/HDL Ratio 2.54 Lipase 5078 Urine Color LIGHT-YELLOW Urine Turbidity CLEAR Urine pH 6.5 Urine Specific [place] 1.012 Urine Protein 100 Urine Glucose (UA) 150 Urine Ketones NEG Urine Occult Blood TRACE Urine Nitrite NEG Urine Bilirubin NEG Urine Urobilinogen LESS THAN 2.0 Urine Leukocyte Esterase NEG Urine RBC 1 Urine WBC 1 Urine Squamous Epithelial Cells 3 Urine Bacteria FEW Urine Mucus FEW Microscopic Urinalysis Comment CULT NOT INDICATED Result Diagram: 08/24/17 0120 08/24/17 0120 Imaging Last Impressions Abdomen/Pelvis CT 08/24/17 0000 Signed Impressions: Service Date/Time: August 01:41 - CONCLUSION: No acute findings. The pancreas is normal radiographically. Dale Snyder MD Assessment and Plan Problem List: (1) ESRD (end stage renal disease) on dialysis ICD Codes: N18.6 - End stage renal disease; Z99.2 - Dependence on renal dialysis Plan: Patient is seen during hemodialysis ultrafiltration of 2 L tolerating it well Continue Monday, and Monday dialysis Lipase is high CT scan did not reveal findings of acute pancreatitis Question his chemical pancreatitis (2) Pancreatitis ICD Codes: K85.90 - Acute pancreatitis without necrosis or infection, unspecified Status: Acute Plan: Lipase is high follow this (3) Diabetes mellitus ICD Codes: E11.9 - Type 2 diabetes mellitus without complications Status: Chronic Plan: Continue to monitor blood glucose (4) Hypertension ICD Codes: I10 - Essential (primary) hypertension Status: Chronic Plan: Monitor BP Shantelle Maldonado MD Aug 24, 2017 10:42
[2017-08-24] MEDS: GENTAMICIN SULFATE 20 MG/2 ML VIAL OTHER PRN (11:50)
[2017-08-24] MEDS: SODIUM CHLOR 0.9% 1000 ML INJ 1,000 ML OTHER PRN (11:50)
[2017-08-24] MEDS: HEPARIN SODIUM - IV 10,000 UNITS/10 ML VIAL PRN (11:50)
[2017-08-24 12:49] VITALS: BP 121/59; PULSE 87; RESP 17; O2SAT 99
[2017-08-24] MEDS: amLODIPine BESYLATE 5 MG TAB PO SCH (12:56)
[2017-08-24] MEDS: CARVEDILOL 12.5 MG TAB PO SCH ×2 (12:57→23:01)
[2017-08-24] MEDS: PANTOPRAZOLE SODIUM 40 MG VIAL IV PUSH SCH (12:57)
[2017-08-24] MEDS: hydrALAZINE HCL 50 MG TAB PO SCH ×2 (12:57→22:59)
[2017-08-24] MEDS: DOCUSATE SODIUM 50 MG/SENNA 8.6 MG TAB PO SCH ×2 (12:57→21:00)
[2017-08-24] MEDS: HYDROmorphone HCL PF 2 MG/ML VIAL IV PUSH PRN (13:46)
[2017-08-24] MEDS: ONDANSETRON HCL 4 MG/2 ML VIAL IV PUSH PRN (14:26)
[2017-08-24] MEDS: PARICALCITOL 1 MCG CAP PO SCH (14:26)
[2017-08-24] MEDS: BUDESONIDE-FORMOTEROL 80/4.5 MCG INHALER INH SCH ×2 (14:26→22:58)
[2017-08-24 14:50] LABS: HEMATOCRIT 40.2 % (35.0-46.0); HEMOGLOBIN 12.9 GM/DL (11.6-15.3); MEAN CORPUSCULAR HEMOGLOBIN 30.5 PG (27.0-34.0); MEAN CORPUSCULAR HGB CONC 32.1 % (32.0-36.0); MEAN PLATELET VOLUME 9.6 FL (7.0-11.0); PLATELET COUNT 253 TH/MM3 (150-450); RED BLOOD COUNT 4.23 MIL/MM3 (4.00-5.30); RED CELL DISTRIBUTION WIDTH 15.3 % (11.6-17.2); WHITE BLOOD COUNT 5.1 TH/MM3 (4.0-11.0)
[2017-08-24] MEDS: SODIUM CHLORIDE 0.9% FLUSH 10 ML FLUSH IV FLUSH SCH ×2 (14:54→22:58)
[2017-08-24] MEDS: FLUTICASONE PROPIONATE 50 MCG/ACT 16 GM NASAL SPRAY EACH NARE SCH ×2 (15:02→21:00)
[2017-08-24 15:17] LABS: ALBUMIN 3.6 GM/DL (3.4-5.0); ALKALINE PHOSPHATASE 76 U/L (45-117); ALT (GPT) 16 U/L (10-53); AST (GOT) 11 U/L (15-37); BICARBONATE 29.4 MEQ/L (21.0-32.0); BLOOD UREA NITROGEN 21 MG/DL (7-18); CALCIUM 9.1 MG/DL (8.5-10.1); CHLORIDE 98 MEQ/L (98-107); CREATININE 3.91 MG/DL (0.50-1.00); GLOMERULAR FILTRATION RATE 15 ML/MIN (>89); GLUCOSE,RANDOM 184 MG/DL (74-106); SODIUM (NA) 136 MEQ/L (136-145); TOTAL BILIRUBIN ADULT 0.5 MG/DL (0.2-1.0)
[2017-08-24 16:33] VITALS: BP 109/50; PULSE 66; RESP 20; TEMP 97.8; O2SAT 97
[2017-08-24 20:16] VITALS: BP 133/57; PULSE 75; RESP 17; TEMP 97.3; O2SAT 98
[2017-08-24] MEDS: ATORVASTATIN 40 MG TAB PO SCH (22:59)
[2017-08-25] VITALS (7 sets, daily range): BP systolic 89–129; BP diastolic 53–59; PULSE 59–86; RESP 14–18; TEMP 97.7–98.3; O2SAT 97–100
[2017-08-25] MEDS: HEPARIN SODIUM - SQ 10,000 UNITS/ML VIAL SQ SCH ×3 (06:00→21:36)
[2017-08-25] MEDS: ACETAMINOPHEN 325 MG TAB PO PRN (06:26)
[2017-08-25] MEDS: hydrALAZINE HCL 50 MG TAB PO SCH ×2 (07:58→21:35)
[2017-08-25] MEDS: CARVEDILOL 12.5 MG TAB PO SCH ×2 (07:58→21:35)
[2017-08-25] MEDS: amLODIPine BESYLATE 5 MG TAB PO SCH (07:58)
[2017-08-25] MEDS: PARICALCITOL 1 MCG CAP PO SCH (07:58)
[2017-08-25] MEDS: DOCUSATE SODIUM 50 MG/SENNA 8.6 MG TAB PO SCH ×2 (07:58→21:00)
[2017-08-25] MEDS: PANTOPRAZOLE SODIUM 40 MG VIAL IV PUSH SCH (07:59)
[2017-08-25] MEDS: FLUTICASONE PROPIONATE 50 MCG/ACT 16 GM NASAL SPRAY EACH NARE SCH ×2 (07:59→21:00)
[2017-08-25] MEDS: BUDESONIDE-FORMOTEROL 80/4.5 MCG INHALER INH SCH ×2 (07:59→21:33)
[2017-08-25] MEDS: SODIUM CHLORIDE 0.9% FLUSH 10 ML FLUSH IV FLUSH SCH ×2 (07:59→21:34)
[2017-08-25] MEDS: INSULIN ASPART SUPPLEMENTAL SCALE SQ SCH ×4 (08:00→21:36)
[2017-08-25] MEDS: HYDROmorphone HCL PF 2 MG/ML VIAL IV PUSH PRN ×2 (09:25→19:23)
[2017-08-25] MEDS: ONDANSETRON HCL 4 MG/2 ML VIAL IV PUSH PRN ×2 (11:10→21:37)
--- NOTE | 2017-08-25 15:42 | HHI.FPPN ---
Subjective Remarks Patient states that epigastric area of the abdomen is still in full, decreased appetite, vomited 1. No other complaints. No fevers shortness of breath. Vital stable overnight. (Emmanuelle Casanova MD R1) Objective Vitals Vital Signs Date Time Temp Pulse Resp B/P (MAP) Pulse Ox O2 Delivery O2 Flow Rate FiO2 08/25/17 12:00 97.7 59 18 89/53 (65) 97 08/25/17 08:00 98.2 70 18 116/56 (76) 97 08/25/17 04:54 98.2 77 18 129/58 (81) 100 08/25/17 00:37 98.3 86 17 111/56 (74) 98 08/24/17 20:16 97.3 75 17 133/57 (82) 98 08/24/17 16:33 97.8 66 20 109/50 (69) 97 I/O 08/24/17 08/24/17 08/24/17 08/25/17 08/25/17 08/25/17 07:00 15:00 23:00 07:00 15:00 23:00 Intake Total 480 ml Output Total 1800 ml Balance -1800 ml 480 ml Intake Oral 480 ml Output Hemodialysis 1800 ml # Voids 5 (Emmanuelle Casanova MD R1) Result Diagram: 08/24/17 1358 08/24/17 1358 Objective Remarks GENERAL: This is a well-nourished, well-developed patient, in no apparent distress. SKIN:Cool and dry. EYES: Pupils equal round and reactive. Extraocular motions intact. Uvula midline. Airway patent. NECK: Trachea midline. No JVD or lymphadenopathy. CARDIOVASCULAR: Normal S1 and S2. Regular rate and rhythm without murmurs, gallops, or rubs. RESPIRATORY: Breathing comfortably. GASTROINTESTINAL: Obese abdomen soft, mild tenderness to palpation on epigastric region. MUSCULOSKELETAL: Extremities without clubbing, cyanosis, or edema. NEUROLOGICAL: Awake and alert. No focal deficits. Motor and sensory grossly within normal limits. Five out of 5 muscle strength in all muscle groups. Normal speech. (Emmanuelle Casanova MD R1) A/P Assessment and Plan Patient is a 52-year-old female with past medical history of diabetes on hemodialysis, chronic kidney disease, hypertension, CAD, cardiac cath with stent placement x3 and cholecystectomy who presented to the ED from [facility] for further evaluation due 4 day h/o of epigastric abdominal pain, vomiting and decreased appetite. Patient found to have elevated lipase >5000. Admitted for treatment of pancreatitis. Discharge Planning Hospital tomorrow, pending increased appetite/oral intake and improvement of other symptoms (Emmanuelle Casanova MD R1) Attending Attestation Patient seen and examined. Case reviewed and discussed with the resident team. Agree with plan of care as discussed with me and documented in the resident note. Patient seen and examined with the resident on 08/25/17 (Lin Werner MD) Problem List: (1) Pancreatitis ICD Codes: K85.90 - Acute pancreatitis without necrosis or infection, unspecified Status: Acute Plan: Patient with 4 day history of sharp nonradiating epigastric abdominal pain, vomiting, nausea and po intake On admission patient lipase was found to be elevated at 5078, CBC within normal limits, afebrile. CT abdomen and pelvis showed no acute findings, normal pancreas. Lipase downtrending IV fluids at 125 mL per hour Pain control: Dilaudid 0.5 mg pain 1-5 Dilaudid 1 mg pain 6-10 Advance diet as tolerate, clear fluids for now (2) Diabetes mellitus ICD Codes: E11.9 - Type 2 diabetes mellitus without complications Status: Chronic Plan: Blood sugar on admission 184 Low dose insulin sliding scale Hypoglycemia protocol Accu-Cheks Q4h (3) HTN (hypertension) ICD Codes: I10 - Essential (primary) hypertension Status: Chronic Plan: On admission patient had elevated blood pressures of 200/100 Resume home meds: Amlodipine 5 mg by mouth daily, carvedilol 25 by mouth twice a day, hydralazine 50 mg by mouth twice a day Clonidine PRN per hypertension protocol (4) CKD (chronic kidney disease), stage V ICD Codes: N18.5 - Chronic kidney disease, stage 5 Status: Chronic Plan: Patient with past medical history of chronic kidney disease on HD. 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 Maldonado. HD schedule: , and Monday Continue vitamin D supplementation On admission BUN/Cr 36/5.97, will continue to monitor Nephrology consulted, appreciate recommendations Avoid nephrotoxic agents Received HD on 08/24 (5) Hyperlipidemia ICD Codes: E78.5 - Hyperlipidemia, unspecified Status: Chronic Plan: Continue with home meds Follow up lipid profile (6) CAD (coronary artery disease) ICD Codes: I25.10 - Atherosclerotic heart disease of [place] coronary artery without angina pectoris Status: Chronic Plan: Continue with aspirin daily (7) Nutrition, metabolism, and development symptoms ICD Codes: R63.8 - Symptoms concerning nutrition, metabolism, and development Status: Acute Plan: Fluids: 125 mL per hour, caution with IV fluids since patient has end- stage renal disease on HD Electrolytes: Continue to monitor and replete as needed, Diet: Liquid diet, advance as tolerated DVT prophylaxis: Heparin SQ Q8h (Emmanuelle Casanova MD R1) Problem Qualifiers (1) Pancreatitis: Qualified Codes: K85.90 - Acute pancreatitis without necrosis or infection, unspecified (2) HTN (hypertension): Qualified Codes: I10 - Essential (primary) hypertension (3) Hyperlipidemia: Qualified Codes: E78.5 - Hyperlipidemia, unspecified Emmanuelle Casanova MD R1 Aug 25, 2017 15:42 Lin Werner MD Aug 26, 2017 15:30
--- NOTE | 2017-08-25 19:04 | HHI.NPPN ---
Subjective History of Present Illness 52-year-old -Wel[place] female with history of end-stage renal disease, diabetes, hypertension who has abdominal pain and admitted with pancreatitis Objective Data Data 08/25/17 08/26/17 19:00 07:00 Output Total 1250 ml Balance -1250 ml Output Urine Total 1250 ml # Bowel Movements 0 Vital Signs Date Time Temp Pulse Resp B/P (MAP) Pulse Ox O2 Delivery O2 Flow Rate FiO2 08/25/17 17:47 99 21 08/25/17 16:00 97.7 72 18 121/59 (79) 99 08/25/17 12:00 97.7 59 18 89/53 (65) 97 08/25/17 08:00 98.2 70 18 116/56 (76) 97 08/25/17 04:54 98.2 77 18 129/58 (81) 100 08/25/17 00:37 98.3 86 17 111/56 (74) 98 08/24/17 20:16 97.3 75 17 133/57 (82) 98 -: 08/24/17 1358 08/24/17 1358 Physical Exam General Appearance: Well Developed, Well Nourished Neck Neck Exam: Neck Supple Pulmonary Resp Exam: Clear Bilaterally, Breath Sounds Equal Cardiology CV Exam: Regular, Normal Sinus Rhythm Gastrointestinal/Abdomen GI Exam: Soft, Bowel Sounds Present Extremeties Extremities Exam: Trace Edema Neurologic Neuro Exam: Alert, Awake, Oriented Assessment/Plan Problem List: (1) ESRD (end stage renal disease) on dialysis ICD Codes: N18.6 - End stage renal disease; Z99.2 - Dependence on renal dialysis Plan: Patient on hemodialysis Continue Monday, and Monday dialysis Lipase is high CT scan did not reveal findings of acute pancreatitis Question of chemical pancreatitis Slowly improving continue to monitor (2) Pancreatitis ICD Codes: K85.90 - Acute pancreatitis without necrosis or infection, unspecified Status: Acute Plan: Lipase is high follow this (3) Diabetes mellitus ICD Codes: E11.9 - Type 2 diabetes mellitus without complications Status: Chronic Plan: Continue to monitor blood glucose (4) Hypertension ICD Codes: I10 - Essential (primary) hypertension Status: Chronic Plan: Monitor BP Shantelle Maldonado MD Aug 25, 2017 19:04
[2017-08-25] MEDS: ATORVASTATIN 40 MG TAB PO SCH (21:35)
[2017-08-26] VITALS: BP 140/63; PULSE 75; RESP 22; TEMP 98.1; O2SAT 93
[2017-08-26 04:00] VITALS: BP 161/67; PULSE 78; RESP 17; TEMP 98.2; O2SAT 95
[2017-08-26] MEDS: ONDANSETRON HCL 4 MG/2 ML VIAL IV PUSH PRN (06:16)
[2017-08-26] MEDS: HEPARIN SODIUM - SQ 10,000 UNITS/ML VIAL SQ SCH ×2 (06:19→12:42)
[2017-08-26] MEDS: SODIUM CHLORIDE 0.9% FLUSH 10 ML FLUSH IV FLUSH SCH (08:01)
[2017-08-26] MEDS: PARICALCITOL 1 MCG CAP PO SCH (08:01)
[2017-08-26] MEDS: DOCUSATE SODIUM 50 MG/SENNA 8.6 MG TAB PO SCH (08:01)
[2017-08-26] MEDS: PANTOPRAZOLE SODIUM 40 MG VIAL IV PUSH SCH (08:02)
[2017-08-26] MEDS: BUDESONIDE-FORMOTEROL 80/4.5 MCG INHALER INH SCH (08:02)
[2017-08-26] MEDS: FLUTICASONE PROPIONATE 50 MCG/ACT 16 GM NASAL SPRAY EACH NARE SCH (08:02)
[2017-08-26] MEDS: INSULIN ASPART SUPPLEMENTAL SCALE SQ SCH ×2 (08:06→12:42)
[2017-08-26] MEDS: CARVEDILOL 12.5 MG TAB PO SCH (08:08)
[2017-08-26] MEDS: hydrALAZINE HCL 50 MG TAB PO SCH (08:08)
[2017-08-26] MEDS: amLODIPine BESYLATE 5 MG TAB PO SCH (08:09)
[2017-08-26 08:33] LABS: ALBUMIN 3.2 GM/DL (3.4-5.0); ALKALINE PHOSPHATASE 62 U/L (45-117); ALT (GPT) 11 U/L (10-53); AST (GOT) 7 U/L (15-37); BLOOD UREA NITROGEN 31 MG/DL (7-18); CHLORIDE 99 MEQ/L (98-107); CREATININE 6.08 MG/DL (0.50-1.00); GLOMERULAR FILTRATION RATE 9 ML/MIN (>89); GLUCOSE,RANDOM 211 MG/DL (74-106); SODIUM (NA) 137 MEQ/L (136-145); TOTAL BILIRUBIN ADULT 0.3 MG/DL (0.2-1.0); TOTAL PROTEIN 7.5 GM/DL (6.4-8.2)
[2017-08-26] MEDS ORDERED: ZOFR4TAB PO (08:34)
[2017-08-26] MEDS ORDERED: OXYC-392 PO ×2 (08:34→08:44)
[2017-08-26] MEDS ORDERED: PROT40TA PO (08:34)
--- NOTE | 2017-08-26 08:35 | HHI.DCPOC ---
Discharge Care Plan Diagnosis: (1) Pancreatitis (2) ESRD (end stage renal disease) on dialysis Goals to Promote Your Health * To prevent worsening of your condition and complications * To maintain your health at the optimal level Directions to Meet Your Goals Take your medications as prescribed Follow your dietary instruction Follow activity as directed Keep your appointments as scheduled Take your immunizations and boosters as scheduled If your symptoms worsen call your PCP, if no PCP go to Urgent Care Center or Emergency Room Smoking is Dangerous to Your Health. Avoid second hand smoke Call the 24-hour hour crisis hotline for domestic abuse at Zahida Clarke MD, R3 Aug 26, 2017 08:35
--- NOTE | 2017-08-26 08:41 | HHI.FPPN ---
Subjective Remarks No acute issues overnight. Vitals are stable, patient remains afebrile. She denies any chest pain, shortness of breath, fever, chills, nausea or vomiting. She continues to have intermittent abdominal pain, but is tolerating both solids and liquids without vomiting. She feels ready to go home today. (Zahida Clarke MD, R3) Objective Vitals Vital Signs Date Time Temp Pulse Resp B/P (MAP) Pulse Ox O2 Delivery O2 Flow Rate FiO2 08/26/17 04:00 98.2 78 17 161/67 (98) 95 08/26/17 00:00 98.1 75 22 140/63 (88) 93 08/25/17 22:03 98.1 68 14 116/58 (77) 97 08/25/17 17:47 99 21 08/25/17 16:00 97.7 72 18 121/59 (79) 99 08/25/17 12:00 97.7 59 18 89/53 (65) 97 I/O 08/25/17 08/25/17 08/25/17 08/26/17 08/26/17 08/26/17 07:00 15:00 23:00 07:00 15:00 23:00 Intake Total 480 ml Output Total 1250 ml Balance 480 ml -1250 ml Intake Oral 480 ml Output Urine Total 1250 ml # Voids 5 4 # Bowel Movements 0 0 (Zahida Clarke MD, R3) Result Diagram: 08/24/17 1358 08/26/17 0724 Imaging Last Impressions Abdomen/Pelvis CT 08/24/17 0000 Signed Impressions: Service Date/Time: August 01:41 - CONCLUSION: No acute findings. The pancreas is normal radiographically. Dale Snyder MD Objective Remarks GENERAL: This is a well-nourished, well-developed patient, in no apparent distress. SKIN:Cool and dry. EYES: Pupils equal round and reactive. Extraocular motions intact. Uvula midline. Airway patent. NECK: Trachea midline. No JVD or lymphadenopathy. CARDIOVASCULAR: Normal S1 and S2. Regular rate and rhythm without murmurs, gallops, or rubs. RESPIRATORY: Breathing comfortably. Clear to auscultation bilaterally. GASTROINTESTINAL: Obese abdomen soft, mild tenderness to palpation in epigastric region. MUSCULOSKELETAL: Extremities without clubbing, cyanosis, or edema. NEUROLOGICAL: Awake and alert. No focal deficits. Normal speech. (Zahida Clarke MD, R3) A/P Assessment and Plan Patient is a 52-year-old female with past medical history of diabetes on hemodialysis, chronic kidney disease, hypertension, CAD, cardiac cath with stent placement x3 and cholecystectomy who presented to the ED from [facility] for further evaluation due 4 day h/o of epigastric abdominal pain, vomiting and decreased appetite. Patient found to have elevated lipase >5000. Admitted for treatment of pancreatitis. Discharge Planning Discharge home today. (Zahida Clarke MD, R3) Attending Attestation Case reviewed and discussed with the resident team. Agree with plan of care as discussed with me and documented in the resident note. (Lin Werner MD) Problem List: (1) Pancreatitis ICD Codes: K85.90 - Acute pancreatitis without necrosis or infection, unspecified Status: Acute Plan: Improving Lipase trending down to 2381 today from [address] abdomen and pelvis showed no acute findings, normal pancreas. Patient tolerating by mouth Advance diet as tolerated Discharge home, will provide oxycodone 5 mg by mouth every 4 hours when necessary pain on discharge. (2) Diabetes mellitus ICD Codes: E11.9 - Type 2 diabetes mellitus without complications Status: Chronic Plan: Low dose insulin sliding scale Hypoglycemia protocol Accu-Cheks Q4h (3) HTN (hypertension) ICD Codes: I10 - Essential (primary) hypertension Status: Chronic Plan: Cont home meds: Amlodipine 5 mg by mouth daily, carvedilol 25 by mouth twice a day, hydralazine 50 mg by mouth twice a day Clonidine PRN per hypertension protocol (4) CKD (chronic kidney disease), stage V ICD Codes: N18.5 - Chronic kidney disease, stage 5 Status: Chronic Plan: Patient with past medical history of chronic kidney disease on HD. 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 HD schedule: , and Monday Continue vitamin D supplementation Nephrology consulted, appreciate recommendations Avoid nephrotoxic agents Received HD on 08/24, scheduled again today (5) Hyperlipidemia ICD Codes: E78.5 - Hyperlipidemia, unspecified Status: Chronic Plan: Continue home statin (6) CAD (coronary artery disease) ICD Codes: I25.10 - Atherosclerotic heart disease of [place] coronary artery without angina pectoris Status: Chronic Plan: Continue aspirin daily (7) Nutrition, metabolism, and development symptoms ICD Codes: R63.8 - Symptoms concerning nutrition, metabolism, and development Status: Acute Plan: Fluids: Tolerating PO Electrolytes: Continue to monitor and replete as needed, Diet: Liquid diet, advance as tolerated DVT prophylaxis: Heparin SQ Q8h (Zahida Clarke MD, R3) Problem Qualifiers (1) Pancreatitis: Qualified Codes: K85.90 - Acute pancreatitis without necrosis or infection, unspecified (2) HTN (hypertension): Qualified Codes: I10 - Essential (primary) hypertension (3) Hyperlipidemia: Qualified Codes: E78.5 - Hyperlipidemia, unspecified Zahida Clarke MD, R3 Aug 26, 2017 08:41 Lin Werner MD Aug 26, 2017 15:33
[2017-08-26 08:55] VITALS: BP 110/53; PULSE 69; RESP 20; TEMP 98; O2SAT 95
[2017-08-26] MEDS: HEPARIN SODIUM - IV 10,000 UNITS/10 ML VIAL PRN (09:46)
[2017-08-26] MEDS: GENTAMICIN SULFATE 20 MG/2 ML VIAL OTHER PRN (09:46)
[2017-08-26] MEDS: SODIUM CHLOR 0.9% 1000 ML INJ 1,000 ML OTHER PRN (09:47)
[2017-08-26] MEDS: ACETAMINOPHEN 325 MG TAB PO PRN (12:42)
[2017-08-30 21:54] LABS: HEMOGLOBIN A1C 7.1 % (4.3-6.0)
== END 2017-08-26 13:48 | disposition home or self-care (01) | DRG 438 ==
LOC: NEPE 22:09 → NEDA 08-24 05:55 → N05A 08-24 14:47
PROVIDERS: ADMIT Family Medicine; ATTEND Family Medicine
PROC: 5A1D70Z Performance of Urinary Filtration, Intermittent, Less than 6 Hours Per Day (ICD-10-PCS; principal; 2017-08-24)
DX: K85.90 Acute pancreatitis without necrosis or infection, unspecified (principal); N18.6 End stage renal disease; E11.22 Type 2 diabetes mellitus with diabetic chronic kidney disease; N25.81 Secondary hyperparathyroidism of renal origin; I12.0 Hypertensive chronic kidney disease with stage 5 chronic kidney disease or end stage renal disease; Z68.42 Body mass index [BMI] 45.0-49.9, adult; I25.2 Old myocardial infarction; I25.10 Atherosclerotic heart disease of native coronary artery without angina pectoris; J44.9 Chronic obstructive pulmonary disease, unspecified; E11.65 Type 2 diabetes mellitus with hyperglycemia; E78.5 Hyperlipidemia, unspecified; E66.01 Morbid (severe) obesity due to excess calories; M19.90 Unspecified osteoarthritis, unspecified site; Z79.4 Long term (current) use of insulin; Z82.49 Family history of ischemic heart disease and other diseases of the circulatory system; Z83.3 Family history of diabetes mellitus; Z84.1 Family history of disorders of kidney and ureter; Z87.891 Personal history of nicotine dependence; Z88.0 Allergy status to penicillin; Z88.2 Allergy status to sulfonamides; Z91.012 Allergy to eggs; Z95.5 Presence of coronary angioplasty implant and graft; Z99.2 Dependence on renal dialysis
CPT/HCPCS: 74176; 80053; 80061; 81001; 82948; 83036; 83615; 83690; 85025; 85027; 90935; 94150; 96374; C9113; J1170; J1580; J1644; J1815; J2270; J2405; J7030; J7120

== ENCOUNTER 2017-09-11 09:32 | Observation (INO) | payer MEDICARE, OTHER ==
[~2017-09-11] VITALS: Ht 162.6 cm; Wt 110.0 kg
[2017-09-11] VITALS (10 sets, daily range): BP systolic 107–196; BP diastolic 61–115; PULSE 82–108; RESP 16–28; TEMP 98–99; O2SAT 97–100
[~2017-09-11 09:32] MED LIST changes: -LISI-515 PO; -NIFE30TA61 PO; +OXYC-392 PO; -OXYC1CAP PO; +PROT40TA PO; +ZOFR4TAB PO
[2017-09-11] MEDS ORDERED: SODIUM CHLORIDE 0.9% FLUSH 10 ML FLUSH IV FLUSH PRN ×3 (10:15→15:00)
[2017-09-11] MEDS ORDERED: ONDANSETRON HCL 4 MG/2 ML VIAL IVP ONE (10:15)
[2017-09-11] MEDS ORDERED: MORPHINE SULFATE 4 MG/ML INJ IV PUSH ONE (10:15)
[2017-09-11 10:26] LABS: AUTOMATED NEUTROPHIL # 6.2 TH/MM3 (1.8-7.7); BASOPHIL # 0.1 TH/MM3 (0-0.2); BASOPHIL % 0.7 % (0.0-2.0); EOSINOPHIL # 0.2 TH/MM3 (0-0.4); EOSINOPHIL % 2.6 % (0.0-4.0); HEMATOCRIT 36.8 % (35.0-46.0); HEMOGLOBIN 11.8 GM/DL (11.6-15.3); LYMPH % 12.1 % (9.0-44.0); MEAN CELL VOLUME 96.9 FL (80.0-100.0); MEAN CORPUSCULAR HEMOGLOBIN 31.1 PG (27.0-34.0); MEAN CORPUSCULAR HGB CONC 32.1 % (32.0-36.0); MONOCYTE # 0.6 TH/MM3 (0-0.9); NEUT % 77.6 % (16.0-70.0); PLATELET COUNT 255 TH/MM3 (150-450); RED CELL DISTRIBUTION WIDTH 15.7 % (11.6-17.2); WHITE BLOOD COUNT 7.9 TH/MM3 (4.0-11.0)
[2017-09-11 10:56] LABS: ALBUMIN 3.7 GM/DL (3.4-5.0); ALKALINE PHOSPHATASE 67 U/L (45-117); ALT (GPT) 23 U/L (10-53); AST (GOT) 17 U/L (15-37); BICARBONATE 26.9 MEQ/L (21.0-32.0); BLOOD UREA NITROGEN 47 MG/DL (7-18); CALCIUM 9.8 MG/DL (8.5-10.1); CHLORIDE 102 MEQ/L (98-107); CREATININE 7.42 MG/DL (0.50-1.00); GLOMERULAR FILTRATION RATE 7 ML/MIN (>89); GLUCOSE,RANDOM 193 MG/DL (74-106); SODIUM (NA) 137 MEQ/L (136-145); TOTAL BILIRUBIN ADULT 0.2 MG/DL (0.2-1.0); TOTAL PROTEIN 8.5 GM/DL (6.4-8.2)
[2017-09-11] MEDS ORDERED: SODIUM BICARB 4.2% (INF) INJ 5 MEQ/10 ML SYR IV PUSH ONE (11:15)
[2017-09-11] MEDS ORDERED: SODIUM POLYSTYRENE SULFONATE SUSP 15 GM/60 ML CUP PO ONE (11:15)
[2017-09-11] MEDS ORDERED: CALCIUM CHLORIDE 10% SOLN 1 GRAM/10 ML SYR IV PUSH ONE (11:15)
[2017-09-11] MEDS ORDERED: INSULIN HUMAN REGULAR 1,000 UNITS/10 ML VIAL IV PUSH ONE (11:15)
[2017-09-11] MEDS ORDERED: DEXTROSE 50% IN WATER 50 ML SYRINGE IV PUSH ONE (11:15)
--- NOTE | 2017-09-11 11:16 | PD ---
HPI . Abdominal pain Chief Complaint: Abdominal Pain Time Seen by Provider: 09:53 Travel History International Travel<30 days: No Contact w/Intl Traveler<30days: No Traveled to known affect area: No History of Present Illness HPI This patient presents with a chief complaint of upper abdominal pain. She states that she has had chronic upper abdominal pain for a while now. She states that it is acutely worse today. She rates the pain 10/10. No exacerbating or relieving factors. It is associated with a poor appetite today. She states that she ate normally yesterday. She states that her pain today is exactly the same as pain that she had a month ago when she was seen here. She is unsure of her diagnosis but states that she was given a prescription for pain pills. She states that she took the pain pills until they were all gone and that her pain has now recurred. She denies any fever. She has not had any vomiting or diarrhea. She is a dialysis patient and continues to make urine. She denies any urinary symptoms. The patient was hospitalized here on August 24 with acute pancreatitis and a lipase over 5000. She had a subsequent CT of her abdomen which showed a normal pancreas. PFSH Past Medical History Hx Anticoagulant Therapy: Yes (PLAVIX, ASA) Arthritis: Yes Asthma: Yes Autoimmune Disease: No Blood Disorders: No Anxiety: No Depression: No Heart Rhythm Problems: No Cancer: No Cardiac Catheterization: Yes (2013) Cardiovascular Problems: Yes High Cholesterol: Yes Chemotherapy: No Chest Pain: No Congestive Heart Failure: No COPD: Yes Cerebrovascular Accident: No Coronary Artery Disease: Yes Diabetes: Yes Patient Takes Glucophage: Yes Dialysis: No Diminished Hearing: No Endocrine: Yes Gastrointestinal Disorders: No GERD: No Glaucoma: No Genitourinary: No Headaches: Yes (MIGRAINE HEADACHES) Hepatitis: No Hiatal Hernia: No Heparin Induced Thrombocytopen: No Hypertension: Yes Immune Disorder: No Implanted Vascular Access Dvce: No Kidney Stones: No Medical other: No Musculoskeletal: No Neurologic: No Psychiatric: No Reproductive: No Respiratory: Yes (ASTHMA) Integumentary: No Immunizations Current: Yes Migraines: Yes Myocardial Infarction: Yes Radiation Therapy: No Renal Failure: No Seizures: No Sickle Cell Disease: No Sleep Apnea: No Thyroid Disease: No Ulcer: No Influenza Vaccination: No PNEUMOCCOCAL Vaccine (Year): 2 ?: Not : 1 Para: 1 Miscarriage: 0 : 0 Past Surgical History Abdominal Surgery: Yes (wesly) AICD: No Arteriovenous Shunt: No Cardiac Surgery: Yes ( 2 STENTS PLACED.) Cholecystectomy: Yes Coronary Stent: Yes (2 stents 2013) Ear Surgery: No Endocrine Surgery: No Eye Surgery: No Genitourinary Surgery: No Gynecologic Surgery: No Insulin Pump: No Joint Replacement: No Neurologic Surgery: No Oral Surgery: No Pacemaker: No Thoracic Surgery: No Other Surgery: Yes (GALLBLADDER TAKEN OUT IN THE 80'S) Family History Family Hypercholesterolemia: Yes (MATERNAL) Social History Alcohol Use: No Tobacco Use: Yes (0.5 ppd) Substance Use: No Allergies-Medications (Allergen,Severity, Reaction): Coded Allergies: Sulfa (Sulfonamide Antibiotics) (Verified Allergy, Severe, 08/24/17) naproxen (Verified Allergy, Severe, throat closure , 08/24/17) sulfamethoxazole (Verified Allergy, Severe, 08/24/17) trimethoprim (Verified Allergy, Severe, 08/24/17) egg (Verified Allergy, Intermediate, 08/24/17) Hives penicillin G (Verified Allergy, Intermediate, SWELLING AND ITCHING, ) Reported Meds & Prescriptions Reported Meds & Active Scripts Active Protonix (Pantoprazole Sodium) 40 Mg Tab 40 Mg PO DAILY Zofran (Ondansetron HCl) 4 Mg Tab 4 Mg PO Q8HR PRN Carvedilol 25 Mg Tab 25 Mg PO BID Symbicort Inh (Budesonide/Formoterol Fumarate) 80-4.5 Mcg/Act Aero 2 Puff INH Q12HR Zemplar (Paricalcitol) 1 Mcg Cap 1 Mcg PO DAILY Hydralazine HCl 50 Mg Tablet 50 Mg PO BID Atorvastatin (Atorvastatin Calcium) 40 Mg Tab 40 Mg PO HS Amlodipine (Amlodipine Besylate) 5 Mg Tab 5 Mg PO DAILY Reported Calcitriol 0.25 Mcg Cap 0.25 Mcg PO DAILY Levemir Inj (Insulin Detemir) 1,000 unit/ 10 ML Vial 30 Units SQ DAILY Do not mix with any other Insulin. Fluticasone Nasal [place] 50 Mcg/Act Naspr 50 Mcg EACH NARE BID 50 mcg/spray Review of Systems Except as stated in HPI: all other systems reviewed are Neg General / Constitutional: No: Fever, Chills Gastrointestinal: Positive: Abdominal Pain, Loss of Appetite, No: Nausea, Vomiting, Diarrhea Genitourinary: No: Urgency, Frequency, Dysuria Physical Exam Narrative GENERAL: Patient is lying on the stretcher. She looks comfortable. SKIN: warm/dry. HEAD: Normocephalic. Atraumatic. EYES: Pupils equal and round. No scleral icterus. No injection or drainage. ENT: No nasal bleeding or discharge. Mucous membranes pink and moist. NECK: Trachea midline. Full range of motion without pain.. CARDIOVASCULAR: Regular rate and rhythm. Heart sounds normal. RESPIRATORY: No accessory muscle use. Clear to auscultation. Breath sounds equal bilaterally. GASTROINTESTINAL: Abdomen soft. Mild epigastric tenderness with no guarding or rebound. Bowel sounds present. Nondistended. MUSCULOSKELETAL: No obvious deformities. NEUROLOGICAL: Awake and alert. No obvious cranial nerve deficits. Motor grossly within normal limits. Normal speech. PSYCHIATRIC: Appropriate mood and affect; insight and judgment normal. Data Data Last Documented VS Vital Signs Date Time Temp Pulse Resp B/P (MAP) Pulse Ox O2 Delivery O2 Flow Rate FiO2 09/11/17 10:27 18 09/11/17 09:48 100 183/81 (115) 98 Room Air 09/11/17 09:36 98.5 Orders Orders Complete Blood Count With Diff (09/11/17 10:02) Comprehensive Metabolic Panel (09/11/17 10:02) Lipase (09/11/17 10:02) Iv Access Insert/Monitor (09/11/17 10:02) Morphine Inj (Morphine Inj) (09/11/17 10:15) Ondansetron Inj (Zofran Inj) (09/11/17 10:15) Sodium Chloride 0.9% Flush (Ns Flush) (09/11/17 10:15) Sodium Bicarb 4.2% (Inf) Inj (Sodium Bic (09/11/17 11:15) Calcium Chloride Inj (Calcium Chloride I (09/11/17 11:15) Insulin Human Regular Inj (Novolin R Inj (09/11/17 11:15) Dextrose 50% In Riddhi (Syr) Inj (D50w (Syr (09/11/17 11:15) Blood Glucose (09/11/17 11:03) Sodium Polysty Sulfate Liq (Kayexalate L (09/11/17 11:15) Consult Nephrology (09/11/17 ) (Hub Use Only)Inp Phy Cons/Ref (09/11/17 ) Electrocardiogram (09/11/17 ) Basic Metabolic Panel (Bmp) (09/11/17 14:00) Sodium Bicarbonate 8.4% Inj (Sodium Bica (09/11/17 11:45) Labs Laboratory Tests Test 09/11/17 10:09 White Blood Count 7.9 TH/MM3 Red Blood Count 3.80 MIL/MM3 Hemoglobin 11.8 GM/DL Hematocrit 36.8 % Mean Corpuscular Volume 96.9 FL Mean Corpuscular Hemoglobin 31.1 PG Mean Corpuscular Hemoglobin Concent 32.1 % Red Cell Distribution Width 15.7 % Platelet Count 255 TH/MM3 Mean Platelet Volume 9.0 FL Neutrophils (%) (Auto) 77.6 % Lymphocytes (%) (Auto) 12.1 % Monocytes (%) (Auto) 7.0 % Eosinophils (%) (Auto) 2.6 % Basophils (%) (Auto) 0.7 % Neutrophils # (Auto) 6.2 TH/MM3 Lymphocytes # (Auto) 1.0 TH/MM3 Monocytes # (Auto) 0.6 TH/MM3 Eosinophils # (Auto) 0.2 TH/MM3 Basophils # (Auto) 0.1 TH/MM3 CBC Comment DIFF FINAL Differential Comment Blood Urea Nitrogen 47 MG/DL Creatinine 7.42 MG/DL Random Glucose 193 MG/DL Total Protein 8.5 GM/DL Albumin 3.7 GM/DL Calcium Level 9.8 MG/DL Alkaline Phosphatase 67 U/L Aspartate Amino Transf (AST/SGOT) 17 U/L Alanine Aminotransferase (ALT/SGPT) 23 U/L Total Bilirubin 0.2 MG/DL Sodium Level 137 MEQ/L Potassium Level 7.3 MEQ/L Chloride Level 102 MEQ/L Carbon Dioxide Level 26.9 MEQ/L Anion Gap 8 MEQ/L Estimat Glomerular Filtration Rate 7 ML/MIN Lipase 1466 U/L MDM Medical Decision Making Medical Screen Exam Complete: Yes Emergency Medical Condition: Yes Medical Record Reviewed: Yes (PMH ESRD on HD, DM, HTN, CAD with stents, pancreatitis) Differential Diagnosis Differential diagnosis of abdominal pain includes but is not limited to gastritis, pancreatitis, hepatitis, gastroenteritis, constipation, urinary retention, peptic ulcer disease, diverticulitis or appendicitis Narrative Course This patient presents with upper abdominal pain. She has had previous pancreatitis. An IV has been started and she has been given IV morphine and IV Zofran. Routine abdominal pain labs have been ordered. I have not ordered any imaging studies because her exam is benign. CBC & BMP Diagram 09/11/17 10:09 Total Protein 8.5 H, Albumin 3.7, Calcium Level 9.8, Alkaline Phosphatase 67, Aspartate Amino Transf (AST/SGOT) 17, Alanine Aminotransferase (ALT/SGPT) 23, Total Bilirubin 0.2 Lip 1466 I have ordered bicarb, calcium, insulin/D50 and Kayexalate. I have placed a consult to her clergy member. This patient's primary care provider is the [facility]. I have a call out to them for admission. Critical Care Narrative Aggregate critical care time was 35 minutes. Time to perform other separately billable procedures was not included in the critical care time. My time did not include minutes spent treating any other patients simultaneously or on activities that did not directly contribute to the patient's treatment. The services I provided to this patient were to treat and/or prevent clinically significant deterioration due to hyperkalemia I provided critical care services requiring my management, as noted below: Chart data review, documentation time, medication orders and management, vital sign assessments/reviewing monitor data, ordering and reviewing lab tests, ordering and interpreting/reviewing x-rays and diagnostic studies, care of the patient and discussion of the patient with the admitting physicians Physician Communication Physician Communication Dr. Holt Diagnosis Primary Impression: Hyperkalemia Additional Impressions: ESRD (end stage renal disease) on dialysis Pancreatitis Qualified Codes: K85.90 - Acute pancreatitis without necrosis or infection, unspecified Admitting Information Admitting Physician Requests: Admit Condition: Stable Dulce Maria Zepeda MD Sep 11, 2017 11:16
[2017-09-11] MEDS ORDERED: SODIUM BICARBONATE 8.4% INJ 50 MEQ/50 ML SYR IV PUSH ONE (11:45)
--- NOTE | 2017-09-11 12:55 | HHI.HP ---
[facility] Service Family Medicine Primary Care Physician Unknown Admission Diagnosis hyperkalemia, pancreatitis, ESRD on HD, DM, HTN, CAD Diagnoses: International Travel<30 Days: No Contact w/Intl Traveler<30days: No Known Affected Area: No History of Present Illness Patient is a 52 year old female who presents to the ED for evaluation of abdominal pain. She describes a sharp, non-radiating pain in her upper abdomen/ epigastric region. The pain started last night; she was unable to sleep. Tylenol Extra Strength x2 tab did not provide relief. The patient was hospitalized and treated for pancreatitis at the end of August 2017. She states that at discharge she continued with a little bit of pain and her abdominal pain never went away completely. The chronic pain however was relieved by pain medication. She reports the new pain feeling different. She denies nausea and vomiting. She reports loose, watery, non-bloody stools x4-5 over the past 24hrs. She denies constipation. The patient reports a productive cough and cold symptoms over the past two weeks. She experiences shortness of breath with the cough. She also reports runny nose but denies headache, ear pain, sore throat. She reports sweating yesterday but was unable to take her temperature. Of note, patient receives dialysis on , , and ; she missed Monday's dialysis. Patient makes urine. (Isa Lawson MD R1) Review of Systems Constitutional: COMPLAINS OF: Diaphoretic episodes, Fatigue, Fever (Subjective) , DENIES: Chills, Change in appetite Eyes: DENIES: Blurred vision, Eye pain, Vision loss, Double Vision Ears, nose, mouth, throat: COMPLAINS OF: Nasal discharge, Running Nose, DENIES : Hearing loss, Throat pain, Ear Pain Respiratory: COMPLAINS OF: Cough, Sputum production, Shortness of breath Cardiovascular: DENIES: Chest pain, Lower Extremity Edema Gastrointestinal: COMPLAINS OF: Abdominal pain, Diarrhea, DENIES: Black stools , Bloody stools, Constipation, Nausea, Vomiting Musculoskeletal: COMPLAINS OF: Back pain Integumentary: DENIES: Rash, Nail changes Neurologic: DENIES: Headache, Localized weakness Psychiatric: DENIES: Anxiety, Mood changes, Depression (Isa Lawson MD R1) Past Family Social History Past Medical History Anemia Allergic rhinitis CAD NSTEMI; preserved EF 09/2010 s/p 3 stents. HTN Hyperlipidemia DM Type II - difficult control Chronic kidney disease on HD since 2015. HD schedule: , and Monday, ambulatory analyst Dr. Maldonado. Past Surgical History Cardiac catheterization with stent of RCA (2010). Cholecystectomy, open (1979) due to infection. Reported Medications Protonix (Pantoprazole Sodium) 40 Mg Tab 40 Mg PO DAILY Zofran (Ondansetron HCl) 4 Mg Tab 4 Mg PO Q8HR PRN Carvedilol 25 Mg Tab 25 Mg PO BID Symbicort Inh (Budesonide/Formoterol Fumarate) 80-4.5 Mcg/Act Aero 2 Puff INH Q12HR Zemplar (Paricalcitol) 1 Mcg Cap 1 Mcg PO DAILY Hydralazine HCl 50 Mg Tablet 50 Mg PO BID Atorvastatin (Atorvastatin Calcium) 40 Mg Tab 40 Mg PO HS Amlodipine (Amlodipine Besylate) 5 Mg Tab 5 Mg PO DAILY Calcitriol 0.25 Mcg Cap 0.25 Mcg PO DAILY Levemir Inj (Insulin Detemir) 1,000 unit/ 10 ML Vial 30 Units SQ DAILY Fluticasone Nasal Kosse 50 Mcg/Act Naspr 50 Mcg EACH NARE BID (LaBellIsa MD R1) Allergies: Coded Allergies: Sulfa (Sulfonamide Antibiotics) (Verified Allergy, Severe, 08/24/17) naproxen (Verified Allergy, Severe, throat closure , 08/24/17) sulfamethoxazole (Verified Allergy, Severe, 08/24/17) trimethoprim (Verified Allergy, Severe, 08/24/17) egg (Verified Allergy, Intermediate, 08/24/17) Hives penicillin G (Verified Allergy, Intermediate, SWELLING AND ITCHING, ) Active Ordered Medications Current Medications Medications (Trade) Dose Ordered Sig/Darion Route Start Time Stop Time Status Last Admin (NS Flush) 2 ml UNSCH PRN IV FLUSH 09/11/17 12:30 (NS Flush) 2 ml BID IV FLUSH 09/11/17 21:00 (Norvasc) 5 mg DAILY PO 09/12/17 09:00 (Lipitor) 40 mg HS PO 09/11/17 21:00 (Symbicort 80-4.5 Mcg Inh) 2 puff Q12HR INH 09/11/17 21:00 (Rocaltrol) 0.25 mcg DAILY PO 09/12/17 09:00 (Coreg) 25 mg BID PO 09/11/17 21:00 (Flonase Eric Spr) 1 spray BID EACH NARE 09/11/17 21:00 (Apresoline) 50 mg BID PO 09/11/17 21:00 (Levemir Inj) 30 units DAILY SQ 09/12/17 09:00 (Protonix) 40 mg DAILY PO 09/12/17 09:00 (Zemplar) 1 mcg DAILY PO 09/12/17 09:00 (Zofran Inj) 4 mg Q6H PRN IV PUSH 09/11/17 13:45 (Heparin Inj) 5,000 units Q8H SQ 09/11/17 15:00 (Dilaudid Pf Inj) 0.5 mg Q3H PRN IV PUSH 09/11/17 14:45 (Dilaudid Pf Inj) 1 mg Q3H PRN IV PUSH 09/11/17 14:45 Sodium Chloride 1,000 ml @ 125 mls/hr Q8H IV 09/11/17 14:49 09/11/17 15:04 Sodium Chloride 1,000 ml @ 0 mls/hr Q0M PRN OTHER 09/11/17 14:52 (Heparin Inj) 8,000 units UNSCH PRN IV FLUSH 09/11/17 15:00 Sodium Chloride 1,000 ml @ 200 mls/hr Q5H PRN IV 09/11/17 14:52 Sodium Chloride 1,000 ml @ 0 mls/hr Q0M PRN OTHER 09/11/17 14:52 (Mannitol Inj) 12.5 gm UNSCH PRN IV 09/11/17 15:00 Albumin Human 100 ml @ 60 mls/hr UNSCH PRN IV 09/11/17 15:00 (NS Flush) 5 ml UNSCH PRN IV FLUSH 09/11/17 15:00 (Heparin Inj) UNSCH PRN .XX 09/11/17 15:00 (Gentamicin Inj) 20 mg UNSCH PRN OTHER 09/11/17 15:00 (Zofran Inj) 4 mg UNSCH PRN IV PUSH 09/11/17 15:00 (Tylenol) 650 mg UNSCH PRN PO 09/11/17 15:00 (Benadryl) 25 mg UNSCH PRN PO 09/11/17 15:00 (Nitrostat Sl) 0.4 mg UNSCH PRN SL 09/11/17 15:00 (Catapres) 0.1 mg UNSCH PRN PO 09/11/17 15:00 (Gelfoam 12 Mm/7 Mm Top) 1 foam UNSCH PRN TOP 09/11/17 15:00 (Tessalon) 100 mg TID PRN PO 09/11/17 15:15 (Duoneb Neb) 1 ampule Q4HR NEB INH 09/11/17 16:00 (Albuterol Neb) 2.5 mg Q2HR NEB PRN INH 09/11/17 15:45 Family History Sister: DM, renal disease - received dialysis Mom: from HTN, brain tumor Social History Lives in [place] in apartment with daughter. Alcohol: Denies; used to drink heavily. Tobacco:1/2 ppd x 36 years. Illicit drug use: Denies. (Isa Lawson MD R1) Physical Exam Vital Signs Vital Signs Date Time Temp Pulse Resp B/P (MAP) Pulse Ox O2 Delivery O2 Flow Rate FiO2 09/11/17 11:42 108 28 159/81 (107) 100 Room Air 09/11/17 10:27 18 09/11/17 09:48 100 18 183/81 (115) 98 Room Air 09/11/17 09:36 98.5 102 16 196/115 (142) 99 Physical Exam GENERAL: This is a well-nourished, well-developed, obese patient, in no apparent distress. SKIN: Warm and dry. Dry, scaly skin noted over left lower extremity. HEAD: Atraumatic. Normocephalic. No temporal or scalp tenderness. EYES: Pupils equal round and reactive. Extraocular motions intact. No scleral icterus. No injection or drainage. ENT: Nose without bleeding, purulent drainage or septal hematoma. Throat without erythema, tonsillar hypertrophy or exudate. Uvula midline. Airway patent. NECK: No JVD. Bilateral cervical lymphadenopathy appreciated. Supple, nontender , no meningeal signs. CARDIOVASCULAR: Regular rate and rhythm without murmurs, gallops, or rubs. RESPIRATORY: Breath sounds equal bilaterally. Inspiratory wheezes appreciated. GASTROINTESTINAL: Abdomen soft, nondistended. Tenderness over mid, upper abdomen. No palpable masses. No guarding. MUSCULOSKELETAL: Extremities without clubbing, cyanosis, or edema. No joint tenderness, effusion, or edema noted. No calf tenderness. NEUROLOGICAL: Awake and alert. Cranial nerves II through XII intact. Motor and sensory grossly within normal limits. Five out of 5 muscle strength in all muscle groups. Normal speech. Laboratory Laboratory Tests Test 09/11/17 10:09 White Blood Count 7.9 Red Blood Count 3.80 Hemoglobin 11.8 Hematocrit 36.8 Mean Corpuscular Volume 96.9 Mean Corpuscular Hemoglobin 31.1 Mean Corpuscular Hemoglobin Concent 32.1 Red Cell Distribution Width 15.7 Platelet Count 255 Mean Platelet Volume 9.0 Neutrophils (%) (Auto) 77.6 Lymphocytes (%) (Auto) 12.1 Monocytes (%) (Auto) 7.0 Eosinophils (%) (Auto) 2.6 Basophils (%) (Auto) 0.7 Neutrophils # (Auto) 6.2 Lymphocytes # (Auto) 1.0 Monocytes # (Auto) 0.6 Eosinophils # (Auto) 0.2 Basophils # (Auto) 0.1 CBC Comment DIFF FINAL Differential Comment Blood Urea Nitrogen 47 Creatinine 7.42 Random Glucose 193 Total Protein 8.5 Albumin 3.7 Calcium Level 9.8 Alkaline Phosphatase 67 Aspartate Amino Transf (AST/SGOT) 17 Alanine Aminotransferase (ALT/SGPT) 23 Total Bilirubin 0.2 Sodium Level 137 Potassium Level 7.3 Chloride Level 102 Carbon Dioxide Level 26.9 Anion Gap 8 Estimat Glomerular Filtration Rate 7 Lipase 1466 (Isa Lawson MD R1) Result Diagram: 09/11/17 1009 09/11/17 1009 Imaging Last 72 hours Impressions Chest X-Ray 09/11/17 0000 Signed Impressions: Service Date/Time: Monday, September 11, 2017 14:19 - CONCLUSION: 1. Cardiomegaly. No acute pulmonary disease. Bentley Aguirre MD (Isa Lawson MD R1) Caprini VTE Risk Assessment Caprini VTE Risk Assessment: Mod/High Risk (score >= 2) Caprini Risk Assessment Model Point Value = 1 Point Value = 2 Point Value = 3 Point Value = 5 Age 41-60 Minor surgery BMI > 25 kg/m2 Swollen legs Varicose veins or History of unexplained or recurrent spontaneous Oral contraceptives or hormone replacement Sepsis (< 1 month) Serious lung disease, including pneumonia (< 1 month) Abnormal pulmonary function Acute myocardial infarction Congestive heart failure (< 1 month) History of inflammatory bowel disease Medical patient at bed rest Age 61-74 Arthroscopic surgery Major open surgery (> 45 min) Laparoscopic surgery (> 45 min) Malignancy Confined to bed (> 72 hours) Immobilizing plaster cast Central venous access Age >= 75 History of VTE Family history of VTE Factor V Leiden Prothrombin [id number] Lupus anticoagulant Anticardiolipin antibodies Elevated serum homocysteine Heparin-induced thrombocytopenia Other congenital or acquired thrombophilia Stroke (< 1 month) Elective arthroplasty Hip, pelvis, or leg fracture Acute spinal cord injury (< 1 month) Prophylaxis Regimen Total Risk Factor Score Risk Level Prophylaxis Regimen 0-1 Low Early ambulation 2 Moderate Order ONE of the following: *Sequential Compression Device (SCD) *Heparin 5000 units SQ BID 3-4 Higher Order ONE of the following medications: *Heparin 5000 units SQ TID *Enoxaparin/Lovenox 40 mg SQ daily (WT < 150 kg, CrCl > 30 mL/min) *Enoxaparin/Lovenox 30 mg SQ daily (WT < 150 kg, CrCl > 10-29 mL/min) *Enoxaparin/Lovenox 30 mg SQ BID (WT < 150 kg, CrCl > 30 mL/min) AND/OR *Sequential Compression Device (SCD) 5 or more Highest Order ONE of the following medications: *Heparin 5000 units SQ TID (Preferred with Epidurals) *Enoxaparin/Lovenox 40 mg SQ daily (WT < 150 kg, CrCl > 30 mL/min) *Enoxaparin/Lovenox 30 mg SQ daily (WT < 150 kg, CrCl > 10-29 mL/min) *Enoxaparin/Lovenox 30 mg SQ BID (WT < 150 kg, CrCl > 30 mL/min) AND *Sequential Compression Device (SCD) (Isa Lawson MD R1) Assessment and Plan Assessment and Plan Patient is a 52 year old female who presents to the ED for evaluation of abdominal pain. She was recently hospitalized for pancreatitis. Lipase, on admission, 1466. Admitted for pain control. Code Status Full code. Discussed Condition With Drs. Duong and Rhea (Isa Lawson MD R1) Attending Attestation Patient seen and examined, discussed with resident team. I agree with assessment and management as documented and discussed with me. Pt admitted for hyperkalemia, pancreatitis/elevated lipase. She has been admitted last month for pancreatitis, and reports that abdominal pain recurred one week after hospital discharge. She also reports concern about cough/cold symptoms. She missed dialysis on Monday due to diarrhea. She reports 4 episodes of watery diarrhea, nonbloody, in the last 24 hours. Appreciate nephrology, GI. (Joycelyn Duong MD) Problem List: (1) Abdominal pain ICD Codes: R10.9 - Abdominal pain Status: Acute Plan: Patient with worsening abdominal pain since last night. Patient recently admitted for treatment of acute pancreatitis. Lipase on 08/26 2381. Lipase on 09/11 1466. Since further decrease in lipase expected, abdominal pain may be due to new bout of acute pancreatitis. Rule out atypical presentation of OR versus gastric ulcer. Orders: * Consult GI: Advanced diet to clear liquids, consider EGD if abdominal pain returns, plan for colonoscopy as outpatient, monitor lipase. Imaging: * CT Abdomen/Pelvis with IV contrast to be completed in conjunction with dialysis. Medications: * NS at 125 ml/hr. * Dilaudid 0.5mg q3hr IV PRN Pain 1-10. * Dilaudid 1mg q3hr IV PRN Breakthrough pain. (2) Pancreatitis ICD Codes: K85.90 - Acute pancreatitis without necrosis or infection, unspecified Status: Acute Plan: * See Plan for Abdominal pain. (3) Cough ICD Codes: R05 - Cough Status: Acute Plan: Patient with two-week history of productive cough, shortness of breath and mild URI symptoms. Patient reports history of asthma. * On admission, afebrile and a WBC of 7.9. * CXR: No acute pulmonary disease. Medications: * Duoneb q4hr. * Albuterol 2.5mg q2hr PRN Shortness of breath. * Tessalon 100mg PO TID PRN Cough. (4) Hyperkalemia ICD Codes: E87.5 - Hyperkalemia Status: Resolved Plan: In ED, patient with K 7.3 but without EKG changes suggesting hyperkalemic effects on the heart. Treated with calcium chloride, dextrose, insulin, Kayexalate, and sodium bicarbonate. Repeat K 6.3. * Patient to receive dialysis today. * Monitor potassium closely. * Repeat CBC in a.m. (5) EKG abnormality ICD Codes: R94.31 - Abnormal electrocardiogram [ECG] [EKG] Plan: Patient with significant cardiovascular history. Rule out ACS. * EKG at 15:30 on day of admission reads WITH SINUS ARRHYTHMIA PROBABLE INFERIOR MYOCARDIAL INFARCTION ABNORMAL ECG Compared to prior electrocardiogram , Possible inferior OR is present. Troponin negative at that time. Patient reevaluated and denies chest pain. * Repeat STAT EKG in addition to EKG q6hr ordered on admission. Repeat STAT Troponin in addition to troponin q6hr ordered on admission. Follow-up. (6) Cardiovascular disease ICD Codes: I25.10 - Atherosclerotic heart disease of [place] coronary artery without angina pectoris Plan: Patient with history of CAD, NSTEMI (preserved EF 09/2010 s/p 3 stents), HTN and hyperlipidemia. * Continue home medications. (7) ESRD (end stage renal disease) on dialysis ICD Codes: N18.6 - End stage renal disease; Z99.2 - Dependence on renal dialysis Plan: Patient with history of ESRD. Chronic kidney disease on HD since 2015. HD schedule: , and Monday, ambulatory analyst Dr. Maldonado. * Consult nephrology. * Dialysis per nephrology. (8) Diabetes mellitus ICD Codes: E11.9 - Type 2 diabetes mellitus without complications Status: Chronic Plan: Patient with history of DM Type II - difficult to control per chart. * Levemir 15 units daily. May consider increase to home regimen after 24hr blood glucose monitoring. * Low dose NovoLOG sliding scale. (9) Fluid, Electrolyte, Nutrition and Prophylaxis Status: Acute Plan: Fluid: * NS at 125 ml/hr. Electrolyte: * See Plan for Hyperkalemia. * Monitor and replete as necessary. Nutrition: * Clear liquid diet per GI. Prophylaxis: * SCDs. * Heparin 5,000units SQ q8hr. (Isa Lawson MD R1) Problem Qualifiers (1) Pancreatitis: Qualified Codes: K85.90 - Acute pancreatitis without necrosis or infection, unspecified Isa Lawson MD R1 Sep 11, 2017 12:55 Joycelyn Duong MD Sep 11, 2017 20:31
[2017-09-11] MEDS ORDERED: SODIUM CHLOR 0.45% 1000 ML INJ 1,000 ML IV SCH (13:00)
[2017-09-11] MEDS ORDERED: LACTATED RINGER'S 1000 ML INJ 1,000 ML IV SCH (13:44)
[2017-09-11] MEDS ORDERED: HYDROmorphone HCL PF 2 MG/ML VIAL IV PUSH PRN ×3 (13:45→14:45)
[2017-09-11] MEDS ORDERED: KETOROLAC TROMETHAMINE 30 MG/ML (IVP) VIAL IVP PRN (13:45)
[2017-09-11] MEDS ORDERED: ONDANSETRON HCL 4 MG/2 ML VIAL IV PUSH PRN ×2 (13:45→15:00)
[2017-09-11] MEDS ORDERED: SODIUM CHLOR 0.9% 1000 ML INJ 1,000 ML IV PRN (14:52)
[2017-09-11] MEDS ORDERED: SODIUM CHLOR 0.9% 1000 ML INJ 1,000 ML OTHER PRN ×2 (14:52)
--- NOTE | 2017-09-11 14:59 | EKG ---
Date Performed: 09/11/2017 Time Performed: 11:50:55 PTAGE: 52 years EKG: Sinus rhythm WITH SINUS ARRHYTHMIA PROBABLE INFERIOR MYOCARDIAL INFARCTION ABNORMAL ECG Compared to prior electro cardiogram, Possible inferior IN is present PREVIOUS TRACING : 06/28/2017 07.11 DOCTOR: Fernando Israel Interpretating Date/Time 09/11/2017 14:57:51
[2017-09-11] MEDS ORDERED: HEPARIN SODIUM - IV 10,000 UNITS/10 ML VIAL PRN (15:00)
[2017-09-11] MEDS: HEPARIN SODIUM - SQ 10,000 UNITS/ML VIAL SQ SCH ×2 (15:00→21:08)
[2017-09-11] MEDS ORDERED: ACETAMINOPHEN 325 MG TAB PO PRN (15:00)
[2017-09-11] MEDS ORDERED: ALBUMIN 25% INJ 100 ML IV PRN (15:00)
[2017-09-11] MEDS ORDERED: cloNIDine HCL 0.1 MG TAB PO PRN (15:00)
[2017-09-11] MEDS ORDERED: GELATIN 12 MM/7 MM FOAM TOP PRN (15:00)
[2017-09-11] MEDS ORDERED: diphenhydrAMINE HCL 25 MG CAP PO PRN (15:00)
[2017-09-11] MEDS ORDERED: GENTAMICIN SULFATE 20 MG/2 ML VIAL OTHER PRN (15:00)
[2017-09-11] MEDS ORDERED: DIATRIZOATE MEGLUM/DIATRIZOATE SOD 9 ML CUP PO ONE (15:00)
[2017-09-11] MEDS ORDERED: MANNITOL 12.5 GM/50 ML VIAL IV PRN (15:00)
[2017-09-11] MEDS ORDERED: NITROGLYCERIN 0.4 MG SL 25 TABS/BTL SL PRN (15:00)
[2017-09-11] MEDS ORDERED: HEPARIN SODIUM - IV 10,000 UNITS/10 ML VIAL IV FLUSH PRN (15:00)
[2017-09-11] MEDS: SODIUM CHLOR 0.9% 1000 ML INJ 1,000 ML IV SCH ×2 (15:04→21:10)
--- NOTE | 2017-09-11 15:05 | PD.CONS ---
HPI History of Present Illness This is a 52 year old female with ESRD on HD, DM, CAD, gastroparesis, recent pancreatitis who presented to ER with abd pain. GI consulted for elevated lipase following recent admit for pancreatitis. Pt endorses severe epigastric pain that started yesterday and worsened throughout the night. Admits some soft stools. Denies n/v, blood in stool, black tarry stool. Denies etoh currently but admits to previously being a drinker. Recently treated for pancreatitis. When asked how much she used to drink she initially says 6-12 beers daily but then amended to say that that was how much she and her friends drank together. She said she drank 2-3 beers plus liquor but could not say how much. Had EGD "long time ago" at hospital in [facility] and can recall no abnormal findings. Never had colonoscopy. (Radha Corey) PFSH Past Medical History ESRD on HD DM CAD recent pancreatitis HTN HLD NSTEMI 2010 Past Surgical History cardiac cath 2010 cholecystectomy (Radha Corey) Coded Allergies: Sulfa (Sulfonamide Antibiotics) (Verified Allergy, Severe, 08/24/17) naproxen (Verified Allergy, Severe, throat closure , 08/24/17) sulfamethoxazole (Verified Allergy, Severe, 08/24/17) trimethoprim (Verified Allergy, Severe, 08/24/17) egg (Verified Allergy, Intermediate, 08/24/17) Hives penicillin G (Verified Allergy, Intermediate, SWELLING AND ITCHING, ) Family History renal dz HTN Social History no etoh currently, formerly heavy drinker smokes 1/2 ppd denies illicit drug use (Radha Corey) Review of Systems Constitutional: COMPLAINS OF: Diaphoretic episodes Endocrine: DENIES: Polydipsia Eyes: DENIES: Blurred vision Ears, nose, mouth, throat: DENIES: Hearing loss Respiratory: DENIES: Cough Cardiovascular: DENIES: Chest pain Gastrointestinal: COMPLAINS OF: Abdominal pain, Diarrhea, DENIES: Black stools , Bloody stools, Nausea, Vomiting Genitourinary: DENIES: Hematuria Musculoskeletal: DENIES: Joint Swelling Integumentary: DENIES: Jaundice Hematologic/lymphatic: DENIES: Bruising Immunologic/allergic: DENIES: Eczema Neurologic: DENIES: Abnormal gait Psychiatric: DENIES: Confusion (Radha Corey) GI Exam Vitals I&O Vital Signs Date Time Temp Pulse Resp B/P (MAP) Pulse Ox O2 Delivery O2 Flow Rate FiO2 09/11/17 14:00 98 21 09/11/17 11:42 108 28 159/81 (107) 100 Room Air 09/11/17 10:27 18 09/11/17 09:48 100 18 183/81 (115) 98 Room Air 09/11/17 09:36 98.5 102 16 196/115 (142) 99 Laboratory Test 09/11/17 10:09 White Blood Count 7.9 TH/MM3 Red Blood Count 3.80 MIL/MM3 Hemoglobin 11.8 GM/DL Hematocrit 36.8 % Mean Corpuscular Volume 96.9 FL Mean Corpuscular Hemoglobin 31.1 PG Mean Corpuscular Hemoglobin Concent 32.1 % Red Cell Distribution Width 15.7 % Platelet Count 255 TH/MM3 Mean Platelet Volume 9.0 FL Neutrophils (%) (Auto) 77.6 % Lymphocytes (%) (Auto) 12.1 % Monocytes (%) (Auto) 7.0 % Eosinophils (%) (Auto) 2.6 % Basophils (%) (Auto) 0.7 % Neutrophils # (Auto) 6.2 TH/MM3 Lymphocytes # (Auto) 1.0 TH/MM3 Monocytes # (Auto) 0.6 TH/MM3 Eosinophils # (Auto) 0.2 TH/MM3 Basophils # (Auto) 0.1 TH/MM3 CBC Comment DIFF FINAL Differential Comment Blood Urea Nitrogen 47 MG/DL Creatinine 7.42 MG/DL Random Glucose 193 MG/DL Total Protein 8.5 GM/DL Albumin 3.7 GM/DL Calcium Level 9.8 MG/DL Alkaline Phosphatase 67 U/L Aspartate Amino Transf (AST/SGOT) 17 U/L Alanine Aminotransferase (ALT/SGPT) 23 U/L Total Bilirubin 0.2 MG/DL Sodium Level 137 MEQ/L Potassium Level 7.3 MEQ/L Chloride Level 102 MEQ/L Carbon Dioxide Level 26.9 MEQ/L Anion Gap 8 MEQ/L Estimat Glomerular Filtration Rate 7 ML/MIN Lipase 1466 U/L Physical Examination HEENT: Pupils round and reactive to light; normocephalic; atraumatic; no jaundice. Throat is clear. NECK: Neck is supple, no JVD, no lymphadenopathy. CHEST: Chest is clear to auscultation and percussion. CARDIAC: Regular rate and rhythm with no murmur gallop or rubs. ABDOMEN: Soft, nondistended, nontender; no hepatosplenomegaly; bowel sounds are present in all four quadrants. EXTREMITIES: No clubbing, cyanosis, or edema. SKIN: Normal; no rash; no jaundice. SHAPER SETTER: No focal deficits; alert and oriented times three. (Radha Corey) Assessment and Plan Plan ASSESSMENT - abd pain, elevated lipase - recently admitted for pancreatitis, lipase is gradually trending down. 08/24/17 was 5000. today it is 1466. CT 08/24 showed no acute findings and normal pancreas. No LFT derangement. pain could be r/t gastroparesis vs chronic pancreatitis CT abd pending but will not be done today b/c pt needs dialysis. currently she is not having abd pain. never had colonoscopy - gastroparesis - per [facility] 09/2016 showing markedly delayed emptying with no response to reglan PLAN - clear liquids - await triglycerides - CT abd tomorrow - when eating, low res diet - consider EGD if pain returns - monitor lipase - outpt colonoscopy - further recs to follow pt seen by myself and Dr Ho and this note is on his behalf (Radha Corey) Plan Patient was seen and examined, agree with above-noted, patient having less abdominal pain, may consider starting clear liquid tomorrow morning, consider EGD if pain persists (Evaristo Ho MD) Radha Corey Sep 11, 2017 15:05 Evaristo Ho MD Sep 11, 2017 19:04
[2017-09-11] MEDS ORDERED: BENZONATATE 100 MG CAP PO PRN (15:15)
[2017-09-11] MEDS ORDERED: RESP: ALBUTEROL 2.5 MG/3 ML NEB (PRN) INH (15:45)
--- NOTE | 2017-09-11 15:50 | RADRPT ---
EXAM DATE/TIME: 09/11/2017 14:19 [place] COMPARISON: No previous studies available for comparison. INDICATIONS : Short of breath. MEDICAL HISTORY : Hypertension. Renal failure. Diabetes. COPD. CAD. Dialysis. SURGICAL HISTORY : Cholecystectomy. Cardiac stent. ENCOUNTER: Subsequent ACUITY: 1 day PAIN SCORE: 0/10 LOCATION: Bilateral chest FINDINGS: The cardiac silhouette is enlarged in transverse diameter. The lungs are free of acute parenchymal op acity. No effusions are identified. A permacath is in place via right internal jugular approach with its tip in the superior vena cava. CONCLUSION: 1. Cardiomegaly. No acute pulmonary disease. Bentley Aguirre MD on September 11, 2017 at 15:47 Board Certified Radiologist. This report was verified electronically.
[2017-09-11] MEDS: RESP: ALBUTEROL 2.5 MG/IPRATROPIUM 0.5 MG NEB (SCH) INH ×3 (16:00→23:13)
--- NOTE | 2017-09-11 17:25 | PD.CONS ---
HPI Service Nephrology Consult Requested By Reason for Consult ESRD Hyperkalemia Primary Care Physician Unknown History of Present Illness 52 year old female with ESRD, Diabetes, Hypertension, obesity, Pancreatitis, states she developed diarrhea and could not go for dialysis Monday, she then developed abdominal pain in Epigastric area with nausea and vomiting, she had a potassium of 7.3 treated in ER hemodialysis is on Monday, and Monday. Review of Systems Constitutional: COMPLAINS OF: Fatigue Gastrointestinal: COMPLAINS OF: Abdominal pain, Nausea, Vomiting Musculoskeletal: COMPLAINS OF: Joint pain Psychiatric: COMPLAINS OF: Anxiety Past Family Social History Allergies: Coded Allergies: Sulfa (Sulfonamide Antibiotics) (Verified Allergy, Severe, 08/24/17) naproxen (Verified Allergy, Severe, throat closure , 08/24/17) sulfamethoxazole (Verified Allergy, Severe, 08/24/17) trimethoprim (Verified Allergy, Severe, 08/24/17) egg (Verified Allergy, Intermediate, 08/24/17) Hives penicillin G (Verified Allergy, Intermediate, SWELLING AND ITCHING, ) Past Medical History ESRD HTN DM Obesity Asthma Pancreatitis Abd pain CAD Past Surgical History GB CARDIAC STENT AVG/ AVF PermCath Reported Medications Reported Meds & Active Scripts Active Protonix (Pantoprazole Sodium) 40 Mg Tab 40 Mg PO DAILY Zofran (Ondansetron HCl) 4 Mg Tab 4 Mg PO Q8HR PRN Carvedilol 25 Mg Tab 25 Mg PO BID Symbicort Inh (Budesonide/Formoterol Fumarate) 80-4.5 Mcg/Act Aero 2 Puff INH Q12HR Zemplar (Paricalcitol) 1 Mcg Cap 1 Mcg PO DAILY Hydralazine HCl 50 Mg Tablet 50 Mg PO BID Atorvastatin (Atorvastatin Calcium) 40 Mg Tab 40 Mg PO HS Amlodipine (Amlodipine Besylate) 5 Mg Tab 5 Mg PO DAILY Reported Calcitriol 0.25 Mcg Cap 0.25 Mcg PO DAILY Levemir Inj (Insulin Detemir) 1,000 unit/ 10 ML Vial 30 Units SQ DAILY Do not mix with any other Insulin. Fluticasone Nasal Murray 50 Mcg/Act Naspr 50 Mcg EACH NARE BID 50 mcg/spray Active Ordered Medications Current Medications Medications (Trade) Dose Ordered Sig/Darion Route Start Time Stop Time Status Last Admin (NS Flush) 2 ml UNSCH PRN IV FLUSH 4/9/18 12:30 (NS Flush) 2 ml BID IV FLUSH 09/11/17 21:00 (Norvasc) 5 mg DAILY PO 09/12/17 09:00 (Lipitor) 40 mg HS PO 09/11/17 21:00 (Symbicort 80-4.5 Mcg Inh) 2 puff Q12HR INH 09/11/17 21:00 (Rocaltrol) 0.25 mcg DAILY PO 09/12/17 09:00 (Coreg) 25 mg BID PO 09/11/17 21:00 (Flonase Eric Spr) 1 spray BID EACH NARE 09/11/17 21:00 (Apresoline) 50 mg BID PO 09/11/17 21:00 (Levemir Inj) 30 units DAILY SQ 09/12/17 09:00 (Protonix) 40 mg DAILY PO 09/12/17 09:00 (Zemplar) 1 mcg DAILY PO 09/12/17 09:00 (Zofran Inj) 4 mg Q6H PRN IV PUSH 09/11/17 13:45 (Heparin Inj) 5,000 units Q8H SQ 09/11/17 15:00 (Dilaudid Pf Inj) 0.5 mg Q3H PRN IV PUSH 09/11/17 14:45 (Dilaudid Pf Inj) 1 mg Q3H PRN IV PUSH 09/11/17 14:45 Sodium Chloride 1,000 ml @ 125 mls/hr Q8H IV 09/11/17 14:49 09/11/17 15:04 Sodium Chloride 1,000 ml @ 0 mls/hr Q0M PRN OTHER 09/11/17 14:52 (Heparin Inj) 8,000 units UNSCH PRN IV FLUSH 09/11/17 15:00 Sodium Chloride 1,000 ml @ 200 mls/hr Q5H PRN IV 09/11/17 14:52 Sodium Chloride 1,000 ml @ 0 mls/hr Q0M PRN OTHER 09/11/17 14:52 (Mannitol Inj) 12.5 gm UNSCH PRN IV 09/11/17 15:00 Albumin Human 100 ml @ 60 mls/hr UNSCH PRN IV 09/11/17 15:00 (NS Flush) 5 ml UNSCH PRN IV FLUSH 09/11/17 15:00 (Heparin Inj) UNSCH PRN .XX 09/11/17 15:00 (Gentamicin Inj) 20 mg UNSCH PRN OTHER 09/11/17 15:00 (Zofran Inj) 4 mg UNSCH PRN IV PUSH 09/11/17 15:00 (Tylenol) 650 mg UNSCH PRN PO 09/11/17 15:00 (Benadryl) 25 mg UNSCH PRN PO 09/11/17 15:00 (Nitrostat Sl) 0.4 mg UNSCH PRN SL 09/11/17 15:00 (Catapres) 0.1 mg UNSCH PRN PO 09/11/17 15:00 (Gelfoam 12 Mm/7 Mm Top) 1 foam UNSCH PRN TOP 09/11/17 15:00 (Tessalon) 100 mg TID PRN PO 09/11/17 15:15 (Duoneb Neb) 1 ampule Q4HR NEB INH 09/11/17 16:00 (Albuterol Neb) 2.5 mg Q2HR NEB PRN INH 09/11/17 15:45 Family History noncontributory Social History denies smoking or ETOH Physical Exam Vital Signs Vital Signs Date Time Temp Pulse Resp B/P (MAP) Pulse Ox O2 Delivery O2 Flow Rate FiO2 09/11/17 15:08 98.0 82 16 139/67 (91) 98 09/11/17 14:59 (107) 21 09/11/17 14:00 98 21 09/11/17 11:42 108 28 159/81 (107) 100 Room Air 09/11/17 10:27 18 09/11/17 09:48 100 18 183/81 (115) 98 Room Air 09/11/17 09:36 98.5 102 16 196/115 (142) 99 Physical Exam GENERAL: Well-nourished, well-developed patient. SKIN: Warm and dry. HEAD: Normocephalic. EYES: No scleral icterus. No injection or drainage. NECK: Supple, trachea midline. No JVD or lymphadenopathy. CARDIOVASCULAR: Regular rate and rhythm without murmurs, gallops, or rubs. RESPIRATORY: Breath sounds equal bilaterally. No accessory muscle use. GASTROINTESTINAL: Abdomen soft,MILD-tender, nondistended. EXTREMITIES: No cyanosis, or edema. NEUROLOGICAL: Awake, alert, and oriented x 3. Non-focal. Laboratory Laboratory Tests Test 09/11/17 10:09 09/11/17 15:30 White Blood Count 7.9 Red Blood Count 3.80 Hemoglobin 11.8 Hematocrit 36.8 Mean Corpuscular Volume 96.9 Mean Corpuscular Hemoglobin 31.1 Mean Corpuscular Hemoglobin Concent 32.1 Red Cell Distribution Width 15.7 Platelet Count 255 Mean Platelet Volume 9.0 Neutrophils (%) (Auto) 77.6 Lymphocytes (%) (Auto) 12.1 Monocytes (%) (Auto) 7.0 Eosinophils (%) (Auto) 2.6 Basophils (%) (Auto) 0.7 Neutrophils # (Auto) 6.2 Lymphocytes # (Auto) 1.0 Monocytes # (Auto) 0.6 Eosinophils # (Auto) 0.2 Basophils # (Auto) 0.1 CBC Comment DIFF FINAL Differential Comment Blood Urea Nitrogen 47 Creatinine 7.42 Random Glucose 193 Total Protein 8.5 Albumin 3.7 Calcium Level 9.8 Alkaline Phosphatase 67 Aspartate Amino Transf (AST/SGOT) 17 Alanine Aminotransferase (ALT/SGPT) 23 Total Bilirubin 0.2 Sodium Level 137 Potassium Level 7.3 Chloride Level 102 Carbon Dioxide Level 26.9 Anion Gap 8 Estimat Glomerular Filtration Rate 7 Lipase 1466 Result Diagram: 09/11/17 1009 09/11/17 1009 Imaging Last Impressions Chest X-Ray 09/11/17 0000 Signed Impressions: Service Date/Time: Monday, September 11, 2017 14:19 - CONCLUSION: 1. Cardiomegaly. No acute pulmonary disease. Bentley Aguirre MD Assessment and Plan Problem List: (1) ESRD (end stage renal disease) ICD Codes: N18.6 - End stage renal disease Status: Chronic Plan: Patient seen during dialysis 1 K bath tolerating it well UF 2 L follow BMP (2) Pancreatitis ICD Codes: K85.90 - Acute pancreatitis without necrosis or infection, unspecified Status: Acute Plan: discussed (3) Hypertension ICD Codes: I10 - Essential (primary) hypertension Status: Chronic Plan: monitor BP (4) Diabetes ICD Codes: E11.9 - Type 2 diabetes mellitus without complications Status: Chronic Problem Qualifiers (1) Pancreatitis: Qualified Codes: K85.90 - Acute pancreatitis without necrosis or infection, unspecified (2) Diabetes: Shantelle Maldonado MD Sep 11, 2017 17:25
[2017-09-11 17:43] LABS: BICARBONATE 29.3 MEQ/L (21.0-32.0); BLOOD UREA NITROGEN 45 MG/DL (7-18); CALCIUM 9.6 MG/DL (8.5-10.1); CHLORIDE 106 MEQ/L (98-107); GLOMERULAR FILTRATION RATE 7 ML/MIN (>89); GLUCOSE,FASTING 113 MG/DL (74-99); GLUCOSE,RANDOM 113 MG/DL (74-106); SODIUM (NA) 140 MEQ/L (136-145); TRIGLYCERIDES 121 MG/DL (42-150); TROPONIN I LESS THAN 0.02 NG/ML (0.02-0.05)
[2017-09-11] MEDS ORDERED: ATORVASTATIN 40 MG TAB PO SCH (21:00)
[2017-09-11] MEDS: INSULIN ASPART SUPPLEMENTAL SCALE SQ SCH (21:00)
[2017-09-11] MEDS: FLUTICASONE PROPIONATE 50 MCG/ACT 16 GM NASAL SPRAY EACH NARE SCH (21:00)
[2017-09-11] MEDS: hydrALAZINE HCL 50 MG TAB PO SCH (21:00)
[2017-09-11] MEDS: SODIUM CHLORIDE 0.9% FLUSH 10 ML FLUSH IV FLUSH SCH (21:08)
[2017-09-11] MEDS: BUDESONIDE-FORMOTEROL 80/4.5 MCG INHALER INH SCH (21:10)
[2017-09-11 22:11] LABS: HEMOGLOBIN A1C 7.8 % (4.3-6.0)
[2017-09-11] MEDS: CARVEDILOL 12.5 MG TAB PO SCH (22:29)
[2017-09-12] VITALS (8 sets, daily range): BP systolic 103–127; BP diastolic 56–65; PULSE 72–91; RESP 18–20; TEMP 98.2–98.7; O2SAT 95–99
[2017-09-12] MEDS: RESP: ALBUTEROL 2.5 MG/IPRATROPIUM 0.5 MG NEB (SCH) INH ×3 (03:38→12:00)
--- NOTE | 2017-09-12 04:49 | EKG ---
Date Performed: 09/11/2017 Time Performed: 18:42:56 PTAGE: 52 years EKG: Sinus rhythm NORMAL ECG Compared to prior electrocardiogram, Nonspecific T wave changes no longer present. PREVIOUS TRACING : 09/11/2017 11.50 DOCTOR: Fernando Israel Interpretating Date/Time 09/12/2017 04:49:33
[2017-09-12] MEDS: SODIUM CHLOR 0.9% 1000 ML INJ 1,000 ML IV SCH ×2 (05:10→14:49)
[2017-09-12] MEDS: HEPARIN SODIUM - SQ 10,000 UNITS/ML VIAL SQ SCH ×2 (06:11→15:05)
[2017-09-12 06:55] LABS: AUTOMATED NEUTROPHIL # 5.4 TH/MM3 (1.8-7.7); BASOPHIL # 0.1 TH/MM3 (0-0.2); BASOPHIL % 0.9 % (0.0-2.0); EOSINOPHIL # 0.2 TH/MM3 (0-0.4); EOSINOPHIL % 3.1 % (0.0-4.0); HEMATOCRIT 35.6 % (35.0-46.0); HEMOGLOBIN 11.4 GM/DL (11.6-15.3); LYMPH % 12.6 % (9.0-44.0); LYMPHOCYTE # 0.9 TH/MM3 (1.0-4.8); MEAN CELL VOLUME 96.7 FL (80.0-100.0); MEAN CORPUSCULAR HEMOGLOBIN 30.9 PG (27.0-34.0); MONO % 7.5 % (0.0-8.0); MONOCYTE # 0.5 TH/MM3 (0-0.9); NEUT % 75.9 % (16.0-70.0); PLATELET COUNT 262 TH/MM3 (150-450); RED BLOOD COUNT 3.68 MIL/MM3 (4.00-5.30); RED CELL DISTRIBUTION WIDTH 15.4 % (11.6-17.2); WHITE BLOOD COUNT 7.1 TH/MM3 (4.0-11.0)
[2017-09-12 07:33] LABS: BICARBONATE 30.6 MEQ/L (21.0-32.0); BLOOD UREA NITROGEN 33 MG/DL (7-18); CALCIUM 8.7 MG/DL (8.5-10.1); CHLORIDE 101 MEQ/L (98-107); CREATININE 6.56 MG/DL (0.50-1.00); GLOMERULAR FILTRATION RATE 8 ML/MIN (>89); GLUCOSE,RANDOM 142 MG/DL (74-106); SODIUM (NA) 137 MEQ/L (136-145)
[2017-09-12 07:39] LABS: TROPONIN I LESS THAN 0.02 NG/ML (0.02-0.05)
--- NOTE | 2017-09-12 07:56 | EKG ---
Date Performed: 09/12/2017 Time Performed: 04:37:52 PTAGE: 52 years EKG: Baseline artifact present Sinus rhythm NORMAL ECG No significant change from prior electrocardiogram. PREVIOUS TRACING : 09/11/2017 21.46 DOCTOR: Fernando Israel Interpretating Date/Time 09/12/2017 07:56:16
[2017-09-12] MEDS: INSULIN ASPART SUPPLEMENTAL SCALE SQ SCH ×2 (08:00→12:00)
--- NOTE | 2017-09-12 08:06 | EKG ---
Date Performed: 09/11/2017 Time Performed: 21:46:03 PTAGE: 52 years EKG: Sinus rhythm NORMAL ECG No significant change from prior electrocardiogram. PREVIOUS TRACING : 09/11/2017 18.42 DOCTOR: Fernando Israel Interpretating Date/Time 09/12/2017 08:05:09
[2017-09-12] MEDS: CARVEDILOL 12.5 MG TAB PO SCH (08:40)
[2017-09-12] MEDS: hydrALAZINE HCL 50 MG TAB PO SCH (08:40)
[2017-09-12] MEDS ORDERED: DIATRIZOATE MEGLUM/DIATRIZOATE SOD 9 ML CUP PO ONE (08:42)
[2017-09-12] MEDS: BUDESONIDE-FORMOTEROL 80/4.5 MCG INHALER INH SCH (08:42)
[2017-09-12] MEDS: SODIUM CHLORIDE 0.9% FLUSH 10 ML FLUSH IV FLUSH SCH (08:42)
[2017-09-12] MEDS: FLUTICASONE PROPIONATE 50 MCG/ACT 16 GM NASAL SPRAY EACH NARE SCH (08:42)
[2017-09-12] MEDS ORDERED: CALCITRIOL 0.25 MCG CAP PO SCH (09:00)
[2017-09-12] MEDS ORDERED: PARICALCITOL 1 MCG CAP PO SCH (09:00)
[2017-09-12] MEDS ORDERED: INSULIN DETEMIR 100 UNITS/ML VIAL SQ SCH ×3 (09:00→21:00)
[2017-09-12] MEDS ORDERED: amLODIPine BESYLATE 5 MG TAB PO SCH (09:00)
[2017-09-12] MEDS ORDERED: PANTOPRAZOLE SOD 40 MG DELAYED RELEASE TAB PO SCH (09:00)
--- NOTE | 2017-09-12 10:05 | HHI.GIFU ---
Subjective Remarks Pt resting in bed. Going for HD again today. Says her abd pain is improved, denies any pain. Tolerating clears. (Radha Corey) Objective Vitals I&O Vital Signs Date Time Temp Pulse Resp B/P (MAP) Pulse Ox O2 Delivery O2 Flow Rate FiO2 09/12/17 08:11 99 21 09/12/17 07:22 98.2 91 20 127/56 (79) 97 09/12/17 07:02 72 09/12/17 04:30 98.7 77 18 121/64 (83) 96 09/12/17 04:06 89 09/12/17 00:54 98.7 76 18 103/65 (78) 95 09/11/17 23:56 85 09/11/17 21:39 99.0 98 18 107/61 (76) 99 09/11/17 20:05 96 09/11/17 20:03 97 09/11/17 19:01 95 09/11/17 15:08 98.0 82 16 139/67 (91) 98 09/11/17 14:59 (107) 21 09/11/17 14:00 98 21 09/11/17 11:42 108 28 159/81 (107) 100 Room Air 09/11/17 10:27 18 I/O 09/11/17 09/11/17 09/11/17 09/12/17 09/12/17 09/12/17 07:00 15:00 23:00 07:00 15:00 23:00 Intake Total 1500 ml Output Total 2000 ml Balance -2000 ml 1500 ml Intake Oral 500 ml IV Total 1000 ml Peritoneal Fluid 0 ml Hemodialysis 2000 ml # Voids 3 # Bowel Movements 2 Laboratory Laboratory Tests Test 09/11/17 10:09 09/11/17 15:30 09/11/17 23:11 09/12/17 06:26 White Blood Count 7.9 7.1 Red Blood Count 3.80 3.68 Hemoglobin 11.8 11.4 Hematocrit 36.8 35.6 Mean Corpuscular Volume 96.9 96.7 Mean Corpuscular Hemoglobin 31.1 30.9 Mean Corpuscular Hemoglobin Concent 32.1 32.0 Red Cell Distribution Width 15.7 15.4 Platelet Count 255 262 Mean Platelet Volume 9.0 9.0 Neutrophils (%) (Auto) 77.6 75.9 Lymphocytes (%) (Auto) 12.1 12.6 Monocytes (%) (Auto) 7.0 7.5 Eosinophils (%) (Auto) 2.6 3.1 Basophils (%) (Auto) 0.7 0.9 Neutrophils # (Auto) 6.2 5.4 Lymphocytes # (Auto) 1.0 0.9 Monocytes # (Auto) 0.6 0.5 Eosinophils # (Auto) 0.2 0.2 Basophils # (Auto) 0.1 0.1 CBC Comment DIFF FINAL DIFF FINAL Differential Comment Blood Urea Nitrogen 47 45 33 Creatinine 7.42 7.30 6.56 Random Glucose 193 113 142 Total Protein 8.5 Albumin 3.7 Calcium Level 9.8 9.6 8.7 Alkaline Phosphatase 67 Aspartate Amino Transf (AST/SGOT) 17 Alanine Aminotransferase (ALT/SGPT) 23 Total Bilirubin 0.2 Sodium Level 137 140 137 Potassium Level 7.3 6.3 6.0 Chloride Level 102 106 101 Carbon Dioxide Level 26.9 29.3 30.6 Anion Gap 8 5 5 Estimat Glomerular Filtration Rate 7 7 8 Lipase 1466 530 Fasting Glucose 113 Hemoglobin A1c 7.8 Troponin I LESS THAN 0.02 LESS THAN 0.02 LESS THAN 0.02 Triglycerides Level 121 Imaging Last Impressions Chest X-Ray 09/11/17 0000 Signed Impressions: Service Date/Time: Monday, September 11, 2017 14:19 - CONCLUSION: 1. Cardiomegaly. No acute pulmonary disease. Bentley Aguirre MD Physical Exam HEENT: PERRL; normocephalic; atraumatic; no jaundice. CHEST: CTA CARDIAC: RRR ABDOMEN: Soft, obese, nontender; no hepatosplenomegaly; bowel sounds are present in all four quadrants. EXTREMITIES: No clubbing, cyanosis, or edema. SKIN: Normal; no rash; no jaundice. BLANKET CUTTER HAND: No focal deficits; alert and oriented times three. (Radha Corey) Assessment and Plan Plan ASSESSMENT - abd pain, elevated lipase - recently admitted for pancreatitis, lipase is gradually trending down. 08/24/17 was 5000. today it is 1466. CT 08/24 showed no acute findings and normal pancreas. No LFT derangement. pain could be r/t gastroparesis vs chronic pancreatitis CT abd pending but will not be done today b/c pt needs dialysis. currently she is not having abd pain. never had colonoscopy - gastroparesis - per [facility] 09/2016 showing markedly delayed emptying with no response to reglan 09/12/17 CT still pending, will be done tomorrow since pt getting HD again today. pain improved. lipase down to 500 and she is tolerating clears triglycerides WNL. d/w Dr Bradford, poss d/c today as pt is doing much better PLAN - advance diet as tolerated - await CT abd tomorrow - when eating solids, low res diet - consider EGD as outpt - outpt colonoscopy - f/u with GI after d/c - ok to d/c when tolerating regular diet pt seen by myself and Dr Ho and this note is on his behalf (Radha Corey) Plan Chart review, CT scan was not done today, patient doing well and tolerating diet , going home today, follow-up as an outpatient (Evaristo Ho MD) Radha Corey Sep 12, 2017 10:05 Evaristo Ho MD Sep 12, 2017 19:17
--- NOTE | 2017-09-12 11:53 | HHI.NPPN ---
Subjective History of Present Illness 52 year old with abdominal pain hyperkalemia HTN Additional Remarks c/o cough Review of Systems Respiratory Lungs: Cough Objective Data Data Vital Signs Date Time Temp Pulse Resp B/P (MAP) Pulse Ox O2 Delivery O2 Flow Rate FiO2 09/12/17 08:11 99 21 09/12/17 07:22 98.2 91 20 127/56 (79) 97 09/12/17 07:02 72 09/12/17 04:30 98.7 77 18 121/64 (83) 96 09/12/17 04:06 89 09/12/17 00:54 98.7 76 18 103/65 (78) 95 09/11/17 23:56 85 09/11/17 21:39 99.0 98 18 107/61 (76) 99 09/11/17 20:05 96 09/11/17 20:03 97 09/11/17 19:01 95 09/11/17 15:08 98.0 82 16 139/67 (91) 98 09/11/17 14:59 (107) 21 09/11/17 14:00 98 21 -: 09/12/17 0626 09/12/17 0626 Physical Exam General Appearance: Well Developed, Well Nourished Neck Neck Exam: Neck Supple Pulmonary Resp Exam: Clear Bilaterally, Breath Sounds Equal Cardiology CV Exam: Regular, Normal Sinus Rhythm Gastrointestinal/Abdomen GI Exam: Soft, Non-Tender, Bowel Sounds Present Extremeties Extremities Exam: No Edema Neurologic Neuro Exam: Alert Assessment/Plan Problem List: (1) ESRD (end stage renal disease) ICD Codes: N18.6 - End stage renal disease Status: Chronic Plan: Patient seen during dialysis 1 K bath tolerating it well UF 0.5-0.6L follow BMP (2) Pancreatitis ICD Codes: K85.90 - Acute pancreatitis without necrosis or infection, unspecified Status: Acute Plan: discussed (3) Hypertension ICD Codes: I10 - Essential (primary) hypertension Status: Chronic Plan: monitor BP (4) Diabetes ICD Codes: E11.9 - Type 2 diabetes mellitus without complications Status: Chronic Problem Qualifiers (1) Pancreatitis: Qualified Codes: K85.90 - Acute pancreatitis without necrosis or infection, unspecified (2) Diabetes: Shantelle Maldonado MD Sep 12, 2017 11:53
[2017-09-12] MEDS ORDERED: SODIUM POLYSTYRENE SULFONATE SUSP 15 GM/60 ML CUP PO ONE (12:15)
--- NOTE | 2017-09-12 12:27 | HHI.FPPN ---
Subjective Remarks Patient seen and examined bedside this morning. Patient is getting dialysis treatment. She denies any further nausea or vomiting. She denies any further abdominal pain. She states that she is hungry. She denies any chest pain/RS breath/dizziness. (Rosita Wilkerson MD R2) Objective Vitals Vital Signs Date Time Temp Pulse Resp B/P (MAP) Pulse Ox O2 Delivery O2 Flow Rate FiO2 09/12/17 11:42 99 Nasal Cannula 2.00 09/12/17 08:11 99 21 09/12/17 07:22 98.2 91 20 127/56 (79) 97 09/12/17 07:02 72 09/12/17 04:30 98.7 77 18 121/64 (83) 96 09/12/17 04:06 89 09/12/17 00:54 98.7 76 18 103/65 (78) 95 09/11/17 23:56 85 09/11/17 21:39 99.0 98 18 107/61 (76) 99 09/11/17 20:05 96 09/11/17 20:03 97 09/11/17 19:01 95 09/11/17 15:08 98.0 82 16 139/67 (91) 98 09/11/17 14:59 (107) 21 09/11/17 14:00 98 21 I/O 09/11/17 09/11/17 09/11/17 09/12/17 09/12/17 09/12/17 07:00 15:00 23:00 07:00 15:00 23:00 Intake Total 1500 ml Output Total 2000 ml Balance -2000 ml 1500 ml Intake Oral 500 ml IV Total 1000 ml Peritoneal Fluid 0 ml Hemodialysis 2000 ml # Voids 3 # Bowel Movements 2 (Rosita Wilkerson MD R2) Result Diagram: 09/12/1762509/12/17625 Objective Remarks GENERAL: No acute distress, lying in dialysis patent SKIN: Warm and dry. HEAD: Normocephalic. EYES: No scleral icterus. No injection or drainage. NECK: Supple, trachea midline. No JVD or lymphadenopathy. CARDIOVASCULAR: Regular rate and rhythm without murmurs, gallops, or rubs. RESPIRATORY: Breath sounds equal bilaterally. No accessory muscle use. GASTROINTESTINAL: Abdomen soft, non-tender, nondistended. Moderate pain on palpation of epigastric area. No peritoneal signs. No guarding. MUSCULOSKELETAL: No cyanosis, or edema. BACK: Nontender without obvious deformity. No CVA tenderness. (Rosita Wilkerson MD R2) A/P Assessment and Plan Patient is a 52 year old female who presents to the ED for evaluation of abdominal pain. She was recently hospitalized for pancreatitis. Lipase, on admission, 1466. Admitted for pain control. Discharge Planning Discharge is pending GI clearance and ability to take by mouth food. (Rosita Wilkerson MD R2) Attending Attestation Patient seen and examined, discussed with resident team. I agree with assessment and management as documented and discussed with me. Pt is seen with team in dialysis. She is feeling better and feels ready for discharge. Recheck K+ in afternoon, and then anticipate discharge if improved. (Joycelyn Duong MD) Problem List: (1) Abdominal pain ICD Codes: R10.9 - Abdominal pain Status: Acute Plan: Lipase on 08/26 2381. Lipase on 09/11 1466. Since further decrease in lipase expected, abdominal pain may be due to new bout of acute pancreatitis versus chronic pancreatitis versus gastritis versus intestinal ulcer. Orders: * Consult GI: Plan for CT abdomen tomorrow, okay for by mouth, consider EGD if pain returns, outpatient colonoscopy Imaging: Will consider canceling CT abdomen due to clinical improvement, f/u with GI for clearance Medications: - Pt not requesting pain medications (2) Pancreatitis ICD Codes: K85.90 - Acute pancreatitis without necrosis or infection, unspecified Status: Acute Plan: * See Plan for Abdominal pain. (3) Cough ICD Codes: R05 - Cough Status: Resolved Plan: Patient with two-week history of productive cough, shortness of breath and mild URI symptoms. Patient reports history of asthma. * On admission, afebrile and a WBC normal * CXR: No acute pulmonary disease. Medications: * Duoneb q4hr. * Albuterol 2.5mg q2hr PRN Shortness of breath. * Tessalon 100mg PO TID PRN Cough. (4) Hyperkalemia ICD Codes: E87.5 - Hyperkalemia Status: Resolved Plan: In ED, patient with K 7.3 but without EKG changes suggesting hyperkalemic effects on the heart. Treated with calcium chloride, dextrose, insulin, Kayexalate, and sodium bicarbonate. Repeat K 6.3. * Patient to receive dialysis * Monitor potassium closely. * Repeat BMP at 1PM s/p dialysis * Continue Albuterol nebs * Continue Levemir (home regimen) 30U SQ daily and ISS * Add Kayexalate 30g PO x 1 now In ED on 09/11: s/p sodium bicarbonate 25 mEq IV 2 s/p Kayexalate 301 s/p Novalin Regular 10 units IV 1 s/p D50 IV x 1 s/p CaCl 1g IV x 1 (5) EKG abnormality ICD Codes: R94.31 - Abnormal electrocardiogram [ECG] [EKG] Plan: Patient with significant cardiovascular history. Rule out ACS. * EKG's reviewed and WNL, troponin negative x 3 (6) Cardiovascular disease ICD Codes: I25.10 - Atherosclerotic heart disease of [place] coronary artery without angina pectoris Status: Resolved Plan: Patient with history of CAD, NSTEMI (preserved EF 09/2010 s/p 3 stents), HTN and hyperlipidemia. * Continue home medications. (7) ESRD (end stage renal disease) on dialysis ICD Codes: N18.6 - End stage renal disease; Z99.2 - Dependence on renal dialysis Status: Chronic Plan: Patient with history of ESRD. Chronic kidney disease on HD since 2015. 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 Maldonado. * Consult nephrology. * Dialysis per nephrology. (8) Diabetes mellitus ICD Codes: E11.9 - Type 2 diabetes mellitus without complications Status: Chronic Plan: Patient with history of DM Type II - difficult to control per chart. * Continue home Levemir 30 SQ daily. * Low dose NovoLOG sliding scale. (9) Fluid, Electrolyte, Nutrition and Prophylaxis Status: Acute Plan: Fluid: * NS at 125 ml/hr. Electrolyte: * See Plan for Hyperkalemia. * Monitor and replete as necessary. Nutrition: * Advance to PO renal diet Prophylaxis: * SCDs. * Heparin 5,000units SQ q8hr. (Rosita Wilkerson MD R2) Problem Qualifiers (1) Pancreatitis: Qualified Codes: K85.90 - Acute pancreatitis without necrosis or infection, unspecified Rosita Wilkerson MD R2 Sep 12, 2017 12:27 Joycelyn Duong MD Sep 13, 2017 12:34
--- NOTE | 2017-09-12 14:26 | HHI.DCPOC ---
Discharge Care Plan Diagnosis: (1) Pancreatitis (2) Chronic pancreatitis (3) ESRD (end stage renal disease) on dialysis Goals to Promote Your Health * To prevent worsening of your condition and complications * To maintain your health at the optimal level Directions to Meet Your Goals Take your medications as prescribed Follow your dietary instruction Follow activity as directed Keep your appointments as scheduled Take your immunizations and boosters as scheduled If your symptoms worsen call your PCP, if no PCP go to Urgent Care Center or Emergency Room Smoking is Dangerous to Your Health. Avoid second hand smoke Call the 24-hour hour crisis hotline for domestic abuse at Rosita Wilkerson MD R2 Sep 12, 2017 14:26
[2017-09-12 17:52] LABS: BICARBONATE 32.7 MEQ/L (21.0-32.0); BLOOD UREA NITROGEN 17 MG/DL (7-18); CALCIUM 8.2 MG/DL (8.5-10.1); CHLORIDE 102 MEQ/L (98-107); GLOMERULAR FILTRATION RATE 12 ML/MIN (>89); GLUCOSE,RANDOM 177 MG/DL (74-106); SODIUM (NA) 139 MEQ/L (136-145); TROPONIN I LESS THAN 0.02 NG/ML (0.02-0.05)
--- NOTE | 2017-09-13 08:30 | ECHRPT ---
Indication: CHF CONCLUSIONS Normal left ventricular size. Mild concentric left ventricular hypertrophy. The left ventricular systolic function is normal with an estimated ejection fraction in the range of 60-65%. No regional wall motion abnormalities are present. There is a small pericardial effusion present. No echocardiographic evidence for tamponade physiol ogy. BP: 127 / 56 HR: 91 Rhythm: Sinus MEASUREMENTS (Male / Female) Normal Values Technical Quality:Technically difficult study 2D ECHO LV Diastolic Diameter PLAX 4.8 cm 4.2 - 5.9 / 3.9 - 5.3 cm LV Systolic Diameter PLAX 3.4 cm IVS Diastolic Thickness 1.1 cm 0.6 - 1.0 / 0.6 - 0.9 cm LVPW Diastolic Thickness 1.3 cm 0.6 - 1.0 / 0.6 - 0.9 cm LV Relative Wall Thickness 0.5 RV Internal Dim ED PLAX 2.4 cm LA Systolic Diameter LX 3.4 cm 3.0 - 4.0 / 2.7 - 3.8 cm FINDINGS LEFT VENTRICLE Normal left ventricular size. Mild concentric left ventricular hypertrophy. The left ventricular systolic function is normal with an estimated ejection fraction in the range of 60-65%. No regional wall motion abnormalities are present. RIGHT VENTRICLE Normal right ventricular size and systolic function. LEFT ATRIUM The left atrial size is normal. RIGHT ATRIUM The right atrial size is normal. ATRIAL SEPTUM Normal atrial septal thickness without atrial level shunting by limited color doppler interrogation. AORTA The aortic root and proximal ascending aorta are normal in size on limited imaging. MITRAL VALVE Structurally normal mitral valve. No mitral valve stenosis or regurgitation. AORTIC VALVE Trileaflet aortic valve. No aortic valve stenosis or regurgitation. TRICUSPID VALVE Structurally normal tricuspid valve. No tricuspid valve stenosis or regurgitation. PULMONARY VALVE The pulmonary valve is not well visualized. VESSELS The inferior vena cava is normal in size. PERICARDIUM There is a small pericardial effusion present. No echocardiographic evidence for tamponade physiol ogy. José Miguel Cheatham MD (Electronically Signed) Final Date:13 September 2017 08:29
== END 2017-09-12 18:46 | disposition home or self-care (01) ==
LOC: NEPC 09:32 → NEDA 11:43 → INTOOBSV 11:43 → NEPGCP 14:57
PROVIDERS: ADMIT Family Medicine; ATTEND Family Medicine
DX: R10.9 Unspecified abdominal pain (principal); K85.90 Acute pancreatitis without necrosis or infection, unspecified; R05 Cough; E87.5 Hyperkalemia; R06.02 Shortness of breath; R19.7 Diarrhea, unspecified; R94.31 Abnormal electrocardiogram [ECG] [EKG]; I25.10 Atherosclerotic heart disease of native coronary artery without angina pectoris; I25.2 Old myocardial infarction; I12.0 Hypertensive chronic kidney disease with stage 5 chronic kidney disease or end stage renal disease; E11.22 Type 2 diabetes mellitus with diabetic chronic kidney disease; N18.6 End stage renal disease; E11.43 Type 2 diabetes mellitus with diabetic autonomic (poly)neuropathy; K31.84 Gastroparesis; E78.00 Pure hypercholesterolemia, unspecified; J44.9 Chronic obstructive pulmonary disease, unspecified; K86.1 Other chronic pancreatitis; G89.29 Other chronic pain; J30.9 Allergic rhinitis, unspecified; M19.90 Unspecified osteoarthritis, unspecified site; F17.200 Nicotine dependence, unspecified, uncomplicated; E66.9 Obesity, unspecified; Z79.899 Other long term (current) drug therapy; Z99.2 Dependence on renal dialysis; Z95.5 Presence of coronary angioplasty implant and graft
CPT/HCPCS: 71046; 80048; 80053; 82947; 82948; 83036; 83690; 84478; 84484; 85025; 90935; 93005; 93308; 94150; 94640; 94667; 94668; 96361; 96374; 96375; 99291; G0257; G0378; J1815; J2270; J2405; J7030; J7613

== ENCOUNTER 2018-05-24 20:29 | Inpatient (IN) ==
--- NOTE | 2018-05-24 21:39 | ED ---
HPI General Chief complaint: Abdominal Pain Stated complaint: abd pain Time Seen by Provider: 05/24/18 21:20 Source: patient Mode of arrival: ambulatory Limitations: no limitations History of Present Illness HPI narrative: 53yo F with PMH of ESRD who had hemodialysis today here with c/o persistent epigastric abdominal pain, nausea, and vomiting since yesterday. Pt also said she has generalized weakness. She was just evaluated here yesterday and had CT a/p that showed thickening of wall of jejunum as well as distended debris filled stomach raising possibility of gastric outlet obstruction. Pt had tolerated PO yesterday but said she vomited after being discharge. She did not follow up with GI today. Denies any chest pain, sob, focal weakness or numbness. Dr. Maldonado is her neprhologist. Related Data Home Medications Medication Instructions Recorded Confirmed aspirin 81 mg PO DAILY 04/04/18 05/24/18 atorvastatin 40 mg PO DAILY 04/04/18 05/24/18 calcium acetate 667 mg PO TID 04/04/18 05/24/18 carvedilol [Coreg] 12.5 mg PO BID 04/04/18 05/24/18 hydralazine 25 mg PO BID 04/04/18 05/24/18 insulin detemir U-100 [Levemir 30 unit SUBCUT DAILY 04/04/18 05/24/18 U-100 Insulin] lisinopril 20 mg PO DAILY 04/04/18 05/24/18 metoclopramide HCl [Reglan] 10 mg PO TID 04/04/18 05/24/18 nifedipine 30 mg PO DAILY 04/04/18 05/24/18 pantoprazole 40 mg PO DAILY 04/04/18 05/24/18 paricalcitol 1 mcg PO DAILY 04/13/18 05/24/18 Previous Rx's Medication Instructions Recorded tramadol 100 mg PO BID PRN #12 tab 04/13/18 ranitidine HCl 150 mg PO BID #14 cap 05/23/18 Allergies Allergy/AdvReac Type Severity Reaction Status Date / Time naproxen Allergy Severe throat Verified 05/24/18 20:52 closure Sulfa (Sulfonamide Allergy Severe Hives Verified 05/24/18 20:52 Antibiotics) sulfamethoxazole Allergy Severe Hives Verified 05/24/18 20:52 trimethoprim Allergy Severe Hives Verified 05/24/18 20:52 egg Allergy Intermediate Vomiting Verified 05/24/18 20:52 penicillin G Allergy Intermediate SWELLING Verified 05/24/18 20:52 AND ITCHING tape AdvReac Rash Uncoded 05/24/18 20:52 Review of Systems ROS: all other systems reviewed are negative [facility] Social History Social History Substance History: No History of Abuse Second Hand Smoke Exposure: No Smoking Status: Current some day smoker Tobacco Type: Cigarettes How Often Do You Have a Drink Containing Alcohol: Never Recent Travel in [facility] within the Last 8 Weeks: No Recent Out of Country Travel within the Last 8 Weeks: No Immunization History Tetanus Immunization: <5 Years Exam Narrative Exam Narrative: GENERAL: 53yo F not in distress. SKIN: Focused skin assessment warm/dry. HEAD: Atraumatic. Normocephalic. EYES: Pupils equal and round. No scleral icterus. No injection or drainage. ENT: No nasal bleeding or discharge. Mucous membranes pink and moist. NECK: Trachea midline. No JVD. CARDIOVASCULAR: Regular rate and rhythm. No murmur appreciated. RESPIRATORY: No accessory muscle use. Clear to auscultation. Breath sounds equal bilaterally. GASTROINTESTINAL: Abdomen soft, mild ttp epigastric region. No rebound tenderness or guarding. MUSCULOSKELETAL: No obvious deformities. No clubbing. No cyanosis. No edema. NEUROLOGICAL: Awake and alert. No obvious cranial nerve deficits. Motor grossly within normal limits in all extremities. Sensation intact. Normal speech. PSYCHIATRIC: Appropriate mood and affect; insight and judgment normal. Course Initial Documented Vital Signs Temperature 99.2 F 05/24/18 20:41 Pulse Rate 83 05/24/18 20:41 Respiratory Rate 18 05/24/18 20:41 Blood Pressure 122/68 05/24/18 20:41 Pulse Oximetry 95 05/24/18 20:41 Last Documented Vital Signs Temperature 98.3 F 05/25/18 15:59 Pulse Rate 75 05/25/18 15:59 Respiratory Rate 17 05/25/18 15:59 Blood Pressure 144/70 H 05/25/18 15:59 Pulse Oximetry 96 05/25/18 15:59 Medical Decision Making [facility] Narrative Medical decision making narrative: 53yo F with persistent nausea and vomiting as well as epigastric abdominal pain. She was just here yesterday but return with worsening symptoms. Labs reviewed, no leukocytosis. H/H normal. BUN/ creatinine elevated but pt with ESRD. Lipase normal. Pt given zofran and GI cocktail but vomited in the ED. Given she may have possible gastric outlet obstruction from CT yesterday and is a return visit, will admit her for observation. Discussed with Dr. Pierre and accepted to her service. Medical Screen Exam Complete: Yes Emergency Medical Condition: Yes Lab Data Result diagrams: 05/24/18 21:50 05/24/18 21:50 Lab Results 05/24/18 05/24/18 05/25/18 Range/Units 21:50 21:50 07:52 WBC 8.5 (4.0-11.0) th/mm3 RBC 3.69 L (4.00-5.30) mil/mm3 Hgb 12.2 (11.6-15.3) gm/dL Hct 35.9 (35.0-46.0) % MCV 97.3 (80.0-100.0) fL MCH 33.0 (27.0-34.0) pg MCHC 33.9 (32.0-36.0) % RDW 14.6 (11.6-17.2) % Plt Count 283 (150-450) th/mm3 MPV 9.1 (7.0-11.0) fL Neut % (Auto) 81.6 H (16.0-70.0) % Lymph % (Auto) 7.0 L (9.0-44.0) % [place] % (Auto) 8.8 H (0.0-8.0) % Eos % (Auto) 1.6 (0.0-4.0) % Baso % (Auto) 1.0 (0.0-2.0) % Neut # (Auto) 7.0 (1.8-7.7) th/mm3 Lymph # (Auto) 0.6 L (1.0-4.8) th/mm3 [place] # (Auto) 0.8 (0.0-0.9) th/mm3 Eos # (Auto) 0.1 (0.0-0.4) th/mm3 Baso # (Auto) 0.1 (0.0-0.2) th/mm3 WBC Differential . Differential Comment Auto diff final Sodium 134 L (136-145) meq/L Potassium 4.4 (3.5-5.1) meq/L Chloride 97 L (98-107) meq/L Carbon Dioxide 26.7 (21.0-32.0) meq/L Anion Gap 10 (5-15) meq/L BUN 24 H (7-18) mg/dL Creatinine 5.24 H (0.50-1.00) mg/dL Estimated GFR 10 L (>89) mL/min POC Glucose 143 H (68-110) mg/dl Random Glucose 127 H (74-106) mg/dL Calcium 9.5 (8.5-10.1) mg/dL Total Bilirubin 0.4 (0.2-1.0) mg/dL AST 14 L (15-37) U/L ALT 15 (10-53) U/L Alkaline Phosphatase 80 (45-117) U/L Total Protein 9.4 H D (6.4-8.2) g/dL Albumin 3.9 (3.4-5.0) g/dL Lipase 313 (73-393) U/L 05/25/18 Range/Units 13:24 WBC (4.0-11.0) th/mm3 RBC (4.00-5.30) mil/mm3 Hgb (11.6-15.3) gm/dL Hct (35.0-46.0) % MCV (80.0-100.0) fL MCH (27.0-34.0) pg MCHC (32.0-36.0) % RDW (11.6-17.2) % Plt Count (150-450) th/mm3 MPV (7.0-11.0) fL Neut % (Auto) (16.0-70.0) % Lymph % (Auto) (9.0-44.0) % [place] % (Auto) (0.0-8.0) % Eos % (Auto) (0.0-4.0) % Baso % (Auto) (0.0-2.0) % Neut # (Auto) (1.8-7.7) th/mm3 Lymph # (Auto) (1.0-4.8) th/mm3 [place] # (Auto) (0.0-0.9) th/mm3 Eos # (Auto) (0.0-0.4) th/mm3 Baso # (Auto) (0.0-0.2) th/mm3 WBC Differential Differential Comment Sodium (136-145) meq/L Potassium (3.5-5.1) meq/L Chloride (98-107) meq/L Carbon Dioxide (21.0-32.0) meq/L Anion Gap (5-15) meq/L BUN (7-18) mg/dL Creatinine (0.50-1.00) mg/dL Estimated GFR (>89) mL/min POC Glucose 159 H (68-110) mg/dl Random Glucose (74-106) mg/dL Calcium (8.5-10.1) mg/dL Total Bilirubin (0.2-1.0) mg/dL AST (15-37) U/L ALT (10-53) U/L Alkaline Phosphatase (45-117) U/L Total Protein (6.4-8.2) g/dL Albumin (3.4-5.0) g/dL Lipase (73-393) U/L ECG Data EKG Prior to Arrival: No Attestation: I personally reviewed and interpreted this ECG as follows: Interpretation: NSR 76bpm. Normal axis. QTc 415ms. No significant ST elevation or depression. Discharge Plan Discharge Disposition Patient Disposition: ED Admit(ED Internal Use Only) Discharge Order Discharge Orders: ED Use Only Admit Order (Routine); Ordered 05/25/18 Ordered By: Mary Russo Discharge Details Diagnosis: Intractable nausea and vomiting Physicians Team ED Provider: Mary Russo Primary Care Provider: UNKNOWN, Attending Provider: Aury Chapman Other Providers: Ayan Helms Status ED Status: Left Department Discharge Information Discharge Date/Time: 05/25/18 02:43
[2018-05-24 22:05] LABS: Baso # (Auto) 0.1 th/mm3 (0.0-0.2); Eos # (Auto) 0.1 th/mm3 (0.0-0.4); Eos % (Auto) 1.6 % (0.0-4.0); Hematocrit 35.9 % (35.0-46.0); Hemoglobin 12.2 gm/dL (11.6-15.3); Lymph # (Auto) 0.6 th/mm3 (1.0-4.8); Mean Corpuscular HGB Conc 33.9 % (32.0-36.0); Mean Corpuscular Volume 97.3 fL (80.0-100.0); Mean Platelet Volume 9.1 fL (7.0-11.0); Mono # (Auto) 0.8 th/mm3 (0.0-0.9); Mono % (Auto) 8.8 % (0.0-8.0); Neut % (Auto) 81.6 % (16.0-70.0); Platelet Count 283 th/mm3 (150-450); Red Blood Count 3.69 mil/mm3 (4.00-5.30); Red Cell Distribution Width 14.6 % (11.6-17.2); White Blood Count 8.5 th/mm3 (4.0-11.0)
[2018-05-24 22:34] LABS: Alanine Aminotransferase 15 U/L (10-53); Albumin 3.9 g/dL (3.4-5.0); Alkaline Phosphatase 80 U/L (45-117); Anion Gap 10 meq/L (5-15); Aspartate Aminotransferase 14 U/L (15-37); Blood Urea Nitrogen 24 mg/dL (7-18); Calcium 9.5 mg/dL (8.5-10.1); Carbon Dioxide 26.7 meq/L (21.0-32.0); Chloride 97 meq/L (98-107); Glomerular Filtration Rate 10 mL/min (>89); Glucose,Random 127 mg/dL (74-106); Lipase 313 U/L (73-393); Potassium 4.4 meq/L (3.5-5.1); Sodium 134 meq/L (136-145); Total Protein 9.4 g/dL (6.4-8.2)
[2018-05-24] MEDS ORDERED: Aluminum/Magnesium/Simethacone Susp 30 ML UDC PO ONE (23:02)
[2018-05-25] MEDS ORDERED: Acetaminophen 325 MG Tablet PO PRN (00:10)
[2018-05-25] MEDS ORDERED: Dextrose 50% in Water 50 ML Vial IV.PUSH PRN (00:10)
[2018-05-25] MEDS ORDERED: Bisacodyl 10 MG Supp RECTAL PRN (00:10)
[2018-05-25] MEDS: Ciprofloxacin 400 MG/200 ML 400 MG/200 ML PIGGYBACK IV.SIG SCH ×2 (01:05→12:45)
[2018-05-25] MEDS: Morphine Sulfate Inj 2 MG/ML Vial IV.PUSH PRN ×5 (01:13→21:51)
--- NOTE | 2018-05-25 03:47 | P.HPIM ---
History of Present Illness Primary Care Physician: UNKNOWN History of Present Illness: This is a 53-year-old female with a PMH of ESRD on HD T/, DM, HTN and Hyperlipidemia who presented to the ER w/ c/o abdmoninal pain, nausea and vomiting x2 days. Seen in ER on 05/23/18 for similar symptoms , CT Abd/Pelvis w/ jejunitis and possible gastric outlet obstruction, s/p antiemetics w/ significant improvement and was d/c'd home. Returns now w/ recurrent symptoms. Denies fever, chills or diarrhea. Last HD today without complications, follows w/ Dr. Maldonado. On arrival, BP 122/68, HR 83, O2 sat 95% on RA, Temp 99.2. CBC unremarkable. INR 1.0. Chemistry essentially at baseline. Lipase 313, previously 524 on 05/23/2018. NGT offered in ER, however pt declined. Diagnosis (1) Intractable nausea and vomiting: (2) Gastric outlet obstruction: (3) Jejunitis: (4) ESRD (end stage renal disease) on dialysis: Inpatient Certification Inpatient Certification: I certify that the inpatient services were ordered in accordance with Medicare regulations governing the order. This includes certification that hospital inpatient services are reasonable and necessary and in the case of services not specified as inpatient-only under 42 CFR 419.22(n), that they are appropriately provided as inpatient services in accordance to with the 2-midnight benchmark under 43 CFR 412.3(e) Estimated Total Length of Stay (Days): 2 Plans for Post Hospital Care: Not yet determined Review of Systems PAST FAMILY HISTORY: Reviewed. No h/o DM or CAD Review of Systems: all other systems reviewed are negative [facility] Social History Social History Substance History: No History of Abuse Second Hand Smoke Exposure: No Smoking Status: Current some day smoker Tobacco Type: Cigarettes How Often Do You Have a Drink Containing Alcohol: Never Recent Travel in [place] within the Last 8 Weeks: No Recent Out of Country Travel within the Last 8 Weeks: No Immunization History Tetanus Immunization: <5 Years Hx Influenza Vaccine This Season: No Medications and Allergies Allergies Allergy/AdvReac Type Severity Reaction Status Date / Time naproxen Allergy Severe throat Verified 05/24/18 20:52 closure Sulfa (Sulfonamide Allergy Severe Hives Verified 05/24/18 20:52 Antibiotics) sulfamethoxazole Allergy Severe Hives Verified 05/24/18 20:52 trimethoprim Allergy Severe Hives Verified 05/24/18 20:52 egg Allergy Intermediate Vomiting Verified 05/24/18 20:52 penicillin G Allergy Intermediate SWELLING Verified 05/24/18 20:52 AND ITCHING tape AdvReac Rash Uncoded 05/24/18 20:52 Home Medications Medication Instructions Recorded Confirmed Type aspirin 81 mg PO DAILY 04/04/18 05/24/18 History atorvastatin 40 mg PO DAILY 04/04/18 05/24/18 History calcium acetate 667 mg PO TID 04/04/18 05/24/18 History carvedilol [Coreg] 12.5 mg PO BID 04/04/18 05/24/18 History hydralazine 25 mg PO BID 04/04/18 05/24/18 History insulin detemir U-100 [Levemir 30 unit SUBCUT DAILY 04/04/18 05/24/18 History U-100 Insulin] lisinopril 20 mg PO DAILY 04/04/18 05/24/18 History metoclopramide HCl [Reglan] 10 mg PO TID 04/04/18 05/24/18 History nifedipine 30 mg PO DAILY 04/04/18 05/24/18 History pantoprazole 40 mg PO DAILY 04/04/18 05/24/18 History paricalcitol 1 mcg PO DAILY 04/13/18 05/24/18 History Active Medications: Active Medications Acetaminophen (Tylenol) 650 mg PO Q4H PRN PRN Reason: Temp > 100.4 Last Admin: 05/25/18 03:11 Dose: 650 mg Al Hydroxide/Mg Hydroxide (Milk Of Magnesia Liq) 30 ml PO Q12H PRN PRN Reason: Mild Constipation Bisacodyl (Dulcolax Supp) 10 mg RECTAL DAILY PRN PRN Reason: SEVERE CONSITIPATION Dextrose (D50w Vial) 50 ml IV.PUSH UNSCH PRN PRN Reason: PER HYPOGLYCEMIA PROTOCOL Glucagon (Glucagon Inj) 1 mg OTHER PRN PRN PRN Reason: for Hypoglycemia Protocol Metronidazole/Sodium Chloride (Flagyl 500 Mg Inj) 100 mls @ 100 mls/hr IV.SIG Q8H TOO Last Infusion: 05/25/18 01:04 Dose: Infused Ciprofloxacin/Dextrose (Cipro 400 Mg/200 Ml Inj) 400 mg in 200 mls @ 200 mls/ hr IV.SIG Q12H TOO Last Infusion: 05/25/18 02:02 Dose: Infused Insulin Aspart (Novolog Insulin Correctional Sugar Inj) 0 unit SQ ACHS TOO; Protocol Lactulose (Lactulose Liq) 30 ml PO DAILY PRN PRN Reason: SEVERE CONSITIPATION Morphine Sulfate (Morphine Inj) 2 mg IV.PUSH Q4H PRN PRN Reason: PAIN SCALE 6 TO 10 Last Admin: 05/25/18 01:13 Dose: 2 mg Ondansetron HCl (Zofran Inj) 4 mg IV.PUSH Q6H PRN PRN Reason: NAUSEA OR VOMITING Last Admin: 05/25/18 03:11 Dose: 4 mg Senna/Docusate Sodium (Naa-Colace) 1 tab PO BID TOO Sennosides (Senokot) 17.2 mg PO Q12H PRN PRN Reason: Moderate Constipation Sodium Chloride (Ns Flush) 2 ml IV.FLUSH PRN PRN PRN Reason: FLUSH AFTER USING IV ACCESS Sodium Chloride (Ns Flush) 2 ml IV.FLUSH BID TOO Sodium Chloride (Ns Flush) 2 ml IV.FLUSH PRN PRN PRN Reason: FLUSH AFTER USING IV ACCESS Physical Exam Vital signs: Last Vital Signs Temp 98.2 F 05/25/18 02:30 Pulse 77 05/25/18 02:30 Resp 18 05/25/18 02:30 BP 156/72 H 05/25/18 02:30 Pulse Ox 99 05/25/18 02:30 Intake & Output 05/22/18 05/23/18 05/24/18 05/25/18 06:59 06:59 06:59 06:59 Intake Total 300 / 300 Balance 300 / 300 Weight 110.677 kg Narrative: PE: GENERAL: Middle-aged black female in no acute distress. SKIN: Focused skin assessment warm and dry. HEENT: PERRLA, EOMI. No scleral icterus or conjunctival pallor. No lid lag or facial droop. CARDIOVASCULAR: Regular rate and rhythm. No obvious murmurs to auscultation. No chest tenderness to palpation. RESPIRATORY: No obvious rhonchi or wheezing. Clear to auscultation. Breath sounds equal bilaterally. GASTROINTESTINAL: Abdomen soft, mild epigastric tenderness to palpation, nondistended. BS normal. MUSCULOSKELETAL: Extremities without clubbing, cyanosis, or edema. No obvious deformities. NEUROLOGICAL: Awake, alert and oriented x4. No focal neurologic deficits. Moving both upper and lower extremities spontaneously. PSYCHIATRIC: Appropriate mood and affect. Insight and judgment normal. Results Labs CBC & Chem 7: 05/24/18 21:50 05/24/18 21:50 Caprini VTE Risk Assessment Caprin VTE Risk Assessment: No/Low Risk (score <= 1) Caprin Risk Assessment Model: Point Value = 1 Point Value = 2 Point Value = 3 Point Value = 5 Age 41-60 Minor surgery BMI > 25 kg/m2 Swollen legs Varicose veins or History of unexplained or recurrent spontaneous Oral contraceptives or hormone replacement Sepsis (< 1 month) Serious lung disease, including pneumonia (< 1 month) Abnormal pulmonary function Acute myocardial infarction Congestive heart failure (< 1 month) History of inflammatory bowel disease Medical patient at bed rest Age 61-74 Arthroscopic surgery Major open surgery (> 45 min) Laparoscopic surgery (> 45 min) Malignancy Confined to bed (> 72 hours) Immobilizing plaster cast Central venous access Age >= 75 History of VTE Family history of VTE Factor V Leiden Prothrombin 14179H Lupus anticoagulant Anticardiolipin antibodies Elevated serum homocysteine Heparin-induced thrombocytopenia Other congenital or acquired thrombophilia Stroke (< 1 month) Elective arthroplasty Hip, pelvis, or leg fracture Acute spinal cord injury (< 1 month) Prophylaxis Regimen: Total Risk Factor Score Risk Level Prophylaxis Regimen 0-1 Low Early ambulation 2 Moderate Order ONE of the following: *Sequential Compression Device (SCD) *Heparin 5000 units SQ BID 3-4 Higher Order ONE of the following medications: *Heparin 5000 units SQ TID *Enoxaparin/Lovenox 40 mg SQ daily (WT < 150 kg, CrCl > 30 mL/min) *Enoxaparin/Lovenox 30 mg SQ daily (WT < 150 kg, CrCl > 10-29 mL/min) *Enoxaparin/Lovenox 30 mg SQ BID (WT < 150 kg, CrCl > 30 mL/min) AND/OR *Sequential Compression Device (SCD) 5 or more Highest Order ONE of the following medications: *Heparin 5000 units SQ TID (Preferred with Epidurals) *Enoxaparin/Lovenox 40 mg SQ daily (WT < 150 kg, CrCl > 30 mL/min) *Enoxaparin/Lovenox 30 mg SQ daily (WT < 150 kg, CrCl > 10-29 mL/min) *Enoxaparin/Lovenox 30 mg SQ BID (WT < 150 kg, CrCl > 30 mL/min) AND *Sequential Compression Device (SCD) Assessment and Plan (1) Intractable nausea and vomiting: Code(s): R11.2 - Nausea with vomiting, unspecified Status: Acute (2) Gastric outlet obstruction: Code(s): K31.1 - Adult hypertrophic pyloric stenosis Status: Acute (3) Jejunitis: Code(s): K52.9 - Noninfective gastroenteritis and colitis, unspecified Status: Acute (4) ESRD (end stage renal disease) on dialysis: Code(s): N18.6 - End stage renal disease; Z99.2 - Dependence on renal dialysis Status: Acute Plan A/P: 1. Intractable Nausea/Vomiting: recurrent, Lipase decreased from 05/23/18, continue antiemetics/analgesics as needed. NPO 2. Jejunitis: CT Abd/Pelvis 05/23 w/ evidence of jejunitis, in light of persistent symptoms will start on treatment w/ Cipro/Flagyl, analgesics as needed. 3. Gastric Outlet Obstruction: seen on CT 05/23/18, NPO, NGT declined by patient, hold PO meds, consult GI for further eval/intervention. 4. ESRD on HD: /, last HD w/ no complications, follows w/ Dr. Maldonado, will consult as needed 5. DVT Prophylaxis: SCD/Teds 6. Social work for d/c planning as needed. 7. Case discussed w/ ER physician at length, labs/records/imaging reviewed by me. H&P: Quality VTE Deep Vein Thrombosis/Pulmonary Embolism Present on Admission: No
--- NOTE | 2018-05-25 08:33 | ECG ---
Date Performed: 05/25/2018 Time Performed: 00:29:35 PTAGE: 53 years EKG: Sinus rhythm NORMAL ECG INTERPRETATION BASED ON A DEFAULT AGE OF 40 YEARS PREVIOUS TRACING : 05/23/2018 09.52 DOCTOR: Joe Christianson Interpretating Date/Time 05/25/2018 08:32:42
[2018-05-25] MEDS: Insulin NovoLOG Aspart Correctional Sugar Inj SQ SCH ×4 (08:44→21:32)
[2018-05-25] MEDS: Senna/Docusate Sodium 8.6/50 MG Tablet PO SCH ×3 (08:45→22:24)
--- NOTE | 2018-05-25 12:06 | P.CONGI ---
History of Present Illness Consult date: 05/25/18 Consult reason: Gastric outlet obstruction Chief complaint: intractable vomiting, possible gastric History of Present Illness: Patient is a pleasant 53-year-old female with past medical history significant for end-stage renal disease, diabetes, hypertension and hyperlipidemia. Patient also has history of recent pancreatitis. Patient presented to the emergency room at [facility] on 05/23/2018 for abdominal pain with nausea and vomiting. CT at that time revealed jejunitis and possible gastric outlet obstruction. Patient was medicated with antiemetics and was discharged home. Patient now returns with similar symptoms. She denies fever or chills. Denies diarrhea or any change in bowel habits. NG tube offered in emergency room and declined by patient. Patient reports last EGD was done over 20 years ago. She states to the best of her recollection there were no abnormal findings. Patient denies ever having had a colonoscopy in the past. Patient denies any noted bleeding. She denies any known family history of gastrointestinal disorders. Denies use of alcohol products but does endorse smoking tobacco cigarettes 1 pack/day. Our service has been consulted to evaluate patient for gastric outlet obstruction. <Kiley Bryant - Last Filed: 05/25/18 12:08> Review of Systems All other systems reviewed negative except as stated in HPI <Kiley Bryant - Last Filed: 05/25/18 12:08> PMFSH - History History Provided By: Patient - Medical History Medical History: Medical History (Last Reviewed 05/25/18 @ 02:50 by Jessica Landry RN) AV fistula Asthma Diabetes GERD (gastroesophageal reflux disease) Hemodialysis patient Hypertension - Surgical History Surgical History: Surgical History (Last Reviewed 05/25/18 @ 02:50 by Jessica Landry RN) Hx of cholecystectomy - Tobacco History Second Hand Smoke Exposure: No Tobacco Use In Past 30 Days: Yes Smoking Status: Current some day smoker Tobacco Type: Cigarettes - Alcohol History How Often Do You Have a Drink Containing Alcohol: Never - Substance Use History Substance History: No History of Abuse - Travel History Recent Travel in the [place] Within the Last 8 Weeks: No Recent Travel Out of the Country Within the Last 8 Weeks: No - Immunization History Tetanus Immunization: <5 Years Hx Influenza Vaccine This Season: No <Kiley Bryant - Last Filed: 05/25/18 12:08> - Medical History Medical History: Medical History (Last Reviewed 05/25/18 @ 02:50 by Jessica Landry RN) AV fistula Asthma Diabetes GERD (gastroesophageal reflux disease) Hemodialysis patient Hypertension - Surgical History Surgical History: Surgical History (Last Reviewed 05/25/18 @ 02:50 by Jessica Landry RN) Hx of cholecystectomy <ScooterAyan - Last Filed: 05/26/18 09:57> Medications and Allergies Active Medications: Active Medications Acetaminophen (Tylenol) 650 mg PO Q4H PRN PRN Reason: Temp > 100.4 Last Admin: 05/25/18 03:11 Dose: 650 mg Al Hydroxide/Mg Hydroxide (Milk Of Magnesia Liq) 30 ml PO Q12H PRN PRN Reason: Mild Constipation Bisacodyl (Dulcolax Supp) 10 mg RECTAL DAILY PRN PRN Reason: SEVERE CONSITIPATION Dextrose (D50w Vial) 50 ml IV.PUSH UNSCH PRN PRN Reason: PER HYPOGLYCEMIA PROTOCOL Glucagon (Glucagon Inj) 1 mg OTHER PRN PRN PRN Reason: for Hypoglycemia Protocol Metronidazole/Sodium Chloride (Flagyl 500 Mg Inj) 100 mls @ 100 mls/hr IV.SIG Q8H TOO Last Admin: 05/25/18 08:44 Dose: 100 mls/hr Ciprofloxacin/Dextrose (Cipro 400 Mg/200 Ml Inj) 400 mg in 200 mls @ 200 mls/ hr IV.SIG Q12H TOO Last Infusion: 05/25/18 02:02 Dose: Infused Insulin Aspart (Novolog Insulin Correctional Sugar Inj) 0 unit SQ ACHS TOO; Protocol Last Admin: 05/25/18 08:44 Dose: Not Given Lactulose (Lactulose Liq) 30 ml PO DAILY PRN PRN Reason: SEVERE CONSITIPATION Morphine Sulfate (Morphine Inj) 2 mg IV.PUSH Q4H PRN PRN Reason: PAIN SCALE 6 TO 10 Last Admin: 05/25/18 08:47 Dose: 2 mg Ondansetron HCl (Zofran Inj) 4 mg IV.PUSH Q6H PRN PRN Reason: NAUSEA OR VOMITING Last Admin: 05/25/18 03:11 Dose: 4 mg Senna/Docusate Sodium (Naa-Colace) 1 tab PO BID TOO Last Admin: 05/25/18 08:45 Dose: Not Given Sennosides (Senokot) 17.2 mg PO Q12H PRN PRN Reason: Moderate Constipation Sodium Chloride (Ns Flush) 2 ml IV.FLUSH PRN PRN PRN Reason: FLUSH AFTER USING IV ACCESS Sodium Chloride (Ns Flush) 2 ml IV.FLUSH BID [facility] Last Admin: 05/25/18 08:45 Dose: 2 ml Sodium Chloride (Ns Flush) 2 ml IV.FLUSH PRN PRN PRN Reason: FLUSH AFTER USING IV ACCESS <Kiley Bryant - Last Filed: 05/25/18 12:08> Active Medications: Active Medications Acetaminophen (Tylenol) 650 mg PO Q4H PRN PRN Reason: Temp > 100.4 Last Admin: 05/25/18 03:11 Dose: 650 mg Al Hydroxide/Mg Hydroxide (Milk Of Magnesia Liq) 30 ml PO Q12H PRN PRN Reason: Mild Constipation Artificial Tears (Eucerin Cream) 1 applicatio TOPICAL BID [facility] Bisacodyl (Dulcolax Supp) 10 mg RECTAL DAILY PRN PRN Reason: SEVERE CONSITIPATION Dextrose (D50w Vial) 50 ml IV.PUSH UNSCH PRN PRN Reason: PER HYPOGLYCEMIA PROTOCOL Diphenhydramine HCl (Benadryl) 25 mg PO Q6H PRN PRN Reason: ITCHING Glucagon (Glucagon Inj) 1 mg OTHER PRN PRN PRN Reason: for Hypoglycemia Protocol Metronidazole/Sodium Chloride (Flagyl 500 Mg Inj) 100 mls @ 100 mls/hr IV.SIG Q8H [facility] Last Admin: 05/26/18 08:07 Dose: 100 mls/hr Ciprofloxacin/Dextrose (Cipro 400 Mg/200 Ml Inj) 400 mg in 200 mls @ 200 mls/ hr IV.SIG Q12H [facility] Last Infusion: 05/26/18 02:25 Dose: Infused Lactated Ringer's (Lr 1000 Ml Inj) 1,000 mls @ 30 mls/hr IV.SIG .Q24H [facility] Stop: 05/27/18 03:44 Sodium Chloride (Ns Inj) 500 mls @ 30 mls/hr IV.SIG .Q10H [facility] Insulin Aspart (Novolog Insulin Correctional Sugar Inj) 0 unit SQ ACHS [facility]; Protocol Last Admin: 05/26/18 08:05 Dose: Not Given Lactulose (Lactulose Liq) 30 ml PO DAILY PRN PRN Reason: SEVERE CONSITIPATION Morphine Sulfate (Morphine Inj) 2 mg IV.PUSH Q4H PRN PRN Reason: PAIN SCALE 6 TO 10 Last Admin: 05/26/18 06:59 Dose: 2 mg Ondansetron HCl (Zofran Inj) 4 mg IV.PUSH Q6H PRN PRN Reason: NAUSEA OR VOMITING Last Admin: 05/25/18 17:30 Dose: 4 mg Pantoprazole Sodium (Protonix Inj) 40 mg IV.PUSH Q12HR [facility] Last Admin: 05/26/18 08:08 Dose: 40 mg Senna/Docusate Sodium (Naa-Colace) 1 tab PO BID [facility] Last Admin: 05/26/18 08:08 Dose: Not Given Sennosides (Senokot) 17.2 mg PO Q12H PRN PRN Reason: Moderate Constipation Sodium Chloride (Ns Flush) 2 ml IV.FLUSH PRN PRN PRN Reason: FLUSH AFTER USING IV ACCESS Sodium Chloride (Ns Flush) 2 ml IV.FLUSH BID [facility] Last Admin: 05/26/18 08:08 Dose: 2 ml Sodium Chloride (Ns Flush) 2 ml IV.FLUSH PRN PRN PRN Reason: FLUSH AFTER USING IV ACCESS <Ayan Helms - Last Filed: 05/26/18 09:57> Allergies Allergy/AdvReac Type Severity Reaction Status Date / Time naproxen Allergy Severe throat Verified 05/24/18 20:52 closure Sulfa (Sulfonamide Allergy Severe Hives Verified 05/24/18 20:52 Antibiotics) sulfamethoxazole Allergy Severe Hives Verified 05/24/18 20:52 trimethoprim Allergy Severe Hives Verified 05/24/18 20:52 egg Allergy Intermediate Vomiting Verified 05/24/18 20:52 penicillin G Allergy Intermediate SWELLING Verified 05/24/18 20:52 AND ITCHING tape AdvReac Rash Uncoded 05/24/18 20:52 Home Medications Medication Instructions Recorded Confirmed Type aspirin 81 mg PO DAILY 04/04/18 05/24/18 History atorvastatin 40 mg PO DAILY 04/04/18 05/24/18 History calcium acetate 667 mg PO TID 04/04/18 05/24/18 History carvedilol [Coreg] 12.5 mg PO BID 04/04/18 05/24/18 History hydralazine 25 mg PO BID 04/04/18 05/24/18 History insulin detemir U-100 [Levemir 30 unit SUBCUT DAILY 04/04/18 05/24/18 History U-100 Insulin] lisinopril 20 mg PO DAILY 04/04/18 05/24/18 History metoclopramide HCl [Reglan] 10 mg PO TID 04/04/18 05/24/18 History nifedipine 30 mg PO DAILY 04/04/18 05/24/18 History pantoprazole 40 mg PO DAILY 04/04/18 05/24/18 History paricalcitol 1 mcg PO DAILY 04/13/18 05/24/18 History Exam Vital signs: Vital Signs 05/24/18 20:41 05/24/18 20:55 05/25/18 00:34 Temperature 99.2 F Pulse Rate 83 78 Respiratory Rate 18 18 18 Blood Pressure 122/68 158/83 H Pulse Oximetry 95 05/25/18 01:06 05/25/18 02:30 05/25/18 03:40 Temperature 98.2 F 98.5 F Pulse Rate 85 77 77 Respiratory Rate 18 18 18 Blood Pressure 164/72 H 156/72 H 128/64 Pulse Oximetry 99 99 05/25/18 04:24 05/25/18 07:17 Temperature 97.9 F Pulse Rate 78 Respiratory Rate 8 L 18 Blood Pressure 136/65 Pulse Oximetry 97 Intake & Output 05/24/18 05/25/18 05/25/18 18:59 06:59 18:59 Intake Total 300 / 300 Balance 300 / 300 Weight 110.677 kg Intake: IV 300 / 300 Cipro 400 MG/200 ML Inj 400 mg 200 / 200 In 200 ml @ 200 mls/hr IV.SIG Q12H TOO Rx#:[id number] Flagyl 500 MG Inj 100 ML @ 100 100 / 100 mls/hr IV.SIG Q8H TOO Rx#: [id number] Oral 0 / 0 Other: # Voids 1 # Bowel Movements 0 Weight On Admission 110.677 kg - Constitutional no acute distress, chronically ill appearing - Routine HEENT Exam Head: Present: normocephalic - Routine Respiratory Exam Present: CTA bilaterally. Absent: accessory muscle use - Routine Cardiovascular Exam Present: RRR - Routine Abdominal Exam Present: soft, normoactive bowel sounds, tenderness. Absent: distended, guarding, firm Comments: Patient reports epigastric tenderness with palpation on exam, states area feels sore with vomiting - Routine Extremities Exam Absent: edema - Routine Skin Exam Present: dry, warm - Routine Neurological Exam Present: alert <Beab Bryanty - Last Filed: 05/25/18 12:08> Vital signs: Vital Signs 05/25/18 12:00 05/25/18 15:59 05/25/18 19:00 Temperature 97.8 F 98.3 F 98.4 F Pulse Rate 74 75 75 Respiratory Rate 18 17 18 Blood Pressure 143/67 H 144/70 H 119/57 L Pulse Oximetry 98 96 99 05/25/18 23:14 05/26/18 03:25 05/26/18 08:00 Temperature 98.4 F 98.4 F 98.3 F Pulse Rate 76 75 68 Respiratory Rate 18 18 18 Blood Pressure 109/59 L 102/52 L 117/57 L Pulse Oximetry 99 96 97 Intake & Output 05/25/18 05/26/18 05/26/18 18:59 06:59 18:59 Intake Total 400 / 400 300 / 300 Balance 400 / 400 300 / 300 Weight 110.6 kg Intake: IV 400 / 400 300 / 300 Cipro 400 MG/200 ML Inj 400 mg 200 / 200 200 / 200 In 200 ml @ 200 mls/hr IV.SIG Q12H TOO Rx#:[id number] Flagyl 500 MG Inj 100 ML @ 100 200 / 200 100 / 100 mls/hr IV.SIG Q8H TOO Rx#: [id number] Oral 0 / 0 Other: # Voids 5 3 Date of Last Bowel Movement 05/25/18 05/25/18 # Bowel Movements 0 <Ayan Helms - Last Filed: 05/26/18 09:57> Results - Labs CBC & Chem 7: 05/24/18 21:50 05/24/18 21:50 Labs: Laboratory Results - last 24 hr 05/24/18 05/24/18 05/25/18 21:50 21:50 07:52 WBC 8.5 RBC 3.69 L Hgb 12.2 Hct 35.9 MCV 97.3 MCH 33.0 MCHC 33.9 RDW 14.6 Plt Count 283 MPV 9.1 Neut % (Auto) 81.6 H Lymph % (Auto) 7.0 L [place] % (Auto) 8.8 H Eos % (Auto) 1.6 Baso % (Auto) 1.0 Neut # (Auto) 7.0 Lymph # (Auto) 0.6 L [place] # (Auto) 0.8 Eos # (Auto) 0.1 Baso # (Auto) 0.1 WBC Differential . Differential Comment Auto diff final Sodium 134 L Potassium 4.4 Chloride 97 L Carbon Dioxide 26.7 Anion Gap 10 BUN 24 H Creatinine 5.24 H Estimated GFR 10 L POC Glucose 143 H Random Glucose 127 H Calcium 9.5 Total Bilirubin 0.4 AST 14 L ALT 15 Alkaline Phosphatase 80 Total Protein 9.4 H D Albumin 3.9 Lipase 313 <Kiley Bryant - Last Filed: 05/25/18 12:08> - Labs CBC & Chem 7: 05/26/18 06:31 05/26/18 06:31 Labs: Laboratory Results - last 24 hr 05/25/18 05/25/18 05/25/18 13:24 17:25 21:23 WBC RBC Hgb Hct MCV MCH MCHC RDW Plt Count MPV Neut % (Auto) Lymph % (Auto) [place] % (Auto) Eos % (Auto) Baso % (Auto) Neut # (Auto) Lymph # (Auto) [place] # (Auto) Eos # (Auto) Baso # (Auto) WBC Differential Differential Comment Sodium Potassium Chloride Carbon Dioxide Anion Gap BUN Creatinine Estimated GFR POC Glucose 159 H 130 H 157 H Random Glucose Calcium Total Bilirubin AST ALT Alkaline Phosphatase Total Protein Albumin 05/26/18 05/26/18 05/26/18 06:31 06:31 07:30 WBC 7.4 RBC 3.64 L Hgb 12.1 Hct 36.2 MCV 99.4 MCH 33.1 MCHC 33.3 RDW 14.4 Plt Count 265 MPV 8.7 Neut % (Auto) 80.4 H Lymph % (Auto) 7.5 L [place] % (Auto) 10.1 H Eos % (Auto) 1.6 Baso % (Auto) 0.4 Neut # (Auto) 5.9 Lymph # (Auto) 0.6 L [place] # (Auto) 0.7 Eos # (Auto) 0.1 Baso # (Auto) 0.0 WBC Differential . Differential Comment Auto diff final Sodium 133 L Potassium 4.3 Chloride 97 L Carbon Dioxide 27.7 Anion Gap 8 BUN 36 H Creatinine 7.00 H Estimated GFR 7 L POC Glucose 141 H Random Glucose 147 H Calcium 9.6 Total Bilirubin 0.3 AST 11 L ALT 12 Alkaline Phosphatase 75 Total Protein 8.7 H D Albumin 3.5 <Taylor Helmsian - Last Filed: 05/26/18 09:57> Assessment and Plan (1) Jejunitis Status: Acute Code(s): K52.9 - Noninfective gastroenteritis and colitis, unspecified (2) Gastric outlet obstruction Status: Acute Code(s): K31.1 - Adult hypertrophic pyloric stenosis (3) Intractable nausea and vomiting Status: Acute Code(s): R11.2 - Nausea with vomiting, unspecified - Plan Patient is a pleasant 53-year-old female with past medical history significant for end-stage renal disease, GERD, diabetes, hypertension and hyperlipidemia. Patient also has history of recent pancreatitis. Patient presented to the emergency room at [facility] on 05/23/2018 for abdominal pain with nausea and vomiting. CT at that time revealed jejunitis and possible gastric outlet obstruction. Patient was medicated with antiemetics and was discharged home. Patient now returns with similar symptoms. She denies fever or chills. Denies diarrhea or any change in bowel habits. NG tube offered in emergency room and declined by patient. Patient reports last EGD was done over 20 years ago. She states to the best of her recollection there were no abnormal findings. Patient denies ever having had a colonoscopy in the past. Patient denies any noted bleeding. She denies any known family history of gastrointestinal disorders. Denies NSAID use. Denies use of alcohol products but does endorse smoking tobacco cigarettes 1 pack/day. Our service has been consulted to evaluate patient for gastric outlet obstruction. Intractable nausea vomiting Possible gastric outlet obstruction Jejunitis Patient endorses 2-day history of nausea vomiting with epigastric pain. She reports symptoms started after eating chicken at [employer] 2 days ago. Patient denies diarrhea or fever and chills. 05/23/2018 CT abdomen and pelvis reveal the following: Apparent thickening of the wall of the jejunum suggesting jejunitis. Clinical correlation is recommended. Distended debris filled stomach raising the possibility of gastric outlet obstruction. Clinical correlation is recommended. Mild hepatosplenomegaly. Enlarged fibroid uterus. Tiny pericardial effusion. Mild degenerative changes and scoliosis of the thoracolumbar spine -WBC 8.5 hemoglobin 12.2 hematocrit 35.9 platelet count 283 -BUN 24 creatinine 5.24 total bili 0.4 AST 14 ALT 15 alk phos 80 lipase 313- ( 524 on 05/23/2018) Plan -N.p.o. -Possible need for EGD -Consider gastric emptying study -Monitor labs-electrolytes -Flagyl and ciprofloxacin IV -PPI -Antiemetics as per attending -Supportive care -Further recommendations to follow This patient has been seen by myself and Dr. Helms and this note is written on his behalf - Attending Attestation Dr. Helms <Kiley Bryant - Last Filed: 05/25/18 12:08> (1) Jejunitis Status: Acute Code(s): K52.9 - Noninfective gastroenteritis and colitis, unspecified (2) Gastric outlet obstruction Status: Acute Code(s): K31.1 - Adult hypertrophic pyloric stenosis (3) Intractable nausea and vomiting Status: Acute Code(s): R11.2 - Nausea with vomiting, unspecified - Attending Attestation Patient seen and examined. I agree with the assessment and recommendations above. <Ayan Helms - Last Filed: 05/26/18 09:57>
[2018-05-25] MEDS: Pantoprazole Inj 40 MG Vial IV.PUSH SCH ×2 (13:50→21:32)
--- NOTE | 2018-05-25 14:48 | P.PN ---
Subjective Interval history: Follow-up visit for end-stage renal disease with abdominal pain, nausea and vomiting. Patient seen and examined sitting up in chair in no acute distress. She reports some "spitting up" with ongoing nausea. Reports her abdominal pain is better. Denies any fevers, chills, cough, shortness of breath or chest pain. Physical Exam Vital signs: Vital Signs 05/24/18 20:41 05/24/18 20:55 05/25/18 00:34 Temperature 99.2 F Pulse Rate 83 78 Respiratory Rate 18 18 Blood Pressure 122/68 158/83 H Pulse Oximetry 95 05/25/18 01:06 05/25/18 02:30 05/25/18 03:40 Temperature 98.2 F 98.5 F Pulse Rate 85 77 77 Respiratory Rate 18 Blood Pressure 164/72 H 156/72 H 128/64 Pulse Oximetry 99 99 05/25/18 04:24 05/25/18 07:17 05/25/18 12:00 Temperature 97.9 F 97.8 F Pulse Rate 78 74 Respiratory Rate 8 L 18 18 Blood Pressure 136/65 143/67 H Pulse Oximetry 97 98 Intake & Output 05/24/18 05/25/18 05/25/18 18:59 06:59 18:59 Intake Total 300 / 300 300 / 300 Balance 300 / 300 300 / 300 Weight 110.677 kg Intake: IV 300 / 300 300 / 300 Cipro 400 MG/200 ML Inj 400 mg 200 / 200 200 / 200 In 200 ml @ 200 mls/hr IV.SIG Q12H TOO Rx#:[id number] Flagyl 500 MG Inj 100 ML @ 100 100 / 100 100 / 100 mls/hr IV.SIG Q8H TOO Rx#: [id number] Oral 0 / 0 Other: # Voids 1 Date of Last Bowel Movement 05/25/18 # Bowel Movements 0 Weight On Admission 110.677 kg Narrative: GENERAL: We will nourished, well-developed AA female in no acute distress. SKIN: Warm and dry. HEAD: Atraumatic. Normocephalic. EYES: Pupils equal and round. No scleral icterus. No injection or drainage. ENT: No nasal bleeding or discharge. Mucous membranes pink and moist. NECK: Trachea midline. CARDIOVASCULAR: Regular rate and rhythm. Left upper extremity AV fistula with positive bruit and thrill. RESPIRATORY: No accessory muscle use. Clear to auscultation. Breath sounds equal bilaterally. GASTROINTESTINAL: Abdomen soft/obese, umbilical tenderness, nondistended. + Bowel sounds MUSCULOSKELETAL: Extremities without clubbing, cyanosis, or edema. No obvious deformities. NEUROLOGICAL: Awake, alert, oriented x3. No obvious cranial nerve deficits. Motor grossly within normal limits. Normal speech. PSYCHIATRIC: Appropriate mood and affect; insight and judgment normal. Results - Labs CBC & Chem 7: 05/24/18 21:50 05/24/18 21:50 Laboratory Results - last 24 hr 05/24/18 05/24/18 05/25/18 21:50 21:50 07:52 WBC 8.5 RBC 3.69 L Hgb 12.2 Hct 35.9 MCV 97.3 MCH 33.0 MCHC 33.9 RDW 14.6 Plt Count 283 MPV 9.1 Neut % (Auto) 81.6 H Lymph % (Auto) 7.0 L [place] % (Auto) 8.8 H Eos % (Auto) 1.6 Baso % (Auto) 1.0 Neut # (Auto) 7.0 Lymph # (Auto) 0.6 L [place] # (Auto) 0.8 Eos # (Auto) 0.1 Baso # (Auto) 0.1 WBC Differential . Differential Comment Auto diff final Sodium 134 L Potassium 4.4 Chloride 97 L Carbon Dioxide 26.7 Anion Gap 10 BUN 24 H Creatinine 5.24 H Estimated GFR 10 L POC Glucose 143 H Random Glucose 127 H Calcium 9.5 Total Bilirubin 0.4 AST 14 L ALT 15 Alkaline Phosphatase 80 Total Protein 9.4 H D Albumin 3.9 Lipase 313 05/25/18 13:24 WBC RBC Hgb Hct MCV MCH MCHC RDW Plt Count MPV Neut % (Auto) Lymph % (Auto) [place] % (Auto) Eos % (Auto) Baso % (Auto) Neut # (Auto) Lymph # (Auto) [place] # (Auto) Eos # (Auto) Baso # (Auto) WBC Differential Differential Comment Sodium Potassium Chloride Carbon Dioxide Anion Gap BUN Creatinine Estimated GFR POC Glucose 159 H Random Glucose Calcium Total Bilirubin AST ALT Alkaline Phosphatase Total Protein Albumin Lipase Assessment and Plan - Assessment (1) Intractable nausea and vomiting Code(s): R11.2 - Nausea with vomiting, unspecified Status: Acute (2) Gastric outlet obstruction Code(s): K31.1 - Adult hypertrophic pyloric stenosis Status: Acute (3) Jejunitis Code(s): K52.9 - Noninfective gastroenteritis and colitis, unspecified Status : Acute (4) ESRD (end stage renal disease) on dialysis Code(s): N18.6 - End stage renal disease; Z99.2 - Dependence on renal dialysis Status: Acute - Plan 53-year-old -Cypriot female with past medical history significant for end-stage renal disease on hemodialysis T/, DM, HTN and HLD who presented to ED on 05/25 with complaints of abdominal pain, N/V x2 days. Seen in ER on for similar symptoms, CT Abd/Pelvis w/ jejunitis and possible gastric outlet obstruction, s/p antiemetics w/ significant improvement and was d/c'd home but returned due to above symptoms. Intractable Nausea/Vomiting, recurrent Jejunitis -CT Abd/Pelvis 05/23 w/ evidence of jejunitis, in light of persistent symptoms continue treatment w/ Cipro/Flagyl, analgesics as needed. -Lipase decreased from 05/23/18, no leukocytosis, LFT's stable -Continue antiemetics/analgesics as needed. NPO Gastric Outlet Obstruction - seen on CT 05/23/18, NPO, NGT declined by patient, hold PO meds, consult GI for further eval/intervention. -Plans for EGD tomorrow, consider gastric emptying study ESRD on HD: /, last HD w/ no complications, -Nephrology following, appreciate assistance HTN, chronic, stable -BP stable with no antihypertensives, continue to monitor. DM, BS well controlled -Continue accu-checks with ISS DVT Prophylaxis: SCD/Teds Discussed Condition With: Patient and RN
[2018-05-26] MEDS: Ciprofloxacin 400 MG/200 ML 400 MG/200 ML PIGGYBACK IV.SIG SCH ×3 (00:48→22:40)
[2018-05-26] MEDS ORDERED: Metoprolol Tartrate 25 MG Tablet PO ONE (03:39)
[2018-05-26] MEDS: Morphine Sulfate Inj 2 MG/ML Vial IV.PUSH PRN ×3 (03:39→11:33)
[2018-05-26] MEDS ORDERED: Chlorhexidine Gluconate 2% 1 Pack (2 Cloths) TOPICAL ONE (03:39)
[2018-05-26] MEDS ORDERED: Sodium Chlor 0.9% Inj 500 ML IV.SIG SCH (04:00)
[2018-05-26 08:03] LABS: Baso % (Auto) 0.4 % (0.0-2.0); Eos # (Auto) 0.1 th/mm3 (0.0-0.4); Eos % (Auto) 1.6 % (0.0-4.0); Hematocrit 36.2 % (35.0-46.0); Hemoglobin 12.1 gm/dL (11.6-15.3); Lymph # (Auto) 0.6 th/mm3 (1.0-4.8); Lymph % (Auto) 7.5 % (9.0-44.0); Mean Corpuscular HGB Conc 33.3 % (32.0-36.0); Mean Corpuscular Hemoglobin 33.1 pg (27.0-34.0); Mean Corpuscular Volume 99.4 fL (80.0-100.0); Mean Platelet Volume 8.7 fL (7.0-11.0); Mono # (Auto) 0.7 th/mm3 (0.0-0.9); Mono % (Auto) 10.1 % (0.0-8.0); Neut # (Auto) 5.9 th/mm3 (1.8-7.7); Neut % (Auto) 80.4 % (16.0-70.0); Platelet Count 265 th/mm3 (150-450); Red Blood Count 3.64 mil/mm3 (4.00-5.30); Red Cell Distribution Width 14.4 % (11.6-17.2); White Blood Count 7.4 th/mm3 (4.0-11.0)
[2018-05-26] MEDS: Insulin NovoLOG Aspart Correctional Sugar Inj SQ SCH ×3 (08:05→16:41)
[2018-05-26] MEDS: Senna/Docusate Sodium 8.6/50 MG Tablet PO SCH ×2 (08:08→20:45)
[2018-05-26] MEDS: Pantoprazole Inj 40 MG Vial IV.PUSH SCH ×2 (08:08→20:45)
[2018-05-26 08:42] LABS: Alanine Aminotransferase 12 U/L (10-53); Albumin 3.5 g/dL (3.4-5.0); Alkaline Phosphatase 75 U/L (45-117); Anion Gap 8 meq/L (5-15); Aspartate Aminotransferase 11 U/L (15-37); Blood Urea Nitrogen 36 mg/dL (7-18); Calcium 9.6 mg/dL (8.5-10.1); Carbon Dioxide 27.7 meq/L (21.0-32.0); Chloride 97 meq/L (98-107); Glomerular Filtration Rate 7 mL/min (>89); Glucose,Random 147 mg/dL (74-106); Potassium 4.3 meq/L (3.5-5.1); Sodium 133 meq/L (136-145); Total Protein 8.7 g/dL (6.4-8.2)
--- NOTE | 2018-05-26 09:10 | P.PN ---
Subjective Interval history: Follow-up visit for abdominal pain, nausea and vomiting. Patient seen and examined sitting up in bedside recliner scratching in no acute distress. Reports no further nausea or emesis but continues to have mid abdominal pain. Denies any fevers, chills, cough, shortness of breath or chest pain. Physical Exam Vital signs: Vital Signs 05/25/18 12:00 05/25/18 15:59 05/25/18 19:00 Temperature 97.8 F 98.3 F 98.4 F Pulse Rate 74 75 75 Respiratory Rate 18 18 Blood Pressure 143/67 H 144/70 H 119/57 L Pulse Oximetry 98 96 99 05/25/18 23:14 05/26/18 03:25 05/26/18 08:00 Temperature 98.4 F 98.4 F 98.3 F Pulse Rate 76 75 68 Respiratory Rate 18 18 18 Blood Pressure 109/59 L 102/52 L 117/57 L Pulse Oximetry 99 96 97 Intake & Output 05/25/18 05/26/18 05/26/18 18:59 06:59 18:59 Intake Total 400 / 400 300 / 300 Balance 400 / 400 300 / 300 Weight 110.6 kg Intake: IV 400 / 400 300 / 300 Cipro 400 MG/200 ML Inj 400 mg 200 / 200 200 / 200 In 200 ml @ 200 mls/hr IV.SIG Q12H TOO Rx#:[id number] Flagyl 500 MG Inj 100 ML @ 100 200 / 200 100 / 100 mls/hr IV.SIG Q8H TOO Rx#: [id number] Oral 0 / 0 Other: # Voids 5 3 Date of Last Bowel Movement 05/25/18 05/25/18 # Bowel Movements 0 Narrative: GENERAL: We will nourished, well-developed AA female in no acute distress. SKIN: Warm and dry. Dry Milka skin. HEAD: Atraumatic. Normocephalic. EYES: Pupils equal and round. No scleral icterus. No injection or drainage. ENT: No nasal bleeding or discharge. Mucous membranes pink and moist. NECK: Trachea midline. CARDIOVASCULAR: Regular rate and rhythm. Left upper extremity AV fistula with positive bruit and thrill. RESPIRATORY: No accessory muscle use. Clear to auscultation. Breath sounds equal bilaterally. GASTROINTESTINAL: Abdomen soft/obese, umbilical tenderness, nondistended. + Bowel sounds MUSCULOSKELETAL: Extremities without clubbing, cyanosis, or edema. No obvious deformities. NEUROLOGICAL: Awake, alert, oriented x3. No obvious cranial nerve deficits. Motor grossly within normal limits. Normal speech. PSYCHIATRIC: Appropriate mood and affect; insight and judgment normal. Results - Labs CBC & Chem 7: 05/26/18 06:31 05/26/18 06:31 Laboratory Results - last 24 hr 05/25/18 05/25/18 05/25/18 13:24 17:25 21:23 WBC RBC Hgb Hct MCV MCH MCHC RDW Plt Count MPV Neut % (Auto) Lymph % (Auto) Jasper % (Auto) Eos % (Auto) Baso % (Auto) Neut # (Auto) Lymph # (Auto) Jasper # (Auto) Eos # (Auto) Baso # (Auto) WBC Differential Differential Comment Sodium Potassium Chloride Carbon Dioxide Anion Gap BUN Creatinine Estimated GFR POC Glucose 159 H 130 H 157 H Random Glucose Calcium Total Bilirubin AST ALT Alkaline Phosphatase Total Protein Albumin 05/26/18 05/26/18 05/26/18 06:31 06:31 07:30 WBC 7.4 RBC 3.64 L Hgb 12.1 Hct 36.2 MCV 99.4 MCH 33.1 MCHC 33.3 RDW 14.4 Plt Count 265 MPV 8.7 Neut % (Auto) 80.4 H Lymph % (Auto) 7.5 L Jasper % (Auto) 10.1 H Eos % (Auto) 1.6 Baso % (Auto) 0.4 Neut # (Auto) 5.9 Lymph # (Auto) 0.6 L Jasper # (Auto) 0.7 Eos # (Auto) 0.1 Baso # (Auto) 0.0 WBC Differential . Differential Comment Auto diff final Sodium 133 L Potassium 4.3 Chloride 97 L Carbon Dioxide 27.7 Anion Gap 8 BUN 36 H Creatinine 7.00 H Estimated GFR 7 L POC Glucose 141 H Random Glucose 147 H Calcium 9.6 Total Bilirubin 0.3 AST 11 L ALT 12 Alkaline Phosphatase 75 Total Protein 8.7 H D Albumin 3.5 Assessment and Plan - Assessment (1) Intractable nausea and vomiting Code(s): R11.2 - Nausea with vomiting, unspecified Status: Acute (2) Gastric outlet obstruction Code(s): K31.1 - Adult hypertrophic pyloric stenosis Status: Acute (3) Jejunitis Code(s): K52.9 - Noninfective gastroenteritis and colitis, unspecified Status : Acute (4) ESRD (end stage renal disease) on dialysis Code(s): N18.6 - End stage renal disease; Z99.2 - Dependence on renal dialysis Status: Acute - Plan 53-year-old -Maldivian female with past medical history significant for end-stage renal disease on hemodialysis T/, DM, HTN and HLD who presented to ED on 05/25 with complaints of abdominal pain, N/V x2 days. Seen in ER on for similar symptoms, CT Abd/Pelvis w/ jejunitis and possible gastric outlet obstruction, s/p antiemetics w/ significant improvement and was d/c'd home but returned due to above symptoms. Intractable Nausea/Vomiting, recurrent Jejunitis -CT Abd/Pelvis 05/23 w/ evidence of jejunitis, in light of persistent symptoms continue treatment w/ Cipro/Flagyl, analgesics as needed. -Lipase decreased from 05/23/18, no leukocytosis, LFT's stable -Continue antiemetics/analgesics as needed. NPO -No further nausea or vomiting, ongoing diffuse abdominal pain. Gastric Outlet Obstruction - seen on CT 05/23/18, NPO, NGT declined by patient, hold PO meds, consult GI for further eval/intervention. -Plans for EGD today, consider gastric emptying study ESRD on HD: /, last HD w/ no complications, -Nephrology following, appreciate assistance HTN, chronic, stable -BP stable with no antihypertensives, continue to monitor. DM, BS well controlled -Continue accu-checks with ISS Dry skin/itching -PRN Benadryl and Eucerin cream. DVT Prophylaxis: SCD/Teds Discussed Condition With: Patient and RN
--- NOTE | 2018-05-26 15:50 | P.PCN ---
Date of procedure: 05/26/18 Pre-op diagnosis: Nausea and vomiting Post-op diagnosis: other (Giant bezoar, gastritis, duodenitis, esophagitis) Procedure: INDICATION: Nausea and vomiting with abdominal pain PROCEDURE PERFORMED: upper endoscopy with foreign body removal using snare and forceps After informing the patient about procedure and possible complications consent was signed. history and physical were updated. Patient was taken to the procedure room and placed in position. Time out was completed. ANESTHESIA: Adequate sedation was performed by anesthesia provider. PROCEDURE: Upper Endoscopy, the scope was placed in the mouth advanced under video guide to the second portion of the duodenum. The scope was then slowly withdrawn through the stomach and retro-flexion was performed to examine the cardia, the scope was then withdrawn through the esophagus with good views obtained throughout. The scope was then withdrawn out of the mouth without any immediate complications. FINDIINGS: Esophagus: Z line was seen at 40 cm. There is erythema in the distal esophagus consistent with reflux esophagitis. There is otherwise no mucosa seen. No Hart's esophagus. Stomach: A large bezoar was identified. It appeared to be made of string or yarn. It filled the entire lumen of the stomach. The bezoar appeared to extend all the way into the duodenum and passed the limitation of the endoscope into the fourth portion. Over the course of almost 2-1/2 hours using a snare and forceps the entire bezoar was removed. Direct and retroflexed visualization in the stomach revealed moderate gastritis in a linear fashion through the body and into the antrum. No ulcerations were seen. There were erosions identified near the pylorus. There is no stigmata of bleeding. Duodenum: The bezoar extended down past the fourth portion of the duodenum. Using forceps and snare the bezoar was removed. I could not determine if the bezoar extended further distally into the small bowel. IMPRESSION: Giant bezoar COMPLICATIONS: None RECOMMENDATIONS: 1- Supportive care 2- ok to transfer to recovery area then discharge per protocol 3- patient will require an upper GI series with small bowel follow-through. 4- high-fiber diet 5- EGD as necessary 6-I am concerned that the bezoar could extend into the small bowel. Now that it is not anchored in the stomach it is possible that with motility the bezoar will become an obstructing mass in the lumen of the small bowel. Anesthesia: MAC Surgeon: Ayan Helms Pathology: other (bezoar) Condition: stable Disposition: floor
[2018-05-26] MEDS ORDERED: Propofol 1000 mg/100 ml Inj 1,000 MG/100 ML BOTTLE ONE (16:04)
[2018-05-26] MEDS ORDERED: fentaNYL Citrate Inj 100 MCG/2 ML Ampul ONE (16:09)
[2018-05-26] MEDS ORDERED: fentaNYL 10 mcg/mL Premix Drip 2,500 MCG/250 ML BAG IV.SIG PRN (17:47)
--- NOTE | 2018-05-26 18:06 | P.CONCC ---
History of Present Illness Service: ICU Consult date: 05/26/18 Requesting Physician: Gissel Pierre Reason for Consult: Failure to wean Primary Care Provider: UNKNOWN History of Present Illness: This is a 53-year old female that presented to [facility] on 1221 with complaints of a 2-day history of intractable nausea and vomiting, with abdominal pain. Patient was admitted to the hospitalist service, gastroenterology was consulted. Today the patient underwent an EGD with foreign body removal of giant bezoar and noted gastritis duodenitis and esophagitis. Upon completion of the procedure under general anesthesia patient did not meet parameters for extubation with noted possible vocal cord edema and no cuff leak. The patient remained intubated and was transported to ICU .critical care medicine was consulted. Review of Systems unobtainable due to endotracheal tube PMFSH - History History Provided By: Patient - Medical History Medical History: Medical History (Last Reviewed 05/25/18 @ 02:50 by Jessica Landry RN) AV fistula Asthma Diabetes GERD (gastroesophageal reflux disease) Hemodialysis patient Hypertension - Surgical History Surgical History: Surgical History (Last Reviewed 05/25/18 @ 02:50 by Jessica Landry RN) Hx of cholecystectomy - Tobacco History Second Hand Smoke Exposure: No Tobacco Use In Past 30 Days: Yes Smoking Status: Current some day smoker Tobacco Type: Cigarettes - Alcohol History How Often Do You Have a Drink Containing Alcohol: Never - Substance Use History Substance History: No History of Abuse - Travel History Recent Travel in the [place] Within the Last 8 Weeks: No Recent Travel Out of the Country Within the Last 8 Weeks: No - Immunization History Tetanus Immunization: <5 Years Hx Influenza Vaccine This Season: No Medications and Allergies Active Medications: Active Medications Acetaminophen (Tylenol) 650 mg PO Q4H PRN PRN Reason: Temp > 100.4 Last Admin: 05/25/18 03:11 Dose: 650 mg Al Hydroxide/Mg Hydroxide (Milk Of Magnesia Liq) 30 ml PO Q12H PRN PRN Reason: Mild Constipation Bisacodyl (Dulcolax Supp) 10 mg RECTAL DAILY PRN PRN Reason: SEVERE CONSITIPATION Chlorhexidine Gluconate (Peridex 0.12% Oral Kit) 15 ml OROPHARYNG BID@0800, 2000 TOO Dexamethasone Sodium Phosphate (Decadron Inj) 4 mg IV.PUSH Q6HR TOO Stop: 05/27/18 12:01 Dextrose (D50w Vial) 50 ml IV.PUSH UNSCH PRN PRN Reason: PER HYPOGLYCEMIA PROTOCOL Diphenhydramine HCl (Benadryl) 25 mg PO Q6H PRN PRN Reason: ITCHING Glucagon (Glucagon Inj) 1 mg OTHER PRN PRN PRN Reason: for Hypoglycemia Protocol Hydrophilic Ointment (Aquaphor Oint) 1 applicatio TOPICAL BID TOO Metronidazole/Sodium Chloride (Flagyl 500 Mg Inj) 100 mls @ 100 mls/hr IV.SIG Q8H TOO Last Infusion: 05/26/18 17:00 Dose: Infused Ciprofloxacin/Dextrose (Cipro 400 Mg/200 Ml Inj) 400 mg in 200 mls @ 200 mls/ hr IV.SIG Q12H TOO Last Admin: 05/26/18 11:33 Dose: 200 mls/hr Lactated Ringer's (Lr 1000 Ml Inj) 1,000 mls @ 30 mls/hr IV.SIG .Q24H TOO Stop: 05/27/18 03:44 Last Admin: 05/26/18 16:56 Dose: Not Given Propofol (Diprivan 1000 Mg/100 Ml Inj) 1,000 mg in 100 mls @ 3.318 mls/hr IV.CONT TITRATE PRN; Protocol PRN Reason: Per Protocol Fentanyl (Fentanyl 10 Mcg/Ml Premix Drip) 2,500 mcg in 250 mls @ 5 mls/hr IV.SIG TITRATE PRN; Protocol PRN Reason: Per Protocol Insulin Aspart (Novolog Insulin Correctional Sugar Inj) 0 unit SQ ACHS TOO; Protocol Last Admin: 05/26/18 16:41 Dose: Not Given Lactulose (Lactulose Liq) 30 ml PO DAILY PRN PRN Reason: SEVERE CONSITIPATION Miscellaneous Medication () 1 each OROPHARYNG 0000,0400,1200,1600 [facility] Morphine Sulfate (Morphine Inj) 2 mg IV.PUSH Q4H PRN PRN Reason: PAIN SCALE 6 TO 10 Last Admin: 05/26/18 11:33 Dose: 2 mg Ondansetron HCl (Zofran Inj) 4 mg IV.PUSH Q6H PRN PRN Reason: NAUSEA OR VOMITING Last Admin: 05/25/18 17:30 Dose: 4 mg Pantoprazole Sodium (Protonix Inj) 40 mg IV.PUSH Q12HR TOO Last Admin: 05/26/18 08:08 Dose: 40 mg Senna/Docusate Sodium (Naa-Colace) 1 tab PO BID [facility] Last Admin: 05/26/18 08:08 Dose: Not Given Sennosides (Senokot) 17.2 mg PO Q12H PRN PRN Reason: Moderate Constipation Sodium Chloride (Ns Flush) 2 ml IV.FLUSH PRN PRN PRN Reason: FLUSH AFTER USING IV ACCESS Sodium Chloride (Ns Flush) 2 ml IV.FLUSH BID [facility] Last Admin: 05/26/18 08:08 Dose: 2 ml Sodium Chloride (Ns Flush) 2 ml IV.FLUSH PRN PRN PRN Reason: FLUSH AFTER USING IV ACCESS Allergies Allergy/AdvReac Type Severity Reaction Status Date / Time naproxen Allergy Severe throat Verified 05/24/18 20:52 closure Sulfa (Sulfonamide Allergy Severe Hives Verified 05/24/18 20:52 Antibiotics) sulfamethoxazole Allergy Severe Hives Verified 05/24/18 20:52 trimethoprim Allergy Severe Hives Verified 05/24/18 20:52 egg Allergy Intermediate Vomiting Verified 05/24/18 20:52 penicillin G Allergy Intermediate SWELLING Verified 05/24/18 20:52 AND ITCHING tape AdvReac Rash Uncoded 05/24/18 20:52 Home Medications Medication Instructions Recorded Confirmed Type aspirin 81 mg PO DAILY 04/04/18 05/24/18 History atorvastatin 40 mg PO DAILY 04/04/18 05/24/18 History calcium acetate 667 mg PO TID 04/04/18 05/24/18 History carvedilol [Coreg] 12.5 mg PO BID 04/04/18 05/24/18 History hydralazine 25 mg PO BID 04/04/18 05/24/18 History insulin detemir U-100 [Levemir 30 unit SUBCUT DAILY 04/04/18 05/24/18 History U-100 Insulin] lisinopril 20 mg PO DAILY 04/04/18 05/24/18 History metoclopramide HCl [Reglan] 10 mg PO TID 04/04/18 05/24/18 History nifedipine 30 mg PO DAILY 04/04/18 05/24/18 History pantoprazole 40 mg PO DAILY 04/04/18 05/24/18 History paricalcitol 1 mcg PO DAILY 04/13/18 05/24/18 History Physical Exam Vital signs: Vital Signs 05/25/18 19:00 05/25/18 23:14 05/26/18 03:25 Temperature 98.4 F 98.4 F 98.4 F Pulse Rate 75 76 75 Respiratory Rate 18 18 Blood Pressure 119/57 L 109/59 L 102/52 L Pulse Oximetry 99 99 96 05/26/18 08:00 05/26/18 12:00 05/26/18 16:06 Temperature 98.3 F 98.3 F Pulse Rate 68 67 Respiratory Rate 18 16 Blood Pressure 117/57 L 107/61 Pulse Oximetry 97 100 05/26/18 16:17 Temperature Pulse Rate Respiratory Rate Blood Pressure Pulse Oximetry 98 Intake & Output 05/25/18 05/26/18 05/26/18 18:59 06:59 18:59 Intake Total 400 / 400 300 / 300 1500 / 1500 Balance 400 / 400 300 / 300 1500 / 1500 Weight 110.6 kg Intake: IV 400 / 400 300 / 300 500 / 500 Cipro 400 MG/200 ML Inj 400 mg 200 / 200 200 / 200 In 200 ml @ 200 mls/hr IV.SIG Q12H TOO Rx#:[id number] NS Inj 500 ML @ 30 mls/hr IV. 300 / 300 SIG .Q10H TOO Rx#:[id number] Flagyl 500 MG Inj 100 ML @ 100 200 / 200 100 / 100 200 / 200 mls/hr IV.SIG Q8H TOO Rx#: [id number] Oral 0 / 0 Anesthesia Amount 1000 / 1000 Other: # Voids 5 3 1 Date of Last Bowel Movement 05/25/18 05/25/18 # Bowel Movements 0 - Constitutional no acute distress, chronically ill appearing - Routine HEENT Exam Head: Present: normocephalic, atraumatic Eye: Present: EOMI, PERRL ENT: Present: mucous membranes moist, dentition normal, nares patent, external ear normal - Routine Neck Exam Present: supple - Routine Respiratory Exam Present: patient mechanically ventilated, CTA bilaterally - Routine Cardiovascular Exam Present: RRR, S1, S2 - Routine Abdominal Exam Present: soft, distended - Routine Extremities Exam Present: vascular access (AV fistula left upper arm) - Routine Skin Exam Present: intact - Detailed Neurological Exam: Coma Scale Eye Opening: None Verbal Response: None Motor Response: None (Intubated and sedated on [id number] mcgs) Golden Coma Scale Total: 3 Assessment and Plan - Problem List (1) Airway compromise Code(s): J98.8 - Other specified respiratory disorders Status: Acute - Assessment and Plan Plan: Assessment This is a 53-year-old -Bangl[place] female status post EGD with removal of foreign body, giant bezoar and noted gastritis ,duodenitis and esophagitis under general endotracheal anesthesia, but did not meet parameters for extubation. Noted edematous airway, no cuff leak, and remains mechanically ventilated. Admit to ICU. Plan by systems: Neurologic: Neuro checks per ICU protocol Continue propofol and fentanyl infusions to maintain sedation and ventilator synchrony Daily sedation vacation Currently GCS 3 T patient status post general endotracheal anesthesia and on propofol drip-noted movement of extremities spontaneously, but not to commands at this time Respiratory: Mechanical ventilation Asthma Tobacco use disorder Probable vocal cord edema Maintain O2 sat greater than 92% Obtain stat chest x-ray confirmed placement of ETT Duo nebs every 4 hours as needed Decadron 4 mg every 6 hours for 24 hours Begin CPAP trials in a.m. Cardiovascular: Hypertension Hydralazine , labetalol for systolic blood pressure greater than 160 Renal: Chronic kidney diseasehemodialysis dependent Nephrology consulted-patient scheduled Monday. -- Strict I/Os FEN/GI: H/O nausea and vomiting Abdominal distention Esophagitis duodenitis Status post EGD 05/26-with removal of large bezoar Gastric outlet obstruction Insert OGT, placed to low intermittent suction, follow-up KUB Protonix GI prophylaxis Gastroenterology followingfollow-up recommendations Zofran for nausea Per gastroenterology patient will require upper GI series with small bowel follow-through in the near future secondary to concern for obstruction of small bowel Heme/ID: Anemia of chronic disease Transfuse for hemoglobin less than 7 Monitor CBC No clinical indication for cultures at this time Endocrine: Diabetes mellitus Glucose monitoring per ICU protocol -- SSI Prophylaxis: GI Prophylaxis DVT Prophylaxis -- SCDs Lines: Peripheral IVs. Central line if indicated Dispo: Level 3 consult Code Status: Full Discussed Condition With: No family at bedside. LEAD FORMER at bedside, and [employer]
[2018-05-26] MEDS ORDERED: hydrALAZINE HCl Inj 20 MG/ML Vial IV.PUSH PRN (18:08)
--- NOTE | 2018-05-26 18:23 | XR ---
EXAM DATE: 05/26/2018 6:13 PM EST AGE/SEX: 53 years / Female INDICATIONS: Status Post ET tube placement. CLINICAL DATA: This is the patient's initial encounter. Patient reports that signs and symptoms have been present for 1 day and indicates a pain score of 0/10. MEDICAL/SURGICAL HISTORY: . Diabetes. Chronic renal failure. Pancreatitis. . [place]olecyst[place]. [place] [facility] [place]. . FINDINGS: Endotracheal tube has its tip 3 cm above the tosha. A nasogastric tube has tip below diaphragm. The heart is enlarged. Perihilar infiltrates are noted consistent with mild pulmonary vascular congestion versus atelectasis. Degenerative changes are noted throughout the thoracic spine. CONCLUSION: 1. Endotracheal tube has its tip in good position 3 cm above the tosha. 2. Bilateral perihilar infiltrates consistent with mild pulmonary vascular congestion versus atelect asis. 3. Cardiomegaly. Electronically signed by: Beni Torres MD Board Certified Radiologist 05/26/2018 6:21 PM EST
--- NOTE | 2018-05-26 18:24 | XR ---
EXAM DATE: 05/26/2018 6:15 PM EST AGE/SEX: 53 years / Female INDICATIONS: Placement of OGT. Nausea and vomiting. CLINICAL DATA: This is the patient's initial encounter. Patient reports that signs and symptoms have been present for 1 day and indicates a pain score of 0/10. MEDICAL/SURGICAL HISTORY: . Diabetes. Chronic renal failure. Pancreatitis. . Cholecystectomy. COMPARISON: [facility], CHEST 1V SINGLE AP, 05/26/2018. . FINDINGS: The nasogastric tube has its tip in the distal stomach. There is a nonspecific bowel gas pattern. No free intraperitoneal air is identified. CONCLUSION: 1. Nasogastric tube has its tip in the distal stomach. 2. Nonspecific bowel gas pattern. Electronically signed by: Beni Torres MD Board Certified Radiologist 05/26/2018 6:23 PM EST
[2018-05-26] MEDS: Propofol 1000 mg/100 ml Inj 1,000 MG/100 ML BOTTLE IV.CONT PRN ×2 (18:57→22:12)
[2018-05-26] MEDS: Insulin NovoLIN Regular Correctional Sugar Inj SQ SCH (20:24)
[2018-05-26] MEDS: Chlorhexidine 0.12% Oral Kit 15 ML UDC OROPHARYNG SCH (20:44)
[2018-05-27] MEDS: Oral Hygiene Kit OROPHARYNG SCH ×4 (00:08→17:11)
[2018-05-27] MEDS: Propofol 1000 mg/100 ml Inj 1,000 MG/100 ML BOTTLE IV.CONT PRN ×3 (01:12→06:59)
[2018-05-27] MEDS: Insulin NovoLIN Regular Correctional Sugar Inj SQ SCH ×4 (02:43→17:25)
[2018-05-27] MEDS: Chlorhexidine Gluconate 2% 1 Pack (2 Cloths) TOPICAL SCH (03:28)
[2018-05-27] MEDS ORDERED: Chlorhexidine Gluconate 2% 1 Pack (2 Cloths) TOPICAL PRN (04:00)
--- NOTE | 2018-05-27 05:15 | XR ---
EXAM DATE: 05/27/2018 4:16 AM EST AGE/SEX: 53 years / Female INDICATIONS: Shortness of breath, possible pulmonary disease. CLINICAL DATA: This is the patient's subsequent encounter. Patient reports that signs and symptoms h ave been present for 4 - 6 days and indicates a pain score of Nonresponsive. MEDICAL/SURGICAL HISTORY: Diabetes. Renal failure, chronic. Pancreatitis. Cholecystectomy. COMPARISON: [facility] – [place], CHEST 1V SINGLE AP, 05/26/2018. . FINDINGS: Single view the chest centered the endotracheal tube and nasogastric tube are both in good position. Lungs are grossly clear. No visible pneumothorax. Ribs are intact. Clavicles are intact. CONCLUSION: ET tube in good position. Electronically signed by: Joe Pickard MD Board Certified Radiologist 05/27/2018 5:13 AM EST
[2018-05-27] MEDS: Chlorhexidine 0.12% Oral Kit 15 ML UDC OROPHARYNG SCH ×2 (08:00→23:35)
[2018-05-27] MEDS: Pantoprazole Inj 40 MG Vial IV.PUSH SCH ×2 (08:01→22:18)
[2018-05-27 08:06] LABS: Baso % (Auto) 0.3 % (0.0-2.0); Eos % (Auto) 0.1 % (0.0-4.0); Hematocrit 34.7 % (35.0-46.0); Hemoglobin 11.5 gm/dL (11.6-15.3); Lymph # (Auto) 0.3 th/mm3 (1.0-4.8); Lymph % (Auto) 4.1 % (9.0-44.0); Mean Corpuscular HGB Conc 33.1 % (32.0-36.0); Mean Corpuscular Hemoglobin 32.6 pg (27.0-34.0); Mean Corpuscular Volume 98.6 fL (80.0-100.0); Mono # (Auto) 0.2 th/mm3 (0.0-0.9); Neut # (Auto) 7.3 th/mm3 (1.8-7.7); Neut % (Auto) 93.5 % (16.0-70.0); Platelet Count 249 th/mm3 (150-450); Red Blood Count 3.52 mil/mm3 (4.00-5.30); Red Cell Distribution Width 14.4 % (11.6-17.2); White Blood Count 7.8 th/mm3 (4.0-11.0)
[2018-05-27 09:00] LABS: Calcium 8.9 mg/dL (8.5-10.1); Carbon Dioxide 21.2 meq/L (21.0-32.0); Phosphorus 4.3 mg/dL (2.5-4.9)
[2018-05-27 09:01] LABS: Potassium 5.4 meq/L (3.5-5.1)
[2018-05-27] MEDS ORDERED: Gelatin 12 MM/7 MM Topical Foam TOPICAL PRN (09:43)
[2018-05-27] MEDS ORDERED: Heparin 10,000 UNITS/10 ML Vial (for IV use) OTHER PRN ×2 (09:43)
[2018-05-27] MEDS ORDERED: Sod Chloride 0.9% Inj 1,000 ML OTHER PRN ×2 (09:43)
[2018-05-27] MEDS ORDERED: Acetaminophen 325 MG Tablet PO PRN (09:43)
[2018-05-27] MEDS ORDERED: Sod Chloride 0.9% Inj 1,000 ML IV.CONT PRN (09:43)
[2018-05-27] MEDS ORDERED: Albumin Human 25% Inj 100 ML IV.SIG PRN (09:43)
--- NOTE | 2018-05-27 11:55 | P.PNGI ---
Subjective Interval history: Pt is mechanically ventilated. Receiving dialysis <Wade Manning - Last Filed: 05/27/18 13:06> Physical Exam Vital signs: Vital Signs 05/26/18 12:00 05/26/18 16:00 05/26/18 16:06 Temperature 98.3 F 98.1 F Pulse Rate 67 75 Respiratory Rate 18 14 16 Blood Pressure 107/61 109/58 L Pulse Oximetry 100 99 05/26/18 16:15 05/26/18 16:17 05/26/18 16:30 Temperature Pulse Rate 75 72 Respiratory Rate 14 14 Blood Pressure 106/66 105/62 Pulse Oximetry 98 98 100 05/26/18 16:45 05/26/18 17:00 05/26/18 17:48 Temperature 98.1 F 98.0 F Pulse Rate 71 69 83 Respiratory Rate 14 14 14 Blood Pressure 117/63 120/69 127/99 H Pulse Oximetry 99 99 100 05/26/18 17:56 05/26/18 19:55 05/26/18 20:00 Temperature 98.6 F Pulse Rate 83 81 Respiratory Rate 18 14 Blood Pressure 162/77 H Pulse Oximetry 100 100 05/26/18 22:00 05/26/18 23:22 05/27/18 00:00 Temperature 98.6 F Pulse Rate 69 66 Respiratory Rate 14 14 Blood Pressure 145/70 H Pulse Oximetry 100 100 05/27/18 02:00 05/27/18 03:42 05/27/18 04:00 Temperature 98.6 F Pulse Rate 65 73 Respiratory Rate 16 14 Blood Pressure 186/87 H Pulse Oximetry 100 100 05/27/18 06:00 05/27/18 10:59 Temperature Pulse Rate 89 Respiratory Rate 11 L Blood Pressure Pulse Oximetry 100 Intake & Output 05/26/18 05/27/18 05/27/18 18:59 06:59 18:59 Intake Total 1600 / 1600 900 / 900 Output Total 3000 / 3000 Balance 1600 / 1600 900 / 900 -3000 / -3000 Weight 113.5 kg Intake: IV 600 / 600 900 / 900 Diprivan 1000 mg/100 ml Inj 1, 100 / 100 000 mg In 100 ml @ 0 mls/hr . ROUTE .[facility] Rx#:[id number] Diprivan 1000 mg/100 ml Inj 1, 400 / 400 000 mg In 100 ml @ 5 MCG/KG/MIN 3.318 mls/hr IV.CONT TITRATE PRN Rx#:[id number] Cipro 400 MG/200 ML Inj 400 mg 400 / 400 In 200 ml @ 200 mls/hr IV.SIG Q12H [facility] Rx#:[id number] NS Inj 500 ML @ 30 mls/hr IV. 300 / 300 0 / 0 SIG .Q10H [facility] Rx#:[id number] Flagyl 500 MG Inj 100 ML @ 100 200 / 200 100 / 100 mls/hr IV.SIG Q8H [facility] Rx#: [id number] Oral 0 / 0 0 / 0 Anesthesia Amount 1000 / 1000 Output: Hemodialysis Amount 3000 / 3000 Other: # Voids 0 0 Date of Last Bowel Movement 05/25/18 # Bowel Movements 0 0 Narrative: GENERAL: We will nourished, well-developed AA female in no acute distress. SKIN: Warm and dry. Dry [place] skin. HEAD: Atraumatic. Normocephalic. CARDIOVASCULAR: Regular rate and rhythm. RESPIRATORY: Mechanically ventilated GASTROINTESTINAL: Abdomen soft/obese, umbilical tenderness, nondistended. + Bowel sounds MUSCULOSKELETAL: Extremities without clubbing, cyanosis, or edema. No obvious deformities. NEUROLOGICAL: Awake, alert, Mechanically ventilated <MinajarvisWade - Last Filed: 05/27/18 13:06> Vital signs: Vital Signs 05/26/18 16:00 05/26/18 16:06 05/26/18 16:15 Temperature 98.1 F Pulse Rate 75 75 Respiratory Rate 14 16 14 Blood Pressure 109/58 L 106/66 Pulse Oximetry 99 98 05/26/18 16:17 05/26/18 16:30 05/26/18 16:45 Temperature Pulse Rate 72 71 Respiratory Rate 14 14 Blood Pressure 105/62 117/63 Pulse Oximetry 98 100 99 05/26/18 17:00 05/26/18 17:48 05/26/18 17:56 Temperature 98.1 F 98.0 F Pulse Rate 69 83 83 Respiratory Rate 14 14 Blood Pressure 120/69 127/99 H Pulse Oximetry 99 100 05/26/18 19:55 05/26/18 20:00 05/26/18 22:00 Temperature 98.6 F Pulse Rate 81 69 Respiratory Rate 18 14 Blood Pressure 162/77 H Pulse Oximetry 100 100 05/26/18 23:05/27/18 00:00 05/27/18 02:00 Temperature 98.6 F Pulse Rate 66 65 Respiratory Rate 14 14 Blood Pressure 145/70 H Pulse Oximetry 100 100 05/27/18 03:42 05/27/18 04:00 05/27/18 06:00 Temperature 98.6 F Pulse Rate 73 89 Respiratory Rate 16 14 Blood Pressure 186/87 H Pulse Oximetry 100 100 05/27/18 10:59 Temperature Pulse Rate Respiratory Rate 11 L Blood Pressure Pulse Oximetry 100 Intake & Output 05/26/18 05/27/18 05/27/18 18:59 06:59 18:59 Intake Total 1600 / 1600 900 / 900 Output Total 3000 / 3000 Balance 1600 / 1600 900 / 900 -3000 / -3000 Weight 113.5 kg Intake: IV 600 / 600 900 / 900 Diprivan 1000 mg/100 ml Inj 1, 100 / 100 000 mg In 100 ml @ 0 mls/hr . ROUTE [facility] Rx#:[id number] Diprivan 1000 mg/100 ml Inj 1, 400 / 400 000 mg In 100 ml @ 5 MCG/KG/MIN 3.318 mls/hr IV.CONT TITRATE PRN Rx#:[id number] Cipro 400 MG/200 ML Inj 400 mg 400 / 400 In 200 ml @ 200 mls/hr IV.SIG Q12H [facility] Rx#:[id number] NS Inj 500 ML @ 30 mls/hr IV. 300 / 300 0 / 0 SIG .Q10H [facility] Rx#:[id number] Flagyl 500 MG Inj 100 ML @ 100 200 / 200 100 / 100 mls/hr IV.SIG Q8H [facility] Rx#: [id number] Oral 0 / 0 0 / 0 Anesthesia Amount 1000 / 1000 Output: Hemodialysis Amount 3000 / 3000 Other: # Voids 0 0 Date of Last Bowel Movement 05/25/18 # Bowel Movements 0 0 <Ayan Helms - Last Filed: 05/27/18 14:04> Results - Labs CBC & Chem 7: 05/27/18 07:40 05/27/18 07:40 Laboratory Results - last 24 hr 05/26/18 05/26/18 05/26/18 16:06 17:33 20:20 WBC RBC Hgb Hct MCV MCH MCHC RDW Plt Count MPV Neut % (Auto) Lymph % (Auto) [place] % (Auto) Eos % (Auto) Baso % (Auto) Neut # (Auto) Lymph # (Auto) [place] # (Auto) Eos # (Auto) Baso # (Auto) WBC Differential Differential Comment Sodium Potassium Chloride Carbon Dioxide Anion Gap BUN Creatinine Estimated GFR POC Glucose 138 H 146 H Random Glucose Calcium Phosphorus Magnesium Nasal Screen MRSA (PCR) Not detected 05/27/18 05/27/18 05/27/18 07:40 07:40 07:55 WBC 7.8 RBC 3.52 L Hgb 11.5 L Hct 34.7 L MCV 98.6 MCH 32.6 MCHC 33.1 RDW 14.4 Plt Count 249 MPV 9.0 Neut % (Auto) 93.5 H Lymph % (Auto) 4.1 L [place] % (Auto) 2.0 Eos % (Auto) 0.1 Baso % (Auto) 0.3 Neut # (Auto) 7.3 Lymph # (Auto) 0.3 L [place] # (Auto) 0.2 Eos # (Auto) 0.0 Baso # (Auto) 0.0 WBC Differential . Differential Comment Auto diff final Sodium 135 L Potassium 5.4 H D Chloride 101 Carbon Dioxide 21.2 Anion Gap 13 BUN 41 H Creatinine 6.89 H Estimated GFR 8 L POC Glucose 132 H Random Glucose 162 H Calcium 8.9 Phosphorus 4.3 Magnesium 2.0 Nasal Screen MRSA (PCR) 05/27/18 11:44 WBC RBC Hgb Hct MCV MCH MCHC RDW Plt Count MPV Neut % (Auto) Lymph % (Auto) [place] % (Auto) Eos % (Auto) Baso % (Auto) Neut # (Auto) Lymph # (Auto) [place] # (Auto) Eos # (Auto) Baso # (Auto) WBC Differential Differential Comment Sodium Potassium Chloride Carbon Dioxide Anion Gap BUN Creatinine Estimated GFR POC Glucose 136 H Random Glucose Calcium Phosphorus Magnesium Nasal Screen MRSA (PCR) - Imaging Impressions Abdomen X-Ray 05/26/18 17:42 CONCLUSION: 1. Nasogastric tube has its tip in the distal stomach. 2. Nonspecific bowel gas pattern. Chest X-Ray 05/26/18 17:42 CONCLUSION: 1. Endotracheal tube has its tip in good position 3 cm above the tosha. 2. Bilateral perihilar infiltrates consistent with mild pulmonary vascular congestion versus atelectasis. 3. Cardiomegaly. Chest X-Ray 05/27/18 04:00 CONCLUSION: ET tube in good position. <Wade Manning - Last Filed: 05/27/18 13:06> - Labs CBC & Chem 7: 05/27/18 07:40 05/27/18 07:40 Laboratory Results - last 24 hr 05/26/18 05/26/18 05/26/18 16:06 17:33 20:20 WBC RBC Hgb Hct MCV MCH MCHC RDW Plt Count MPV Neut % (Auto) Lymph % (Auto) [place] % (Auto) Eos % (Auto) Baso % (Auto) Neut # (Auto) Lymph # (Auto) [place] # (Auto) Eos # (Auto) Baso # (Auto) WBC Differential Differential Comment Sodium Potassium Chloride Carbon Dioxide Anion Gap BUN Creatinine Estimated GFR POC Glucose 138 H 146 H Random Glucose Calcium Phosphorus Magnesium Nasal Screen MRSA (PCR) Not detected 05/27/18 05/27/18 05/27/18 07:40 07:40 07:55 WBC 7.8 RBC 3.52 L Hgb 11.5 L Hct 34.7 L MCV 98.6 MCH 32.6 MCHC 33.1 RDW 14.4 Plt Count 249 MPV 9.0 Neut % (Auto) 93.5 H Lymph % (Auto) 4.1 L [place] % (Auto) 2.0 Eos % (Auto) 0.1 Baso % (Auto) 0.3 Neut # (Auto) 7.3 Lymph # (Auto) 0.3 L [place] # (Auto) 0.2 Eos # (Auto) 0.0 Baso # (Auto) 0.0 WBC Differential . Differential Comment Auto diff final Sodium 135 L Potassium 5.4 H D Chloride 101 Carbon Dioxide 21.2 Anion Gap 13 BUN 41 H Creatinine 6.89 H Estimated GFR 8 L POC Glucose 132 H Random Glucose 162 H Calcium 8.9 Phosphorus 4.3 Magnesium 2.0 Nasal Screen MRSA (PCR) 05/27/18 11:44 WBC RBC Hgb Hct MCV MCH MCHC RDW Plt Count MPV Neut % (Auto) Lymph % (Auto) [place] % (Auto) Eos % (Auto) Baso % (Auto) Neut # (Auto) Lymph # (Auto) [place] # (Auto) Eos # (Auto) Baso # (Auto) WBC Differential Differential Comment Sodium Potassium Chloride Carbon Dioxide Anion Gap BUN Creatinine Estimated GFR POC Glucose 136 H Random Glucose Calcium Phosphorus Magnesium Nasal Screen MRSA (PCR) - Imaging Impressions Abdomen X-Ray 05/26/18 17:42 CONCLUSION: 1. Nasogastric tube has its tip in the distal stomach. 2. Nonspecific bowel gas pattern. Chest X-Ray 05/26/18 17:42 CONCLUSION: 1. Endotracheal tube has its tip in good position 3 cm above the tosha. 2. Bilateral perihilar infiltrates consistent with mild pulmonary vascular congestion versus atelectasis. 3. Cardiomegaly. Chest X-Ray 05/27/18 04:00 CONCLUSION: ET tube in good position. <Ayan Helms - Last Filed: 05/27/18 14:04> Assessment and Plan (1) Jejunitis Status: Acute Code(s): K52.9 - Noninfective gastroenteritis and colitis, unspecified (2) Gastric outlet obstruction Status: Acute Code(s): K31.1 - Adult hypertrophic pyloric stenosis (3) Intractable nausea and vomiting Status: Acute Code(s): R11.2 - Nausea with vomiting, unspecified - Plan Patient is a pleasant 53-year-old female with past medical history significant for end-stage renal disease, GERD, diabetes, hypertension and hyperlipidemia. Patient also has history of recent pancreatitis. Patient presented to the emergency room at [facility] on 05/23/2018 for abdominal pain with nausea and vomiting. CT at that time revealed jejunitis and possible gastric outlet obstruction. Patient was medicated with antiemetics and was discharged home. Patient now returns with similar symptoms. She denies fever or chills. Denies diarrhea or any change in bowel habits. NG tube offered in emergency room and declined by patient. Patient reports last EGD was done over 20 years ago. She states to the best of her recollection there were no abnormal findings. Patient denies ever having had a colonoscopy in the past. Patient denies any noted bleeding. She denies any known family history of gastrointestinal disorders. Denies NSAID use. Denies use of alcohol products but does endorse smoking tobacco cigarettes 1 pack/day. Our service has been consulted to evaluate patient for gastric outlet obstruction. Intractable nausea vomiting Possible gastric outlet obstruction Jejunitis Patient endorses 2-day history of nausea vomiting with epigastric pain. She reports symptoms started after eating chicken at [employer] chicken restaurant 2 days ago. Patient denies diarrhea or fever and chills. 05/23/2018 CT abdomen and pelvis reveal the following: Apparent thickening of the wall of the jejunum suggesting jejunitis. Clinical correlation is recommended. Distended debris filled stomach raising the possibility of gastric outlet obstruction. Clinical correlation is recommended. Mild hepatosplenomegaly. Enlarged fibroid uterus. Tiny pericardial effusion. Mild degenerative changes and scoliosis of the thoracolumbar spine -WBC 8.5 hemoglobin 12.2 hematocrit 35.9 platelet count 283 -BUN 24 creatinine 5.24 total bili 0.4 AST 14 ALT 15 alk phos 80 lipase 313- ( 524 on 05/23/2018) 05/27/18 S/P EGD on 05/26/18 showed Giant bezoar, It appeared to be made of string or yarn. It filled the entire lumen of the stomach. The bezoar appeared to extend all the way into the duodenum and passed the limitation of the endoscope into the fourth portion. Plan - NPO -SBFT -Monitor labs-electrolytes -PPI -Antiemetics as per attending -Supportive care -Further recommendations to follow - Dr. Helms placed a call to daughter but no answer, couldn't leave a message, voice box is full This patient has been seen by myself and Dr. Helms and this note is written on his behalf <Wade Manning - Last Filed: 05/27/18 13:06> (1) Jejunitis Status: Acute Code(s): K52.9 - Noninfective gastroenteritis and colitis, unspecified (2) Gastric outlet obstruction Status: Acute Code(s): K31.1 - Adult hypertrophic pyloric stenosis (3) Intractable nausea and vomiting Status: Acute Code(s): R11.2 - Nausea with vomiting, unspecified - Attending Attestation I have seen and examined the patient and reviewed the patients care with the WATER PU[employer] INST[employer]ER. I agree with the above assessment and recommendations as documented above. <Ayan Helms - Last Filed: 05/27/18 14:04>
[2018-05-27] MEDS: Ciprofloxacin 400 MG/200 ML 400 MG/200 ML PIGGYBACK IV.SIG SCH ×2 (12:03→23:34)
[2018-05-27] MEDS: Senna/Docusate Sodium 8.6/50 MG Tablet PO SCH ×2 (12:03→21:34)
--- NOTE | 2018-05-27 13:55 | P.PNCC ---
Subjective Subjective Remarks/Hospital Course: 05/27: Afebrile. No acute events overnight. Patient interacting nodding head to yes and no questions appropriately . Patient was placed on CPAP trials at 6: 30 AM. The patient underwent hemodialysis with removal of 3 L of fluid. The patient is currently undergoing spontaneous breathing trials with parameters with tentative plan for extubation, if criteria is met. Objective Vital Signs / I&O: Vital Signs 05/26/18 16:00 05/26/18 16:06 05/26/18 16:15 Temperature 98.1 F Pulse Rate 75 75 Respiratory Rate 14 16 14 Blood Pressure 109/58 L 106/66 Pulse Oximetry 99 98 05/26/18 16:17 05/26/18 16:30 05/26/18 16:45 Temperature Pulse Rate 72 71 Respiratory Rate 14 14 Blood Pressure 105/62 117/63 Pulse Oximetry 98 100 99 05/26/18 17:00 05/26/18 17:48 05/26/18 17:56 Temperature 98.1 F 98.0 F Pulse Rate 69 83 83 Respiratory Rate 14 14 Blood Pressure 120/69 127/99 H Pulse Oximetry 99 100 05/26/18 19:55 05/26/18 20:00 05/26/18 22:00 Temperature 98.6 F Pulse Rate 81 69 Respiratory Rate 18 14 Blood Pressure 162/77 H Pulse Oximetry 100 100 05/26/18 23:22 05/27/18 00:00 05/27/18 02:00 Temperature 98.6 F Pulse Rate 66 65 Respiratory Rate 14 14 Blood Pressure 145/70 H Pulse Oximetry 100 100 05/27/18 03:42 05/27/18 04:00 05/27/18 06:00 Temperature 98.6 F Pulse Rate 73 89 Respiratory Rate 16 14 Blood Pressure 186/87 H Pulse Oximetry 100 100 05/27/18 10:59 Temperature Pulse Rate Respiratory Rate 11 L Blood Pressure Pulse Oximetry 100 Intake & Output 05/26/18 05/27/18 05/27/18 18:59 06:59 18:59 Intake Total 1600 / 1600 900 / 900 Output Total 3000 / 3000 Balance 1600 / 1600 900 / 900 -3000 / -3000 Weight 113.5 kg Intake: IV 600 / 600 900 / 900 Diprivan 1000 mg/100 ml Inj 1, 100 / 100 000 mg In 100 ml @ 0 mls/hr . ROUTE .[facility] Rx#:[id number] Diprivan 1000 mg/100 ml Inj 1, 400 / 400 000 mg In 100 ml @ 5 MCG/KG/MIN 3.318 mls/hr IV.CONT TITRATE PRN Rx#:[id number] Cipro 400 MG/200 ML Inj 400 mg 400 / 400 In 200 ml @ 200 mls/hr IV.SIG Q12H [facility] Rx#:[id number] NS Inj 500 ML @ 30 mls/hr IV. 300 / 300 0 / 0 SIG .Q10H [facility] Rx#:[id number] Flagyl 500 MG Inj 100 ML @ 100 200 / 200 100 / 100 mls/hr IV.SIG Q8H [facility] Rx#: [id number] Oral 0 / 0 0 / 0 Anesthesia Amount 1000 / 1000 Output: Hemodialysis Amount 3000 / 3000 Other: # Voids 0 0 Date of Last Bowel Movement 05/25/18 # Bowel Movements 0 0 Result Diagrams: 05/27/18 07:40 05/27/18 07:40 Other Results: Laboratory Results WBC 7.8 th/mm3 (4.0-11.0) 05/27/18 07:40 RBC 3.52 mil/mm3 (4.00-5.30) L 05/27/18 07:40 Hgb 11.5 gm/dL (11.6-15.3) L 05/27/18 07:40 Hct 34.7 % (35.0-46.0) L 05/27/18 07:40 MCV 98.6 fL (80.0-100.0) 05/27/18 07:40 MCH 32.6 pg (27.0-34.0) 05/27/18 07:40 MCHC 33.1 % (32.0-36.0) 05/27/18 07:40 RDW 14.4 % (11.6-17.2) 05/27/18 07:40 Plt Count 249 th/mm3 (150-450) 05/27/18 07:40 MPV 9.0 fL (7.0-11.0) 05/27/18 07:40 Neut % (Auto) 93.5 % (16.0-70.0) H 05/27/18 07:40 Lymph % (Auto) 4.1 % (9.0-44.0) L 05/27/18 07:40 [place] % (Auto) 2.0 % (0.0-8.0) 05/27/18 07:40 Eos % (Auto) 0.1 % (0.0-4.0) 05/27/18 07:40 Baso % (Auto) 0.3 % (0.0-2.0) 05/27/18 07:40 Neut # (Auto) 7.3 th/mm3 (1.8-7.7) 05/27/18 07:40 Lymph # (Auto) 0.3 th/mm3 (1.0-4.8) L 05/27/18 07:40 [place] # (Auto) 0.2 th/mm3 (0.0-0.9) 05/27/18 07:40 Eos # (Auto) 0.0 th/mm3 (0.0-0.4) 05/27/18 07:40 Baso # (Auto) 0.0 th/mm3 (0.0-0.2) 05/27/18 07:40 WBC Differential . 05/27/18 07:40 Differential Comment Auto diff final 05/27/18 07:40 Sodium 135 meq/L (136-145) L 05/27/18 07:40 Potassium 5.4 meq/L (3.5-5.1) H D 05/27/18 07:40 Chloride 101 meq/L (98-107) 05/27/18 07:40 Carbon Dioxide 21.2 meq/L (21.0-32.0) 05/27/18 07:40 Anion Gap 13 meq/L (5-15) 05/27/18 07:40 BUN 41 mg/dL (7-18) H 05/27/18 07:40 Creatinine 6.89 mg/dL (0.50-1.00) H 05/27/18 07:40 Estimated GFR 8 mL/min (>89) L 05/27/18 07:40 POC Glucose 136 mg/dl (68-110) H 05/27/18 11:44 Random Glucose 162 mg/dL (74-106) H 05/27/18 07:40 Calcium 8.9 mg/dL (8.5-10.1) 05/27/18 07:40 Phosphorus 4.3 mg/dL (2.5-4.9) 05/27/18 07:40 Magnesium 2.0 mg/dL (1.5-2.5) 05/27/18 07:40 Total Bilirubin 0.3 mg/dL (0.2-1.0) 05/26/18 06:31 AST 11 U/L (15-37) L 05/26/18 06:31 ALT 12 U/L (10-53) 05/26/18 06:31 Alkaline Phosphatase 75 U/L (45-117) 05/26/18 06:31 Total Protein 8.7 g/dL (6.4-8.2) H D 05/26/18 06:31 Albumin 3.5 g/dL (3.4-5.0) 05/26/18 06:31 Lipase 313 U/L (73-393) 05/24/18 21:50 Nasal Screen MRSA (PCR) Not detected (Negative) 05/26/18 17:33 Impressions Abdomen X-Ray 05/26/18 17:42 CONCLUSION: 1. Nasogastric tube has its tip in the distal stomach. 2. Nonspecific bowel gas pattern. Chest X-Ray 05/27/18 04:00 CONCLUSION: ET tube in good position. Objective Remarks: GENERAL: This is a well-developed well-nourished -[place] female patient looking older than stated age, intubated currently on no sedation SKIN: Warm and dry. HEAD: Atraumatic. Normocephalic. EYES: Pupils equal and round. No scleral icterus. No injection or drainage. ENT: No nasal bleeding or discharge. Mucous membranes pink and moist. NECK: Trachea midline. No JVD. CARDIOVASCULAR: Normal rate, regular rhythm. RESPIRATORY: No accessory muscle use. Clear to auscultation. Breath sounds equal bilaterally. Currently undergoing CPAP trials GASTROINTESTINAL: Abdomen soft, obese non-tender, nondistended. No guarding. MUSCULOSKELETAL: Extremities without clubbing, cyanosis, or edema. No obvious deformities. AV fistula left upper extremity NEUROLOGICAL: GCS 11 T awake and alert. RASS 0. No gross focal/sensory deficits. Follows commands in all 4 extremities. Assessment and Plan - Problem List (1) Airway compromise Code(s): J98.8 - Other specified respiratory disorders Status: Acute - Assessment and Plan Plan: Plan by systems: Neurologic: Neuro checks per ICU protocol Continue propofol and fentanyl infusions discontinued in anticipation of SBT at this time Daily sedation vacation Currently GCS 11 T Respiratory: Mechanical ventilation Asthma Tobacco use disorder Probable vocal cord edema Maintain O2 sat greater than 92% Undergoing CPAP trials currently greater than 6 hours plan for spontaneous breathing trial and obtain parameters Duo nebs every 4 hours as needed Decadron 4 mg every 6 hours for 24 hours complete Plan to relocation counselor on smoking cessation post extubation 1440-SBT parameters RSBI 52,NIF -58, RR 22, O2 sat 98%, TV 350-380, positive cuff leak- Plan to extubate Cardiovascular: Hypertension Hydralazine , labetalol for systolic blood pressure greater than 160mmHG Renal: Chronic kidney diseasehemodialysis dependent Nephrology consulted-patient scheduled Monday. Hemodialysis 05/27-3 L removed -- Strict I/Os FEN/GI: H/O nausea and vomiting Abdominal distention Esophagitis duodenitis Status post EGD 05/26-with removal of large bezoar Gastric outlet obstruction Insert OGT, placed to low intermittent suction Maintain n.p.o. status Protonix GI prophylaxis Gastroenterology followingfollow-up recommendations Zofran for nausea Per gastroenterology patient will require upper GI series with small bowel follow-through in the near future secondary to concern for obstruction of small bowel Heme/ID: Anemia of chronic disease Transfuse for hemoglobin less than 7 Monitor CBC No clinical indication for cultures at this time Endocrine: Diabetes mellitus Glucose monitoring per ICU protocol -- SSI Prophylaxis: GI Prophylaxis DVT Prophylaxis -- SCDs Lines: Peripheral IVs. Central line if indicated Dispo: Level 2 follow-up Code Status: Full Discussed Condition With: Patient and [employer] at bedside
--- NOTE | 2018-05-27 14:45 | MB ---
cc: Kenneth Hendrickson MD DATE: 05/27/2018 REASON FOR CONSULTATION: End-stage renal disease management. HISTORY OF PRESENT ILLNESS: This is a 53-year-old female with history of end-stage renal disease, followed up as an outpatient with Dr. Maldonado. Her normal dialysis days are Tuesdays, , and Saturdays. The patient apparently had a full dialysis treatment on . She came to the hospital and was admitted on the with complaints of nausea and vomiting. She was seen with GI and was found to eventually have findings of a giant bezoar in the abdomen. She had an endoscopy yesterday and it appeared that she had swallowed some piece of string or yarn. It was an extensive 2-hour procedure to remove the bezoar. Subsequently the patient was unable to be extubated per anesthesia and she was transferred to the ICU. Dialysis was initiated this morning. The patient is awake and alert and is on CPAP right now, and dialysis being performed to help assist with ultrafiltration and extubation. REVIEW OF SYSTEMS: Unobtainable as the patient is intubated. PAST MEDICAL HISTORY: Includes AV access, asthma, diabetes, GERD, hypertension, ESRD, followed up with Dr. Maldonado. PAST SURGICAL HISTORY: Cholecystectomy. SOCIAL HISTORY: Current smoker. Alcohol: None. Drug use: No noted drug use. ALLERGIES: INCLUDE NAPROXEN, SULFA, SULFAMETHOXAZOLE, TRIMETHOPRIM, EGG, PENICILLIN, AND TAPE. MEDICATIONS AT HOME: Included: 1. Aspirin. 2. Atorvastatin. 3. PhosLo. 4. Coreg. 5. Hydralazine. 6. Insulin. 7. Lisinopril. 8. Reglan. 9. Nifedipine. 10. Protonix. 11. Paricalcitol. PHYSICAL EXAMINATION: VITAL SIGNS: At time of evaluation temperature 98.6, pulse 89, respiratory rate 14, blood pressure 186/87. GENERAL: Awake, intubated. NECK: Soft, supple. CARDIAC: Regular rate and rhythm. PULMONARY: Decreased breath sounds at the bases. ABDOMEN: Soft, nontender, nondistended. EXTREMITIES: No edema. LABORATORY DATA: Sodium 135, potassium 5.4, chloride 101, bicarbonate 21, BUN 41, creatinine 6.89, glucose of 162. White count 7.8, hemoglobin 11.5, hematocrit 34.7, with a platelet count of 249. ASSESSMENT AND PLAN: 1. End-stage renal disease. The patient is normally on a Monday, , Monday dialysis schedule. She did not have dialysis yesterday. We were consulted for dialysis management. At this point, she is undergoing dialysis and doing ultrafiltration as tolerated. Given holiday schedule we will do dialysis again tomorrow and then plan for next dialysis on Monday. Volume status and electrolytes are otherwise stable. Continue to monitor. 2. Bezoar. Followup with GI service. Extensive procedure for removal of an apparent piece of string or yarn. Continue to followup with GI. 3. Respiratory failure. The patient remained intubated post-procedure yesterday. They were unable to extubate her. Do UF as tolerated and continue to monitor. Followup with the critical care. 4. Hypertension. Continue with blood pressure medications and ultrafiltration with dialysis. MD MARYA MartinezP/rhianna/mitra , 11:04 AM , 11:18 AM
[2018-05-27] MEDS: Morphine Sulfate Inj 2 MG/ML Vial IV.PUSH PRN (17:14)
[2018-05-28] MEDS: Insulin NovoLIN Regular Correctional Sugar Inj SQ SCH ×4 (00:16→13:21)
[2018-05-28] MEDS: Oral Hygiene Kit OROPHARYNG SCH ×3 (00:18→13:21)
[2018-05-28] MEDS: Chlorhexidine Gluconate 2% 1 Pack (2 Cloths) TOPICAL SCH (04:32)
[2018-05-28 07:24] LABS: Magnesium 2.1 mg/dL (1.5-2.5); Phosphorus 4.7 mg/dL (2.5-4.9); Potassium 4.3 meq/L (3.5-5.1)
--- NOTE | 2018-05-28 09:26 | P.PNGI ---
Subjective Interval history: Pt is lying in bed comfortably, extubated yesterday. Denies abd pain. Receiving hemodialysis. Wants to go home <Wade Manning - Last Filed: 05/28/18 09:21> Physical Exam Vital signs: Vital Signs 05/27/18 09:50 05/27/18 10:00 05/27/18 10:15 Temperature Pulse Rate 87 88 92 H Respiratory Rate 8 L 8 L 9 L Blood Pressure 128/72 126/72 115/67 Pulse Oximetry 100 100 100 05/27/18 10:30 05/27/18 10:45 05/27/18 10:59 Temperature Pulse Rate 93 H 93 H Respiratory Rate 11 L 10 L 11 L Blood Pressure 108/69 93/61 L Pulse Oximetry 100 100 100 05/27/18 11:00 05/27/18 11:01 05/27/18 11:15 Temperature Pulse Rate 98 H 97 H 91 H Respiratory Rate 11 L 9 L 6 L Blood Pressure 83/56 L 100/64 Pulse Oximetry 100 100 100 05/27/18 11:21 05/27/18 12:00 05/27/18 13:00 Temperature 97.9 F Pulse Rate 91 H 92 H 98 H Respiratory Rate 5 L 13 11 L Blood Pressure 103/65 97/60 L 104/62 Pulse Oximetry 100 100 100 05/27/18 14:00 05/27/18 15:00 05/27/18 15:02 Temperature Pulse Rate 98 H 98 H 96 H Respiratory Rate 16 22 20 Blood Pressure 138/73 102/55 L Pulse Oximetry 100 99 98 05/27/18 16:00 05/27/18 18:00 05/27/18 19:39 Temperature 97.9 F Pulse Rate 87 91 H Respiratory Rate 17 Blood Pressure 105/58 L Pulse Oximetry 100 100 97 05/27/18 20:00 05/27/18 22:00 05/28/18 00:00 Temperature 97.6 F 97.9 F Pulse Rate 98 H 106 H 81 Respiratory Rate 20 16 Blood Pressure 118/68 108/55 L Pulse Oximetry 99 95 05/28/18 02:00 05/28/18 04:00 05/28/18 06:00 Temperature 98.2 F Pulse Rate 76 75 75 Respiratory Rate 18 Blood Pressure 93/49 L Pulse Oximetry 99 05/28/18 08:36 Temperature Pulse Rate Respiratory Rate Blood Pressure Pulse Oximetry 99 Intake & Output 05/27/18 05/28/18 05/28/18 18:59 06:59 18:59 Intake Total 500 / 500 350 / 350 100 / 100 Output Total 3400 / 3400 Balance -2900 / -2900 350 / 350 100 / 100 Intake: IV 500 / 500 300 / 300 100 / 100 Diprivan 1000 mg/100 ml Inj 1, 100 / 100 000 mg In 100 ml @ 5 MCG/KG/MIN 3.318 mls/hr IV.CONT TITRATE PRN Rx#:[id number] Flexbumin 25% Inj 100 ML @ 60 100 / 100 mls/hr IV.SIG WITH DIALYSIS PRN Rx#:[id number] Cipro 400 MG/200 ML Inj 400 mg 200 / 200 200 / 200 In 200 ml @ 200 mls/hr IV.SIG Q12H TOO Rx#:[id number] Flagyl 500 MG Inj 100 ML @ 100 200 / 200 100 / 100 mls/hr IV.SIG Q8H TOO Rx#: [id number] Oral 50 / 50 Output: Urine 400 / 400 Hemodialysis Amount 3000 / 3000 Other: # Voids 1 Date of Last Bowel Movement 05/27/18 05/27/18 # Bowel Movements 4 1 Narrative: GENERAL: We will nourished, well-developed AA female in no acute distress. SKIN: Warm and dry. Dry Milka skin. HEAD: Atraumatic. Normocephalic. CARDIOVASCULAR: Regular rate and rhythm. RESPIRATORY:CTA GASTROINTESTINAL: Abdomen soft/obese, umbilical tenderness, nondistended. + Bowel sounds MUSCULOSKELETAL: Extremities without clubbing, cyanosis, or edema. No obvious deformities. NEUROLOGICAL: Awake, and alert <Wade Manning - Last Filed: 05/28/18 09:21> Vital signs: Vital Signs 05/27/18 13:00 05/27/18 14:00 05/27/18 15:00 Temperature Pulse Rate 98 H 98 H 98 H Respiratory Rate 11 L 16 22 Blood Pressure 104/62 138/73 Pulse Oximetry 100 100 99 05/27/18 15:02 05/27/18 16:00 05/27/18 18:00 Temperature 97.9 F Pulse Rate 96 H 87 91 H Respiratory Rate 20 17 Blood Pressure 102/55 L 105/58 L Pulse Oximetry 98 100 100 05/27/18 19:39 05/27/18 20:00 05/27/18 22:00 Temperature 97.6 F Pulse Rate 98 H 106 H Respiratory Rate 20 Blood Pressure 118/68 Pulse Oximetry 97 99 05/28/18 00:00 05/28/18 02:00 05/28/18 04:00 Temperature 97.9 F 98.2 F Pulse Rate 81 76 75 Respiratory Rate 16 18 Blood Pressure 108/55 L 93/49 L Pulse Oximetry 95 99 05/28/18 06:00 05/28/18 08:36 Temperature Pulse Rate 75 Respiratory Rate Blood Pressure Pulse Oximetry 99 Intake & Output 05/27/18 05/28/18 05/28/18 18:59 06:59 18:59 Intake Total 500 / 500 350 / 350 100 / 100 Output Total 3400 / 3400 1999 Balance -2900 / -2900 350 / 350 -1900 / -1900 Intake: IV 500 / 500 300 / 300 100 / 100 Diprivan 1000 mg/100 ml Inj 1, 100 / 100 000 mg In 100 ml @ 5 MCG/KG/MIN 3.318 mls/hr IV.CONT TITRATE PRN Rx#:[id number] Flexbumin 25% Inj 100 ML @ 60 100 / 100 mls/hr IV.SIG WITH DIALYSIS PRN Rx#:[id number] Cipro 400 MG/200 ML Inj 400 mg 200 / 200 200 / 200 In 200 ml @ 200 mls/hr IV.SIG Q12H TOO Rx#:[id number] Flagyl 500 MG Inj 100 ML @ 100 200 / 200 100 / 100 mls/hr IV.SIG Q8H TOO Rx#: [id number] Oral 50 / 50 Output: Urine 400 / 400 Hemodialysis Amount 3000 / 3000 1999 Other: # Voids 1 Date of Last Bowel Movement 05/27/18 05/27/18 # Bowel Movements 4 1 <Ayan Helms - Last Filed: 05/28/18 12:21> Results - Labs CBC & Chem 7: 05/27/18 07:40 05/28/18 06:41 Laboratory Results - last 24 hr 05/27/18 05/27/18 05/27/18 11:44 17:23 23:42 Sodium Potassium Chloride Carbon Dioxide Anion Gap BUN Creatinine Estimated GFR POC Glucose 136 H 143 H 145 H Random Glucose Calcium Phosphorus Magnesium 05/28/18 05/28/18 06:40 06:41 Sodium 135 L Potassium 4.3 D Chloride 100 Carbon Dioxide 23.0 Anion Gap 12 BUN 36 H Creatinine 6.40 H Estimated GFR 8 L POC Glucose 115 H Random Glucose 123 H Calcium 9.0 Phosphorus 4.7 Magnesium 2.1 <Wade Manning - Last Filed: 05/28/18 09:21> - Labs CBC & Chem 7: 05/27/18 07:40 05/28/18 06:41 Laboratory Results - last 24 hr 05/27/18 05/27/18 05/28/18 17:23 23:42 06:40 Sodium Potassium Chloride Carbon Dioxide Anion Gap BUN Creatinine Estimated GFR POC Glucose 143 H 145 H 115 H Random Glucose Calcium Phosphorus Magnesium 05/28/18 06:41 Sodium 135 L Potassium 4.3 D Chloride 100 Carbon Dioxide 23.0 Anion Gap 12 BUN 36 H Creatinine 6.40 H Estimated GFR 8 L POC Glucose Random Glucose 123 H Calcium 9.0 Phosphorus 4.7 Magnesium 2.1 <Ayan Helms - Last Filed: 05/28/18 12:21> Assessment and Plan (1) Jejunitis Status: Acute Code(s): K52.9 - Noninfective gastroenteritis and colitis, unspecified (2) Gastric outlet obstruction Status: Acute Code(s): K31.1 - Adult hypertrophic pyloric stenosis (3) Intractable nausea and vomiting Status: Acute Code(s): R11.2 - Nausea with vomiting, unspecified - Plan Patient is a pleasant 53-year-old female with past medical history significant for end-stage renal disease, GERD, diabetes, hypertension and hyperlipidemia. Patient also has history of recent pancreatitis. Patient presented to the emergency room at [facility] on 05/23/2018 for abdominal pain with nausea and vomiting. CT at that time revealed jejunitis and possible gastric outlet obstruction. Patient was medicated with antiemetics and was discharged home. Patient now returns with similar symptoms. She denies fever or chills. Denies diarrhea or any change in bowel habits. NG tube offered in emergency room and declined by patient. Patient reports last EGD was done over 20 years ago. She states to the best of her recollection there were no abnormal findings. Patient denies ever having had a colonoscopy in the past. Patient denies any noted bleeding. She denies any known family history of gastrointestinal disorders. Denies NSAID use. Denies use of alcohol products but does endorse smoking tobacco cigarettes 1 pack/day. Our service has been consulted to evaluate patient for gastric outlet obstruction. Intractable nausea vomiting Possible gastric outlet obstruction Jejunitis Patient endorses 2-day history of nausea vomiting with epigastric pain. She reports symptoms started after eating chicken at [employer] chicken restaurant 2 days ago. Patient denies diarrhea or fever and chills. 05/23/2018 CT abdomen and pelvis reveal the following: Apparent thickening of the wall of the jejunum suggesting jejunitis. Clinical correlation is recommended. Distended debris filled stomach raising the possibility of gastric outlet obstruction. Clinical correlation is recommended. Mild hepatosplenomegaly. Enlarged fibroid uterus. Tiny pericardial effusion. Mild degenerative changes and scoliosis of the thoracolumbar spine -WBC 8.5 hemoglobin 12.2 hematocrit 35.9 platelet count 283 -BUN 24 creatinine 5.24 total bili 0.4 AST 14 ALT 15 alk phos 80 lipase 313- ( 524 on 05/23/2018) 05/27/18 S/P EGD on 05/26/18 showed Giant bezoar, It appeared to be made of string or yarn. It filled the entire lumen of the stomach. The bezoar appeared to extend all the way into the duodenum and passed the limitation of the endoscope into the fourth portion. 05/28/18 Pt was extubated, alert and oriented, denies abd pain, wants to go home EGD as above, bx pending Plan - Ok to start clear liquid diet if ok with CCM -SBFT ordered but not done yet -Monitor labs - Pt was advised to stop eating yarn -PPI -Antiemetics as per attending -Supportive care -Further recommendations to follow This patient has been seen by myself and Dr. Helms and this note is written on his behalf <Wade Manning - Last Filed: 05/28/18 09:21> (1) Jejunitis Status: Acute Code(s): K52.9 - Noninfective gastroenteritis and colitis, unspecified (2) Gastric outlet obstruction Status: Acute Code(s): K31.1 - Adult hypertrophic pyloric stenosis (3) Intractable nausea and vomiting Status: Acute Code(s): R11.2 - Nausea with vomiting, unspecified - Attending Attestation The patient is seen and examined. She is stable today. She needs to undergo small bowel series to make sure that none of the thread or string removed from the bezoar at the time of endoscopy has migrated into the small bowel. Once the small bowel series is completed and it is clear she will be ready for discharge from a gastroenterology perspective. I agree with the assessment and plan as noted above. <Ayan Helms - Last Filed: 05/28/18 12:21>
--- NOTE | 2018-05-28 10:19 | P.DIET ---
Nutritional Evaluation Type of nutrition evaluation: initial Screening comments: 05/28 NPO alert x3 days Objective - Diagnosis intractable vomiting, possible gastric outlet obstruction - Objective Diet Order: NPO Objective Comments: PMH: DM, GERD, HD, HTN Meds: novolin, flagyl Labs: BUN 36, Cr 6.4, estGFR 8, POC glucose 136 145 115 LBM 05/27 05/26 s/p EGD w/ removal of large bezoar Assessment Assessment: NPO alert x3 days received 05/28. Pt currently on CPAP trials, had HD yesterday 05/18. Pt will remain NPO per MD, will continue to monitor NPO status. Consult RD for nutritional recommendations as needed. Recommendations: Consult RD for nutritional recommendations as needed Dietitian to Monitor: Lab values, Intake & Output, Weight change, Diet advancement, Medical course Comments: NPO status
[2018-05-28] MEDS: Senna/Docusate Sodium 8.6/50 MG Tablet PO SCH (11:58)
[2018-05-28] MEDS: Pantoprazole Inj 40 MG Vial IV.PUSH SCH (11:59)
[2018-05-28] MEDS: Chlorhexidine 0.12% Oral Kit 15 ML UDC OROPHARYNG SCH (11:59)
--- NOTE | 2018-05-28 12:04 | P.PNCC ---
Subjective Subjective Remarks/Hospital Course: 05/27: Afebrile. No acute events overnight. Patient interacting nodding head to yes and no questions appropriately . Patient was placed on CPAP trials at 6: 30 AM. The patient underwent hemodialysis with removal of 3 L of fluid. The patient is currently undergoing spontaneous breathing trials with parameters with tentative plan for extubation, if criteria is met. 05/28: No acute events overnight. Patient was successfully extubated yesterday afternoon without any issues. The patient remains n.p.o. we will follow up recommendations from GI regarding scheduling of small bowel follow-through. The patient denies pain. Objective Vital Signs / I&O: Vital Signs 05/27/18 13:00 05/27/18 14:00 05/27/18 15:00 Temperature Pulse Rate 98 H 98 H 98 H Respiratory Rate 11 L 16 22 Blood Pressure 104/62 138/73 Pulse Oximetry 100 100 99 05/27/18 15:02 05/27/18 16:00 05/27/18 18:00 Temperature 97.9 F Pulse Rate 96 H 87 91 H Respiratory Rate 20 17 Blood Pressure 102/55 L 105/58 L Pulse Oximetry 98 100 100 05/27/18 19:39 05/27/18 20:00 05/27/18 22:00 Temperature 97.6 F Pulse Rate 98 H 106 H Respiratory Rate 20 Blood Pressure 118/68 Pulse Oximetry 97 99 05/28/18 00:00 05/28/18 02:00 05/28/18 04:00 Temperature 97.9 F 98.2 F Pulse Rate 81 76 75 Respiratory Rate 16 18 Blood Pressure 108/55 L 93/49 L Pulse Oximetry 95 99 05/28/18 06:00 05/28/18 08:36 Temperature Pulse Rate 75 Respiratory Rate Blood Pressure Pulse Oximetry 99 Intake & Output 05/27/18 05/28/18 05/28/18 18:59 06:59 18:59 Intake Total 500 / 500 350 / 350 100 / 100 Output Total 3400 / 3400 1999 / 1999 Balance -2900 / -2900 350 / 350 -1900 / -1900 Intake: IV 500 / 500 300 / 300 100 / 100 Diprivan 1000 mg/100 ml Inj 1, 100 / 100 000 mg In 100 ml @ 5 MCG/KG/MIN 3.318 mls/hr IV.CONT TITRATE PRN Rx#:[id number] Flexbumin 25% Inj 100 ML @ 60 100 / 100 mls/hr IV.SIG WITH DIALYSIS PRN Rx#:[id number] Cipro 400 MG/200 ML Inj 400 mg 200 / 200 200 / 200 In 200 ml @ 200 mls/hr IV.SIG Q12H TOO Rx#:[id number] Flagyl 500 MG Inj 100 ML @ 100 200 / 200 100 / 100 mls/hr IV.SIG Q8H TOO Rx#: [id number] Oral 50 / 50 Output: Urine 400 / 400 Hemodialysis Amount 3000 / 3000 1999 / 1999 Other: # Voids 1 Date of Last Bowel Movement 05/27/18 05/27/18 # Bowel Movements 4 1 Result Diagrams: 05/27/18 07:40 05/28/18 06:41 Other Results: Laboratory Results WBC 7.8 th/mm3 (4.0-11.0) 05/27/18 07:40 RBC 3.52 mil/mm3 (4.00-5.30) L 05/27/18 07:40 Hgb 11.5 gm/dL (11.6-15.3) L 05/27/18 07:40 Hct 34.7 % (35.0-46.0) L 05/27/18 07:40 MCV 98.6 fL (80.0-100.0) 05/27/18 07:40 MCH 32.6 pg (27.0-34.0) 05/27/18 07:40 MCHC 33.1 % (32.0-36.0) 05/27/18 07:40 RDW 14.4 % (11.6-17.2) 05/27/18 07:40 Plt Count 249 th/mm3 (150-450) 05/27/18 07:40 MPV 9.0 fL (7.0-11.0) 05/27/18 07:40 Neut % (Auto) 93.5 % (16.0-70.0) H 05/27/18 07:40 Lymph % (Auto) 4.1 % (9.0-44.0) L 05/27/18 07:40 Swift % (Auto) 2.0 % (0.0-8.0) 05/27/18 07:40 Eos % (Auto) 0.1 % (0.0-4.0) 05/27/18 07:40 Baso % (Auto) 0.3 % (0.0-2.0) 05/27/18 07:40 Neut # (Auto) 7.3 th/mm3 (1.8-7.7) 05/27/18 07:40 Lymph # (Auto) 0.3 th/mm3 (1.0-4.8) L 05/27/18 07:40 Swift # (Auto) 0.2 th/mm3 (0.0-0.9) 05/27/18 07:40 Eos # (Auto) 0.0 th/mm3 (0.0-0.4) 05/27/18 07:40 Baso # (Auto) 0.0 th/mm3 (0.0-0.2) 05/27/18 07:40 WBC Differential . 05/27/18 07:40 Differential Comment Auto diff final 05/27/18 07:40 Sodium 135 meq/L (136-145) L 05/28/18 06:41 Potassium 4.3 meq/L (3.5-5.1) D 05/28/18 06:41 Chloride 100 meq/L (98-107) 05/28/18 06:41 Carbon Dioxide 23.0 meq/L (21.0-32.0) 05/28/18 06:41 Anion Gap 12 meq/L (5-15) 05/28/18 06:41 BUN 36 mg/dL (7-18) H 05/28/18 06:41 Creatinine 6.40 mg/dL (0.50-1.00) H 05/28/18 06:41 Estimated GFR 8 mL/min (>89) L 05/28/18 06:41 POC Glucose 115 mg/dl (68-110) H 05/28/18 06:40 Random Glucose 123 mg/dL (74-106) H 05/28/18 06:41 Calcium 9.0 mg/dL (8.5-10.1) 05/28/18 06:41 Phosphorus 4.7 mg/dL (2.5-4.9) 05/28/18 06:41 Magnesium 2.1 mg/dL (1.5-2.5) 05/28/18 06:41 Total Bilirubin 0.3 mg/dL (0.2-1.0) 05/26/18 06:31 AST 11 U/L (15-37) L 05/26/18 06:31 ALT 12 U/L (10-53) 05/26/18 06:31 Alkaline Phosphatase 75 U/L (45-117) 05/26/18 06:31 Total Protein 8.7 g/dL (6.4-8.2) H D 05/26/18 06:31 Albumin 3.5 g/dL (3.4-5.0) 05/26/18 06:31 Lipase 313 U/L (73-393) 05/24/18 21:50 Nasal Screen MRSA (PCR) Not detected (Negative) 05/26/18 17:33 Impressions Abdomen X-Ray 05/26/18 17:42 CONCLUSION: 1. Nasogastric tube has its tip in the distal stomach. 2. Nonspecific bowel gas pattern. Chest X-Ray 05/27/18 04:00 CONCLUSION: ET tube in good position. Objective Remarks: GENERAL: This is a well-developed well-nourished -[place] female patient looking older than stated age, sitting in chair alert and oriented SKIN: Warm and dry. HEAD: Atraumatic. Normocephalic. EYES: Pupils equal and round. No scleral icterus. No injection or drainage. ENT: No nasal bleeding or discharge. Mucous membranes pink and moist. NECK: Trachea midline. No JVD. CARDIOVASCULAR: Normal rate, regular rhythm. RESPIRATORY: No accessory muscle use. Clear to auscultation. Breath sounds equal bilaterally. On nasal cannula GASTROINTESTINAL: Abdomen soft, obese non-tender, nondistended. No guarding. MUSCULOSKELETAL: Extremities without clubbing, cyanosis, or edema. No obvious deformities. AV fistula left upper extremity NEUROLOGICAL: GCS 15 awake and alert. RASS 0. No gross focal/sensory deficits. Follows commands in all 4 extremities. Assessment and Plan - Problem List (1) Airway compromise Code(s): J98.8 - Other specified respiratory disorders Status: Acute - Assessment and Plan Plan: Plan by systems: Neurologic: Neuro checks per ICU protocol GCS 15 Respiratory: Mechanical ventilation Asthma Tobacco use disorder Probable vocal cord edema Maintain O2 sat greater than 92% Undergoing CPAP trials currently greater than 6 hours plan for spontaneous breathing trial and obtain parameters Duo nebs every 4 hours as needed Decadron 4 mg every 6 hours for 24 hours complete Plan to child guidance counselor on smoking cessation post extubation Extubated 05/27 Cardiovascular: Hypertension Hydralazine , labetalol for systolic blood pressure greater than 160mmHG Renal: Chronic kidney diseasehemodialysis dependent Nephrology consulted-patient scheduled Monday. Hemodialysis 05/27-3 L removed -- Strict I/Os FEN/GI: H/O nausea and vomiting Abdominal distention Esophagitis duodenitis Status post EGD 05/26-with removal of large bezoar Gastric outlet obstruction Maintain n.p.o. status Protonix GI prophylaxis Gastroenterology followingfollow-up recommendations Zofran for nausea Per gastroenterology patient will require upper GI series with small bowel follow-through in the near future secondary to concern for obstruction of small bowel Heme/ID: Anemia of chronic disease Transfuse for hemoglobin less than 7 Monitor CBC No clinical indication for cultures at this time Endocrine: Diabetes mellitus Glucose monitoring per ICU protocol -- SSI Prophylaxis: GI Prophylaxis DVT Prophylaxis -- SCDs Lines: Peripheral IVs. Central line if indicated Dispo: Level 2 follow-up. Plan transfer to [facility] in a.m. Code Status: Full Discussed Condition With: [employer] OPERATOR at bedside.
[2018-05-28] MEDS: Ciprofloxacin 400 MG/200 ML 400 MG/200 ML PIGGYBACK IV.SIG SCH (13:20)
[2018-05-28 15:10] VITALS: BP 88/51; RESP 20; TEMP 98.4; O2SAT 98
[2018-05-28 16:05] VITALS: PULSE 82
--- NOTE | 2018-05-28 16:51 | P.PNNP ---
Subjective Interval history: Patient seen in AM, alert, and not in distress. Physical Exam Vital signs: Vital Signs 05/27/18 18:00 05/27/18 19:39 05/27/18 20:00 Temperature 97.6 F Pulse Rate 91 H 98 H Respiratory Rate 20 Blood Pressure 118/68 Pulse Oximetry 100 97 99 05/27/18 22:00 05/28/18 00:00 05/28/18 02:00 Temperature 97.9 F Pulse Rate 106 H 81 76 Respiratory Rate 16 Blood Pressure 108/55 L Pulse Oximetry 95 05/28/18 04:00 05/28/18 06:00 05/28/18 08:00 Temperature 98.2 F 98.3 F Pulse Rate 75 75 76 Respiratory Rate 18 19 Blood Pressure 93/49 L 104/57 L Pulse Oximetry 99 98 05/28/18 08:36 05/28/18 10:00 05/28/18 12:00 Temperature 98.4 F Pulse Rate 89 80 Respiratory Rate 20 Blood Pressure 88/51 L Pulse Oximetry 99 98 05/28/18 14:00 05/28/18 16:00 Temperature Pulse Rate 73 82 Respiratory Rate Blood Pressure Pulse Oximetry Intake & Output 05/27/18 05/28/18 05/28/18 18:59 06:59 18:59 Intake Total 500 / 500 350 / 350 100 / 100 Output Total 3400 / 3400 1999 Balance -2900 / -2900 350 / 350 -1900 / -1900 Intake: IV 500 / 500 300 / 300 100 / 100 Diprivan 1000 mg/100 ml Inj 1, 100 / 100 000 mg In 100 ml @ 5 MCG/KG/MIN 3.318 mls/hr IV.CONT TITRATE PRN Rx#:[id number] Flexbumin 25% Inj 100 ML @ 60 100 / 100 mls/hr IV.SIG WITH DIALYSIS PRN Rx#:[id number] Cipro 400 MG/200 ML Inj 400 mg 200 / 200 200 / 200 In 200 ml @ 200 mls/hr IV.SIG Q12H TOO Rx#:[id number] Flagyl 500 MG Inj 100 ML @ 100 200 / 200 100 / 100 mls/hr IV.SIG Q8H TOO Rx#: [id number] Oral 50 / 50 Output: Urine 400 / 400 Hemodialysis Amount 3000 / 3000 1999 Other: # Voids 1 Date of Last Bowel Movement 05/27/18 05/27/18 05/27/18 # Bowel Movements 4 1 Narrative: GENERAL: We will nourished, well-developed AA female in no acute distress. SKIN: Warm and dry. Dry Milka skin. HEAD: Atraumatic. Normocephalic. CARDIOVASCULAR: Regular rate and rhythm. RESPIRATORY:CTA GASTROINTESTINAL: Abdomen soft/obese, umbilical tenderness, nondistended. + Bowel sounds MUSCULOSKELETAL: Extremities without clubbing, cyanosis, or edema. No obvious deformities. NEUROLOGICAL: Awake, and alert Assessment and Plan - Assessment (1) ESRD (end stage renal disease) on dialysis Code(s): N18.6 - End stage renal disease; Z99.2 - Dependence on renal dialysis Status: Acute (2) Intractable nausea and vomiting Code(s): R11.2 - Nausea with vomiting, unspecified Status: Acute (3) Respiratory failure Code(s): J96.90 - Respiratory failure, unspecified, unspecified whether with hypoxia or hypercapnia Status: Acute (4) Diabetes mellitus Code(s): E11.9 - Type 2 diabetes mellitus without complications Status: Acute - Plan Patient with end stage renal disease , on HD. Now admitted with SOB. Patient was initially intubated and now successfully extubated. BP is stable, HD done yesterday, Will continue next HD on Mon.
== END 2018-05-28 17:45 | disposition left against medical advice (07) ==
LOC: NEDA 20:29 → NEPD 20:29 → N06 05-25 02:28 → HIMC 05-26 17:30
PROVIDERS: ADMIT Anesthesiology; ATTEND Anesthesiology
PROC: PANENDO (2018-05-26 13:10)
DX: K31.5 Obstruction of duodenum; Z88.2 Allergy status to sulfonamides; M41.9 Scoliosis, unspecified; T18.2XXA Foreign body in stomach, initial encounter; I12.0 Hypertensive chronic kidney disease with stage 5 chronic kidney disease or end stage renal disease; Z79.899 Other long term (current) drug therapy; Z79.82 Long term (current) use of aspirin; K29.70 Gastritis, unspecified, without bleeding; Z79.4 Long term (current) use of insulin; K59.00 Constipation, unspecified; Z88.6 Allergy status to analgesic agent; R16.2 Hepatomegaly with splenomegaly, not elsewhere classified; D63.8 Anemia in other chronic diseases classified elsewhere; K31.89 Other diseases of stomach and duodenum; R53.1 Weakness; Z91.012 Allergy to eggs; J96.90 Respiratory failure, unspecified, unspecified whether with hypoxia or hypercapnia; Z88.0 Allergy status to penicillin; Z90.49 Acquired absence of other specified parts of digestive tract; E78.5 Hyperlipidemia, unspecified; J45.909 Unspecified asthma, uncomplicated; K21.0 Gastro-esophageal reflux disease with esophagitis; E11.22 Type 2 diabetes mellitus with diabetic chronic kidney disease; F17.210 Nicotine dependence, cigarettes, uncomplicated; K52.9 Noninfective gastroenteritis and colitis, unspecified; N18.6 End stage renal disease; R11.2 Nausea with vomiting, unspecified; K29.80 Duodenitis without bleeding; R10.13 Epigastric pain; J38.4 Edema of larynx; D25.9 Leiomyoma of uterus, unspecified; Z99.2 Dependence on renal dialysis; R11.10 Vomiting, unspecified; Z88.8 Allergy status to other drugs, medicaments and biological substances